=== PATIENT | male | born 1950 | race Caucasian/White ===

== ENCOUNTER 2017-10-27 09:20 | Day surgery (SDC) | payer MEDICARE ==
[2017-10-24 13:17] VITALS: BMI 33.2
[~2017-10-27 09:20] MED LIST: DEXAMETHASONE SOD PHOSPHATE 10 MG/ML 1 ML VIAL IV ONE; DEXAMETHASONE SOD PHOSPHATE 4 MG/ML 1 ML VIAL IV ONE; FAMOTIDINE 20 MG/2 ML VIAL IV ONE; HYDROmorphone 0.5 MG/0.5 ML SYRINGE IVP PRN; LACTATED RINGERS 1,000 ML IV SCH; ONDANSETRON 4 MG/2 ML VIAL IVP ONE; ceFAZolin IN SWFI 2 GM/20 ML SYRINGE IVP ONE
[2017-10-27 10:43] LABS: Anion Gap 12 mmol/L; Blood Urea Nitrogen 15 mg/dL (9-20); Carbon Dioxide 21 mmol/L (22-30); Chloride 102 mmol/L (98-107); Glucose 87 mg/dL (74-99); Potassium 4.5 mmol/L (3.5-5.1); Sodium 135 mmol/L (137-145)
[2017-10-27 10:48] LABS: Calcium 8.4 mg/dL (8.4-10.2)
[2017-10-27] MEDS ORDERED: MIDAZOLAM 2 MG/2 ML VIAL ONE (11:37)
[2017-10-27] MEDS ORDERED: SUCCINYLCHOLINE CHLORIDE VIAL 200 MG/10 ML VIAL IV ONE (11:37)
[2017-10-27] MEDS ORDERED: ePHEDrine SULFATE/0.9% NACL/PF 50 MG/5 ML SYRINGE IV ONE (11:37)
[2017-10-27] MEDS ORDERED: PROPOFOL 10 MG/ML 20 ML VIAL IV ONE (11:37)
[2017-10-27] MEDS ORDERED: DEXAMETHASONE SOD PHOS (MDV) 100 MG/10 ML VIAL ONE (11:37)
[2017-10-27] MEDS ORDERED: PHENYLEPHRINE-0.9% NACL SYG 1 MG/10 ML SYRINGE ONE (11:37)
[2017-10-27] MEDS ORDERED: fentaNYL (PF) 50 MCG/ML 2 ML AMP ONE (11:37)
[2017-10-27] MEDS ORDERED: LIDOCAINE 1% INJ 10MG/ML (20 ML MDV) ONE (11:37)
[2017-10-27] MEDS ORDERED: LIDOCAINE 1%-EPI 1:100,000 20 ML VIAL SQ ONE (12:17)
[2017-10-27] MEDS ORDERED: LACTATED RINGERS 1,000 ML IV ONE (12:31)
--- NOTE | 2017-10-27 14:15 | P.OP ---
Date of Procedure: 10/27/17 Preoperative Diagnosis: Right parotid mass Postoperative Diagnosis: Same Procedure(s) Performed: Right parotidectomy with a nerve integrity monitor Anesthesia: DUYENA Surgeon: Kamran Poole ( Virgilio) Estimated Blood Loss (ml): 20 Pathology: other (right parotid) Condition: stable Disposition: PACU Indications for Procedure: This patient had a right parotid mass that underwent a fine-needle aspiration which came back as nondiagnostic. The repeat fine-needle aspiration was offered but the patient wished to proceed forward with surgical removal of this tumor. All risks, benefits, and alternative therapies were discussed. Risks of bleeding, infection, scar, nerve damage, facial paralysis, Mary Jane syndrome, need for secondary surgery etc. etc. were discussed. Consent was obtained and all questions were answered. Operative Findings: 2 masses of the right parotid that were removed without incident. Facial nerve function was excellent upon nerve stimulation.. Description of Procedure: This patient was taken to the operative room and placed in the supine position and a slight reverse Trendelenburg. The nerve integrity monitor was attached and we utilized the nerve integrity monitor throughout the entire case for verification of facial nerve positioning. The right parotid was the side of the surgery. The neck was sterilely prepped and draped in usual fashion. With use of a skin marker the incision was marked as a modified Eleazar incision. The subcutaneous tissue along the incision was injected with lidocaine 1% with epinephrine 1 100,000. Approximately 10 minutes were allowed wait for full vasoconstrictive effects to take place. An incision was made with a 15 blade in the usual fashion. Anterior and posterior skin flaps were developed. The anterior skin flap was sutured forward. We then continued our dissection and the parotid gland from the sternocleidomastoid muscle with care to keep the facial vein intact. The greater auricular nerve was identified and we attempted to maintain as many of the nerve fibers as possible during this dissection. We dissected down following the pointer cartilage to the main branch of the facial nerve and dissected all the branches. We utilized a NIM monitor and probe for this dissection and we continued to utilize this during the dissection for confirmation of the nerve integrity. After dissecting the branch of the facial nerve the tumor was identified and dissected free. We remove the tumor completely. Hemostasis was excellent. We irrigated with copious amount of irrigation. No bleeding was identified. We inserted gelfoam. We closed the parotid masseteric fascia with 4-0 Vicryl. We closed the deep subcutaneous tissue with 4-0 Vicryl and 4-0 Monocryl. We closed the skin with a 5-0 Prolene in a running nonlocking fashion. Steri-Strips and a compression dressing was placed. Patient was taken to postanesthesia recovery in excellent condition and the patient tolerated this well. Follow-up will be in the office in 1 week for recheck.
[2017-10-27 14:20] VITALS: TEMP 96.8
[2017-10-27 14:33] VITALS: RESP 18
[2017-10-27 15:35] VITALS: BP 159/85; PULSE 82
== END 2017-10-27 15:49 | disposition home or self-care (01) ==
LOC: OR 09:20
PROVIDERS: ATTEND Otolaryngology
DX: D11.0 Benign neoplasm of parotid gland (principal); E78.00 Pure hypercholesterolemia, unspecified; I10 Essential (primary) hypertension; F17.200 Nicotine dependence, unspecified, uncomplicated; Z79.2 Long term (current) use of antibiotics; Z79.899 Other long term (current) drug therapy
CPT/HCPCS: 80048; 88307; 42420; C1762; J2250; J0330; J1100 ×2; J2405; J2001; J3010; J2370; J2704; J0690

== ENCOUNTER 2021-03-27 05:57 | Day surgery (SDC) | payer MEDICARE ==
[2021-03-25 11:14] VITALS: BMI 35.9
[~2021-03-27 05:57] MED LIST changes: +ALPRAZolam 0.25 MG TAB PO PRN; +ALPRAZolam 0.5 MG TAB PO PRN; -DEXAMETHASONE SOD PHOSPHATE 10 MG/ML 1 ML VIAL IV ONE; -DEXAMETHASONE SOD PHOSPHATE 4 MG/ML 1 ML VIAL IV ONE; -FAMOTIDINE 20 MG/2 ML VIAL IV ONE; -HYDROmorphone 0.5 MG/0.5 ML SYRINGE IVP PRN; -LACTATED RINGERS 1,000 ML IV SCH; +NITROGLYCERIN SL TABS 0.4 MG TAB SUBLINGUAL PRN; -ONDANSETRON 4 MG/2 ML VIAL IVP ONE; +SODIUM CHLORIDE 0.9% 1,000 ML in EMPTY BAG 1 BAG IV SCH; -ceFAZolin IN SWFI 2 GM/20 ML SYRINGE IVP ONE
[2021-03-27] MEDS ORDERED: SODIUM CHLORIDE 0.9% 1,000 ML IV ONE (06:06)
[2021-03-27 06:33] VITALS: TEMP 98.1
[2021-03-27] MEDS ORDERED: ASPIRIN 325 MG TAB PO ONE (07:00)
[2021-03-27] MEDS ORDERED: ATORVASTATIN 80 MG TAB PO ONE (07:00)
[2021-03-27] MEDS ORDERED: MIDAZOLAM 2 MG/2 ML VIAL IV ONE ×2 (07:35→07:46)
[2021-03-27] MEDS ORDERED: LIDOCAINE 1% INJ 10MG/ML (20 ML MDV) SQ ONE (07:38)
[2021-03-27] MEDS ORDERED: VERAPAMIL SYRINGE (5 MG/10 ML) INTRAARTER ONE (07:39)
[2021-03-27] MEDS ORDERED: IOPAMIDOL-370 125ML BTL INJ ONE (07:50)
[2021-03-27] MEDS ORDERED: RX INFO: IV CONTRAST WAS GIVEN 1 EACH MISC MISCELLANE PRN (07:57)
[2021-03-27] MEDS ORDERED: SODIUM CHLORIDE 0.9% 1,000 ML IV SCH (08:00)
--- NOTE | 2021-03-27 08:58 | XR ---
EXAMINATION TYPE: XR chest 1V portable DATE OF EXAM: 03/27/2021 COMPARISON: NONE HISTORY: Preop TECHNIQUE: Single frontal view of the chest is obtained. FINDINGS: Heart is enlarged and there is diffuse hyperinflation. No pleural effusion or pneumothorax . Subsegmental basilar consolidation. IMPRESSION: Cardiomegaly. Question a hiatal hernia. Correlate for COPD
[2021-03-27 09:14] LABS: Anisocytosis Slight; Basophils # (A) 0.1 k/uL (0-0.2); Basophils % (A) 1 %; Eosinophils # (A) 0.1 k/uL (0-0.7); Eosinophils % (A) 2 %; HCT 30.4 % (39.0-53.0); HGB 9.1 gm/dL (13.0-17.5); Hypochromasia Marked; Lymphocytes # (A) 0.8 k/uL (1.0-4.8); Lymphocytes % (A) 13 %; MCH 23.2 pg (25.0-35.0); MCHC 29.9 g/dL (31.0-37.0); MCV 77.5 fL (80.0-100.0); Mean Platelet Volume 7.8; Microcytosis Slight; Monocytes # (A) 0.5 k/uL (0-1.0); Monocytes % (A) 8 %; Neutrophils # (A) 4.5 k/uL (1.3-7.7); Neutrophils % (A) 72 %; Platelet Count 344 k/uL (150-450); Poikilocytosis Slight; RBC 3.92 m/uL (4.30-5.90); RDW 16.4 % (11.5-15.5); WBC 6.2 k/uL (3.8-10.6)
[2021-03-27 09:20] LABS: ALT 15 U/L (4-49); AST 21 U/L (17-59); African American GFR (CKD) >90 (>60 ml/min/1.73 sqM); Albumin 3.6 g/dL (3.5-5.0); Alkaline Phosphatase 85 U/L (38-126); Anion Gap 6 mmol/L; Blood Urea Nitrogen 16 mg/dL (9-20); Calcium 9.1 mg/dL (8.4-10.2); Carbon Dioxide 25 mmol/L (22-30); Chloride 103 mmol/L (98-107); Glucose 105 mg/dL (74-99); Non-African American GFR(CKD) >90 (>60 ml/min/1.73 sqM); Potassium 4.5 mmol/L (3.5-5.1); Sodium 134 mmol/L (137-145); Total Bilirubin 0.3 mg/dL (0.2-1.3); Total Protein 7.9 g/dL (6.3-8.2)
[2021-03-27 09:25] LABS: INR 1.1 (<1.2); Partial Thromboplastin Time 46.5 sec (22.0-30.0); Prothrombin Time 11.6 sec (9.0-12.0)
--- NOTE | 2021-03-27 11:00 | ECHOF ---
Referral Reason:preop cabg MEASUREMENTS -------- HEIGHT: 180.3 cm WEIGHT: 121.6 kg BP: RVIDd: 2.8 cm (< 3.3) IVSd: 1.4 cm (0.6 - 1.1) LVIDd: 5.3 cm (3.9 - 5.3) LVPWd: 1.7 cm (0.6 - 1.1) IVSs: 2.1 cm LVIDs: 3.1 cm LVPWs: 2.1 cm LAESV Index (A-L): 26.57 ml/m Ao Diam: 3.9 cm (2.0 - 3.7) AV Cusp: 1.8 cm (1.5 - 2.6) LA Diam: 3.9 cm (2.7 - 3.8) MV EXCURSION: 9.544 mm (> 18.000) MV EF SLOPE: 30 mm/s (70 - 150) EPSS: 1.6 cm MV E Dhruv: 0.87 m/s MV DecT: 273 ms MV A Dhruv: 0.91 m/s MV E/A Ratio: 0.96 AV maxP.42 mmHg AV meanP.16 mmHg RAP: 15.00 mmHg RVSP: 20.86 mmHg FINDINGS -------- This was a technically adequate study. The left ventricular size is normal. There is moderate concentric left ventricular hypertrophy. O verall left ventricular systolic function is moderate-severely impaired with, an EF between 30 - 35 % . Normal LAP. Grade 1 Diastolic Dysfunction. Mid anterior LV wall motion is hypokinetic. Apica l anterior LV wall motion is hypokinetic. Apical lateral LV wall motion is hypokinetic. Apical inferior LV wall motion is hypokinetic. Apical septum LV wall motion is hypokinetic. The right ventricle is normal in size. Normal LA size by volume 22+/-6 ml/m2. The right atrial size is normal. There is moderate aortic valve sclerosis. There is no evidence of aortic regurgitation. Moderate aortic stenosis with peak/mean pressure gradient of 31.42mmHg / 20.16mmHg, the aortic valve area by c ontinuity equation is 0.5cm. Peak/mean gradient across the Aortic Valve is 31.42mmHg / 20.16mmHg. Mild mitral annular calcification present. Mild mitral regurgitation is present. The tricuspid valve appears structurally normal. Mild tricuspid regurgitation present. Right vent ricular systolic pressure is normal at < 35 mmHg. The pulmonic valve was not well visualized. There is no pulmonic regurgitation present. The aortic root size is normal. The inferior vena cava is mildly dilated. There is no pericardial effusion. CONCLUSIONS -------- 1. There is moderate concentric left ventricular hypertrophy. 2. Overall left ventricular systolic function is moderate-severely impaired with, an EF between 30 - 35 %. 3. Normal LAP. Grade 1 Diastolic Dysfunction. 4. Mid anterior LV wall motion is hypokinetic. 5. Apical anterior LV wall motion is hypokinetic. 6. Apical lateral LV wall motion is hypokinetic. 7. Apical inferior LV wall motion is hypokinetic. 8. Apical septum LV wall motion is hypokinetic. 9. Normal LA size by volume 22+/-6 ml/m2. 10. There is no evidence of aortic regurgitation. 11. Moderate aortic stenosis with peak/mean pressure gradient of 31.42mmHg / 20.16mmHg, the aortic va lve area by continuity equation is 0.5cm. 12. Peak/mean gradient across the Aortic Valve is 31.42mmHg / 20.16mmHg. 13. Mild mitral regurgitation is present. 14. Mild tricuspid regurgitation present. 15. The inferior vena cava is mildly dilated. 16. There is no pericardial effusion. TYPECASTING MACHINE OPERATOR: Margie Rg RDCS
--- NOTE | 2021-03-27 11:40 | P.GSCN ---
History of Present Illness Consult date: 03/27/21 Reason for Consult: Triple-vessel coronary artery disease Requesting physician: Piyush Mae History of present illness: This is a 70-year-old male who follows on an outpatient basis with Dr. Prasad Mayfield. He has a previous medical history of hypertension, hyperlipidemia, macular degeneration, current long-term tobacco dependence with probable COPD, social EtOH use, and family history of coronary artery disease. He was to undergo routine colonoscopy and was found to have an abnormal EKG with T-wave inversions in his lateral leads and was referred to [facility] for evaluation. Reported symptoms include progressive shortness of breath over the last several months which he attributed to his smoking, he denies any chest pain or lower extremity edema. He does also endorse pain in his legs with walking which resolves with rest. He underwent stress testing at [facility] which demonstrated a large partially reversible anterior wall defect with EF 10-15%. He was recommended to undergo heart catheterization which was completed today and which demonstrated a calcified right and left coronary systems with diffuse triple-vessel coronary artery disease. Consultation was pl aced to cardiothoracic surgery for surgical revascularization recommendations. Review of Systems Review of systems was completed and was negative except as noted Past Medical History Past Medical History: Coronary Artery Disease (CAD), COPD, Hyperlipidemia, Hypertension Additional Past Medical History / Comment(s): MACULAR DEGENERATION, History of Any Multi-Drug Resistant Organisms: None Reported Additional Past Surgical History / Comment(s): kris carpal tunnel, COLONOSCOPY, right parotidectomy w/ nerve integrity monitor 10/27/2017 Past Anesthesia/Blood Transfusion Reactions: No Reported Reaction Past Psychological History: No Psychological Hx Reported Smoking Status: Current every day smoker Past Alcohol Use History: Occasional Past Drug Use History: None Reported Additional History: Reports 1 pack per day cigarettes 50 years, used to drink 1-2 EtOH drinks daily, has had none recently, no history of withdrawal - Past Family History Mother Family Medical History: No Reported History Additional Family Medical History / Comment(s): of old age Father Family Medical History: Cancer Additional Family Medical History / Comment(s): of brain tumor Medications and Allergies Home Medications Medication Instructions Recorded Confirmed Type Lisinopril-Hctz 20-12.5 mg 1 tab PO DAILY 10/24/17 03/27/21 History [Zestoretic 20-12.5] Aspirin EC [Ecotrin] 325 mg PO DAILY 03/25/21 03/27/21 History Carvedilol [Coreg] 3.125 mg PO BID 03/25/21 03/27/21 History Rosuvastatin [Crestor] 20 mg PO DAILY 03/25/21 03/27/21 History Vitamin E Acetate [Vitamin E] 180 mg PO DAILY 03/25/21 03/27/21 History Allergies Allergy/AdvReac Type Severity Reaction Status Date / Time No Known Allergies Allergy Verified 03/25/21 10:55 Surgical - Exam Vital Signs Temp Pulse Resp BP Pulse Ox 98.1 F 63 16 132/68 96 03/27/21 06:31 03/27/21 06:31 03/27/21 06:31 03/27/21 06:31 03/27/21 06:31 CONSTITUTIONAL: Awake and alert, appears comfortable, cooperative, well- developed, well-nourished, no pain, no acute distress EYES: Pupils equal, round, reactive to light, normal ocular movement ENT: Moist mucous membranes without oral lesions present NECK: No masses, no bruits, trachea midline RESPIRATORY: Lungs sounds diminished bilaterally with faint expiratory wheezes present. Respirations even, nonlabored. Currently on room air with oxygen saturation 92%. Strong cough. No chest wall deformities. No clubbing or cyanosis present CARDIOVASCULAR: S1, S2 present. Regular rate and rhythm, sinus rhythm on telemetry. Palpable peripheral pulses bilaterally. No edema present. No calf pain or tenderness noted. No significant lower extremity varicosities noted. Left radial Jluián's test less than 8 seconds. GASTROINTESTINAL: Abdomen soft, nontender, nondistended without masses or organomegaly noted. There is no rebound or guarding present. Active bowel sounds present 4 quadrants. GENITOURINARY: Deferred INTEGUMENTARY: Skin is warm and dry with evidence of good perfusion. NEUROLOGIC: Cranial nerves II through XII intact, normal coordination, no obvious motor or sensory deficits, speech is normal MUSKULOSKELETAL: Able to move all extremities, strength equal bilaterally, normal posture PSYCHIATRIC: Alert and oriented to person place and time, appropriate affect, intact judgment and insight Results - Labs 03/27/21 08:36 03/27/21 08:36 Abnormal Lab Results - Last 24 Hours (Table) 03/27/21 03/27/21 03/27/21 Range/Units 08:36 08:36 08:36 RBC 3.92 L (4.30-5.90) m/uL Hgb 9.1 L (13.0-17.5) gm/dL Hct 30.4 L (39.0-53.0) % MCV 77.5 L (80.0-100.0) fL MCH 23.2 L (25.0-35.0) pg MCHC 29.9 L (31.0-37.0) g/dL RDW 16.4 H (11.5-15.5) % Lymphocytes # 0.8 L (1.0-4.8) k/uL APTT 46.5 H (22.0-30.0) sec Sodium 134 L (137-145) mmol/L Glucose 105 H (74-99) mg/dL Diabetes panel 03/27/21 Range/Units 08:36 Sodium 134 L (137-145) mmol/L Potassium 4.5 (3.5-5.1) mmol/L Chloride 103 (98-107) mmol/L Carbon Dioxide 25 (22-30) mmol/L BUN 16 (9-20) mg/dL Creatinine 0.75 (0.66-1.25) mg/dL Glucose 105 H (74-99) mg/dL Calcium 9.1 (8.4-10.2) mg/dL AST 21 (17-59) U/L ALT 15 (4-49) U/L Alkaline Phosphatase 85 (38-126) U/L Total Protein 7.9 (6.3-8.2) g/dL Albumin 3.6 (3.5-5.0) g/dL Thyroid panel 03/27/21 Range/Units 08:36 TSH 1.750 (0.465-4.680) mIU/L Calcium panel 03/27/21 Range/Units 08:36 Calcium 9.1 (8.4-10.2) mg/dL Albumin 3.6 (3.5-5.0) g/dL Pituitary panel 03/27/21 Range/Units 08:36 Sodium 134 L (137-145) mmol/L Potassium 4.5 (3.5-5.1) mmol/L Chloride 103 (98-107) mmol/L Carbon Dioxide 25 (22-30) mmol/L BUN 16 (9-20) mg/dL Creatinine 0.75 (0.66-1.25) mg/dL Glucose 105 H (74-99) mg/dL Calcium 9.1 (8.4-10.2) mg/dL TSH 1.750 (0.465-4.680) mIU/L Adrenal panel 03/27/21 Range/Units 08:36 Sodium 134 L (137-145) mmol/L Potassium 4.5 (3.5-5.1) mmol/L Chloride 103 (98-107) mmol/L Carbon Dioxide 25 (22-30) mmol/L BUN 16 (9-20) mg/dL Creatinine 0.75 (0.66-1.25) mg/dL Glucose 105 H (74-99) mg/dL Calcium 9.1 (8.4-10.2) mg/dL Total Bilirubin 0.3 (0.2-1.3) mg/dL AST 21 (17-59) U/L ALT 15 (4-49) U/L Alkaline Phosphatase 85 (38-126) U/L Total Protein 7.9 (6.3-8.2) g/dL Albumin 3.6 (3.5-5.0) g/dL - Imaging Chest x-ray: report reviewed, image reviewed Additional studies: Heart catheterization films reviewed Assessment and Plan Assessment: 1. Calcified right and left coronary system with diffuse triple-vessel coronary artery disease 2. Hypertension 3. Hyperlipidemia, treated 4. Macular degeneration 5. Current long-term tobacco dependence with probable COPD 6. Social EtOH use 7. Family history of coronary artery disease Plan: The patient was seen and examined at the bedside in the extended stay unit. Chart/diagnostics were reviewed. The case was discussed this morning with Dr. Desai. The usual perioperative course of coronary artery bypass surgery was discussed in detail with the patient and his family, risks and benefits were reviewed, all questions were answered. Preoperative testing was initiated. Once all testing has been completed we will calculate STS risk score and discuss with the patient. Of note transthoracic echocardiogram was completed demonstrating moderate to severely impaired left ventricular systolic function with EF 30-35%, LV wall motion hypokinesis, moderate aortic stenosis with peak/mean gradient 31.42/20.16 mmHg and aortic valve area 0.5 cm, mild mitral regurgitation, and mild tricuspid regurgitation. Recommend continuing aspirin, statin, beta tammi therapy. Strongly encouraged patient to quit smoking. The patient and family were concerned about timing of surgery as they usually leave in the middle of April to winter in [place]. The patient is currently in no acute distress, denies any chest pain, came in for elective heart catheterization. From our standpoint he may be discharged to home once all testing has been completed if okay with cardiology to follow up on an outpatient basis for surgical planning. Thank you Dr. Mae for this consult. We look forward to working with you in the care of your patient Time with Patient: Greater than 30
--- NOTE | 2021-03-27 12:00 | CC ---
CARDIAC CATHETERIZATION REPORT DATE OF SERVICE: 03/27/2021 PERFORMING PHYSICIAN: Piyush Mae M.D. PROCEDURES PERFORMED: 1. Selective right and left coronary angiogram. 2. Left heart catheterization. INDICATION: This is a 70-year-old gentleman with lifetime smoking history along with obesity and hypertension and dyslipidemia who underwent recently a colonoscopy and noticed that he had abnormal EKG showing T-wave inversion across the chest leads. He underwent a myocardial perfusion imaging stress test that revealed a large partially reversible defect involving the anterior wall of the LV with an ejection fraction by gated SPECT images that was about 10% to 15%. In light of that, a heart catheterization was advised. APPROACH: Right radial artery. COMPLICATIONS: None. LEVEL OF SEDATION: Moderate, with sedation length of 16 minutes. PROCEDURE DESCRIPTION: After obtaining informed consent, the patient was brought to the cardiac pathology laboratory aides teacher. The right radial artery was cannulated using micropuncture technique. The micropuncture wire passed easily. Then I placed a 6-Hungarian sheath at the right radial artery. I gave the patient 2 mg of verapamil IA and 6000 units of heparin IV. Selective right and left coronary angiogram was performed using JR4 and JL3.5 catheters. Left heart catheterization was performed using a 5-Hungarian pigtail catheter. The procedure was completed without any complication. SELECTIVE CORONARY ANGIOGRAM: 1. The right coronary artery is a large-caliber vessel and is a dominant vessel. The RCA is extremely calcified. The RCA in the proximal, mid and distal is diffusely diseased up to about 90% to 95%. Distally it bifurcates into PDA and PLV branches. Both appeared to have mild to moderate diffuse disease. 2. The left main is a large-caliber vessel with mild disease only. It bifurcates into left circumflex and ramus intermedius and left anterior descending artery. 3. The left circumflex is a large-caliber vessel. It is a nondominant vessel. The left circumflex has moderate disease in the mid portion. It gives rise to a large OM branch which appeared to be angiographically normal (OM1) and OM2 which also appeared to be angiographically normal. 4. The ramus intermedius is a large-caliber vessel with intermediate disease from the origin the left main. 5. The LAD. The proximal LAD appeared to have mild to moderate disease. The mid LAD appeared to be occluded on a long segment. The LAD fills by ipsilateral collateral. The LAD distally becomes a moderate-caliber vessel and seems to have more intermediate disease by the distal reconstitution. 6. HEMODYNAMICS: The LVEDP was about 20 to 22 mmHg with about a 20 mm mean gradient across the aortic valve. CONCLUSION: 1. Extremely calcified right and left coronary systems. 2. Critical disease involving the right coronary artery with diffuse disease involving the proximal and mid and distal portions. 3. Chronic total occlusion of the mid LAD also in a long segment. 4. Elevated left left-sided filling pressure. 5. A 20 mm mean gradient across aortic valve. Please note that the patient does have cardiomyopathy with EF of 20%. POST-PROCEDURE MANAGEMENT: 1. In the light of the above anatomy, I advised the patient to be seen by cardiothoracic surgeon for evaluation for coronary artery bypass grafting. 2. Follow up with the patient. SAURAV / SHARRON: [id number] /
[2021-03-27 12:23] LABS: Appearance,Urine Clear (Clear); Bilirubin,Urine Negative (Negative); Blood,Urine Negative (Negative); Color,Urine Yellow; Glucose,Urine (UA) Negative (Negative); Ketones,Urine Negative (Negative); Leukocyte Esterase,Urine Negative (Negative); Nitrite,Urine Negative (Negative); PH, Urine 6.5 (5.0-8.0); Protein,Urine Negative (Negative); Urobilinogen,Urine <2.0 mg/dL (<2.0)
[2021-03-27 12:37] VITALS: BP 123/69; PULSE 61; RESP 16
--- NOTE | 2021-03-27 12:52 | US ---
EXAMINATION TYPE: US carotid duplex BILAT DATE OF EXAM: 03/27/2021 COMPARISON: NONE CLINICAL HISTORY: preop cabg. pre open heart, no h/o stroke EXAM MEASUREMENTS: RIGHT: Peak Systolic Velocity (PSV) cm/sec ----- Right CCA: 68.4 ----- Right ICA: 85.7 ----- Right ECA: 190 ICA/CCA ratio: 1.3 RIGHT: End Diastole cm/sec ----- Right CCA: 16.0 ----- Right ICA: 19.2 ----- Right ECA: 16.9 LEFT: Peak Systolic Velocity (PSV) cm/sec ----- Left CCA: 95.6 ----- Left ICA: 113 ----- Left ECA: 50 ICA/CCA ratio: 1.2 LEFT: End Diastole cm/sec ----- Left CCA: 21.7 ----- Left ICA: 30.8 ----- Left ECA: 0.0 VERTEBRALS (direction of flow): Right Vertebral: unable to visualize Left Vertebral: Antegrade Rhythm: Normal Heterogeneous plaque e at bilat bulbs with no significant stenosis seen IMPRESSION: No sonographic evidence for hemodynamically significant stenosis in the bilateral caroti d arteries. Criteria for Assigning % of Stenosis / Diameter reduction (Estimation based on the indirect measurements of the internal carotid artery velocities (ICA PSV). 1. Normal (no stenosis)=ICA PSV < 125 cm/s: ratio < 2.0: ICA EDV<40 cm/s. 2. Less than 50% stenosis=ICA PSV < 125 cm/s: ratio < 2.0: ICA EDV<40 cm/s. 3. 50 to 69% stenosis=ICA PSV of 125 to 230 cm/s: ration 2.0 ? 4.0: ICA EDV 40-100 cm/s. 4. Greater than 70% stenosis to near occlusion= ICA PSV > 230 cm/s: ratio > 4.0: ICA EDV > 100 cm/s. 5. Near occlusion= ICA PSV velocities may be low or undetectable: variable ratio and ICA EDV. 6. Total occlusion=unable to detect flow.
[2021-03-27 16:19] LABS: Hepatitis A Antibody IgM Nonreactive (Nonreactive); Hepatitis B Core IgM Nonreactive (Nonreactive); Hepatitis B Surface Antigen Nonreactive (Nonreactive); Hepatitis C IgG Antibody Nonreactive (Nonreactive)
[2021-03-27 16:59] LABS: Chol/HDL Ratio 2.76 Ratio; LDL Cholesterol,Calculated 37.2 mg/dL (0.0-131.0); VLDL Calculation 6.76 mg/dL (5.00-40.00)
[2021-03-28] MEDS ORDERED: HEPARIN SODIUM,PORCINE 10,000 UNIT in SODIUM CHLORIDE 0.9% 1,000 ML IRRIGATION PRN (07:00)
[2021-03-28] MEDS ORDERED: HEPARIN SODIUM,PORCINE 2,500 UNIT in SODIUM CHLORIDE 0.9% 250 ML IRRIGATION PRN (07:00)
--- NOTE | 2021-04-01 14:35 | P.ARTDOP ---
Arterial Doppler LOWER EXTREMITY ARTERIAL DOPPLER: DATE OF SERVICE: 03/27/2021 Reason for study: Preop CABG. Doppler waveforms: Multiphasic bilaterally throughout. Pulse volume recording: []. Pressure gradients: Above the ankle bilaterally. Ankle-brachial indices: 0.65 on the right and 0.85 on the left. Toe brachial indices: 0.37 on the right, 0.56 on the left Impression: Mild left fem-pop disease and moderate right fem-pop disease. Clinical correlation recommended..
--- NOTE | 2021-04-01 14:38 | P.VSCSTY ---
Greater Saphenous Vein Mapping This is bilateral lower extremity greater saphenous vein mapping. Date of service: 03/27/2021 Vein quality and ultrasound appearance: We see no intraluminal thrombus or obvious wall changes. Vein size groin right : 9.2 x 7.3 groin left: 11.2 x 9.1 High thigh right: 4.8 x 5.3 high thigh left: 5.4 x 5.9 Mid thigh right: 3.5 x 3.1 mid thigh left: 4.4 x 4.7 Above-knee right: 3.5 x 3.6 above-knee left: 5.7 x 6.2 Below knee right: 2.7 x 2.7 below-knee left: 3.6 x 5.2 Mid calf right: 3.4 x 3.7 mid calf left: 2.6 x 3.4 Ankle right: 3.5 x 4.0 ankle left: 3.6 x 3.8 Impression: What appears to be usable bilateral greater saphenous vein.
== END 2021-03-27 13:20 | disposition home or self-care (01) ==
LOC: CATHCVL 05:57
PROVIDERS: ATTEND Internal Medicine Interventional Cardiology
DX: I25.110 Atherosclerotic heart disease of native coronary artery with unstable angina pectoris (principal); I25.84 Coronary atherosclerosis due to calcified coronary lesion; I10 Essential (primary) hypertension; M79.605 Pain in left leg; M79.604 Pain in right leg; E78.00 Pure hypercholesterolemia, unspecified; H35.30 Unspecified macular degeneration; Z20.822 Contact with and (suspected) exposure to COVID-19; R94.31 Abnormal electrocardiogram [ECG] [EKG]; R94.39 Abnormal result of other cardiovascular function study; E78.5 Hyperlipidemia, unspecified; Z82.49 Family history of ischemic heart disease and other diseases of the circulatory system; F17.210 Nicotine dependence, cigarettes, uncomplicated; Z98.890 Other specified postprocedural states; Z80.8 Family history of malignant neoplasm of other organs or systems; Z79.82 Long term (current) use of aspirin; Z79.899 Other long term (current) drug therapy
CPT/HCPCS: 83721; 94150; 93306; 93458; 80061; 80053; 80074; 84443; 83735; 85025; 85610; 85730; 81003; 87070; 83036; 87635; 71045; 93970; 93922; 93880; C1894; J2250; J2001; J1644; Q9967

== ENCOUNTER → 2021-06-12 | Outpatient (CLI) | payer MEDICARE | END | disposition home or self-care (01) | LOC: LABWHC1 12:04 | PROVIDERS: ATTEND Surgery | DX: Z20.822 Contact with and (suspected) exposure to COVID-19 (principal) | CPT/HCPCS: U0003; C9803 ==

== ENCOUNTER → 2021-07-03 | Outpatient (CLI) | payer MEDICARE ==
[2021-07-03 15:53] LABS: INR 1.1 (<1.2); Partial Thromboplastin Time 26.9 sec (22.0-30.0); Prothrombin Time 11.4 sec (9.0-12.0)
[2021-07-03 19:25] LABS: HCT 42.3 % (39.6-50.0); HGB 12.8 g/dL (13.0-17.0); MCH 25.1 pg (27.0-32.0); MCHC 30.3 g/dL (32.0-37.0); MCV 83.1 fL (80.0-97.0); Mean Platelet Volume 9.4 fL (9.5-12.2); NRBC Per 100 WBC 0 /100 WBCS (0.0-0.0); Platelet Count 245 X 10*3/uL (140-440); RBC 5.09 X 10*6/uL (4.40-5.60); RDW 20.4 % (11.5-14.5); WBC 6.69 X 10*3/uL (4.50-10.00)
[2021-07-03 19:58] LABS: African American GFR (CKD) 99.2 (60.0-200.0); Albumin 3.7 g/dL (3.8-4.9); Albumin/Globulin Ratio 0.79 (1.60-3.17); Anion Gap 14.4 mmol/L (10.00-18.00); BUN/Creat Ratio 16.22 Ratio (12.00-20.00); Blood Urea Nitrogen 14.6 mg/dL (9.0-27.0); Calcium 9.6 mg/dL (8.7-10.3); Carbon Dioxide 21.6 mmol/L (20.0-27.5); Globulin 4.7 g/dL (1.6-3.3); Magnesium 2.1 mg/dL (1.5-2.4); Non-African American GFR(CKD) 85.6 (60.0-200.0); Potassium 4.6 mmol/L (3.5-5.5); Total Bilirubin 0.5 mg/dL (0.30-1.20); Total Protein 8.4 g/dL (6.2-8.2)
== END | disposition home or self-care (01) ==
LOC: LABWHC1 13:23
PROVIDERS: ATTEND Surgery
DX: I25.10 Atherosclerotic heart disease of native coronary artery without angina pectoris (principal); I35.1 Nonrheumatic aortic (valve) insufficiency
CPT/HCPCS: 36415; 80053; 83735; 85027; 85610; 85730; 87070; 93005

== ENCOUNTER 2021-07-13 05:37 | Inpatient (IN) | payer MEDICARE ==
--- NOTE | 2021-07-03 14:18 | P.PN ---
Progress Note - Text Progress Note Date: 07/03/21 5 meter walk test completed without difficulty: #1 4.38 sec #2 3.73 sec #3 3.68 sec
[~2021-07-13 05:37] MED LIST changes: +ALBUMIN HUMAN 25% 50 ML IV ONE; -ALPRAZolam 0.25 MG TAB PO PRN; -ALPRAZolam 0.5 MG TAB PO PRN; +ASPIRIN 325 MG TAB PO ONE; +ATORVASTATIN 10 MG TAB PO ONE; +CALCIUM CHLORIDE 100 MG/ML 10 ML SYRINGE IV ONE; +CHLORHEXIDINE GLUCONATE 15 ML CUP MUCOUS MEM ONE; +CLEVIDIPINE BUTYRATE 25 MG in EMPTY BAG 1 BAG IV ONE; +ELECTROLYTE-A SOLUTION 1,000 ML with POTASSIUM CHLORIDE 100 MEQ, MAGNESIUM SULFATE 16 M... IV ONE; +ELECTROLYTE-A SOLUTION 1,000 ML with POTASSIUM CHLORIDE 40 MEQ, MAGNESIUM SULFATE 16 ME... IV ONE; +HEPARIN SODIUM 1,000 UN/ML (10ML VL) IV ONE; +HEPARIN SODIUM,PORCINE 5,000 UNIT in SODIUM CHLORIDE 0.9% 500 ML 500 ML IV ONE; +INSULIN REGULAR 100 UNIT in SODIUM CHLORIDE 0.9% 100 ML IV ONE; +LACTATED RINGERS 1,000 ML IV ONE; +MAGNESIUM SULFATE 16.24 MEQ in EMPTY SYRINGE 1 SYR IV ONE; +MANNITOL 25% 12.5 GM/50 ML VIAL IV ONE; +METOPROLOL TARTRATE 12.5 MG TAB PO ONE; +NITROGLYCERIN SL TABS 0.4 MG TAB SUBLINGUAL ONE; -NITROGLYCERIN SL TABS 0.4 MG TAB SUBLINGUAL PRN; +NITROGLYCERIN-D5W PMX 25 MG/250 ML BTL IV ONE; +NITROGLYCERIN-D5W PMX 50 MG in DEXTROSE/WATER 1 250ML.BAG IV ONE; +NOREPINEPHRINE 4 MG in SODIUM CHLORIDE 0.9% 250 ML IV ONE; +PAPAVERINE 360 MG in SODIUM CHLORIDE 0.9% 90 ML IV ONE; +PHENYLEPHRINE 10 MG/ML VIAL IV ONE; +PHENYLEPHRINE 40 MG in SODIUM CHLORIDE 0.9% 250 ML IV ONE; +PROTAMINE SULFATE 10 MG/ML 25 ML VIAL IV ONE; +PROTAMINE SULFATE 250 MG in EMPTY BAG 1 BAG IV ONE; +SODIUM BICARB 8.4% 50 ML SYR (1 MEQ/ML) IV ONE; +SODIUM CHLORIDE 0.9% 1,000 ML IV ONE; -SODIUM CHLORIDE 0.9% 1,000 ML in EMPTY BAG 1 BAG IV SCH; +TRANEXAMIC ACID 2,000 MG in SODIUM CHLORIDE 0.9% 80 ML IV ONE; +ceFAZolin 1,000 MG in SODIUM CHLORIDE 0.9% IRRIGATIO 1,000 ML IRRIGATION ONE; +ceFAZolin 3 GM in SODIUM CHLORIDE 0.9% 100 ML IVPB ONE; +propofoL 1,000 MG/100 ML VIAL IV ONE
[2021-07-13 06:13] LABS: Glucose,Whole Blood 113 mg/dL (75-99)
[2021-07-13] MEDS ORDERED: SODIUM CHLORIDE 0.9% 250 ML BAG ONE (07:36)
[2021-07-13] MEDS ORDERED: NITROGLYCERIN-D5W PMX 50 MG/250 ML BOTTLE IV ONE (07:36)
[2021-07-13] MEDS ORDERED: fentaNYL (PF) 50 MCG/ML 50 ML VIAL ONE (07:36)
[2021-07-13] MEDS ORDERED: SODIUM CHLORIDE 0.9% IRRIG 1,000 ML BTL IRRIGATION ONE (07:36)
[2021-07-13] MEDS ORDERED: VECURONIUM 10 MG VIAL IV ONE (07:36)
[2021-07-13] MEDS ORDERED: TRANEXAMIC ACID 1,000 MG/10 ML VIAL ONE (07:36)
[2021-07-13] MEDS ORDERED: MAGNESIUM SULFATE 4 MEQ/ML 10ML VIAL ONE (07:36)
[2021-07-13] MEDS ORDERED: ELECTROLYTE-R (PH 7.4) 1,000 ML IV.SOLN IV ONE (07:36)
[2021-07-13] MEDS ORDERED: LIDOCAINE 2% SYG (PF) 100 MG/5 ML ONE (07:36)
[2021-07-13] MEDS ORDERED: MIDAZOLAM 2 MG/2 ML VIAL ONE (07:36)
[2021-07-13] MEDS ORDERED: HEPARIN SODIUM,PORCINE 10,000 UNIT/ML 1 ML VIAL ONE (07:36)
[2021-07-13 08:53] LABS: ABG Base Excess 0.2 mmol/L; ABG Glucose Whole Blood 110 mg/dL (75-99); ABG HCO3 27 mmol/L (21-25); ABG Hematocrit 38 % (34.0-46.0); ABG Ionized Calcium 4.5 mg/dL (4.5-5.3); ABG Lactic Acid Whole Blood 0.7 mmol/L (0.5-1.6); ABG PCO2 49 mmHg (35-45); ABG PH 7.34 (7.35-7.45); ABG PO2 274 mmHg (83-108); ABG Potassium Whole Blood 4.4 mmol/L (3.4-4.5); ABG Sodium Whole Blood 138 mmol/L (135-146); ABG TCO2 28 mmol/L (19-24)
[2021-07-13] MEDS ORDERED: PAPAVERINE 360 MG in SODIUM CHLORIDE 0.9% 90 ML IV ONE (09:17)
[2021-07-13] MEDS ORDERED: SODIUM CHLORIDE 0.9% 500 ML 500 ML with HEPARIN SODIUM,PORCINE 5,000 UNIT IV ONE ×2 (09:17)
[2021-07-13] MEDS ORDERED: ceFAZolin 1,000 MG in SODIUM CHLORIDE 0.9% 1,000 ML IRRIGATION ONE (09:18)
[2021-07-13 10:40] LABS: ABG Base Excess -0.5 mmol/L; ABG Glucose Whole Blood 118 mg/dL (75-99); ABG HCO3 26 mmol/L (21-25); ABG Hematocrit 36 % (34.0-46.0); ABG Ionized Calcium 4.5 mg/dL (4.5-5.3); ABG Lactic Acid Whole Blood 0.7 mmol/L (0.5-1.6); ABG Oxygen Saturation 99.9 % (94-97); ABG PCO2 49 mmHg (35-45); ABG PH 7.33 (7.35-7.45); ABG PO2 227 mmHg (83-108); ABG Potassium Whole Blood 4.4 mmol/L (3.4-4.5); ABG Sodium Whole Blood 138 mmol/L (135-146); ABG TCO2 27 mmol/L (19-24)
[2021-07-13 11:13] LABS: ABG Base Excess -1.3 mmol/L; ABG Glucose Whole Blood 109 mg/dL (75-99); ABG HCO3 24 mmol/L (21-25); ABG Hematocrit 31 % (34.0-46.0); ABG Ionized Calcium 4.1 mg/dL (4.5-5.3); ABG Lactic Acid Whole Blood 0.7 mmol/L (0.5-1.6); ABG PCO2 43 mmHg (35-45); ABG PH 7.36 (7.35-7.45); ABG PO2 360 mmHg (83-108); ABG Potassium Whole Blood 4.3 mmol/L (3.4-4.5); ABG Sodium Whole Blood 135 mmol/L (135-146); ABG TCO2 26 mmol/L (19-24)
[2021-07-13 11:43] LABS: ABG Base Excess -0.1 mmol/L; ABG Glucose Whole Blood 116 mg/dL (75-99); ABG HCO3 25 mmol/L (21-25); ABG Hematocrit 32 % (34.0-46.0); ABG Ionized Calcium 4.2 mg/dL (4.5-5.3); ABG Lactic Acid Whole Blood 0.9 mmol/L (0.5-1.6); ABG PCO2 43 mmHg (35-45); ABG PH 7.38 (7.35-7.45); ABG PO2 389 mmHg (83-108); ABG Potassium Whole Blood 5.3 mmol/L (3.4-4.5); ABG Sodium Whole Blood 137 mmol/L (135-146); ABG TCO2 27 mmol/L (19-24)
[2021-07-13 12:16] LABS: ABG Base Excess 0.2 mmol/L; ABG Glucose Whole Blood 129 mg/dL (75-99); ABG HCO3 25 mmol/L (21-25); ABG Hematocrit 32 % (34.0-46.0); ABG Ionized Calcium 4.2 mg/dL (4.5-5.3); ABG PCO2 41 mmHg (35-45); ABG PO2 322 mmHg (83-108); ABG Potassium Whole Blood 5.6 mmol/L (3.4-4.5); ABG Sodium Whole Blood 136 mmol/L (135-146); ABG TCO2 26 mmol/L (19-24)
[2021-07-13 12:50] LABS: ABG Base Excess -0.2 mmol/L; ABG Glucose Whole Blood 136 mg/dL (75-99); ABG HCO3 25 mmol/L (21-25); ABG Hematocrit 34 % (34.0-46.0); ABG Ionized Calcium 4.2 mg/dL (4.5-5.3); ABG Lactic Acid Whole Blood 1.1 mmol/L (0.5-1.6); ABG PCO2 39 mmHg (35-45); ABG PO2 364 mmHg (83-108); ABG Potassium Whole Blood 5.8 mmol/L (3.4-4.5); ABG Sodium Whole Blood 136 mmol/L (135-146); ABG TCO2 26 mmol/L (19-24)
[2021-07-13 13:21] LABS: ABG Base Excess -0.2 mmol/L; ABG Glucose Whole Blood 135 mg/dL (75-99); ABG HCO3 25 mmol/L (21-25); ABG Hematocrit 31 % (34.0-46.0); ABG Ionized Calcium 4.2 mg/dL (4.5-5.3); ABG Lactic Acid Whole Blood 1.1 mmol/L (0.5-1.6); ABG PCO2 44 mmHg (35-45); ABG PH 7.37 (7.35-7.45); ABG PO2 317 mmHg (83-108); ABG Sodium Whole Blood 136 mmol/L (135-146); ABG TCO2 27 mmol/L (19-24)
[2021-07-13 13:56] LABS: ABG Base Excess -1.2 mmol/L; ABG Glucose Whole Blood 148 mg/dL (75-99); ABG HCO3 24 mmol/L (21-25); ABG Hematocrit 30 % (34.0-46.0); ABG Ionized Calcium 4.2 mg/dL (4.5-5.3); ABG PCO2 43 mmHg (35-45); ABG PH 7.36 (7.35-7.45); ABG PO2 239 mmHg (83-108); ABG Sodium Whole Blood 136 mmol/L (135-146); ABG TCO2 26 mmol/L (19-24)
[2021-07-13] MEDS ORDERED: ALBUMIN HUMAN 5% 250 ML IVPB ONE (14:18)
[2021-07-13 14:41] LABS: ABG Potassium Whole Blood 6.3 mmol/L (3.4-4.5)
[2021-07-13 14:56] LABS: ABG Glucose Whole Blood 125 mg/dL (75-99); ABG HCO3 25 mmol/L (21-25); ABG Ionized Calcium 4.4 mg/dL (4.5-5.3); ABG Lactic Acid Whole Blood 1.3 mmol/L (0.5-1.6); ABG PCO2 54 mmHg (35-45); ABG PH 7.27 (7.35-7.45); ABG PO2 234 mmHg (83-108); ABG Potassium Whole Blood 5.3 mmol/L (3.4-4.5); ABG Sodium Whole Blood 138 mmol/L (135-146); ABG TCO2 27 mmol/L (19-24)
[2021-07-13 15:05] LABS: ABG Base Excess -2.4 mmol/L; ABG Hematocrit 36 % (34.0-46.0); ABG Oxygen Saturation 99.8 % (94-97)
[2021-07-13] MEDS ORDERED: CALCIUM GLUCONATE 2 GM in SODIUM CHLORIDE 0.9% 100 ML IVPB PRN (15:24)
[2021-07-13] MEDS ORDERED: MORPHINE SULFATE 2 MG/ML SYRINGE IVP PRN (15:24)
[2021-07-13] MEDS ORDERED: METOCLOPRAMIDE 5 MG/ML 2 ML VIAL IVP PRN (15:24)
[2021-07-13] MEDS ORDERED: ONDANSETRON 4 MG/2 ML VIAL IVP PRN (15:24)
[2021-07-13] MEDS ORDERED: hydrALAZINE HCL 20 MG/ML 1 ML VIAL IVP PRN (15:24)
[2021-07-13] MEDS ORDERED: DEXMEDETOMIDINE/0.9% NACL(PMX) 400 MCG in EMPTY BAG 1 BAG IV SCH (15:24)
[2021-07-13] MEDS ORDERED: Phosphorus Replacement Protoco 1 EACH MISC MISCELLANE PRN (15:24)
[2021-07-13] MEDS ORDERED: Magnesium Replacement Protocol 1 EACH MISC MISCELLANE PRN (15:24)
[2021-07-13] MEDS ORDERED: IPRATROPIUM-ALBUTEROL 3 ML NEB INHALATION PRN (15:24)
[2021-07-13] MEDS ORDERED: BENZOCAINE/MENTHOL LOZENG 1 EACH LOZENGE MUCOUS MEM PRN (15:24)
[2021-07-13] MEDS ORDERED: Potassium Replacement Protocol 1 EACH MISC MISCELLANE PRN (15:24)
[2021-07-13] MEDS ORDERED: CLEVIDIPINE BUTYRATE 25 MG in EMPTY BAG 1 BAG IV SCH (15:24)
[2021-07-13] MEDS ORDERED: DEXTROSE 5% IN WATER 100 ML with AMIODARONE 150 MG IV PRN (15:24)
--- NOTE | 2021-07-13 16:10 | XR ---
EXAMINATION TYPE: XR chest 1V DATE OF EXAM: 07/13/2021 COMPARISON: Chest x-ray 03/27/2021 Frontal view of the chest submitted on 2 images and correlated to prior exam 03/27/2021 HISTORY: Foreign body. FINDINGS: Patient is post median sternotomy and left atrial appendage clip placement. There is a med kevin sternal drain, left chest tube, endotracheal and NG tube, right jugular central venous catheter a re overlying appropriate positions with the distal tip of the catheter at the at the level the pulmon hannah artery. There is no evident pneumothorax. Patchy basilar density is present on the left. Heart is enlarged. Prominence of mediastinum may be postoperative. Metallic densities superimposed over the i nferior margin of the film, linear focus is indeterminate. IMPRESSION: Postoperative findings. Basilar atelectasis. Indeterminate metallic densities may be rela vikram to patient's surgery, correlate.
[2021-07-13 16:22] LABS: Glucose,Whole Blood 126 mg/dL (75-99)
[2021-07-13] MEDS: IPRATROPIUM-ALBUTEROL 3 ML NEB INHALATION SCH ×2 (16:22→19:33)
[2021-07-13] MEDS ORDERED: NITROGLYCERIN-D5W PMX 50 MG in DEXTROSE/WATER 1 250ML.BAG IV SCH (16:30)
[2021-07-13] MEDS: ALBUMIN HUMAN 5% 250 ML in EMPTY BAG 1 BAG IVPB PRN ×2 (16:34→21:28)
[2021-07-13] MEDS: SODIUM CHLORIDE 0.9% 1,000 ML IV SCH (16:36)
[2021-07-13] MEDS: MILRINONE-D5W PMX 20 MG in DEXTROSE/WATER 1 100ML.BAG IV SCH (16:38)
[2021-07-13 16:39] LABS: Anisocytosis Slight; Basophils % (A) 0 %; Eosinophils % (A) 0 %; HCT 40.2 % (39.0-53.0); HGB 11.8 gm/dL (13.0-17.5); Hypochromasia Marked; Lymphocytes # (A) 0.6 k/uL (1.0-4.8); Lymphocytes % (A) 7 %; MCH 26.7 pg (25.0-35.0); MCHC 29.5 g/dL (31.0-37.0); MCV 90.5 fL (80.0-100.0); Mean Platelet Volume 7.9; Monocytes # (A) 0.5 k/uL (0-1.0); Monocytes % (A) 6 %; Neutrophils # (A) 8.1 k/uL (1.3-7.7); Neutrophils % (A) 87 %; Platelet Count 177 k/uL (150-450); RBC 4.44 m/uL (4.30-5.90); RDW 18.2 % (11.5-15.5); WBC 9.3 k/uL (3.8-10.6)
--- NOTE | 2021-07-13 16:40 | P.CNPUL ---
History of Present Illness Consult date: 07/13/21 Chief complaint: Post thoracotomy History of present illness: 70-year-old male patient underwent three-vessel bypass surgery and aortic valve replacement. The patient is currently being seen today intensive care unit postop. Patient's surgery was performed without any major complication. At this point in time the patient is sedated with propofol and the patient is currently intensive care unit intubated on a mechanical ventilator. The patient is currently on assist-control at the rate of 16 with a tidal volume of 600 and FiO2 of 100% with a PEEP of 10. Current pulse ox 96%. Chest x-ray postop showed adequate expansion of both lungs and there is no evidence of any pneumothorax. Some atelectatic changes and left lung base. ET tube is in a good location. Jackson-Brianna catheter is in good location. OG tube is in a good location. The patient has 2 mediastinal chest tubes and 1 left pleural chest tube. Output from the chest tubes are minimal at this point in time. Cardiac output is at 5.2 with an index of 2.1 and the patient is currently on a known at 0.2 mcg/kg per minute and norepinephrine infusion at 0.08 mcg/kg per minute. Urine output is adequate. Blood pressure is soft and the patient is being given 500 mL of 5% albumin. The patient has a pulmonary artery pressure 34/22. He is afebrile. He has not hypothermic. He is making adequate urine output for now. Note that the patient has COPD. He has diffuse generalized coronary artery disease and his preop Levemir ejection fraction was around 10-15% and the patient had a large partially reversible anterior wall defect. He is known to have hypertension and hyperlipidemia and macular degeneration. Review of Systems ROS unobtainable: due to endotracheal tube Past Medical History Past Medical History: Coronary Artery Disease (CAD), COPD, Hyperlipidemia, Hypertension Additional Past Medical History / Comment(s): MACULAR DEGENERATION, Last Myocardial Infarction Date:: Unknown date History of Any Multi-Drug Resistant Organisms: None Reported Past Surgical History: Orthopedic Surgery Additional Past Surgical History / Comment(s): kris carpal tunnel, COLONOSCOPY, right parotidectomy w/ nerve integrity monitor 10/27/2017 Past Anesthesia/Blood Transfusion Reactions: No Reported Reaction Additional Past Alcohol Use History / Comment(s): STARTED SMOKING AT AGE 16 smokes 1 PPD, NOW SMOKING 1/2 PPD - Past Family History Mother Family Medical History: No Reported History Additional Family Medical History / Comment(s): of old age. Father Family Medical History: Cancer Additional Family Medical History / Comment(s): of brain tumor. Medications and Allergies Home Medications Medication Instructions Recorded Confirmed Type Carvedilol [Coreg] 3.125 mg PO BID 03/25/21 07/13/21 History Rosuvastatin [Crestor] 40 mg PO DAILY 03/25/21 07/13/21 History Aspirin [Adult Low Dose Aspirin EC] 324 mg PO DAILY 07/03/21 07/13/21 History Iron 45 mg PO DAILY 07/03/21 07/13/21 History Spironolactone 12.5 mg PO DAILY 07/03/21 07/13/21 History Vit C/E/Zn/Coppr/Lutein/Zeaxan 1 tab PO BID 07/03/21 07/13/21 History [Preservision Areds 2 Chew Tab] lisinopriL 40 mg PO DAILY 07/03/21 07/13/21 History Allergies Allergy/AdvReac Type Severity Reaction Status Date / Time No Known Allergies Allergy Verified 07/13/21 06:27 Physical Exam Vitals: Vital Signs Temp Pulse Resp BP BP Pulse Ox 07/13/21 06:16 98.4 F 42 L 16 145/74 153/93 94 L Intake and Output 07/13/21 07/13/21 07/13/21 06:59 14:59 22:59 Intake Total 100 103 Output Total 2850 Balance 100 103 -2850 Intake: IV 100 103 Output: Urine 550 Estimated Blood Loss 2300 Other: Weight 122.6 kg Patient is calm and comfortable, intubated on mechanical ventilator. Orogastric and orotracheal tube are both in place. Head exam was generally normal. There was no scleral icterus or corneal arcus. Mucous membranes were moist. Neck was supple and without jugular venous distension, thyromegaly, or carotid bruits. Carotids were easily palpable bilaterally. There was no adenopathy. Right IJ Cordis with a Jackson-Brianna catheter being in place. Lungs sounds are diminished and the patient has equal and symmetrical breath sounds bilaterally. No significant wheezes or rhonchi. Cardiac exam revealed the PMI to be normally situated and sized. The rhythm was regular and no extrasystoles were noted during several minutes of auscultation. The first and second heart sounds were normal and physiologic splitting of the second heart sound was noted. There were no murmurs, rubs, clicks, or gallops. The patient's cardiac rhythmat the rate of 90. The patient has VVI pacing. The thoracotomy scar is dry clean and intact. Abdominal exam revealed normal bowel sounds. The abdomen was soft, non-tender, and without masses, organomegaly, or appreciable enlargement of the abdominal aorta. Examination of the extremities revealed easily palpable radial, femoral and pedal pulses. There was no cyanosis, clubbing or edema. Surgical site over the left lower extremity dry clean and intact and the patient has a ANTONELLA drain in place Neurologically patient is sedated, comfortable. He withdraws to deep painful stimulation. Pupils are equal and reactive to light. Examination of the skin revealed no evidence of significant rashes, suspicious appearing nevi or other concerning lesions. Results - Laboratory Findings ABG ABG pH 7.27 (7.35-7.45) L 07/13/21 14:57 ABG pCO2 54 mmHg (35-45) H 07/13/21 14:57 ABG pO2 234 mmHg (83-108) H 07/13/21 14:57 ABG O2 Saturation 99.8 % (94-97) H 07/13/21 14:57 Abnormal lab findings: Abnormal Labs 07/03/21 07/13/21 07/13/21 13:31 06:08 08:53 ABG pH 7.34 L ABG pCO2 49 H ABG pO2 274 H ABG HCO3 27 H ABG Total CO2 28 H ABG O2 Saturation 100.0 H ABG Hematocrit ABG Potassium ABG Ionized Calcium ABG Glucose 110 H ABG Lactic Acid Hemoglobin 12.4 L POC Glucose (mg/dL) 113 H Arterial Blood Potassium Arterial Blood Glucose 110 H Crossmatch See Detail 07/13/21 07/13/21 07/13/21 10:40 11:13 11:43 ABG pH 7.33 L ABG pCO2 49 H ABG pO2 227 H 360 H 389 H ABG HCO3 26 H ABG Total CO2 27 H 26 H 27 H ABG O2 Saturation 99.9 H 100.0 H 100.0 H ABG Hematocrit 31 L 32 L ABG Potassium 5.3 H ABG Ionized Calcium 4.1 L 4.2 L ABG Glucose 118 H 109 H 116 H ABG Lactic Acid Hemoglobin 11.6 L 10.2 L 10.3 L POC Glucose (mg/dL) Arterial Blood Potassium 5.3 H Arterial Blood Glucose 118 H 109 H 116 H Crossmatch 07/13/21 07/13/21 07/13/21 12:17 12:50 13:22 ABG pH ABG pCO2 ABG pO2 322 H 364 H 317 H ABG HCO3 ABG Total CO2 26 H 26 H 27 H ABG O2 Saturation 100.0 H 100.0 H 100.0 H ABG Hematocrit 32 L 31 L ABG Potassium 5.6 H 5.8 H 6.0 H ABG Ionized Calcium 4.2 L 4.2 L 4.2 L ABG Glucose 129 H 136 H 135 H ABG Lactic Acid Hemoglobin 10.5 L 11.0 L 10.1 L POC Glucose (mg/dL) Arterial Blood Potassium 5.6 H 5.8 H 6.0 H Arterial Blood Glucose 129 H 136 H 135 H Crossmatch 07/13/21 07/13/21 07/13/21 13:56 14:57 16:20 ABG pH 7.27 L ABG pCO2 54 H ABG pO2 239 H 234 H ABG HCO3 ABG Total CO2 26 H 27 H ABG O2 Saturation 100.0 H 99.8 H ABG Hematocrit 30 L ABG Potassium 6.3 H* 5.3 H ABG Ionized Calcium 4.2 L 4.4 L ABG Glucose 148 H 125 H ABG Lactic Acid 2.0 H Hemoglobin 9.7 L 11.7 L POC Glucose (mg/dL) 126 H Arterial Blood Potassium 6.3 H* 5.3 H Arterial Blood Glucose 148 H 125 H Crossmatch - Diagnostic Findings Chest x-ray: image reviewed Assessment and Plan Plan: 1 diffuse multivessel coronary artery disease along with moderate aortic stenosis. The patient is post three-vessel bypass surgery and aortic valve replacement. The patient is postop day #0. Patient is currently on a combination of milrinone and norepinephrine infusion. Cardiac index is low at 2.1 as the patient had a preop ejection fraction of around 10-15%. The patient is requiring also low dose norepinephrine infusion for blood pressure control 2 post thoracotomy, currently intubated on mechanical ventilator. Chest tubes are all in place as the patient has 2 mediastinal and 1 left pleural chest tube. 3 post surgical ventricular pacing at the rate of 90. Underlying rhythm is a systole 4 COPD, no clear signs of bronchospasm wheezing. The postop blood gases showed a component of respiratory acidosis and this is a ventilator changes will be done. Peak air pressure is quite low at 22-24 cm of water. 5 hypertension 6 hyperlipidemia 7 medical degeneration 8 previous history of parathyroidectomy. Plan Continue vent support continue with DuoNeb nebulized treatments increase the respiratory rate of 20. The tidal volume down to 500 and gradually wean down FiO2 to maintain a saturation above 90%. Repeat a blood gas. Chest x-ray was noted and there is no evidence of any pneumothorax Monitor the output from the chest tubes Titrate milrinone to cardiac index. Current cardiac index is at 2.1 Titrate norepinephrine infusion Agree with IV fluids and IV albumin is being given, 500 mL bolus of 5% Keep the cardiac rhythm paced at the rate of 90, VVI Keep the patient sedated for now We'll continue to follow. The patient was seen in the immediate postoperative phase. He is currently in the intensive care unit. Further recommendations are to follow. We'll try to extubated within next 6 hours window. Time with Patient: Greater than 30
[2021-07-13] MEDS: INSULIN REGULAR 100 UNIT in SODIUM CHLORIDE 0.9% 100 ML IV SCH (16:47)
[2021-07-13 16:50] LABS: Ionized Calcium 4.9 mg/dL (4.5-5.3)
[2021-07-13 16:51] LABS: INR 1.1 (<1.2); Partial Thromboplastin Time 30.9 sec (22.0-30.0)
[2021-07-13 16:58] LABS: ALT 17 U/L (4-49); AST 52 U/L (17-59); African American GFR (CKD) >90 (>60 ml/min/1.73 sqM); Albumin 3.1 g/dL (3.5-5.0); Alkaline Phosphatase 59 U/L (38-126); Anion Gap 6 mmol/L; Blood Urea Nitrogen 16 mg/dL (9-20); Carbon Dioxide 22 mmol/L (22-30); Chloride 108 mmol/L (98-107); Glucose 128 mg/dL (74-99); Magnesium 2.6 mg/dL (1.6-2.3); Non-African American GFR(CKD) 89 (>60 ml/min/1.73 sqM); Potassium 5.1 mmol/L (3.5-5.1); Sodium 136 mmol/L (137-145); Total Bilirubin 0.9 mg/dL (0.2-1.3)
[2021-07-13] MEDS ORDERED: AMIODARONE 360 MG in DEXTROSE 5% IN WATER 200 ML IV SCH ×2 (17:00)
[2021-07-13 17:11] LABS: ABG Base Excess -3.2 mmol/L; ABG HCO3 24 mmol/L (21-25); ABG Oxygen Saturation 98.7 % (94-97); ABG PCO2 50 mmHg (35-45); ABG PH 7.28 (7.35-7.45); ABG PO2 146 mmHg (83-108); ABG TCO2 25 mmol/L (19-24); Allen Test Performed? Yes; Glucose,Whole Blood 130 mg/dL (75-99)
[2021-07-13] MEDS: ceFAZolin 3 GM in SODIUM CHLORIDE 0.9% 100 ML IVPB SCH ×2 (17:28→23:38)
[2021-07-13] MEDS: HEPARIN SODIUM,PORCINE/PF 5,000 UNIT/0.5 ML SYRINGE SQ SCH ×2 (17:28→23:38)
[2021-07-13] MEDS: NOREPINEPHRINE 4 MG in SODIUM CHLORIDE 0.9% 250 ML IV SCH ×2 (17:29→21:57)
--- NOTE | 2021-07-13 17:48 | OP ---
OPERATIVE REPORT DATE OF SURGERY: 07/13/2021 SURGEON: Dr. Amy Desai. ASSISTANTS: 1. CAMRON Borges. 2. JAMES Moses. PREOPERATIVE DIAGNOSES: 1. Triple-vessel coronary artery disease; known 100% occluded mid LAD, moderate left ventricular dysfunction, moderate to severe aortic valve stenosis, mild to moderate mitral valve regurgitation. 2. Hypertension. 3. Hyperlipidemia. 4. Tobacco abuse. 5. Chronic obstructive pulmonary disease. POSTOPERATIVE DIAGNOSES: 1. Triple-vessel coronary artery disease; known 100% occluded mid LAD, moderate left ventricular dysfunction, moderate to severe aortic valve stenosis, mild to moderate mitral valve regurgitation. 2. Hypertension. 3. Hyperlipidemia. 4. Tobacco abuse. 5. Chronic obstructive pulmonary disease. 6. Evidence of an old distal anteroapical myocardial infarction. PROCEDURE: 1. Triple-vessel coronary artery bypass grafting using the left internal mammary artery to the distal left anterior descending artery, saphenous vein graft from the aorta to the ramus intermedius artery, saphenous vein graft from the aorta to the posterior descending artery. 2. Aortic valve replacement using a 25 mm pericardial bioprosthesis Inspiris. 3. Exclusion of the left atrial appendage using a 35 mm AtriClip. 4. Endoscopic harvesting of the left greater saphenous vein. 5. Intraoperative graft flow measurements using the [employer] system. 6. Intraoperative transesophageal echocardiogram and epiaortic scanning. INDICATION FOR SURGERY: Patient is a 71-year-old gentleman who has been seen a couple of times as an outpatient. Main complaint is shortness of breath with exertion. Patient in the past was anemic and he is a smoker. He was asked to stop smoking and had pulmonary evaluation. He had moderate COPD. GI workup was essentially negative. The patient despite improvement in his hemoglobin remained symptomatic. His 2D echo was repeated and that showed evidence of at least moderate to severe aortic valve stenosis. A long discussion followed with the lining parts sewer and the family. Decision was made to proceed with a moderate-risk aortic valve replacement as well as coronary artery bypass grafting. His nuclear study has shown that his mid to distal anteroapical wall is essentially infarcted with mild reversibility. However, we will be bypassing it. He has a 50% ramus intermedius stenosis, which we will be bypassing. 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 The STS risk was discussed with him and his family. They understood it and agreed to proceed. DESCRIPTION OF THE PROCEDURE: The patient had a preoperative right internal jugular Montgomery-Brianna catheter and a right radial arterial line placed. His cardiac index was 2.4 and PA pressure was normal. Subsequently he was brought to the operating room, where general endotracheal anesthesia was induced uneventfully. Lares catheter was inserted. The chest, abdomen and both lower extremities were prepped and draped using ChloraPrep. Ioban was used to cover the skin. The patient received 3 grams of cefazolin intravenously. Transesophageal echocardiogram confirmed the preoperative finding of moderate left ventricular dysfunction, moderate to severe aortic valve stenosis, mild aortic valve regurgitation, and mild mitral valve regurgitation. Midline sternotomy was performed and the bone was profusely bleeding. No bone wax was used but only Ostene. The left hemisternum was elevated and the left internal mammary artery, which was large, was harvested in a semi-skeletonized fashion. The left pleura was intentionally opened in this process and was drained with a 19-American Pool drain. Patient was given 5000 units of heparin and the mammary artery was double- clipped distally and transected. It had an excellent pulsatile flow in it and was around 2 mm in diameter. The right pleura remained intact. In the same setting, the left greater saphenous vein was harvested endoscopically from groin to above ankle level after administration of 1500 units of heparin. The leg incision was closed over a drain. Finally, we had two good segments of vein to use basically from the lower leg to the lower thigh, as the upper thigh was a bit aneurysmal. The Ankeney retractor was used. Thick mediastinal and pericardial fat were transected between two ties at the level of the mediastinum, and epiaortic scanning revealed some posterior wall disease but no protruding atheroma. At the level of the potential clamping above the crossing right pulmonary artery, there was no disease. Pericardium was opened in an inverted T-fashion and a pericardial cradle was created. Findings included an enlarged leftward rotated heart and an elongated aorta that was mildly dilated. There was a visible and palpable calcific RCA and proximal LAD. The distal anteroapical wall was thinned out, fibrotic. After systemic heparinization and after placement of respective pledgeted pursestrings, aortic cannulation with a 21-American Soft flow cannula and venous cannulation via the right atrial appendage with a 29/37 American cannula were performed. Antegrade as well as retrograde cardioplegia catheters were placed. Cardiopulmonary bypass was initiated. The patient's temperature was allowed to drift down to 34 degrees Celsius. With the heart empty and beating, we looked at the target. Again, the mid to distal anteroapical wall was thinned out. However, I elected to bypass the distal LAD which had a soft spot and was not calcified at that level. The ramus intermedius artery was identified. The posterior descending artery was also identified. The aorta was clamped, and during aortic clamping myocardial protection was achieved with an initial dose of one liter of antegrade cold blood cardioplegia followed by 500 mL of retrograde cold blood cardioplegia. All subsequent doses were given retrograde at 15-minute intervals. We started by excluding the left atrial appendage by deploying a 35 mm AtriClip at its base. The first distal anastomosis was between a segment of vein at the mid posterior descending artery which was around 2 mm in diameter using Prolene 7-0 in continuous fashion. The second distal anastomosis was between another segment of vein of good quality and a 2 mm ramus intermedius artery, which was thin-walled, using Prolene 7-0 in continuous fashion. The third and last distal anastomosis was between the left internal mammary artery that passed in a deep groove in the left pleural pericardial fat and was anastomosed to the distal left anterior descending artery which was around 2 mm in diameter in a soft spot using Prolene 7-0 in continuous fashion. A mammary pedicle was affixed to the epicardium with two Prolene 6-0 sutures. Satisfied with the distal anastomoses, attention was moved at this point to the aortic valve replacement part. A transverse aortotomy was made around 1 cm above the sinotubular junction and around 2/3 of the circumference of the aorta. Exploration revealed a trileaflet, heavily calcified aortic valve. The valve was excised and the anulus was adequately debrided. Thorough irrigation with around 700 mL of cold saline was undertaken at this point. The valve was sized to a 25 mm Inspiris pericardial bioprosthesis. A total of 18 Ti-Cron 2-0 pledgeted sutures that were placed in a horizontal mattress fashion with the pledgets on the ventricular side were placed all around the perimeter of the anulus. Those were passed into the cuff of the pericardial bioprosthesis that seated nicely in a supra-annular position. All the needles were cut and the suture tied using the CorKnot device. Two coronary ostia were clear. Thorough irrigation was performed one more time before closing the aortotomy in two layers, with the first layer using 4-0 Prolene pledgeted on each corner in a horizontal mattress fashion, and the second layer in an [id number] technique. At this point, the CO2 that was flowing over the field was stopped. Two buttons of 4 mm each were punched out above the aortotomy and the two proximal anastomoses with the two vein grafts were performed as we were rewarming using Prolene 6-0 in continuous fashion. We gave the last dose of warm blood via the retrograde route as we were performing the last proximal anastomosis. Around one liter was given. The patient was given lidocaine and magnesium. He was half-loaded with Primacor and started on 0.2 mcg/kg per minute. He was placed in Trendelenburg position and de-airing maneuvers were carried out. Eventually the aorta was unclamped, as the aortic root vent was on maximum. After a period of reperfusion, the patient regained spontaneous sinus rhythm. Two monopolar atrial pacing wires were affixed to the respective pursestrings of the right atrium, and one ventricular bipolar pacing wire was driven via the inferior aspect of the right ventricle. Two 19-American Pool drains were left substernally. Preliminary graft flow measurements revealed excellent signal. After around 15 to 20 minutes of reperfusion, we were able to wean off cardiopulmonary bypass without the need of any vasopressor; however, with 0.2 mcg/kg per minute of Primacor. At this point the [employer] system was used to measure the flows. The flow into the vein to the posterior descending artery was 100 mL/minute, pulsatility index of 2.5, diastolic filling of 68%. The flow into the vein to the ramus was 60 mL/minute, pulsatility of 1.5, diastolic filling of 71%. The flow into the HOOPER to the LAD was 90 mL/minute, pulsatility index of 2.1, diastolic filling of 74%, all showing excellent functioning grafts. LEAH had shown adequate de-airing and good functioning aortic valve with no paravalvular leak. The gradient was very low. The left ventricle function seemed to have improved a bit. Pump suckers were stopped after giving test-dose, then full-dose protamine. Decannulation followed. The venous cannulation sites as well as the antegrade cardioplegia sites were reinforced with running Prolene. After ensuring adequate hemostasis and hemodynamics and after correct sponge, instrument and needle counts, the thick mediastinal and pericardial fat were approximated over the heart. Subsequently the sternum was closed using 5 figure-of- eight Gilbert cables after interposing Fibrillar between the sternal edges. Thorough irrigation with cefazolin followed. The rest of the closure proceeded in layers. Skin glue was applied. The patient did not receive any blood bank product but received 1100 mL of Cell Saver blood. His cardiac index was 2.5 and mean artery pressure was 75 on low-dose Primacor and low-dose Levophed with a normal PA pressure and a normal sinus rhythm. We elected to atrially pace him at 80 for optimal hemodynamics. SAURAV / UZMAN: [id number] / MTDD
[2021-07-13 18:07] LABS: Glucose,Whole Blood 119 mg/dL (75-99)
[2021-07-13] MEDS: ACETAMINOPHEN IV (For NPO) 1,000 MG in EMPTY BAG 1 BAG IVPB SCH ×2 (18:11→23:38)
[2021-07-13 19:03] LABS: Glucose,Whole Blood 143 mg/dL (75-99)
[2021-07-13 19:07] LABS: Anisocytosis Slight; Basophils % (A) 0 %; Eosinophils % (A) 0 %; HCT 36.3 % (39.0-53.0); HGB 10.7 gm/dL (13.0-17.5); Hypochromasia Marked; Lymphocytes # (A) 0.6 k/uL (1.0-4.8); Lymphocytes % (A) 6 %; MCH 26.5 pg (25.0-35.0); MCHC 29.5 g/dL (31.0-37.0); Mean Platelet Volume 9.3; Monocytes # (A) 0.6 k/uL (0-1.0); Monocytes % (A) 6 %; Neutrophils # (A) 8.5 k/uL (1.3-7.7); Neutrophils % (A) 87 %; Platelet Count 155 k/uL (150-450); RBC 4.04 m/uL (4.30-5.90); RDW 18.2 % (11.5-15.5); WBC 9.8 k/uL (3.8-10.6)
[2021-07-13 19:11] LABS: ABG Base Excess -3.8 mmol/L; ABG HCO3 22 mmol/L (21-25); ABG Oxygen Saturation 95.9 % (94-97); ABG PCO2 40 mmHg (35-45); ABG PH 7.35 (7.35-7.45); ABG PO2 83 mmHg (83-108); ABG TCO2 23 mmol/L (19-24); Allen Test Performed? Yes
[2021-07-13] MEDS: BUDESONIDE 1 MG/2 ML NEBU INHALATION SCH (19:33)
[2021-07-13] MEDS ORDERED: CALCIUM GLUCONATE 1 GM in SODIUM CHLORIDE 0.9% 100 ML IVPB ONE (19:45)
[2021-07-13 20:05] LABS: Glucose,Whole Blood 139 mg/dL (75-99)
[2021-07-13 21:26] LABS: Glucose,Whole Blood 153 mg/dL (75-99)
[2021-07-13] MEDS: PANTOPRAZOLE 40 MG/10 ML VIAL IVP SCH (21:38)
[2021-07-13 21:57] LABS: ABG HCO3 22 mmol/L (21-25); ABG Oxygen Saturation 95.7 % (94-97); ABG PCO2 42 mmHg (35-45); ABG PH 7.33 (7.35-7.45); ABG PO2 83 mmHg (83-108); ABG TCO2 23 mmol/L (19-24); Allen Test Performed? Yes; Glucose,Whole Blood 150 mg/dL (75-99)
[2021-07-13 22:03] LABS: Anisocytosis Slight; Basophils % (A) 0 %; Eosinophils % (A) 0 %; HCT 33.7 % (39.0-53.0); HGB 10.1 gm/dL (13.0-17.5); Hypochromasia Marked; Lymphocytes # (A) 0.6 k/uL (1.0-4.8); Lymphocytes % (A) 6 %; MCH 26.7 pg (25.0-35.0); MCHC 29.9 g/dL (31.0-37.0); MCV 89.3 fL (80.0-100.0); Mean Platelet Volume 8.9; Monocytes # (A) 0.7 k/uL (0-1.0); Monocytes % (A) 7 %; Neutrophils # (A) 8.9 k/uL (1.3-7.7); Neutrophils % (A) 86 %; Platelet Count 147 k/uL (150-450); RBC 3.78 m/uL (4.30-5.90); WBC 10.3 k/uL (3.8-10.6)
[2021-07-13] MEDS: AMIODARONE 450 MG in DEXTROSE 5% IN WATER 250 ML IV SCH ×2 (22:27)
[2021-07-13 23:08] LABS: Glucose,Whole Blood 138 mg/dL (75-99)
[2021-07-14 00:08] LABS: Glucose,Whole Blood 141 mg/dL (75-99)
[2021-07-14 01:05] LABS: Glucose,Whole Blood 136 mg/dL (75-99)
[2021-07-14 02:01] LABS: Glucose,Whole Blood 125 mg/dL (75-99)
[2021-07-14] MEDS ORDERED: HYDROcodone/APAP 5-325MG 1 EACH TAB PO PRN (02:46)
[2021-07-14 03:08] LABS: Glucose,Whole Blood 128 mg/dL (75-99)
[2021-07-14 03:56] LABS: Glucose,Whole Blood 127 mg/dL (75-99)
[2021-07-14] MEDS: HYDROcodone/APAP 5-325MG 1 EACH TAB PO PRN ×4 (04:00→21:37)
[2021-07-14 04:32] LABS: Ionized Calcium 4.7 mg/dL (4.5-5.3)
[2021-07-14 04:33] LABS: Anisocytosis Slight; Basophils % (A) 0 %; Eosinophils % (A) 0 %; HCT 31.1 % (39.0-53.0); HGB 9.6 gm/dL (13.0-17.5); Hypochromasia Marked; Lymphocytes # (A) 0.9 k/uL (1.0-4.8); Lymphocytes % (A) 11 %; MCH 26.9 pg (25.0-35.0); MCHC 30.9 g/dL (31.0-37.0); MCV 87.2 fL (80.0-100.0); Mean Platelet Volume 8.5; Monocytes # (A) 0.5 k/uL (0-1.0); Monocytes % (A) 7 %; Neutrophils # (A) 6.4 k/uL (1.3-7.7); Neutrophils % (A) 80 %; Platelet Count 136 k/uL (150-450); RBC 3.57 m/uL (4.30-5.90); RDW 18.3 % (11.5-15.5)
[2021-07-14 04:39] LABS: ALT 15 U/L (4-49); AST 51 U/L (17-59); African American GFR (CKD) >90 (>60 ml/min/1.73 sqM); Albumin 2.9 g/dL (3.5-5.0); Alkaline Phosphatase 46 U/L (38-126); Anion Gap 8 mmol/L; Blood Urea Nitrogen 19 mg/dL (9-20); Calcium 7.6 mg/dL (8.4-10.2); Carbon Dioxide 22 mmol/L (22-30); Chloride 106 mmol/L (98-107); Glucose 124 mg/dL (74-99); Magnesium 2.3 mg/dL (1.6-2.3); Non-African American GFR(CKD) 78 (>60 ml/min/1.73 sqM); Potassium 4.5 mmol/L (3.5-5.1); Sodium 136 mmol/L (137-145); Total Bilirubin 0.5 mg/dL (0.2-1.3); Total Protein 6.2 g/dL (6.3-8.2)
[2021-07-14 05:05] LABS: Glucose,Whole Blood 124 mg/dL (75-99)
[2021-07-14] MEDS: ALBUMIN HUMAN 5% 250 ML in EMPTY BAG 1 BAG IVPB PRN (06:22)
[2021-07-14 07:08] LABS: Glucose,Whole Blood 157 mg/dL (75-99)
--- NOTE | 2021-07-14 08:08 | P.PN ---
Subjective Progress Note Date: 07/14/21 Principal diagnosis: Triple-vessel coronary artery disease with known 100% occluded mid LAD, moderate left ventricular dysfunction, moderate to severe aortic valve stenosis, mild to moderate mitral valve regurgitation. Previous medical history of hypertension, hyperlipidemia, current tobacco dependence, COPD, evidence of old distal anterior apical myocardial infarction, peripheral arterial disease, and family history of coronary artery disease. Vaccinated and boosted against Covid POD #1 triple vessel coronary artery bypass grafting using the left internal mammary artery to the distal left anterior descending artery, reverse saphenous vein graft from the aorta to the ramus intermedius artery, reverse saphenous vein graft from the aorta to the posterior descending artery, aortic valve replacement using a 25 mm Inspiris pericardial bioprosthesis, exclusion of the left atrial appendage using a 35 mm AtriClip, endoscopic harvesting of the left greater saphenous vein, intraoperative graft flow measurements using the Solariaim system, intraoperative transesophageal echocardiogram and epi-aortic scanning. Postoperative acute blood loss anemia and thrombocytopenia, expected given hemodilution and cardiopulmonary bypass pump The patient was seen and examined this morning sitting up in a recliner in the intensive care unit in no acute distress. He was successfully extubated last night at 22:07. Was atrially paced at 90 bpm with underlying rhythm sinus in the low to mid 80s, remains hemodynamically stable, off Levophed since 4 AM, remains on low-dose Primacor as well as IV amiodarone for A. fib prophylaxis. Patient states post surgical pain is controlled with current medication regimen, denies shortness of breath. He had a relatively uneventful night and remains in good spirits. Right internal jugular Isom/Cordis, right radial arterial line, mediastinal/left pleural chest tubes all remain. No other new concerns. Objective - Vital Signs Vital signs: Vital Signs Temp 98.8 F 07/14/21 00:00 Pulse 82 07/14/21 07:00 Resp 25 H 07/14/21 07:00 BP 118/63 07/14/21 06:30 Pulse Ox 95 07/14/21 07:00 Intake & Output 07/13/21 07/14/21 07/14/21 18:59 06:59 18:59 Intake Total 490.771 5192.089 314.318 Output Total 3320 925 30 Balance -2497.410 1354.089 284.318 Weight 118.9 kg Intake: IV 821 1265.7 309.1 0.9 NACL 100 600 50 Albumin 500 250 250 CO/CI 100 190 Kefzol 100 Nitro gtt 16.5 Primacor 1.2 0.1 pressure bags 18 108 9 Intake, IV Titration 1.590 513.389 5.218 Amount Calcium Gluconate 1 gm In 100 Sodium Chloride 0.9% 100 ml @ 100 mls/hr IVPB ONCE ONE Rx#:[id number] Dexmedetomidine/0.9% NaCl 8.174 (Pmx) 400 mcg In Empty Bag 1 bag @ Titrate IV . Q0M [facility] Rx#:[id number] Insulin Regular 100 unit 1.590 28.330 5.218 In Sodium Chloride 0.9% 100 ml @ Per Protocol IV .Q0M [facility] Rx#:[id number] Milrinone-D5w Pmx 20 mg 32.979 In Dextrose/Water 1 100ml .bag @ 0.2 MCG/KG/MIN 7. 356 mls/hr IV .[id number] [facility] Rx#:[id number] Norepinephrine 4 mg In 326.191 Sodium Chloride 0.9% 250 ml @ 0.05 MCG/KG/MIN 23. 355 mls/hr IV .[id number] [facility] Rx#:[id number] propofoL 1,000 mg In 17.715 Empty Bag 1 bag @ Titrate IV .Q0M [facility] Rx#: [id number] Oral 500 Output: Chest Tube Drainage 340 420 10 Left plural 140 30 0 mediastinal x2 200 390 10 Drainage 20 Left Calf 20 Urine 680 485 20 Estimated Blood Loss 2300 Other: Voiding Method Indwelling Catheter Indwelling Catheter ABP, PAP, CO, CI - Last Documented Arterial Blood Pressure 106/35 Pulmonary Artery Pressure 30/9 Cardiac Output 7.8 Cardiac Index 3.2 - Exam CONSTITUTIONAL: Appears comfortable, cooperative, no acute distress RESPIRATORY: Lungs sounds diminished bilaterally. Respirations even, nonlabored. Currently on 10 L high flow nasal cannula with oxygen saturation 93%. Able to achieve 1000 mL on incentive spirometry. Strong productive cough. CARDIOVASCULAR: S1, S2 present. Regular rate and rhythm, sinus rhythm on telemetry. Sternum stable. Palpable peripheral pulses bilaterally. No edema present. No calf pain or tenderness noted. Heart hugger in place with patient demonstrating appropriate use. Antiembolism stockings, SCDs present. GASTROINTESTINAL: Abdomen soft, nontender, nondistended. Hypoactive bowel sounds present 4 quadrants. Tolerating clear liquids. Negative flatus GENITOURINARY: Lares present draining clear, yellow urine. Output overnight 35-40 mL per hour INTEGUMENTARY: Skin is warm and dry with evidence of good perfusion. Anterior chest incision well approximated and covered with dry intact dressing. Left lower extremity EVH site well approximated without redness, minimal drainage in ANTONELLA overnight. NEUROLOGIC: Cranial nerves II through XII intact MUSKULOSKELETAL: Able to move all extremities, strength equal bilaterally PSYCHIATRIC: Alert and oriented to person place and time, appropriate affect, intact judgment and insight INVASIVE LINES AND TUBES: Mediastinal/left pleural chest tubes present and connected to wall suction, no air leaks present. Mediastinal tube with 190 mL serosanguineous drainage overnight, 600 mL since surgery. Left pleural chest tube with 20 mL serosanguineous drainage overnight, 160 mL since surgery. A/V epicardial pacemaker wires present, connected to generator, placed to AAI mode with backup rate 40 bpm. Right internal jugular Isom/Cordis, right radial arterial line present. Last CO/CI 7.8/3.2, PA 28/10, CVP 11. - Allied health notes Allied health notes reviewed: nursing - Labs CBC & Chem 7: 07/14/21 03:56 07/14/21 03:56 Labs: Abnormal Lab Results - Last 24 Hours (Table) 07/03/21 07/13/21 07/13/21 Range/Units 13:31 08:53 10:40 RBC (4.30-5.90) m/uL Hgb (13.0-17.5) gm/dL Hct (39.0-53.0) % MCHC (31.0-37.0) g/dL RDW (11.5-15.5) % Plt Count (150-450) k/uL Neutrophils # (1.3-7.7) k/uL Lymphocytes # (1.0-4.8) k/uL APTT (22.0-30.0) sec ABG pH 7.34 L 7.33 L (7.35-7.45) ABG pCO2 49 H 49 H (35-45) mmHg ABG pO2 274 H 227 H (83-108) mmHg ABG HCO3 27 H 26 H (21-25) mmol/L ABG Total CO2 28 H 27 H (19-24) mmol/L ABG O2 Saturation 100.0 H 99.9 H (94-97) % ABG Hematocrit (34.0-46.0) % ABG Potassium (3.4-4.5) mmol/L ABG Ionized Calcium (4.5-5.3) mg/dL ABG Glucose 110 H 118 H (75-99) mg/dL ABG Lactic Acid (0.5-1.6) mmol/L Hemoglobin 12.4 L 11.6 L (13.0-17.5) gm/dL Sodium (137-145) mmol/L Chloride (98-107) mmol/L Glucose (74-99) mg/dL POC Glucose (mg/dL) (75-99) mg/dL Calcium (8.4-10.2) mg/dL Magnesium (1.6-2.3) mg/dL Total Protein (6.3-8.2) g/dL Albumin (3.5-5.0) g/dL Arterial Blood Potassium (3.4-4.5) mmol/L Arterial Blood Glucose 110 H 118 H (75-99) mg/dL Crossmatch See Detail 07/13/21 07/13/21 07/13/21 Range/Units 11:13 11:43 12:17 RBC (4.30-5.90) m/uL Hgb (13.0-17.5) gm/dL Hct (39.0-53.0) % MCHC (31.0-37.0) g/dL RDW (11.5-15.5) % Plt Count (150-450) k/uL Neutrophils # (1.3-7.7) k/uL Lymphocytes # (1.0-4.8) k/uL APTT (22.0-30.0) sec ABG pH (7.35-7.45) ABG pCO2 (35-45) mmHg ABG pO2 360 H 389 H 322 H (83-108) mmHg ABG HCO3 (21-25) mmol/L ABG Total CO2 26 H 27 H 26 H (19-24) mmol/L ABG O2 Saturation 100.0 H 100.0 H 100.0 H (94-97) % ABG Hematocrit 31 L 32 L 32 L (34.0-46.0) % ABG Potassium 5.3 H 5.6 H (3.4-4.5) mmol/L ABG Ionized Calcium 4.1 L 4.2 L 4.2 L (4.5-5.3) mg/dL ABG Glucose 109 H 116 H 129 H (75-99) mg/dL ABG Lactic Acid (0.5-1.6) mmol/L Hemoglobin 10.2 L 10.3 L 10.5 L (13.0-17.5) gm/dL Sodium (137-145) mmol/L Chloride (98-107) mmol/L Glucose (74-99) mg/dL POC Glucose (mg/dL) (75-99) mg/dL Calcium (8.4-10.2) mg/dL Magnesium (1.6-2.3) mg/dL Total Protein (6.3-8.2) g/dL Albumin (3.5-5.0) g/dL Arterial Blood Potassium 5.3 H 5.6 H (3.4-4.5) mmol/L Arterial Blood Glucose 109 H 116 H 129 H (75-99) mg/dL Crossmatch 07/13/21 07/13/21 07/13/21 Range/Units 12:50 13:22 13:56 RBC (4.30-5.90) m/uL Hgb (13.0-17.5) gm/dL Hct (39.0-53.0) % MCHC (31.0-37.0) g/dL RDW (11.5-15.5) % Plt Count (150-450) k/uL Neutrophils # (1.3-7.7) k/uL Lymphocytes # (1.0-4.8) k/uL APTT (22.0-30.0) sec ABG pH (7.35-7.45) ABG pCO2 (35-45) mmHg ABG pO2 364 H 317 H 239 H (83-108) mmHg ABG HCO3 (21-25) mmol/L ABG Total CO2 26 H 27 H 26 H (19-24) mmol/L ABG O2 Saturation 100.0 H 100.0 H 100.0 H (94-97) % ABG Hematocrit 31 L 30 L (34.0-46.0) % ABG Potassium 5.8 H 6.0 H 6.3 H* (3.4-4.5) mmol/L ABG Ionized Calcium 4.2 L 4.2 L 4.2 L (4.5-5.3) mg/dL ABG Glucose 136 H 135 H 148 H (75-99) mg/dL ABG Lactic Acid 2.0 H (0.5-1.6) mmol/L Hemoglobin 11.0 L 10.1 L 9.7 L (13.0-17.5) gm/dL Sodium (137-145) mmol/L Chloride (98-107) mmol/L Glucose (74-99) mg/dL POC Glucose (mg/dL) (75-99) mg/dL Calcium (8.4-10.2) mg/dL Magnesium (1.6-2.3) mg/dL Total Protein (6.3-8.2) g/dL Albumin (3.5-5.0) g/dL Arterial Blood Potassium 5.8 H 6.0 H 6.3 H* (3.4-4.5) mmol/L Arterial Blood Glucose 136 H 135 H 148 H (75-99) mg/dL Crossmatch 07/13/21 07/13/21 07/13/21 Range/Units 14:57 16:20 16:20 RBC (4.30-5.90) m/uL Hgb 11.8 L (13.0-17.5) gm/dL Hct (39.0-53.0) % MCHC 29.5 L (31.0-37.0) g/dL RDW 18.2 H (11.5-15.5) % Plt Count (150-450) k/uL Neutrophils # 8.1 H (1.3-7.7) k/uL Lymphocytes # 0.6 L (1.0-4.8) k/uL APTT (22.0-30.0) sec ABG pH 7.27 L (7.35-7.45) ABG pCO2 54 H (35-45) mmHg ABG pO2 234 H (83-108) mmHg ABG HCO3 (21-25) mmol/L ABG Total CO2 27 H (19-24) mmol/L ABG O2 Saturation 99.8 H (94-97) % ABG Hematocrit (34.0-46.0) % ABG Potassium 5.3 H (3.4-4.5) mmol/L ABG Ionized Calcium 4.4 L (4.5-5.3) mg/dL ABG Glucose 125 H (75-99) mg/dL ABG Lactic Acid (0.5-1.6) mmol/L Hemoglobin 11.7 L (13.0-17.5) gm/dL Sodium (137-145) mmol/L Chloride (98-107) mmol/L Glucose (74-99) mg/dL POC Glucose (mg/dL) 126 H (75-99) mg/dL Calcium (8.4-10.2) mg/dL Magnesium (1.6-2.3) mg/dL Total Protein (6.3-8.2) g/dL Albumin (3.5-5.0) g/dL Arterial Blood Potassium 5.3 H (3.4-4.5) mmol/L Arterial Blood Glucose 125 H (75-99) mg/dL Crossmatch 07/13/21 07/13/21 07/13/21 Range/Units 16:20 16:20 17:08 RBC (4.30-5.90) m/uL Hgb (13.0-17.5) gm/dL Hct (39.0-53.0) % MCHC (31.0-37.0) g/dL RDW (11.5-15.5) % Plt Count (150-450) k/uL Neutrophils # (1.3-7.7) k/uL Lymphocytes # (1.0-4.8) k/uL APTT 30.9 H (22.0-30.0) sec ABG pH 7.28 L (7.35-7.45) ABG pCO2 50 H (35-45) mmHg ABG pO2 146 H (83-108) mmHg ABG HCO3 (21-25) mmol/L ABG Total CO2 25 H (19-24) mmol/L ABG O2 Saturation 98.7 H (94-97) % ABG Hematocrit (34.0-46.0) % ABG Potassium (3.4-4.5) mmol/L ABG Ionized Calcium (4.5-5.3) mg/dL ABG Glucose (75-99) mg/dL ABG Lactic Acid (0.5-1.6) mmol/L Hemoglobin (13.0-17.5) gm/dL Sodium 136 L (137-145) mmol/L Chloride 108 H (98-107) mmol/L Glucose 128 H (74-99) mg/dL POC Glucose (mg/dL) (75-99) mg/dL Calcium 8.0 L (8.4-10.2) mg/dL Magnesium 2.6 H (1.6-2.3) mg/dL Total Protein (6.3-8.2) g/dL Albumin 3.1 L (3.5-5.0) g/dL Arterial Blood Potassium (3.4-4.5) mmol/L Arterial Blood Glucose (75-99) mg/dL Crossmatch 07/13/21 07/13/21 07/13/21 Range/Units 17:08 18:06 18:57 RBC (4.30-5.90) m/uL Hgb (13.0-17.5) gm/dL Hct (39.0-53.0) % MCHC (31.0-37.0) g/dL RDW (11.5-15.5) % Plt Count (150-450) k/uL Neutrophils # (1.3-7.7) k/uL Lymphocytes # (1.0-4.8) k/uL APTT (22.0-30.0) sec ABG pH (7.35-7.45) ABG pCO2 (35-45) mmHg ABG pO2 (83-108) mmHg ABG HCO3 (21-25) mmol/L ABG Total CO2 (19-24) mmol/L ABG O2 Saturation (94-97) % ABG Hematocrit (34.0-46.0) % ABG Potassium (3.4-4.5) mmol/L ABG Ionized Calcium (4.5-5.3) mg/dL ABG Glucose (75-99) mg/dL ABG Lactic Acid (0.5-1.6) mmol/L Hemoglobin (13.0-17.5) gm/dL Sodium (137-145) mmol/L Chloride (98-107) mmol/L Glucose (74-99) mg/dL POC Glucose (mg/dL) 130 H 119 H 143 H (75-99) mg/dL Calcium (8.4-10.2) mg/dL Magnesium (1.6-2.3) mg/dL Total Protein (6.3-8.2) g/dL Albumin (3.5-5.0) g/dL Arterial Blood Potassium (3.4-4.5) mmol/L Arterial Blood Glucose (75-99) mg/dL Crossmatch 07/13/21 07/13/21 07/13/21 Range/Units 19:04 20:04 21:18 RBC 4.04 L (4.30-5.90) m/uL Hgb 10.7 L (13.0-17.5) gm/dL Hct 36.3 L (39.0-53.0) % MCHC 29.5 L (31.0-37.0) g/dL RDW 18.2 H (11.5-15.5) % Plt Count (150-450) k/uL Neutrophils # 8.5 H (1.3-7.7) k/uL Lymphocytes # 0.6 L (1.0-4.8) k/uL APTT (22.0-30.0) sec ABG pH (7.35-7.45) ABG pCO2 (35-45) mmHg ABG pO2 (83-108) mmHg ABG HCO3 (21-25) mmol/L ABG Total CO2 (19-24) mmol/L ABG O2 Saturation (94-97) % ABG Hematocrit (34.0-46.0) % ABG Potassium (3.4-4.5) mmol/L ABG Ionized Calcium (4.5-5.3) mg/dL ABG Glucose (75-99) mg/dL ABG Lactic Acid (0.5-1.6) mmol/L Hemoglobin (13.0-17.5) gm/dL Sodium (137-145) mmol/L Chloride (98-107) mmol/L Glucose (74-99) mg/dL POC Glucose (mg/dL) 139 H 153 H (75-99) mg/dL Calcium (8.4-10.2) mg/dL Magnesium (1.6-2.3) mg/dL Total Protein (6.3-8.2) g/dL Albumin (3.5-5.0) g/dL Arterial Blood Potassium (3.4-4.5) mmol/L Arterial Blood Glucose (75-99) mg/dL Crossmatch 07/13/21 07/13/21 07/13/21 Range/Units 21:53 21:53 21:55 RBC 3.78 L (4.30-5.90) m/uL Hgb 10.1 L (13.0-17.5) gm/dL Hct 33.7 L (39.0-53.0) % MCHC 29.9 L (31.0-37.0) g/dL RDW 18.0 H (11.5-15.5) % Plt Count 147 L (150-450) k/uL Neutrophils # 8.9 H (1.3-7.7) k/uL Lymphocytes # 0.6 L (1.0-4.8) k/uL APTT (22.0-30.0) sec ABG pH 7.33 L (7.35-7.45) ABG pCO2 (35-45) mmHg ABG pO2 (83-108) mmHg ABG HCO3 (21-25) mmol/L ABG Total CO2 (19-24) mmol/L ABG O2 Saturation (94-97) % ABG Hematocrit (34.0-46.0) % ABG Potassium (3.4-4.5) mmol/L ABG Ionized Calcium (4.5-5.3) mg/dL ABG Glucose (75-99) mg/dL ABG Lactic Acid (0.5-1.6) mmol/L Hemoglobin (13.0-17.5) gm/dL Sodium (137-145) mmol/L Chloride (98-107) mmol/L Glucose (74-99) mg/dL POC Glucose (mg/dL) 150 H (75-99) mg/dL Calcium (8.4-10.2) mg/dL Magnesium (1.6-2.3) mg/dL Total Protein (6.3-8.2) g/dL Albumin (3.5-5.0) g/dL Arterial Blood Potassium (3.4-4.5) mmol/L Arterial Blood Glucose (75-99) mg/dL Crossmatch 07/13/21 07/14/21 07/14/21 Range/Units 23:06 00:06 01:04 RBC (4.30-5.90) m/uL Hgb (13.0-17.5) gm/dL Hct (39.0-53.0) % MCHC (31.0-37.0) g/dL RDW (11.5-15.5) % Plt Count (150-450) k/uL Neutrophils # (1.3-7.7) k/uL Lymphocytes # (1.0-4.8) k/uL APTT (22.0-30.0) sec ABG pH (7.35-7.45) ABG pCO2 (35-45) mmHg ABG pO2 (83-108) mmHg ABG HCO3 (21-25) mmol/L ABG Total CO2 (19-24) mmol/L ABG O2 Saturation (94-97) % ABG Hematocrit (34.0-46.0) % ABG Potassium (3.4-4.5) mmol/L ABG Ionized Calcium (4.5-5.3) mg/dL ABG Glucose (75-99) mg/dL ABG Lactic Acid (0.5-1.6) mmol/L Hemoglobin (13.0-17.5) gm/dL Sodium (137-145) mmol/L Chloride (98-107) mmol/L Glucose (74-99) mg/dL POC Glucose (mg/dL) 138 H 141 H 136 H (75-99) mg/dL Calcium (8.4-10.2) mg/dL Magnesium (1.6-2.3) mg/dL Total Protein (6.3-8.2) g/dL Albumin (3.5-5.0) g/dL Arterial Blood Potassium (3.4-4.5) mmol/L Arterial Blood Glucose (75-99) mg/dL Crossmatch 07/14/21 07/14/21 07/14/21 Range/Units 01:54 03:07 03:54 RBC (4.30-5.90) m/uL Hgb (13.0-17.5) gm/dL Hct (39.0-53.0) % MCHC (31.0-37.0) g/dL RDW (11.5-15.5) % Plt Count (150-450) k/uL Neutrophils # (1.3-7.7) k/uL Lymphocytes # (1.0-4.8) k/uL APTT (22.0-30.0) sec ABG pH (7.35-7.45) ABG pCO2 (35-45) mmHg ABG pO2 (83-108) mmHg ABG HCO3 (21-25) mmol/L ABG Total CO2 (19-24) mmol/L ABG O2 Saturation (94-97) % ABG Hematocrit (34.0-46.0) % ABG Potassium (3.4-4.5) mmol/L ABG Ionized Calcium (4.5-5.3) mg/dL ABG Glucose (75-99) mg/dL ABG Lactic Acid (0.5-1.6) mmol/L Hemoglobin (13.0-17.5) gm/dL Sodium (137-145) mmol/L Chloride (98-107) mmol/L Glucose (74-99) mg/dL POC Glucose (mg/dL) 125 H 128 H 127 H (75-99) mg/dL Calcium (8.4-10.2) mg/dL Magnesium (1.6-2.3) mg/dL Total Protein (6.3-8.2) g/dL Albumin (3.5-5.0) g/dL Arterial Blood Potassium (3.4-4.5) mmol/L Arterial Blood Glucose (75-99) mg/dL Crossmatch 07/14/21 07/14/21 07/14/21 Range/Units 03:56 03:56 05:02 RBC 3.57 L (4.30-5.90) m/uL Hgb 9.6 L (13.0-17.5) gm/dL Hct 31.1 L (39.0-53.0) % MCHC 30.9 L (31.0-37.0) g/dL RDW 18.3 H (11.5-15.5) % Plt Count 136 L (150-450) k/uL Neutrophils # (1.3-7.7) k/uL Lymphocytes # 0.9 L (1.0-4.8) k/uL APTT (22.0-30.0) sec ABG pH (7.35-7.45) ABG pCO2 (35-45) mmHg ABG pO2 (83-108) mmHg ABG HCO3 (21-25) mmol/L ABG Total CO2 (19-24) mmol/L ABG O2 Saturation (94-97) % ABG Hematocrit (34.0-46.0) % ABG Potassium (3.4-4.5) mmol/L ABG Ionized Calcium (4.5-5.3) mg/dL ABG Glucose (75-99) mg/dL ABG Lactic Acid (0.5-1.6) mmol/L Hemoglobin (13.0-17.5) gm/dL Sodium 136 L (137-145) mmol/L Chloride (98-107) mmol/L Glucose 124 H (74-99) mg/dL POC Glucose (mg/dL) 124 H (75-99) mg/dL Calcium 7.6 L (8.4-10.2) mg/dL Magnesium (1.6-2.3) mg/dL Total Protein 6.2 L (6.3-8.2) g/dL Albumin 2.9 L (3.5-5.0) g/dL Arterial Blood Potassium (3.4-4.5) mmol/L Arterial Blood Glucose (75-99) mg/dL Crossmatch 07/14/21 Range/Units 07:06 RBC (4.30-5.90) m/uL Hgb (13.0-17.5) gm/dL Hct (39.0-53.0) % MCHC (31.0-37.0) g/dL RDW (11.5-15.5) % Plt Count (150-450) k/uL Neutrophils # (1.3-7.7) k/uL Lymphocytes # (1.0-4.8) k/uL APTT (22.0-30.0) sec ABG pH (7.35-7.45) ABG pCO2 (35-45) mmHg ABG pO2 (83-108) mmHg ABG HCO3 (21-25) mmol/L ABG Total CO2 (19-24) mmol/L ABG O2 Saturation (94-97) % ABG Hematocrit (34.0-46.0) % ABG Potassium (3.4-4.5) mmol/L ABG Ionized Calcium (4.5-5.3) mg/dL ABG Glucose (75-99) mg/dL ABG Lactic Acid (0.5-1.6) mmol/L Hemoglobin (13.0-17.5) gm/dL Sodium (137-145) mmol/L Chloride (98-107) mmol/L Glucose (74-99) mg/dL POC Glucose (mg/dL) 157 H (75-99) mg/dL Calcium (8.4-10.2) mg/dL Magnesium (1.6-2.3) mg/dL Total Protein (6.3-8.2) g/dL Albumin (3.5-5.0) g/dL Arterial Blood Potassium (3.4-4.5) mmol/L Arterial Blood Glucose (75-99) mg/dL Crossmatch - Imaging and Cardiology Chest x-ray: image reviewed Assessment and Plan Assessment: 1. Triple-vessel coronary artery disease with known 100% occluded mid LAD and evidence of old distal anterior apical myocardial infarction, status post three- vessel CABG 2. Moderate left ventricular dysfunction with preoperative ejection fraction 30-35% 3. Moderate to severe aortic valve stenosis, status post aortic valve replacement 4. Mild to moderate mitral valve regurgitation 5. History of hypertension 6. Hyperlipidemia, treated, cholesterol 69, LDL 38 7. Current tobacco dependence 8. Mild COPD with preoperative FEV1 65% of predicted and DLCO 54% of predicted 9. Peripheral arterial disease, MARY right 0.65, left 0.85 10. Family history of coronary artery disease 11. Vaccinated and boosted against Covid 12. Postoperative acute blood loss anemia and thrombocytopenia, expected Plan: 1. Continue aspirin, statin, Plavix, low-dose beta tammi. Will increase beta tammi as tolerated. Discontinue IV nitro 2. Continue amiodarone for A. fib prophylaxis, will transition to oral 3. Discontinue IV Primacor 4. Will discontinue Isom this afternoon, connect Cordis to continuous CVP monitoring 5. Wean O2 as tolerated. Encourage incentive spirometry 10 times every hour while awake. Bronchodilators per pulmonology 6. Increase activity, ambulate as tolerated. PT/OT/cardiac rehab consulted 7. Will monitor daily labs and x-rays. Electrolyte replacement per protocol 8. GI/DVT prophylaxis 9. Pain control with current medication regimen 10. Insulin management per primary care service. Patient is not diabetic, preoperative hemoglobin A1c 5.7%, however patient doesn't need tight blood sugar control to prevent infection and promote sternal union 11. Discontinue ANTONELLA drain 12. Keep mediastinal/left pleural chest tubes for another 24 hours 13. Continue Lares catheter for another 24 hours for strict accurate intake and output. Daily weights 14. More recommendations to follow based on patient's progress Time with Patient: Greater than 30
[2021-07-14 08:16] LABS: Glucose,Whole Blood 217 mg/dL (75-99)
[2021-07-14] MEDS: MILRINONE-D5W PMX 20 MG in DEXTROSE/WATER 1 100ML.BAG IV SCH (08:16)
[2021-07-14] MEDS: PANTOPRAZOLE 40 MG/10 ML VIAL IVP SCH (08:17)
[2021-07-14] MEDS: ceFAZolin 3 GM in SODIUM CHLORIDE 0.9% 100 ML IVPB SCH (08:17)
[2021-07-14] MEDS: HEPARIN SODIUM,PORCINE/PF 5,000 UNIT/0.5 ML SYRINGE SQ SCH ×2 (08:17→15:53)
[2021-07-14] MEDS: ATORVASTATIN 40 MG TAB PO SCH (08:17)
[2021-07-14] MEDS: AMIODARONE 200 MG TAB PO SCH ×2 (08:18→21:36)
[2021-07-14] MEDS: ASPIRIN 325 MG TAB PO SCH (08:18)
[2021-07-14] MEDS: CLOPIDOGREL 75 MG TAB PO SCH (08:19)
[2021-07-14] MEDS ORDERED: ACETAMINOPHEN TAB 325 MG TAB PO PRN (08:31)
[2021-07-14] MEDS: IPRATROPIUM-ALBUTEROL 3 ML NEB INHALATION SCH ×4 (08:34→19:20)
[2021-07-14] MEDS: BUDESONIDE 1 MG/2 ML NEBU INHALATION SCH ×2 (08:34→19:20)
--- NOTE | 2021-07-14 08:35 | XR ---
EXAMINATION TYPE: XR chest 1V portable DATE OF EXAM: 07/14/2021 COMPARISON: Chest x-ray 07/13/2021 HISTORY: Postop cardiac surgery, extubated, chest tube TECHNIQUE: Single frontal view of the chest is obtained. FINDINGS: Endotracheal tube and NG tube have been removed. Central venous catheter is again seen. Dorantes spect the left chest tube is in place at the left lung base but is not well seen, left hemidiaphragm is obscured. No evident pneumothorax. Bibasilar increased attenuation is seen. Cardiac mediastinal si lhouette shows a similar appearance. Aorta is dense. There are overlying artifacts. IMPRESSION: Basilar atelectasis. Interval extubation.
[2021-07-14] MEDS ORDERED: bisacodyL 10 MG SUPP RECTAL PRN (09:00)
[2021-07-14] MEDS ORDERED: METOPROLOL TARTRATE 12.5 MG TAB PO SCH (09:00)
[2021-07-14] MEDS ORDERED: MAGNESIUM HYDROXIDE 2,400 MG/10 ML CUP PO PRN (09:00)
[2021-07-14] MEDS ORDERED: PANTOPRAZOLE 40 MG/10 ML VIAL IVP SCH (09:00)
[2021-07-14 09:34] LABS: Glucose,Whole Blood 147 mg/dL (75-99)
[2021-07-14 10:54] LABS: Glucose,Whole Blood 121 mg/dL (75-99)
[2021-07-14 11:04] VITALS: BMI 35.5
--- NOTE | 2021-07-14 11:26 | P.PN ---
Subjective Progress Note Date: 07/14/21 70-year-old male patient underwent three-vessel bypass surgery and aortic valve replacement. The patient is currently being seen today intensive care unit postop. Patient's surgery was performed without any major complication. At this point in time the patient is sedated with propofol and the patient is currently intensive care unit intubated on a mechanical ventilator. The patient is currently on assist-control at the rate of 16 with a tidal volume of 600 and FiO2 of 100% with a PEEP of 10. Current pulse ox 96%. Chest x-ray postop showed adequate expansion of both lungs and there is no evidence of any pneumothorax. Some atelectatic changes and left lung base. ET tube is in a good location. [place] catheter is in good location. OG tube is in a good location. The patient has 2 mediastinal chest tubes and 1 left pleural chest tube. Output from the chest tubes are minimal at this point in time. Cardiac output is at 5.2 with an index of 2.1 and the patient is currently on a known at 0.2 mcg/kg per minute and norepinephrine infusion at 0.08 mcg/kg per minute. Urine output is adequate. Blood pressure is soft and the patient is being given 500 mL of 5% albumin. The patient has a pulmonary artery pressure 34/22. He is afebrile. He has not hypothermic. He is making adequate urine output for now. Note that the patient has COPD. He has diffuse generalized coronary artery disease and his preop Levemir ejection fraction was around 10-15% and the patient had a large partially reversible anterior wall defect. He is known to have hypertension and hyperlipidemia and macular degeneration. 07/14/2021, the patient is doing well. The patient was extubated yesterday without any major difficulties with a six-hour window. The patient is currently sitting up on a chair on 10 L of oxygen by nasal cannula with a pulse oximetry 96%. Chest x-ray shows adequate expansion of both lungs and there is no evidence of any pneumothorax. The patient has 2 mediastinal chest tube to 1 pleural chest tube. Output from the mediastinal chest tube has been 650 since arrival from the operating room and output from the left sided chest tube is her 170 mL his arrival from the operating room. Urine output is order of 35 mL an hour. The patient was given a total of 4 doses of IV albumin, 250 mL each.. This was given to the patient overnight. The patient subsequently was weaned o ff the norepinephrine infusion and he is also off the milrinone. The patient has a CVP of 10. Pulmonary artery pressures are 30/60. Cardiac output was 5.9 with an index of 2.4. Urine output is in the order of 35 mL an hour. Cardiac rhythm is sinus and the patient has a VVI pacemaking backup at the rate of 60. No focal neurological deficits. Awake and alert. Moving all 4 extremities. No nausea or vomiting. No other significant events overnight. Objective - Vital Signs Vital signs: Vital Signs Temp 99.1 F 07/14/21 08:00 Pulse 81 07/14/21 09:30 Resp 27 H 07/14/21 09:30 BP 105/69 07/14/21 08:30 Pulse Ox 95 07/14/21 09:30 Intake & Output 07/13/21 07/14/21 07/14/21 18:59 06:59 18:59 Intake Total 772.639 7824.089 830.273 Output Total 3320 925 170 Balance -2497.410 1354.089 660.273 Weight 118.9 kg 118.9 kg Intake: IV 821 1265.7 456.1 0.9 NACL 100 600 50 Albumin 500 250 250 CO/CI 100 190 20 Kefzol 100 100 Nitro gtt 16.5 Primacor 1.2 0.1 pressure bags 18 108 36 Intake, IV Titration 1.590 513.389 134.173 Amount Calcium Gluconate 1 gm In 100 Sodium Chloride 0.9% 100 ml @ 100 mls/hr IVPB ONCE ONE Rx#:[id number] Dexmedetomidine/0.9% NaCl 8.174 (Pmx) 400 mcg In Empty Bag 1 bag @ Titrate IV . Q0M AB Rx#:[id number] Insulin Regular 100 unit 1.590 28.330 24.173 In Sodium Chloride 0.9% 100 ml @ Per Protocol IV .Q0M AB Rx#:[id number] Milrinone-D5w Pmx 20 mg 32.979 In Dextrose/Water 1 100ml .bag @ 0.2 MCG/KG/MIN 7. 356 mls/hr IV .[id number] AB Rx#:[id number] Norepinephrine 4 mg In 326.191 Sodium Chloride 0.9% 250 ml @ 0.05 MCG/KG/MIN 23. 355 mls/hr IV .[id number] AB Rx#:[id number] Sodium Chloride 0.9% 1, 110 000 ml @ 30 mls/hr IV . Q24H AB Rx#:[id number] propofoL 1,000 mg In 17.715 Empty Bag 1 bag @ Titrate IV .Q0M AB Rx#: [id number] Oral 500 240 Output: Chest Tube Drainage 340 420 60 Left plural 140 30 0 mediastinal x2 200 390 60 Drainage 20 0 Left Calf 20 0 Urine 680 485 110 Estimated Blood Loss 2300 Other: Voiding Method Indwelling Catheter Indwelling Catheter ABP, PAP, CO, CI - Last Documented Arterial Blood Pressure 96/36 Pulmonary Artery Pressure 28/13 Cardiac Output 5.9 Cardiac Index 2.4 - Exam This is a well-developed well-nourished awake alert oriented 3 male, the patient is currently on room air oxygen. No respiratory distress, the patient is morbidly obese General appearance: alert, in no apparent distress Head exam: Present: atraumatic, normocephalic, normal inspection Eye exam: Present: normal appearance, PERRL, EOMI. Absent: scleral icterus, conjunctival injection, periorbital swelling ENT exam: Present: normal exam, mucous membranes moist Neck exam: Present: normal inspection, full ROM, other (No stridor JVD or bruits). Absent: tenderness, meningismus, lymphadenopathy Respiratory exam: Present: normal lung sounds bilaterally. Absent: respiratory distress, wheezes, rales, rhonchi, stridor Cardiovascular Exam: Present: regular rate, bradycardia. Absent: systolic murmur, diastolic murmur, rubs, gallop, clicks GI/Abdominal exam: Present: soft, normal bowel sounds. Absent: distended, tenderness, guarding, rebound, rigid Extremities exam: Present: normal inspection, full ROM, normal capillary refill. Absent: tenderness, pedal edema, joint swelling, calf tenderness Back exam: Present: normal inspection Neurological exam: Present: alert, oriented X3, CN II-XII intact Psychiatric exam: Present: normal affect, normal mood Skin exam: Present: warm, dry, intact, normal color. Absent: rash - Labs CBC & Chem 7: 07/14/21 03:56 07/14/21 03:56 Labs: Abnormal Lab Results - Last 24 Hours (Table) 07/03/21 07/13/21 07/13/21 Range/Units 13:31 08:53 10:40 RBC (4.30-5.90) m/uL Hgb (13.0-17.5) gm/dL Hct (39.0-53.0) % MCHC (31.0-37.0) g/dL RDW (11.5-15.5) % Plt Count (150-450) k/uL Neutrophils # (1.3-7.7) k/uL Lymphocytes # (1.0-4.8) k/uL APTT (22.0-30.0) sec ABG pH 7.34 L 7.33 L (7.35-7.45) ABG pCO2 49 H 49 H (35-45) mmHg ABG pO2 274 H 227 H (83-108) mmHg ABG HCO3 27 H 26 H (21-25) mmol/L ABG Total CO2 28 H 27 H (19-24) mmol/L ABG O2 Saturation 100.0 H 99.9 H (94-97) % ABG Hematocrit (34.0-46.0) % ABG Potassium (3.4-4.5) mmol/L ABG Ionized Calcium (4.5-5.3) mg/dL ABG Glucose 110 H 118 H (75-99) mg/dL ABG Lactic Acid (0.5-1.6) mmol/L Hemoglobin 12.4 L 11.6 L (13.0-17.5) gm/dL Sodium (137-145) mmol/L Chloride (98-107) mmol/L Glucose (74-99) mg/dL POC Glucose (mg/dL) (75-99) mg/dL Calcium (8.4-10.2) mg/dL Magnesium (1.6-2.3) mg/dL Total Protein (6.3-8.2) g/dL Albumin (3.5-5.0) g/dL Arterial Blood Potassium (3.4-4.5) mmol/L Arterial Blood Glucose 110 H 118 H (75-99) mg/dL Crossmatch See Detail 07/13/21 07/13/21 07/13/21 Range/Units 11:13 11:43 12:17 RBC (4.30-5.90) m/uL Hgb (13.0-17.5) gm/dL Hct (39.0-53.0) % MCHC (31.0-37.0) g/dL RDW (11.5-15.5) % Plt Count (150-450) k/uL Neutrophils # (1.3-7.7) k/uL Lymphocytes # (1.0-4.8) k/uL APTT (22.0-30.0) sec ABG pH (7.35-7.45) ABG pCO2 (35-45) mmHg ABG pO2 360 H 389 H 322 H (83-108) mmHg ABG HCO3 (21-25) mmol/L ABG Total CO2 26 H 27 H 26 H (19-24) mmol/L ABG O2 Saturation 100.0 H 100.0 H 100.0 H (94-97) % ABG Hematocrit 31 L 32 L 32 L (34.0-46.0) % ABG Potassium 5.3 H 5.6 H (3.4-4.5) mmol/L ABG Ionized Calcium 4.1 L 4.2 L 4.2 L (4.5-5.3) mg/dL ABG Glucose 109 H 116 H 129 H (75-99) mg/dL ABG Lactic Acid (0.5-1.6) mmol/L Hemoglobin 10.2 L 10.3 L 10.5 L (13.0-17.5) gm/dL Sodium (137-145) mmol/L Chloride (98-107) mmol/L Glucose (74-99) mg/dL POC Glucose (mg/dL) (75-99) mg/dL Calcium (8.4-10.2) mg/dL Magnesium (1.6-2.3) mg/dL Total Protein (6.3-8.2) g/dL Albumin (3.5-5.0) g/dL Arterial Blood Potassium 5.3 H 5.6 H (3.4-4.5) mmol/L Arterial Blood Glucose 109 H 116 H 129 H (75-99) mg/dL Crossmatch 07/13/21 07/13/21 07/13/21 Range/Units 12:50 13:22 13:56 RBC (4.30-5.90) m/uL Hgb (13.0-17.5) gm/dL Hct (39.0-53.0) % MCHC (31.0-37.0) g/dL RDW (11.5-15.5) % Plt Count (150-450) k/uL Neutrophils # (1.3-7.7) k/uL Lymphocytes # (1.0-4.8) k/uL APTT (22.0-30.0) sec ABG pH (7.35-7.45) ABG pCO2 (35-45) mmHg ABG pO2 364 H 317 H 239 H (83-108) mmHg ABG HCO3 (21-25) mmol/L ABG Total CO2 26 H 27 H 26 H (19-24) mmol/L ABG O2 Saturation 100.0 H 100.0 H 100.0 H (94-97) % ABG Hematocrit 31 L 30 L (34.0-46.0) % ABG Potassium 5.8 H 6.0 H 6.3 H* (3.4-4.5) mmol/L ABG Ionized Calcium 4.2 L 4.2 L 4.2 L (4.5-5.3) mg/dL ABG Glucose 136 H 135 H 148 H (75-99) mg/dL ABG Lactic Acid 2.0 H (0.5-1.6) mmol/L Hemoglobin 11.0 L 10.1 L 9.7 L (13.0-17.5) gm/dL Sodium (137-145) mmol/L Chloride (98-107) mmol/L Glucose (74-99) mg/dL POC Glucose (mg/dL) (75-99) mg/dL Calcium (8.4-10.2) mg/dL Magnesium (1.6-2.3) mg/dL Total Protein (6.3-8.2) g/dL Albumin (3.5-5.0) g/dL Arterial Blood Potassium 5.8 H 6.0 H 6.3 H* (3.4-4.5) mmol/L Arterial Blood Glucose 136 H 135 H 148 H (75-99) mg/dL Crossmatch 07/13/21 07/13/21 07/13/21 Range/Units 14:57 16:20 16:20 RBC (4.30-5.90) m/uL Hgb 11.8 L (13.0-17.5) gm/dL Hct (39.0-53.0) % MCHC 29.5 L (31.0-37.0) g/dL RDW 18.2 H (11.5-15.5) % Plt Count (150-450) k/uL Neutrophils # 8.1 H (1.3-7.7) k/uL Lymphocytes # 0.6 L (1.0-4.8) k/uL APTT (22.0-30.0) sec ABG pH 7.27 L (7.35-7.45) ABG pCO2 54 H (35-45) mmHg ABG pO2 234 H (83-108) mmHg ABG HCO3 (21-25) mmol/L ABG Total CO2 27 H (19-24) mmol/L ABG O2 Saturation 99.8 H (94-97) % ABG Hematocrit (34.0-46.0) % ABG Potassium 5.3 H (3.4-4.5) mmol/L ABG Ionized Calcium 4.4 L (4.5-5.3) mg/dL ABG Glucose 125 H (75-99) mg/dL ABG Lactic Acid (0.5-1.6) mmol/L Hemoglobin 11.7 L (13.0-17.5) gm/dL Sodium (137-145) mmol/L Chloride (98-107) mmol/L Glucose (74-99) mg/dL POC Glucose (mg/dL) 126 H (75-99) mg/dL Calcium (8.4-10.2) mg/dL Magnesium (1.6-2.3) mg/dL Total Protein (6.3-8.2) g/dL Albumin (3.5-5.0) g/dL Arterial Blood Potassium 5.3 H (3.4-4.5) mmol/L Arterial Blood Glucose 125 H (75-99) mg/dL Crossmatch 07/13/21 07/13/21 07/13/21 Range/Units 16:20 16:20 17:08 RBC (4.30-5.90) m/uL Hgb (13.0-17.5) gm/dL Hct (39.0-53.0) % MCHC (31.0-37.0) g/dL RDW (11.5-15.5) % Plt Count (150-450) k/uL Neutrophils # (1.3-7.7) k/uL Lymphocytes # (1.0-4.8) k/uL APTT 30.9 H (22.0-30.0) sec ABG pH 7.28 L (7.35-7.45) ABG pCO2 50 H (35-45) mmHg ABG pO2 146 H (83-108) mmHg ABG HCO3 (21-25) mmol/L ABG Total CO2 25 H (19-24) mmol/L ABG O2 Saturation 98.7 H (94-97) % ABG Hematocrit (34.0-46.0) % ABG Potassium (3.4-4.5) mmol/L ABG Ionized Calcium (4.5-5.3) mg/dL ABG Glucose (75-99) mg/dL ABG Lactic Acid (0.5-1.6) mmol/L Hemoglobin (13.0-17.5) gm/dL Sodium 136 L (137-145) mmol/L Chloride 108 H (98-107) mmol/L Glucose 128 H (74-99) mg/dL POC Glucose (mg/dL) (75-99) mg/dL Calcium 8.0 L (8.4-10.2) mg/dL Magnesium 2.6 H (1.6-2.3) mg/dL Total Protein (6.3-8.2) g/dL Albumin 3.1 L (3.5-5.0) g/dL Arterial Blood Potassium (3.4-4.5) mmol/L Arterial Blood Glucose (75-99) mg/dL Crossmatch 07/13/21 07/13/21 07/13/21 Range/Units 17:08 18:06 18:57 RBC (4.30-5.90) m/uL Hgb (13.0-17.5) gm/dL Hct (39.0-53.0) % MCHC (31.0-37.0) g/dL RDW (11.5-15.5) % Plt Count (150-450) k/uL Neutrophils # (1.3-7.7) k/uL Lymphocytes # (1.0-4.8) k/uL APTT (22.0-30.0) sec ABG pH (7.35-7.45) ABG pCO2 (35-45) mmHg ABG pO2 (83-108) mmHg ABG HCO3 (21-25) mmol/L ABG Total CO2 (19-24) mmol/L ABG O2 Saturation (94-97) % ABG Hematocrit (34.0-46.0) % ABG Potassium (3.4-4.5) mmol/L ABG Ionized Calcium (4.5-5.3) mg/dL ABG Glucose (75-99) mg/dL ABG Lactic Acid (0.5-1.6) mmol/L Hemoglobin (13.0-17.5) gm/dL Sodium (137-145) mmol/L Chloride (98-107) mmol/L Glucose (74-99) mg/dL POC Glucose (mg/dL) 130 H 119 H 143 H (75-99) mg/dL Calcium (8.4-10.2) mg/dL Magnesium (1.6-2.3) mg/dL Total Protein (6.3-8.2) g/dL Albumin (3.5-5.0) g/dL Arterial Blood Potassium (3.4-4.5) mmol/L Arterial Blood Glucose (75-99) mg/dL Crossmatch 07/13/21 07/13/21 07/13/21 Range/Units 19:04 20:04 21:18 RBC 4.04 L (4.30-5.90) m/uL Hgb 10.7 L (13.0-17.5) gm/dL Hct 36.3 L (39.0-53.0) % MCHC 29.5 L (31.0-37.0) g/dL RDW 18.2 H (11.5-15.5) % Plt Count (150-450) k/uL Neutrophils # 8.5 H (1.3-7.7) k/uL Lymphocytes # 0.6 L (1.0-4.8) k/uL APTT (22.0-30.0) sec ABG pH (7.35-7.45) ABG pCO2 (35-45) mmHg ABG pO2 (83-108) mmHg ABG HCO3 (21-25) mmol/L ABG Total CO2 (19-24) mmol/L ABG O2 Saturation (94-97) % ABG Hematocrit (34.0-46.0) % ABG Potassium (3.4-4.5) mmol/L ABG Ionized Calcium (4.5-5.3) mg/dL ABG Glucose (75-99) mg/dL ABG Lactic Acid (0.5-1.6) mmol/L Hemoglobin (13.0-17.5) gm/dL Sodium (137-145) mmol/L Chloride (98-107) mmol/L Glucose (74-99) mg/dL POC Glucose (mg/dL) 139 H 153 H (75-99) mg/dL Calcium (8.4-10.2) mg/dL Magnesium (1.6-2.3) mg/dL Total Protein (6.3-8.2) g/dL Albumin (3.5-5.0) g/dL Arterial Blood Potassium (3.4-4.5) mmol/L Arterial Blood Glucose (75-99) mg/dL Crossmatch 07/13/21 07/13/21 07/13/21 Range/Units 21:53 21:53 21:55 RBC 3.78 L (4.30-5.90) m/uL Hgb 10.1 L (13.0-17.5) gm/dL Hct 33.7 L (39.0-53.0) % MCHC 29.9 L (31.0-37.0) g/dL RDW 18.0 H (11.5-15.5) % Plt Count 147 L (150-450) k/uL Neutrophils # 8.9 H (1.3-7.7) k/uL Lymphocytes # 0.6 L (1.0-4.8) k/uL APTT (22.0-30.0) sec ABG pH 7.33 L (7.35-7.45) ABG pCO2 (35-45) mmHg ABG pO2 (83-108) mmHg ABG HCO3 (21-25) mmol/L ABG Total CO2 (19-24) mmol/L ABG O2 Saturation (94-97) % ABG Hematocrit (34.0-46.0) % ABG Potassium (3.4-4.5) mmol/L ABG Ionized Calcium (4.5-5.3) mg/dL ABG Glucose (75-99) mg/dL ABG Lactic Acid (0.5-1.6) mmol/L Hemoglobin (13.0-17.5) gm/dL Sodium (137-145) mmol/L Chloride (98-107) mmol/L Glucose (74-99) mg/dL POC Glucose (mg/dL) 150 H (75-99) mg/dL Calcium (8.4-10.2) mg/dL Magnesium (1.6-2.3) mg/dL Total Protein (6.3-8.2) g/dL Albumin (3.5-5.0) g/dL Arterial Blood Potassium (3.4-4.5) mmol/L Arterial Blood Glucose (75-99) mg/dL Crossmatch 07/13/21 07/14/21 07/14/21 Range/Units 23:06 00:06 01:04 RBC (4.30-5.90) m/uL Hgb (13.0-17.5) gm/dL Hct (39.0-53.0) % MCHC (31.0-37.0) g/dL RDW (11.5-15.5) % Plt Count (150-450) k/uL Neutrophils # (1.3-7.7) k/uL Lymphocytes # (1.0-4.8) k/uL APTT (22.0-30.0) sec ABG pH (7.35-7.45) ABG pCO2 (35-45) mmHg ABG pO2 (83-108) mmHg ABG HCO3 (21-25) mmol/L ABG Total CO2 (19-24) mmol/L ABG O2 Saturation (94-97) % ABG Hematocrit (34.0-46.0) % ABG Potassium (3.4-4.5) mmol/L ABG Ionized Calcium (4.5-5.3) mg/dL ABG Glucose (75-99) mg/dL ABG Lactic Acid (0.5-1.6) mmol/L Hemoglobin (13.0-17.5) gm/dL Sodium (137-145) mmol/L Chloride (98-107) mmol/L Glucose (74-99) mg/dL POC Glucose (mg/dL) 138 H 141 H 136 H (75-99) mg/dL Calcium (8.4-10.2) mg/dL Magnesium (1.6-2.3) mg/dL Total Protein (6.3-8.2) g/dL Albumin (3.5-5.0) g/dL Arterial Blood Potassium (3.4-4.5) mmol/L Arterial Blood Glucose (75-99) mg/dL Crossmatch 07/14/21 07/14/21 07/14/21 Range/Units 01:54 03:07 03:54 RBC (4.30-5.90) m/uL Hgb (13.0-17.5) gm/dL Hct (39.0-53.0) % MCHC (31.0-37.0) g/dL RDW (11.5-15.5) % Plt Count (150-450) k/uL Neutrophils # (1.3-7.7) k/uL Lymphocytes # (1.0-4.8) k/uL APTT (22.0-30.0) sec ABG pH (7.35-7.45) ABG pCO2 (35-45) mmHg ABG pO2 (83-108) mmHg ABG HCO3 (21-25) mmol/L ABG Total CO2 (19-24) mmol/L ABG O2 Saturation (94-97) % ABG Hematocrit (34.0-46.0) % ABG Potassium (3.4-4.5) mmol/L ABG Ionized Calcium (4.5-5.3) mg/dL ABG Glucose (75-99) mg/dL ABG Lactic Acid (0.5-1.6) mmol/L Hemoglobin (13.0-17.5) gm/dL Sodium (137-145) mmol/L Chloride (98-107) mmol/L Glucose (74-99) mg/dL POC Glucose (mg/dL) 125 H 128 H 127 H (75-99) mg/dL Calcium (8.4-10.2) mg/dL Magnesium (1.6-2.3) mg/dL Total Protein (6.3-8.2) g/dL Albumin (3.5-5.0) g/dL Arterial Blood Potassium (3.4-4.5) mmol/L Arterial Blood Glucose (75-99) mg/dL Crossmatch 07/14/21 07/14/21 07/14/21 Range/Units 03:56 03:56 05:02 RBC 3.57 L (4.30-5.90) m/uL Hgb 9.6 L (13.0-17.5) gm/dL Hct 31.1 L (39.0-53.0) % MCHC 30.9 L (31.0-37.0) g/dL RDW 18.3 H (11.5-15.5) % Plt Count 136 L (150-450) k/uL Neutrophils # (1.3-7.7) k/uL Lymphocytes # 0.9 L (1.0-4.8) k/uL APTT (22.0-30.0) sec ABG pH (7.35-7.45) ABG pCO2 (35-45) mmHg ABG pO2 (83-108) mmHg ABG HCO3 (21-25) mmol/L ABG Total CO2 (19-24) mmol/L ABG O2 Saturation (94-97) % ABG Hematocrit (34.0-46.0) % ABG Potassium (3.4-4.5) mmol/L ABG Ionized Calcium (4.5-5.3) mg/dL ABG Glucose (75-99) mg/dL ABG Lactic Acid (0.5-1.6) mmol/L Hemoglobin (13.0-17.5) gm/dL Sodium 136 L (137-145) mmol/L Chloride (98-107) mmol/L Glucose 124 H (74-99) mg/dL POC Glucose (mg/dL) 124 H (75-99) mg/dL Calcium 7.6 L (8.4-10.2) mg/dL Magnesium (1.6-2.3) mg/dL Total Protein 6.2 L (6.3-8.2) g/dL Albumin 2.9 L (3.5-5.0) g/dL Arterial Blood Potassium (3.4-4.5) mmol/L Arterial Blood Glucose (75-99) mg/dL Crossmatch 07/14/21 07/14/21 07/14/21 Range/Units 07:06 08:14 09:33 RBC (4.30-5.90) m/uL Hgb (13.0-17.5) gm/dL Hct (39.0-53.0) % MCHC (31.0-37.0) g/dL RDW (11.5-15.5) % Plt Count (150-450) k/uL Neutrophils # (1.3-7.7) k/uL Lymphocytes # (1.0-4.8) k/uL APTT (22.0-30.0) sec ABG pH (7.35-7.45) ABG pCO2 (35-45) mmHg ABG pO2 (83-108) mmHg ABG HCO3 (21-25) mmol/L ABG Total CO2 (19-24) mmol/L ABG O2 Saturation (94-97) % ABG Hematocrit (34.0-46.0) % ABG Potassium (3.4-4.5) mmol/L ABG Ionized Calcium (4.5-5.3) mg/dL ABG Glucose (75-99) mg/dL ABG Lactic Acid (0.5-1.6) mmol/L Hemoglobin (13.0-17.5) gm/dL Sodium (137-145) mmol/L Chloride (98-107) mmol/L Glucose (74-99) mg/dL POC Glucose (mg/dL) 157 H 217 H 147 H (75-99) mg/dL Calcium (8.4-10.2) mg/dL Magnesium (1.6-2.3) mg/dL Total Protein (6.3-8.2) g/dL Albumin (3.5-5.0) g/dL Arterial Blood Potassium (3.4-4.5) mmol/L Arterial Blood Glucose (75-99) mg/dL Crossmatch 07/14/21 Range/Units 10:52 RBC (4.30-5.90) m/uL Hgb (13.0-17.5) gm/dL Hct (39.0-53.0) % MCHC (31.0-37.0) g/dL RDW (11.5-15.5) % Plt Count (150-450) k/uL Neutrophils # (1.3-7.7) k/uL Lymphocytes # (1.0-4.8) k/uL APTT (22.0-30.0) sec ABG pH (7.35-7.45) ABG pCO2 (35-45) mmHg ABG pO2 (83-108) mmHg ABG HCO3 (21-25) mmol/L ABG Total CO2 (19-24) mmol/L ABG O2 Saturation (94-97) % ABG Hematocrit (34.0-46.0) % ABG Potassium (3.4-4.5) mmol/L ABG Ionized Calcium (4.5-5.3) mg/dL ABG Glucose (75-99) mg/dL ABG Lactic Acid (0.5-1.6) mmol/L Hemoglobin (13.0-17.5) gm/dL Sodium (137-145) mmol/L Chloride (98-107) mmol/L Glucose (74-99) mg/dL POC Glucose (mg/dL) 121 H (75-99) mg/dL Calcium (8.4-10.2) mg/dL Magnesium (1.6-2.3) mg/dL Total Protein (6.3-8.2) g/dL Albumin (3.5-5.0) g/dL Arterial Blood Potassium (3.4-4.5) mmol/L Arterial Blood Glucose (75-99) mg/dL Crossmatch Assessment and Plan Plan: 1 diffuse multivessel coronary artery disease along with moderate aortic stenosis. The patient is post three-vessel bypass surgery and aortic valve replacement. The patient is postop day #1. Doing well. Cardiac rhythm is sinus. Cardiac rhythm is improved and the patient is currently on a normal sinus rhythm. Patient is also off milrinone. The patient of norepinephrine infusion. The patient extubated and the patient has no specific complaints. 2 post thoracotomy, currently intubated on mechanical ventilator. Chest tubes are all in place as the patient has 2 mediastinal and 1 left pleural chest tube. There is no evidence of any pneumothorax at this point in time and the patient has low output from THE CHEST TUBES. 3 normal cardiac sinus rhythm and the patient is a backup VVIR pacing 4 COPD, moderate to severe, inactive in stable 5 hypertension 6 hyperlipidemia 7 macular degeneration 8 previous history of parathyroidectomy. Plan Extubated successfully without any major difficulties currently on 10 L. Gradually wean down the FiO2. Encouraged use of incentive spirometer Off inotropes and the patient is currently off norepinephrine and milrinone May discontinue the [place] catheter Keep the chest tubes in for another 24 hours VVI backup pacemaking current cardiac rhythm is sinus Pain is under good control Sit up on a chair and increased mobility We'll continue to follow.
[2021-07-14 12:14] LABS: Glucose,Whole Blood 143 mg/dL (75-99)
[2021-07-14 13:24] LABS: Glucose,Whole Blood 195 mg/dL (75-99)
[2021-07-14] MEDS: AMIODARONE 450 MG in DEXTROSE 5% IN WATER 250 ML IV SCH ×2 (13:24)
--- NOTE | 2021-07-14 13:49 | P.PN ---
Progress Note - Text Patient is resting comfortably in a chair. She just coronary bed and went to the chair Blood pressures in the normal range Chest tube in a line and central lines are still in situ Chest discomfort only with movement and taking a deep breath Lungs decreased air entry bilaterally with mild rhonchorous sounds Heart sounds are distant No lower extremity edema Impression Triple-vessel coronary artery disease status post coronary artery bypass grafting with HOOPER graft to the LAD and vein graft to the intermedius and vein graft to the PDA Aortic valve replacement with a bioprosthetic 25 mm valve Left atrial appendectomy atrial flutter Plan Continue aspirin and Plavix and atorvastatin 40 mg daily Continue metoprolol but this may be changed to 25 twice a day tomorrow Continue postop ICU care
--- NOTE | 2021-07-14 14:09 | P.CONS ---
History of Present Illness - Reason for Consult Consult date: 07/14/21 HTN Requesting physician: Amy Desai - Chief Complaint Coronary Artery Disease - History of Present Illness Patient is a 70-year-old male with known coronary artery disease, COPD, hypertension, and dyslipidemia who presented for elective 3 vessel bypass surgery and bioprosthetic aortic valve replacement. He returned to the ICU intubated. He was successfully extubated on 07/13/21. Patient seen and examined at bedside. Pain is relatively controlled at this time. Denies any nausea or vomiting. Has not passed gas so. Denies any shortness of breath. No history of diabetic personal diabetes or family history of diabetes. He has never been told he had problems with sugar in the past. Pertinent positives and negatives as discussed in HPI, a complete review of systems was performed and all other systems are negative. General: non toxic, no distress, appears at stated age Derm: warm, dry Head: atraumatic, normocephalic, symmetric Eyes: EOMI, no lid lag, anicteric sclera, pupils equal round reactive to light ENT: Nose and ears atraumatic, no thrush, no pharyngeal erythema Neck: No thyromegaly, no cervical lymphadenopathy, supple, Cordis in right neck Mouth: no lip lesion, mucus membranes moist Cardiovascular: S1S2 reg, no murmur, positive posterior tibial pulse bilateral, no edema, capillary refill less than 2 seconds, heart hugger in place, CT adn mediastinal tube in place. Lungs: clear to ascultation bilateral, no ronchi, no rales, no wheeze, no accessory muscle use Abdominal: soft, nontender to palpation, no guarding, no appreciable orga nomegaly, normal bowel sounds Ext: no gross muscle atrophy, muscle strength muscle strength 5 out of 5 in all 4 extremities, no contractures Neuro: CN II-XI grossly intact, light touch intact all 4 extremities, finger to nose within normal limits, Psych: Alert, oriented, appropriate affect Assessment/Plan: 71-year-old male status post triple vessel bypass and bioprosthetic aortic valve replacement Coronary artery disease Hypertension Dyslipidemia -Postoperative management per cardiovascular thoracic surgery -Patient is on prophylactic amiodarone infusion -Aspirin, Lipitor, Plavix, beta tammi - milrinone per CT surgery COPD without exacerbation-pulmonary following Aute hypoxic respiratory failure -Pulmicort, duoneb - pulm hygine - wean O2 as able Systolic CHF EF 30-35% - on BB - restart ACEI per cardio thorasic Hyperglycemia - likely reactive - follow BS - A1C 5.7 04/05 - Recheck A1C DVT prophylaxis: Heparin Discussed with: Patient, nursing Anticipated discharge: per CT surgery Anticipated discharge place: [facility] A total of 45 minutes was spent on the care of this complex patient more than 50% of the time was spent in counseling and care coordination. Past Medical History Past Medical History: Coronary Artery Disease (CAD), COPD, Hyperlipidemia, Hypertension Additional Past Medical History / Comment(s): MACULAR DEGENERATION, Last Myocardial Infarction Date:: Unknown date History of Any Multi-Drug Resistant Organisms: None Reported Past Surgical History: Orthopedic Surgery Additional Past Surgical History / Comment(s): kris carpal tunnel, COLONOSCOPY, right parotidectomy w/ nerve integrity monitor 10/27/2017 Past Anesthesia/Blood Transfusion Reactions: No Reported Reaction Smoking Status: Former smoker (quit 1 month ago) Past Alcohol Use History: Occasional - Past Family History Mother Family Medical History: No Reported History Additional Family Medical History / Comment(s): of old age. Father Family Medical History: Cancer Additional Family Medical History / Comment(s): of brain tumor. Medications and Allergies Home Medications Medication Instructions Recorded Confirmed Type Carvedilol [Coreg] 3.125 mg PO BID 03/25/21 07/13/21 History Rosuvastatin [Crestor] 40 mg PO DAILY 03/25/21 07/13/21 History Aspirin [Adult Low Dose Aspirin EC] 324 mg PO DAILY 07/03/21 07/13/21 History Iron 45 mg PO DAILY 07/03/21 07/13/21 History Spironolactone 12.5 mg PO DAILY 07/03/21 07/13/21 History Vit C/E/Zn/Coppr/Lutein/Zeaxan 1 tab PO BID 07/03/21 07/13/21 History [Preservision Areds 2 Chew Tab] lisinopriL 40 mg PO DAILY 07/03/21 07/13/21 History Allergies Allergy/AdvReac Type Severity Reaction Status Date / Time No Known Allergies Allergy Verified 07/13/21 06:27 Physical Exam Osteopathic Statement: *. No significant issues noted on an osteopathic stru ctural exam other than those noted in the History and Physical/Consult. Vitals: Vital Signs Temp Pulse Resp BP Pulse Ox 07/14/21 07:00 82 25 H 95 07/14/21 06:30 89 24 118/63 92 L 07/14/21 06:00 89 33 H 97 07/14/21 05:30 89 20 87/61 93 L 07/14/21 05:00 89 21 95 07/14/21 04:30 89 19 105/53 93 L 07/14/21 04:00 89 22 94 L 07/14/21 03:30 89 18 94 L 07/14/21 03:00 89 21 94 L 07/14/21 02:30 89 19 103/49 95 07/14/21 02:00 89 21 93 L 07/14/21 01:30 89 20 112/60 94 L 07/14/21 01:00 89 21 95 07/14/21 00:45 89 23 94 L 07/14/21 00:30 89 21 95 07/14/21 00:18 89 22 107/60 97 07/14/21 00:15 89 20 107/60 95 07/14/21 00:00 98.8 F 89 21 95 07/13/21 23:45 89 21 92 L 07/13/21 23:30 89 23 91 L 07/13/21 23:15 89 24 109/55 94 L 07/13/21 23:00 89 23 90 L 07/13/21 22:45 89 25 H 93 L 07/13/21 22:30 89 20 89 L 07/13/21 22:25 89 L 07/13/21 22:15 89 23 95/57 90 L 07/13/21 22:00 89 32 H 92 L 07/13/21 21:45 89 15 91 L 07/13/21 21:30 89 32 H 93 L 07/13/21 21:17 94 L 07/13/21 21:15 89 31 H 97/58 92 L 07/13/21 21:00 89 22 93 L 07/13/21 20:45 89 29 H 92 L 07/13/21 20:30 89 28 H 93 L 07/13/21 20:15 89 26 H 93 L 07/13/21 20:00 99.0 F 89 26 H 93 L 07/13/21 19:52 89 07/13/21 19:45 89 24 68/45 94 L 07/13/21 19:33 89 07/13/21 19:30 89 26 H 94 L 07/13/21 19:15 89 25 H 98/64 95 07/13/21 19:00 89 26 H 95 07/13/21 18:45 89 25 H 95 07/13/21 18:30 89 26 H 94 L 07/13/21 18:15 89 20 95 07/13/21 18:00 89 26 H 95 07/13/21 17:45 73 25 H 98/64 95 07/13/21 17:30 89 24 94 L 07/13/21 17:15 89 26 H 95 07/13/21 17:00 89 19 98 07/13/21 16:45 89 24 98/64 98 07/13/21 16:30 89 24 82/53 98 07/13/21 16:15 89 12 96 07/13/21 16:08 89 13 07/13/21 16:00 95 Intake and Output 07/13/21 07/14/21 07/14/21 22:59 06:59 14:59 Intake Total 2014.329 8650.787 314.318 Output Total 3682 563 30 Balance -2035.108 788.787 284.318 Intake: IV 1288.9 694.8 309.1 0.9 NACL 300 400 50 Albumin 750 250 CO/CI 180 110 Kefzol 100 Nitro gtt 4.5 12.0 Primacor 0.4 0.8 0.1 pressure bags 54 72 9 Intake, IV Titration 357.992 156.987 5.218 Amount Calcium Gluconate 1 gm In 100 Sodium Chloride 0.9% 100 ml @ 100 mls/hr IVPB ONCE ONE Rx#:[id number] Dexmedetomidine/0.9% NaCl 8.174 (Pmx) 400 mcg In Empty Bag 1 bag @ Titrate IV . Q0M [facility] Rx#:[id number] Insulin Regular 100 unit 7.380 22.540 5.218 In Sodium Chloride 0.9% 100 ml @ Per Protocol IV .Q0M AB Rx#:[id number] Milrinone-D5w Pmx 20 mg 32.979 In Dextrose/Water 1 100ml .bag @ 0.2 MCG/KG/MIN 7. 356 mls/hr IV .[id number] AB Rx#:[id number] Norepinephrine 4 mg In 191.744 134.447 Sodium Chloride 0.9% 250 ml @ 0.05 MCG/KG/MIN 23. 355 mls/hr IV .[id number] AB Rx#:[id number] propofoL 1,000 mg In 17.715 Empty Bag 1 bag @ Titrate IV .Q0M AB Rx#: [id number] Oral 500 Output: Chest Tube Drainage 552 208 10 Left plural 152 18 0 mediastinal x2 400 190 10 Drainage 20 Left Calf 20 Urine 830 335 20 Estimated Blood Loss 2300 Other: Voiding Method Indwelling Catheter Indwelling Catheter Weight 118.9 kg ABP, PAP, CO, CI - Last 8 Hours Arterial Blood Pressure 106/35 Arterial Blood Pressure 119/44 Arterial Blood Pressure 78/44 Arterial Blood Pressure 126/53 Arterial Blood Pressure 108/51 Arterial Blood Pressure 104/52 Arterial Blood Pressure 128/54 Arterial Blood Pressure 132/56 Arterial Blood Pressure 130/52 Arterial Blood Pressure 121/50 Arterial Blood Pressure 113/52 Arterial Blood Pressure 125/54 Arterial Blood Pressure 127/54 Arterial Blood Pressure 125/51 Arterial Blood Pressure 116/51 Arterial Blood Pressure 120/52 Arterial Blood Pressure 122/54 Arterial Blood Pressure 128/54 Arterial Blood Pressure 117/53 Pulmonary Artery Pressure 30/9 Pulmonary Artery Pressure 28/8 Pulmonary Artery Pressure 32/7 Pulmonary Artery Pressure 39/19 Pulmonary Artery Pressure 37/18 Pulmonary Artery Pressure 33/15 Pulmonary Artery Pressure 35/19 Pulmonary Artery Pressure 41/19 Pulmonary Artery Pressure 35/15 Pulmonary Artery Pressure 31/14 Pulmonary Artery Pressure 35/16 Pulmonary Artery Pressure 33/14 Pulmonary Artery Pressure 33/15 Pulmonary Artery Pressure 32/14 Pulmonary Artery Pressure 33/14 Pulmonary Artery Pressure 33/13 Pulmonary Artery Pressure 32/11 Pulmonary Artery Pressure 34/19 Cardiac Output 7.8 Cardiac Output 6.3 Cardiac Output 8.4 Cardiac Index 3.2 Cardiac Index 2.6 Cardiac Index 3.5 Results CBC & Chem 7: 07/14/21 03:56 07/14/21 03:56 Labs: Abnormal Lab Results - Last 24 Hours (Table) 07/03/21 07/13/21 07/13/21 Range/Units 13:31 08:53 10:40 RBC (4.30-5.90) m/uL Hgb (13.0-17.5) gm/dL Hct (39.0-53.0) % MCHC (31.0-37.0) g/dL RDW (11.5-15.5) % Plt Count (150-450) k/uL Neutrophils # (1.3-7.7) k/uL Lymphocytes # (1.0-4.8) k/uL APTT (22.0-30.0) sec ABG pH 7.34 L 7.33 L (7.35-7.45) ABG pCO2 49 H 49 H (35-45) mmHg ABG pO2 274 H 227 H (83-108) mmHg ABG HCO3 27 H 26 H (21-25) mmol/L ABG Total CO2 28 H 27 H (19-24) mmol/L ABG O2 Saturation 100.0 H 99.9 H (94-97) % ABG Hematocrit (34.0-46.0) % ABG Potassium (3.4-4.5) mmol/L ABG Ionized Calcium (4.5-5.3) mg/dL ABG Glucose 110 H 118 H (75-99) mg/dL ABG Lactic Acid (0.5-1.6) mmol/L Hemoglobin 12.4 L 11.6 L (13.0-17.5) gm/dL Sodium (137-145) mmol/L Chloride (98-107) mmol/L Glucose (74-99) mg/dL POC Glucose (mg/dL) (75-99) mg/dL Calcium (8.4-10.2) mg/dL Magnesium (1.6-2.3) mg/dL Total Protein (6.3-8.2) g/dL Albumin (3.5-5.0) g/dL Arterial Blood Potassium (3.4-4.5) mmol/L Arterial Blood Glucose 110 H 118 H (75-99) mg/dL Crossmatch See Detail 07/13/21 07/13/21 07/13/21 Range/Units 11:13 11:43 12:17 RBC (4.30-5.90) m/uL Hgb (13.0-17.5) gm/dL Hct (39.0-53.0) % MCHC (31.0-37.0) g/dL RDW (11.5-15.5) % Plt Count (150-450) k/uL Neutrophils # (1.3-7.7) k/uL Lymphocytes # (1.0-4.8) k/uL APTT (22.0-30.0) sec ABG pH (7.35-7.45) ABG pCO2 (35-45) mmHg ABG pO2 360 H 389 H 322 H (83-108) mmHg ABG HCO3 (21-25) mmol/L ABG Total CO2 26 H 27 H 26 H (19-24) mmol/L ABG O2 Saturation 100.0 H 100.0 H 100.0 H (94-97) % ABG Hematocrit 31 L 32 L 32 L (34.0-46.0) % ABG Potassium 5.3 H 5.6 H (3.4-4.5) mmol/L ABG Ionized Calcium 4.1 L 4.2 L 4.2 L (4.5-5.3) mg/dL ABG Glucose 109 H 116 H 129 H (75-99) mg/dL ABG Lactic Acid (0.5-1.6) mmol/L Hemoglobin 10.2 L 10.3 L 10.5 L (13.0-17.5) gm/dL Sodium (137-145) mmol/L Chloride (98-107) mmol/L Glucose (74-99) mg/dL POC Glucose (mg/dL) (75-99) mg/dL Calcium (8.4-10.2) mg/dL Magnesium (1.6-2.3) mg/dL Total Protein (6.3-8.2) g/dL Albumin (3.5-5.0) g/dL Arterial Blood Potassium 5.3 H 5.6 H (3.4-4.5) mmol/L Arterial Blood Glucose 109 H 116 H 129 H (75-99) mg/dL Crossmatch 07/13/21 07/13/21 07/13/21 Range/Units 12:50 13:22 13:56 RBC (4.30-5.90) m/uL Hgb (13.0-17.5) gm/dL Hct (39.0-53.0) % MCHC (31.0-37.0) g/dL RDW (11.5-15.5) % Plt Count (150-450) k/uL Neutrophils # (1.3-7.7) k/uL Lymphocytes # (1.0-4.8) k/uL APTT (22.0-30.0) sec ABG pH (7.35-7.45) ABG pCO2 (35-45) mmHg ABG pO2 364 H 317 H 239 H (83-108) mmHg ABG HCO3 (21-25) mmol/L ABG Total CO2 26 H 27 H 26 H (19-24) mmol/L ABG O2 Saturation 100.0 H 100.0 H 100.0 H (94-97) % ABG Hematocrit 31 L 30 L (34.0-46.0) % ABG Potassium 5.8 H 6.0 H 6.3 H* (3.4-4.5) mmol/L ABG Ionized Calcium 4.2 L 4.2 L 4.2 L (4.5-5.3) mg/dL ABG Glucose 136 H 135 H 148 H (75-99) mg/dL ABG Lactic Acid 2.0 H (0.5-1.6) mmol/L Hemoglobin 11.0 L 10.1 L 9.7 L (13.0-17.5) gm/dL Sodium (137-145) mmol/L Chloride (98-107) mmol/L Glucose (74-99) mg/dL POC Glucose (mg/dL) (75-99) mg/dL Calcium (8.4-10.2) mg/dL Magnesium (1.6-2.3) mg/dL Total Protein (6.3-8.2) g/dL Albumin (3.5-5.0) g/dL Arterial Blood Potassium 5.8 H 6.0 H 6.3 H* (3.4-4.5) mmol/L Arterial Blood Glucose 136 H 135 H 148 H (75-99) mg/dL Crossmatch 07/13/21 07/13/21 07/13/21 Range/Units 14:57 16:20 16:20 RBC (4.30-5.90) m/uL Hgb 11.8 L (13.0-17.5) gm/dL Hct (39.0-53.0) % MCHC 29.5 L (31.0-37.0) g/dL RDW 18.2 H (11.5-15.5) % Plt Count (150-450) k/uL Neutrophils # 8.1 H (1.3-7.7) k/uL Lymphocytes # 0.6 L (1.0-4.8) k/uL APTT (22.0-30.0) sec ABG pH 7.27 L (7.35-7.45) ABG pCO2 54 H (35-45) mmHg ABG pO2 234 H (83-108) mmHg ABG HCO3 (21-25) mmol/L ABG Total CO2 27 H (19-24) mmol/L ABG O2 Saturation 99.8 H (94-97) % ABG Hematocrit (34.0-46.0) % ABG Potassium 5.3 H (3.4-4.5) mmol/L ABG Ionized Calcium 4.4 L (4.5-5.3) mg/dL ABG Glucose 125 H (75-99) mg/dL ABG Lactic Acid (0.5-1.6) mmol/L Hemoglobin 11.7 L (13.0-17.5) gm/dL Sodium (137-145) mmol/L Chloride (98-107) mmol/L Glucose (74-99) mg/dL POC Glucose (mg/dL) 126 H (75-99) mg/dL Calcium (8.4-10.2) mg/dL Magnesium (1.6-2.3) mg/dL Total Protein (6.3-8.2) g/dL Albumin (3.5-5.0) g/dL Arterial Blood Potassium 5.3 H (3.4-4.5) mmol/L Arterial Blood Glucose 125 H (75-99) mg/dL Crossmatch 07/13/21 07/13/21 07/13/21 Range/Units 16:20 16:20 17:08 RBC (4.30-5.90) m/uL Hgb (13.0-17.5) gm/dL Hct (39.0-53.0) % MCHC (31.0-37.0) g/dL RDW (11.5-15.5) % Plt Count (150-450) k/uL Neutrophils # (1.3-7.7) k/uL Lymphocytes # (1.0-4.8) k/uL APTT 30.9 H (22.0-30.0) sec ABG pH 7.28 L (7.35-7.45) ABG pCO2 50 H (35-45) mmHg ABG pO2 146 H (83-108) mmHg ABG HCO3 (21-25) mmol/L ABG Total CO2 25 H (19-24) mmol/L ABG O2 Saturation 98.7 H (94-97) % ABG Hematocrit (34.0-46.0) % ABG Potassium (3.4-4.5) mmol/L ABG Ionized Calcium (4.5-5.3) mg/dL ABG Glucose (75-99) mg/dL ABG Lactic Acid (0.5-1.6) mmol/L Hemoglobin (13.0-17.5) gm/dL Sodium 136 L (137-145) mmol/L Chloride 108 H (98-107) mmol/L Glucose 128 H (74-99) mg/dL POC Glucose (mg/dL) (75-99) mg/dL Calcium 8.0 L (8.4-10.2) mg/dL Magnesium 2.6 H (1.6-2.3) mg/dL Total Protein (6.3-8.2) g/dL Albumin 3.1 L (3.5-5.0) g/dL Arterial Blood Potassium (3.4-4.5) mmol/L Arterial Blood Glucose (75-99) mg/dL Crossmatch 07/13/21 07/13/21 07/13/21 Range/Units 17:08 18:06 18:57 RBC (4.30-5.90) m/uL Hgb (13.0-17.5) gm/dL Hct (39.0-53.0) % MCHC (31.0-37.0) g/dL RDW (11.5-15.5) % Plt Count (150-450) k/uL Neutrophils # (1.3-7.7) k/uL Lymphocytes # (1.0-4.8) k/uL APTT (22.0-30.0) sec ABG pH (7.35-7.45) ABG pCO2 (35-45) mmHg ABG pO2 (83-108) mmHg ABG HCO3 (21-25) mmol/L ABG Total CO2 (19-24) mmol/L ABG O2 Saturation (94-97) % ABG Hematocrit (34.0-46.0) % ABG Potassium (3.4-4.5) mmol/L ABG Ionized Calcium (4.5-5.3) mg/dL ABG Glucose (75-99) mg/dL ABG Lactic Acid (0.5-1.6) mmol/L Hemoglobin (13.0-17.5) gm/dL Sodium (137-145) mmol/L Chloride (98-107) mmol/L Glucose (74-99) mg/dL POC Glucose (mg/dL) 130 H 119 H 143 H (75-99) mg/dL Calcium (8.4-10.2) mg/dL Magnesium (1.6-2.3) mg/dL Total Protein (6.3-8.2) g/dL Albumin (3.5-5.0) g/dL Arterial Blood Potassium (3.4-4.5) mmol/L Arterial Blood Glucose (75-99) mg/dL Crossmatch 07/13/21 07/13/21 07/13/21 Range/Units 19:04 20:04 21:18 RBC 4.04 L (4.30-5.90) m/uL Hgb 10.7 L (13.0-17.5) gm/dL Hct 36.3 L (39.0-53.0) % MCHC 29.5 L (31.0-37.0) g/dL RDW 18.2 H (11.5-15.5) % Plt Count (150-450) k/uL Neutrophils # 8.5 H (1.3-7.7) k/uL Lymphocytes # 0.6 L (1.0-4.8) k/uL APTT (22.0-30.0) sec ABG pH (7.35-7.45) ABG pCO2 (35-45) mmHg ABG pO2 (83-108) mmHg ABG HCO3 (21-25) mmol/L ABG Total CO2 (19-24) mmol/L ABG O2 Saturation (94-97) % ABG Hematocrit (34.0-46.0) % ABG Potassium (3.4-4.5) mmol/L ABG Ionized Calcium (4.5-5.3) mg/dL ABG Glucose (75-99) mg/dL ABG Lactic Acid (0.5-1.6) mmol/L Hemoglobin (13.0-17.5) gm/dL Sodium (137-145) mmol/L Chloride (98-107) mmol/L Glucose (74-99) mg/dL POC Glucose (mg/dL) 139 H 153 H (75-99) mg/dL Calcium (8.4-10.2) mg/dL Magnesium (1.6-2.3) mg/dL Total Protein (6.3-8.2) g/dL Albumin (3.5-5.0) g/dL Arterial Blood Potassium (3.4-4.5) mmol/L Arterial Blood Glucose (75-99) mg/dL Crossmatch 07/13/21 07/13/21 07/13/21 Range/Units 21:53 21:53 21:55 RBC 3.78 L (4.30-5.90) m/uL Hgb 10.1 L (13.0-17.5) gm/dL Hct 33.7 L (39.0-53.0) % MCHC 29.9 L (31.0-37.0) g/dL RDW 18.0 H (11.5-15.5) % Plt Count 147 L (150-450) k/uL Neutrophils # 8.9 H (1.3-7.7) k/uL Lymphocytes # 0.6 L (1.0-4.8) k/uL APTT (22.0-30.0) sec ABG pH 7.33 L (7.35-7.45) ABG pCO2 (35-45) mmHg ABG pO2 (83-108) mmHg ABG HCO3 (21-25) mmol/L ABG Total CO2 (19-24) mmol/L ABG O2 Saturation (94-97) % ABG Hematocrit (34.0-46.0) % ABG Potassium (3.4-4.5) mmol/L ABG Ionized Calcium (4.5-5.3) mg/dL ABG Glucose (75-99) mg/dL ABG Lactic Acid (0.5-1.6) mmol/L Hemoglobin (13.0-17.5) gm/dL Sodium (137-145) mmol/L Chloride (98-107) mmol/L Glucose (74-99) mg/dL POC Glucose (mg/dL) 150 H (75-99) mg/dL Calcium (8.4-10.2) mg/dL Magnesium (1.6-2.3) mg/dL Total Protein (6.3-8.2) g/dL Albumin (3.5-5.0) g/dL Arterial Blood Potassium (3.4-4.5) mmol/L Arterial Blood Glucose (75-99) mg/dL Crossmatch 07/13/21 07/14/21 07/14/21 Range/Units 23:06 00:06 01:04 RBC (4.30-5.90) m/uL Hgb (13.0-17.5) gm/dL Hct (39.0-53.0) % MCHC (31.0-37.0) g/dL RDW (11.5-15.5) % Plt Count (150-450) k/uL Neutrophils # (1.3-7.7) k/uL Lymphocytes # (1.0-4.8) k/uL APTT (22.0-30.0) sec ABG pH (7.35-7.45) ABG pCO2 (35-45) mmHg ABG pO2 (83-108) mmHg ABG HCO3 (21-25) mmol/L ABG Total CO2 (19-24) mmol/L ABG O2 Saturation (94-97) % ABG Hematocrit (34.0-46.0) % ABG Potassium (3.4-4.5) mmol/L ABG Ionized Calcium (4.5-5.3) mg/dL ABG Glucose (75-99) mg/dL ABG Lactic Acid (0.5-1.6) mmol/L Hemoglobin (13.0-17.5) gm/dL Sodium (137-145) mmol/L Chloride (98-107) mmol/L Glucose (74-99) mg/dL POC Glucose (mg/dL) 138 H 141 H 136 H (75-99) mg/dL Calcium (8.4-10.2) mg/dL Magnesium (1.6-2.3) mg/dL Total Protein (6.3-8.2) g/dL Albumin (3.5-5.0) g/dL Arterial Blood Potassium (3.4-4.5) mmol/L Arterial Blood Glucose (75-99) mg/dL Crossmatch 07/14/21 07/14/21 07/14/21 Range/Units 01:54 03:07 03:54 RBC (4.30-5.90) m/uL Hgb (13.0-17.5) gm/dL Hct (39.0-53.0) % MCHC (31.0-37.0) g/dL RDW (11.5-15.5) % Plt Count (150-450) k/uL Neutrophils # (1.3-7.7) k/uL Lymphocytes # (1.0-4.8) k/uL APTT (22.0-30.0) sec ABG pH (7.35-7.45) ABG pCO2 (35-45) mmHg ABG pO2 (83-108) mmHg ABG HCO3 (21-25) mmol/L ABG Total CO2 (19-24) mmol/L ABG O2 Saturation (94-97) % ABG Hematocrit (34.0-46.0) % ABG Potassium (3.4-4.5) mmol/L ABG Ionized Calcium (4.5-5.3) mg/dL ABG Glucose (75-99) mg/dL ABG Lactic Acid (0.5-1.6) mmol/L Hemoglobin (13.0-17.5) gm/dL Sodium (137-145) mmol/L Chloride (98-107) mmol/L Glucose (74-99) mg/dL POC Glucose (mg/dL) 125 H 128 H 127 H (75-99) mg/dL Calcium (8.4-10.2) mg/dL Magnesium (1.6-2.3) mg/dL Total Protein (6.3-8.2) g/dL Albumin (3.5-5.0) g/dL Arterial Blood Potassium (3.4-4.5) mmol/L Arterial Blood Glucose (75-99) mg/dL Crossmatch 07/14/21 07/14/21 07/14/21 Range/Units 03:56 03:56 05:02 RBC 3.57 L (4.30-5.90) m/uL Hgb 9.6 L (13.0-17.5) gm/dL Hct 31.1 L (39.0-53.0) % MCHC 30.9 L (31.0-37.0) g/dL RDW 18.3 H (11.5-15.5) % Plt Count 136 L (150-450) k/uL Neutrophils # (1.3-7.7) k/uL Lymphocytes # 0.9 L (1.0-4.8) k/uL APTT (22.0-30.0) sec ABG pH (7.35-7.45) ABG pCO2 (35-45) mmHg ABG pO2 (83-108) mmHg ABG HCO3 (21-25) mmol/L ABG Total CO2 (19-24) mmol/L ABG O2 Saturation (94-97) % ABG Hematocrit (34.0-46.0) % ABG Potassium (3.4-4.5) mmol/L ABG Ionized Calcium (4.5-5.3) mg/dL ABG Glucose (75-99) mg/dL ABG Lactic Acid (0.5-1.6) mmol/L Hemoglobin (13.0-17.5) gm/dL Sodium 136 L (137-145) mmol/L Chloride (98-107) mmol/L Glucose 124 H (74-99) mg/dL POC Glucose (mg/dL) 124 H (75-99) mg/dL Calcium 7.6 L (8.4-10.2) mg/dL Magnesium (1.6-2.3) mg/dL Total Protein 6.2 L (6.3-8.2) g/dL Albumin 2.9 L (3.5-5.0) g/dL Arterial Blood Potassium (3.4-4.5) mmol/L Arterial Blood Glucose (75-99) mg/dL Crossmatch 07/14/21 Range/Units 07:06 RBC (4.30-5.90) m/uL Hgb (13.0-17.5) gm/dL Hct (39.0-53.0) % MCHC (31.0-37.0) g/dL RDW (11.5-15.5) % Plt Count (150-450) k/uL Neutrophils # (1.3-7.7) k/uL Lymphocytes # (1.0-4.8) k/uL APTT (22.0-30.0) sec ABG pH (7.35-7.45) ABG pCO2 (35-45) mmHg ABG pO2 (83-108) mmHg ABG HCO3 (21-25) mmol/L ABG Total CO2 (19-24) mmol/L ABG O2 Saturation (94-97) % ABG Hematocrit (34.0-46.0) % ABG Potassium (3.4-4.5) mmol/L ABG Ionized Calcium (4.5-5.3) mg/dL ABG Glucose (75-99) mg/dL ABG Lactic Acid (0.5-1.6) mmol/L Hemoglobin (13.0-17.5) gm/dL Sodium (137-145) mmol/L Chloride (98-107) mmol/L Glucose (74-99) mg/dL POC Glucose (mg/dL) 157 H (75-99) mg/dL Calcium (8.4-10.2) mg/dL Magnesium (1.6-2.3) mg/dL Total Protein (6.3-8.2) g/dL Albumin (3.5-5.0) g/dL Arterial Blood Potassium (3.4-4.5) mmol/L Arterial Blood Glucose (75-99) mg/dL Crossmatch
[2021-07-14 14:32] LABS: Glucose,Whole Blood 152 mg/dL (75-99)
[2021-07-14 15:53] LABS: Glucose,Whole Blood 118 mg/dL (75-99)
[2021-07-14] MEDS: METOPROLOL TARTRATE 12.5 MG TAB PO SCH ×2 (15:53→22:39)
[2021-07-14] MEDS: SODIUM CHLORIDE 0.9% 1,000 ML IV SCH (15:53)
[2021-07-14] MEDS: NOREPINEPHRINE 4 MG in SODIUM CHLORIDE 0.9% 250 ML IV SCH (15:54)
[2021-07-14] MEDS: INSULIN REGULAR 100 UNIT in SODIUM CHLORIDE 0.9% 100 ML IV SCH (16:23)
[2021-07-14 17:11] LABS: Glucose,Whole Blood 135 mg/dL (75-99)
[2021-07-14] MEDS: PANTOPRAZOLE 40 MG TABLET PO SCH (17:11)
[2021-07-14 18:39] LABS: Glucose,Whole Blood 154 mg/dL (75-99)
[2021-07-14 20:21] LABS: Glucose,Whole Blood 126 mg/dL (75-99)
[2021-07-14] MEDS: SENNOSIDES-DOCUSATE SODIUM 1 EACH TAB PO SCH (21:37)
[2021-07-14 21:40] LABS: Glucose,Whole Blood 118 mg/dL (75-99)
[2021-07-14 23:06] LABS: Glucose,Whole Blood 116 mg/dL (75-99)
[2021-07-15] MEDS: HEPARIN SODIUM,PORCINE/PF 5,000 UNIT/0.5 ML SYRINGE SQ SCH ×4 (00:07→23:04)
[2021-07-15 00:14] LABS: Glucose,Whole Blood 119 mg/dL (75-99)
[2021-07-15 01:31] LABS: Glucose,Whole Blood 100 mg/dL (75-99)
[2021-07-15 02:32] LABS: Glucose,Whole Blood 113 mg/dL (75-99)
[2021-07-15] MEDS: HYDROcodone/APAP 5-325MG 1 EACH TAB PO PRN ×2 (02:35→06:12)
[2021-07-15 03:26] LABS: Glucose,Whole Blood 112 mg/dL (75-99)
[2021-07-15 04:15] LABS: Anisocytosis Slight; Basophils % (A) 0 %; Eosinophils % (A) 0 %; HCT 28.1 % (39.0-53.0); HGB 8.5 gm/dL (13.0-17.5); Hypochromasia Marked; Lymphocytes # (A) 0.9 k/uL (1.0-4.8); Lymphocytes % (A) 9 %; MCH 27.2 pg (25.0-35.0); MCHC 30.4 g/dL (31.0-37.0); MCV 89.4 fL (80.0-100.0); Mean Platelet Volume 9.4; Monocytes # (A) 0.7 k/uL (0-1.0); Monocytes % (A) 8 %; Neutrophils # (A) 7.6 k/uL (1.3-7.7); Neutrophils % (A) 80 %; Platelet Count 112 k/uL (150-450); RBC 3.14 m/uL (4.30-5.90); WBC 9.5 k/uL (3.8-10.6)
[2021-07-15 04:29] LABS: Ionized Calcium 4.9 mg/dL (4.5-5.3)
[2021-07-15 04:38] LABS: Calcium 8.1 mg/dL (8.4-10.2); Potassium 4.7 mmol/L (3.5-5.1); Total Bilirubin 0.5 mg/dL (0.2-1.3); Total Protein 6.3 g/dL (6.3-8.2)
[2021-07-15 05:06] LABS: Glucose,Whole Blood 149 mg/dL (75-99)
[2021-07-15 06:05] LABS: Glucose,Whole Blood 139 mg/dL (75-99)
[2021-07-15 07:15] LABS: Glucose,Whole Blood 112 mg/dL (75-99)
--- NOTE | 2021-07-15 07:43 | P.PN ---
Subjective Progress Note Date: 07/15/21 Principal diagnosis: Triple-vessel coronary artery disease with known 100% occluded mid LAD, moderate left ventricular dysfunction, moderate to severe aortic valve stenosis, mild to moderate mitral valve regurgitation. Previous medical history of hypertension, hyperlipidemia, current tobacco dependence, COPD, evidence of old distal anterior apical myocardial infarction, peripheral arterial disease, and family history of coronary artery disease. Vaccinated and boosted against Covid POD #2 triple vessel coronary artery bypass grafting using the left internal mammary artery to the distal left anterior descending artery, reverse saphenous vein graft from the aorta to the ramus intermedius artery, reverse saphenous vein graft from the aorta to the posterior descending artery, aortic valve replacement using a 25 mm Inspiris pericardial bioprosthesis, exclusion of the left atrial appendage using a 35 mm AtriClip, endoscopic harvesting of the left greater saphenous vein, intraoperative graft flow measurements using the Liquid Account[employer] system, intraoperative transesophageal echocardiogram and epi-aortic scanning. Postoperative acute blood loss anemia and thrombocytopenia, expected given hemodilution and cardiopulmonary bypass pump The patient was seen and examined this morning sitting up in a recliner in the intensive care unit in no acute distress. Patient states post surgical pain is controlled with current medication regimen, denies shortness of breath. Remains in sinus rhythm and hemodynamically stable on no inotropes or pressors. He had a relatively uneventful night and remains in good spirits. Ambulated in the hallway yesterday with PT/OT without difficulty. Right internal jugular Cordis, right radial arterial line, mediastinal/left pleural chest tubes all remain. No other new concerns. Objective - Vital Signs Vital signs: Vital Signs Temp 98.2 F 07/15/21 04:00 Pulse 82 07/15/21 07:00 Resp 23 07/15/21 07:00 BP 119/70 07/15/21 07:00 Pulse Ox 94 L 07/15/21 07:00 Intake & Output 07/14/21 07/15/21 07/15/21 18:59 06:59 18:59 Intake Total 2044.579 1656.240 39.788 Output Total 575 725 35 Balance 1469.579 931.240 4.788 Weight 118.9 kg 126.9 kg Intake: IV 504.1 72 6 0.9 NACL 50 Albumin 250 CO/CI 20 Kefzol 100 Primacor 0.1 pressure bags 84 72 6 Intake, IV Titration 402.479 384.240 33.788 Amount Insulin Regular 100 unit 52.479 24.240 3.788 In Sodium Chloride 0.9% 100 ml @ Per Protocol IV .Q0M AB Rx#:[id number] Sodium Chloride 0.9% 1, 350 360 30 000 ml @ 30 mls/hr IV . Q24H AB Rx#:[id number] Oral 1080 1200 Tube Feeding 58 Output: Chest Tube Drainage 100 60 Left plural 0 20 mediastinal x2 100 40 Drainage 0 Left Calf 0 Urine 475 665 35 Other: Voiding Method Indwelling Catheter Indwelling Catheter ABP, PAP, CO, CI - Last Documented Arterial Blood Pressure 137/56 Pulmonary Artery Pressure 28/13 Cardiac Output 6.5 Cardiac Index 2.7 - Exam CONSTITUTIONAL: Appears comfortable, cooperative, no acute distress RESPIRATORY: Lungs sounds diminished bilaterally. Respirations even, nonlabo red. Currently on 8 L high flow nasal cannula with oxygen saturation 93%. Able to achieve 1250 mL on incentive spirometry. Strong productive cough. CARDIOVASCULAR: S1, S2 present. Regular rate and rhythm, sinus rhythm on telemetry. Sternum stable. Palpable peripheral pulses bilaterally. Trace bilateral lower extremity edema present. No calf pain or tenderness noted. Heart hugger in place with patient demonstrating appropriate use. Antiembolism stockings, SCDs present. GASTROINTESTINAL: Abdomen soft, nontender, nondistended. Active bowel sounds present 4 quadrants. Tolerating diet. Negative flatus GENITOURINARY: Lares present draining clear, yellow urine. Output overnight 35-60 mL per hour, 1140 mL in the last 24 hours INTEGUMENTARY: Skin is warm and dry with evidence of good perfusion. Anterior chest incision well approximated and covered with dry intact dressing. Left lower extremity EVH site well approximated without redness or drainage NEUROLOGIC: Cranial nerves II through XII intact MUSKULOSKELETAL: Able to move all extremities, strength equal bilaterally PSYCHIATRIC: Alert and oriented to person place and time, appropriate affect, intact judgment and insight INVASIVE LINES AND TUBES: Mediastinal/left pleural chest tubes present and connected to wall suction, no air leaks present. Mediastinal tube with 40 mL serosanguineous drainage overnight, 150 mL in the last 24 hours. Left pleural chest tube with 20 mL serosanguineous drainage overnight, 50 mL in the last 24 hours. A/V epicardial pacemaker wires present, connected to generator, AAI mode with backup rate 40 bpm. Right internal jugular Cordis, right radial arterial line present. - Allied health notes Allied health notes reviewed: nursing - Labs CBC & Chem 7: 07/15/21 04:00 07/15/21 04:00 Labs: Abnormal Lab Results - Last 24 Hours (Table) 07/03/21 07/14/21 07/14/21 Range/Units 13:31 08:14 09:33 RBC (4.30-5.90) m/uL Hgb (13.0-17.5) gm/dL Hct (39.0-53.0) % MCHC (31.0-37.0) g/dL RDW (11.5-15.5) % Plt Count (150-450) k/uL Lymphocytes # (1.0-4.8) k/uL Sodium (137-145) mmol/L BUN (9-20) mg/dL Glucose (74-99) mg/dL POC Glucose (mg/dL) 217 H 147 H (75-99) mg/dL Calcium (8.4-10.2) mg/dL AST (17-59) U/L Albumin (3.5-5.0) g/dL Crossmatch See Detail 07/14/21 07/14/21 07/14/21 Range/Units 10:52 12:13 13:22 RBC (4.30-5.90) m/uL Hgb (13.0-17.5) gm/dL Hct (39.0-53.0) % MCHC (31.0-37.0) g/dL RDW (11.5-15.5) % Plt Count (150-450) k/uL Lymphocytes # (1.0-4.8) k/uL Sodium (137-145) mmol/L BUN (9-20) mg/dL Glucose (74-99) mg/dL POC Glucose (mg/dL) 121 H 143 H 195 H (75-99) mg/dL Calcium (8.4-10.2) mg/dL AST (17-59) U/L Albumin (3.5-5.0) g/dL Crossmatch 07/14/21 07/14/21 07/14/21 Range/Units 14:30 15:51 17:09 RBC (4.30-5.90) m/uL Hgb (13.0-17.5) gm/dL Hct (39.0-53.0) % MCHC (31.0-37.0) g/dL RDW (11.5-15.5) % Plt Count (150-450) k/uL Lymphocytes # (1.0-4.8) k/uL Sodium (137-145) mmol/L BUN (9-20) mg/dL Glucose (74-99) mg/dL POC Glucose (mg/dL) 152 H 118 H 135 H (75-99) mg/dL Calcium (8.4-10.2) mg/dL AST (17-59) U/L Albumin (3.5-5.0) g/dL Crossmatch 07/14/21 07/14/21 07/14/21 Range/Units 18:37 20:20 21:39 RBC (4.30-5.90) m/uL Hgb (13.0-17.5) gm/dL Hct (39.0-53.0) % MCHC (31.0-37.0) g/dL RDW (11.5-15.5) % Plt Count (150-450) k/uL Lymphocytes # (1.0-4.8) k/uL Sodium (137-145) mmol/L BUN (9-20) mg/dL Glucose (74-99) mg/dL POC Glucose (mg/dL) 154 H 126 H 118 H (75-99) mg/dL Calcium (8.4-10.2) mg/dL AST (17-59) U/L Albumin (3.5-5.0) g/dL Crossmatch 07/14/21 07/15/21 07/15/21 Range/Units 23:03 00:13 01:28 RBC (4.30-5.90) m/uL Hgb (13.0-17.5) gm/dL Hct (39.0-53.0) % MCHC (31.0-37.0) g/dL RDW (11.5-15.5) % Plt Count (150-450) k/uL Lymphocytes # (1.0-4.8) k/uL Sodium (137-145) mmol/L BUN (9-20) mg/dL Glucose (74-99) mg/dL POC Glucose (mg/dL) 116 H 119 H 100 H (75-99) mg/dL Calcium (8.4-10.2) mg/dL AST (17-59) U/L Albumin (3.5-5.0) g/dL Crossmatch 07/15/21 07/15/21 07/15/21 Range/Units 02:30 03:23 04:00 RBC 3.14 L (4.30-5.90) m/uL Hgb 8.5 L (13.0-17.5) gm/dL Hct 28.1 L (39.0-53.0) % MCHC 30.4 L (31.0-37.0) g/dL RDW 18.0 H (11.5-15.5) % Plt Count 112 L (150-450) k/uL Lymphocytes # 0.9 L (1.0-4.8) k/uL Sodium (137-145) mmol/L BUN (9-20) mg/dL Glucose (74-99) mg/dL POC Glucose (mg/dL) 113 H 112 H (75-99) mg/dL Calcium (8.4-10.2) mg/dL AST (17-59) U/L Albumin (3.5-5.0) g/dL Crossmatch 07/15/21 07/15/21 07/15/21 Range/Units 04:00 05:04 06:02 RBC (4.30-5.90) m/uL Hgb (13.0-17.5) gm/dL Hct (39.0-53.0) % MCHC (31.0-37.0) g/dL RDW (11.5-15.5) % Plt Count (150-450) k/uL Lymphocytes # (1.0-4.8) k/uL Sodium 131 L (137-145) mmol/L BUN 26 H (9-20) mg/dL Glucose 124 H (74-99) mg/dL POC Glucose (mg/dL) 149 H 139 H (75-99) mg/dL Calcium 8.1 L (8.4-10.2) mg/dL AST 60 H (17-59) U/L Albumin 3.0 L (3.5-5.0) g/dL Crossmatch 07/15/21 Range/Units 07:14 RBC (4.30-5.90) m/uL Hgb (13.0-17.5) gm/dL Hct (39.0-53.0) % MCHC (31.0-37.0) g/dL RDW (11.5-15.5) % Plt Count (150-450) k/uL Lymphocytes # (1.0-4.8) k/uL Sodium (137-145) mmol/L BUN (9-20) mg/dL Glucose (74-99) mg/dL POC Glucose (mg/dL) 112 H (75-99) mg/dL Calcium (8.4-10.2) mg/dL AST (17-59) U/L Albumin (3.5-5.0) g/dL Crossmatch - Imaging and Cardiology Chest x-ray: image reviewed Assessment and Plan Assessment: 1. Triple-vessel coronary artery disease with known 100% occluded mid LAD and evidence of old distal anterior apical myocardial infarction, status post three- vessel CABG 2. Moderate left ventricular dysfunction with preoperative ejection fraction 30-35% 3. Moderate to severe aortic valve stenosis, status post aortic valve replacement 4. Mild to moderate mitral valve regurgitation 5. History of hypertension 6. Hyperlipidemia, treated, cholesterol 69, LDL 38 7. Current tobacco dependence 8. Mild COPD with preoperative FEV1 65% of predicted and DLCO 54% of predicted 9. Peripheral arterial disease, MARY right 0.65, left 0.85 10. Family history of coronary artery disease 11. Vaccinated and boosted against Covid 12. Postoperative acute blood loss anemia and thrombocytopenia, expected Plan: 1. Continue aspirin, statin, Plavix, beta tammi. Will increase beta tammi as tolerated, increased to 25 mg BID today 2. Continue amiodarone for A. fib prophylaxis 3. Wean O2 as tolerated. Encourage incentive spirometry 10 times every hour while awake. Bronchodilators per pulmonology 4. Increase activity, ambulate as tolerated. PT/OT/cardiac rehab following 5. Will monitor daily labs and x-rays. Electrolyte replacement per protocol 6. GI/DVT prophylaxis 7. Pain control with current medication regimen 8. Insulin management per primary care service. Patient is not diabetic, preoperative hemoglobin A1c 5.7%, however patient doesn't need tight blood sugar control to prevent infection and promote sternal union 9. Will discontinue chest tubes. Discontinue cordis, arterial line 10. Discontinue Lares catheter, may bladder scan and straight cath for >300 mL residual 11. Strict accurate intake and output. Daily weights 12. More recommendations to follow based on patient's progress Time with Patient: Greater than 30
[2021-07-15] MEDS: BUDESONIDE 1 MG/2 ML NEBU INHALATION SCH ×2 (07:45→20:46)
[2021-07-15] MEDS: IPRATROPIUM-ALBUTEROL 3 ML NEB INHALATION SCH ×4 (07:45→20:46)
--- NOTE | 2021-07-15 08:08 | XR ---
EXAMINATION TYPE: XR chest 1V portable DATE OF EXAM: 07/15/2021 COMPARISON: Chest x-ray 07/14/2021 HISTORY: Postop cardiac surgery TECHNIQUE: Single frontal view of the chest is obtained. FINDINGS: Patient is post median sternotomy and rotated. Chest tube is present at the left lower hem ithorax. There are overlying artifacts. No sizable pneumothorax. Left atrial appendage clip placement , cardiac valve replacement change is noted. Patchy densities present at the left lung base which is not entirely included on the exam. Interstitium is mildly increased. Cardiac mediastinal silhouette i s stable. Median sternal drain again noted. IMPRESSION: There is improved aeration at the right lung base, persistent left lower lobe atelectasi s and possible associated effusion.
[2021-07-15] MEDS: ATORVASTATIN 40 MG TAB PO SCH (08:16)
[2021-07-15] MEDS: ASPIRIN 325 MG TAB PO SCH (08:16)
[2021-07-15] MEDS: PANTOPRAZOLE 40 MG TABLET PO SCH ×2 (08:16→17:34)
[2021-07-15] MEDS: AMIODARONE 200 MG TAB PO SCH ×2 (08:16→20:32)
[2021-07-15] MEDS: METOPROLOL TARTRATE 25 MG TAB PO SCH ×2 (08:16→20:32)
[2021-07-15] MEDS: CLOPIDOGREL 75 MG TAB PO SCH (08:16)
--- NOTE | 2021-07-15 11:29 | P.PN ---
Subjective Patient is sitting comfortably in a chair Chest tube is out Central lines out, radial artery catheter out Minimal chest discomfort Since he feels congested On examination entry is reduced bilaterally but without any rhonchi or crackles Very faint crackles at the right base Heart sounds are soft S1 and S2 are soft No lower extremity edema Impression Multivessel coronary artery disease status post coronary artery bypass grafting Progressing well postoperatively Suggest Increase beta blockers today to 10 femoral grams twice daily Continue dual antiplatelet therapy and statins May go to 3 S. today Objective - Vital Signs Vital signs: Vital Signs Temp 98 F 07/15/21 08:00 Pulse 69 07/15/21 11:00 Resp 23 07/15/21 11:00 BP 118/68 07/15/21 11:00 Pulse Ox 94 L 07/15/21 11:00 Intake & Output 07/14/21 07/15/21 07/15/21 18:59 06:59 18:59 Intake Total 2044.579 1656.240 315.788 Output Total 575 725 135 Balance 1469.579 931.240 180.788 Weight 118.9 kg 126.9 kg Intake: IV 504.1 72 12 0.9 NACL 50 Albumin 250 CO/CI 20 Kefzol 100 Primacor 0.1 pressure bags 84 72 12 Intake, IV Titration 402.479 384.240 63.788 Amount Insulin Regular 100 unit 52.479 24.240 3.788 In Sodium Chloride 0.9% 100 ml @ Per Protocol IV .Q0M AB Rx#:[id number] Sodium Chloride 0.9% 1, 350 360 60 000 ml @ 30 mls/hr IV . Q24H AB Rx#:[id number] Oral 1080 1200 240 Tube Feeding 58 Output: Chest Tube Drainage 100 60 0 Left plural 0 20 0 mediastinal x2 100 40 0 Drainage 0 Left Calf 0 Urine 475 665 135 Other: Voiding Method Indwelling Catheter Indwelling Catheter Indwelling Catheter # Bowel Movements 1 ABP, PAP, CO, CI - Last Documented Arterial Blood Pressure 143/50 Pulmonary Artery Pressure 28/13 Cardiac Output 6.5 Cardiac Index 2.7 - Labs CBC & Chem 7: 07/15/21 04:00 07/15/21 04:00 Labs: Abnormal Lab Results - Last 24 Hours (Table) 07/03/21 07/14/21 07/14/21 Range/Units 13:31 12:13 13:22 RBC (4.30-5.90) m/uL Hgb (13.0-17.5) gm/dL Hct (39.0-53.0) % MCHC (31.0-37.0) g/dL RDW (11.5-15.5) % Plt Count (150-450) k/uL Lymphocytes # (1.0-4.8) k/uL Sodium (137-145) mmol/L BUN (9-20) mg/dL Glucose (74-99) mg/dL POC Glucose (mg/dL) 143 H 195 H (75-99) mg/dL Calcium (8.4-10.2) mg/dL AST (17-59) U/L Albumin (3.5-5.0) g/dL Crossmatch See Detail 07/14/21 07/14/21 07/14/21 Range/Units 14:30 15:51 17:09 RBC (4.30-5.90) m/uL Hgb (13.0-17.5) gm/dL Hct (39.0-53.0) % MCHC (31.0-37.0) g/dL RDW (11.5-15.5) % Plt Count (150-450) k/uL Lymphocytes # (1.0-4.8) k/uL Sodium (137-145) mmol/L BUN (9-20) mg/dL Glucose (74-99) mg/dL POC Glucose (mg/dL) 152 H 118 H 135 H (75-99) mg/dL Calcium (8.4-10.2) mg/dL AST (17-59) U/L Albumin (3.5-5.0) g/dL Crossmatch 07/14/21 07/14/21 07/14/21 Range/Units 18:37 20:20 21:39 RBC (4.30-5.90) m/uL Hgb (13.0-17.5) gm/dL Hct (39.0-53.0) % MCHC (31.0-37.0) g/dL RDW (11.5-15.5) % Plt Count (150-450) k/uL Lymphocytes # (1.0-4.8) k/uL Sodium (137-145) mmol/L BUN (9-20) mg/dL Glucose (74-99) mg/dL POC Glucose (mg/dL) 154 H 126 H 118 H (75-99) mg/dL Calcium (8.4-10.2) mg/dL AST (17-59) U/L Albumin (3.5-5.0) g/dL Crossmatch 07/14/21 07/15/21 07/15/21 Range/Units 23:03 00:13 01:28 RBC (4.30-5.90) m/uL Hgb (13.0-17.5) gm/dL Hct (39.0-53.0) % MCHC (31.0-37.0) g/dL RDW (11.5-15.5) % Plt Count (150-450) k/uL Lymphocytes # (1.0-4.8) k/uL Sodium (137-145) mmol/L BUN (9-20) mg/dL Glucose (74-99) mg/dL POC Glucose (mg/dL) 116 H 119 H 100 H (75-99) mg/dL Calcium (8.4-10.2) mg/dL AST (17-59) U/L Albumin (3.5-5.0) g/dL Crossmatch 07/15/21 07/15/21 07/15/21 Range/Units 02:30 03:23 04:00 RBC 3.14 L (4.30-5.90) m/uL Hgb 8.5 L (13.0-17.5) gm/dL Hct 28.1 L (39.0-53.0) % MCHC 30.4 L (31.0-37.0) g/dL RDW 18.0 H (11.5-15.5) % Plt Count 112 L (150-450) k/uL Lymphocytes # 0.9 L (1.0-4.8) k/uL Sodium (137-145) mmol/L BUN (9-20) mg/dL Glucose (74-99) mg/dL POC Glucose (mg/dL) 113 H 112 H (75-99) mg/dL Calcium (8.4-10.2) mg/dL AST (17-59) U/L Albumin (3.5-5.0) g/dL Crossmatch 07/15/21 07/15/21 07/15/21 Range/Units 04:00 05:04 06:02 RBC (4.30-5.90) m/uL Hgb (13.0-17.5) gm/dL Hct (39.0-53.0) % MCHC (31.0-37.0) g/dL RDW (11.5-15.5) % Plt Count (150-450) k/uL Lymphocytes # (1.0-4.8) k/uL Sodium 131 L (137-145) mmol/L BUN 26 H (9-20) mg/dL Glucose 124 H (74-99) mg/dL POC Glucose (mg/dL) 149 H 139 H (75-99) mg/dL Calcium 8.1 L (8.4-10.2) mg/dL AST 60 H (17-59) U/L Albumin 3.0 L (3.5-5.0) g/dL Crossmatch 07/15/21 Range/Units 07:14 RBC (4.30-5.90) m/uL Hgb (13.0-17.5) gm/dL Hct (39.0-53.0) % MCHC (31.0-37.0) g/dL RDW (11.5-15.5) % Plt Count (150-450) k/uL Lymphocytes # (1.0-4.8) k/uL Sodium (137-145) mmol/L BUN (9-20) mg/dL Glucose (74-99) mg/dL POC Glucose (mg/dL) 112 H (75-99) mg/dL Calcium (8.4-10.2) mg/dL AST (17-59) U/L Albumin (3.5-5.0) g/dL Crossmatch
[2021-07-15 11:32] LABS: Glucose,Whole Blood 138 mg/dL (75-99)
--- NOTE | 2021-07-15 11:33 | P.PN ---
Subjective Progress Note Date: 07/15/21 70-year-old male patient underwent three-vessel bypass surgery and aortic valve replacement. The patient is currently being seen today intensive care unit postop. Patient's surgery was performed without any major complication. At this point in time the patient is sedated with propofol and the patient is currently intensive care unit intubated on a mechanical ventilator. The patient is currently on assist-control at the rate of 16 with a tidal volume of 600 and FiO2 of 100% with a PEEP of 10. Current pulse ox 96%. Chest x-ray postop showed adequate expansion of both lungs and there is no evidence of any pneumothorax. Some atelectatic changes and left lung base. ET tube is in a good location. Richwood-Brianna catheter is in good location. OG tube is in a good location. The patient has 2 mediastinal chest tubes and 1 left pleural chest tube. Output from the chest tubes are minimal at this point in time. Cardiac output is at 5.2 with an index of 2.1 and the patient is currently on a known at 0.2 mcg/kg per minute and norepinephrine infusion at 0.08 mcg/kg per minute. Urine output is adequate. Blood pressure is soft and the patient is being given 500 mL of 5% albumin. The patient has a pulmonary artery pressure 34/22. He is afebrile. He has not hypothermic. He is making adequate urine output for now. Note that the patient has COPD. He has diffuse generalized coronary artery disease and his preop Levemir ejection fraction was around 10-15% and the patient had a large partially reversible anterior wall defect. He is known to have hypertension and hyperlipidemia and macular degeneration. 07/14/2021, the patient is doing well. The patient was extubated yesterday without any major difficulties with a six-hour window. The patient is currently sitting up on a chair on 10 L of oxygen by nasal cannula with a pulse oximetry 96%. Chest x-ray shows adequate expansion of both lungs and there is no evidence of any pneumothorax. The patient has 2 mediastinal chest tube to 1 pleural chest tube. Output from the mediastinal chest tube has been 650 since arrival from the operating room and output from the left sided chest tube is her 170 mL his arrival from the operating room. Urine output is order of 35 mL an hour. The patient was given a total of 4 doses of IV albumin, 250 mL each.. This was given to the patient overnight. The patient subsequently was weaned o ff the norepinephrine infusion and he is also off the milrinone. The patient has a CVP of 10. Pulmonary artery pressures are 30/60. Cardiac output was 5.9 with an index of 2.4. Urine output is in the order of 35 mL an hour. Cardiac rhythm is sinus and the patient has a VVI pacemaking backup at the rate of 60. No focal neurological deficits. Awake and alert. Moving all 4 extremities. No nausea or vomiting. No other significant events overnight. 07/15/2021, the patient is doing well. The patient is calm and comfortable. The patient has no respiratory distress. Chest tube will be removed today and output is minimal at this point in time. Meanwhile, the patient remains in oxygen 8 L per minute nasal cannula. Using incentive spirometer and pulling approximately 1000. Chest x-ray showed adequate expansion of both lungs. There is some mild pulmonary vascular congestion. No evidence of pneumothorax. On examination, the patient is slightly bronchospastic and wheezy. Input output balance over the past 24 hours is positive stool for cc. Sodium level is at 131. Hemoglobin is at 8.5. The patient has no specific complaints. Cardiac rhythm is sinus. Richwood-Brianna catheter is been removed. Urine output is adequate for now. Patient is moving all flex images without any limitation the patient is tolerating his diet is sitting up on a chair. Surgical wound site is dry jenny an and intact. Objective - Vital Signs Vital signs: Vital Signs Temp 98 F 07/15/21 08:00 Pulse 69 07/15/21 11:00 Resp 23 07/15/21 11:00 BP 118/68 07/15/21 11:00 Pulse Ox 94 L 07/15/21 11:00 Intake & Output 07/14/21 07/15/21 07/15/21 18:59 06:59 18:59 Intake Total 2044.579 1656.240 315.788 Output Total 575 725 135 Balance 1469.579 931.240 180.788 Weight 118.9 kg 126.9 kg Intake: IV 504.1 72 12 0.9 NACL 50 Albumin 250 CO/CI 20 Kefzol 100 Primacor 0.1 pressure bags 84 72 12 Intake, IV Titration 402.479 384.240 63.788 Amount Insulin Regular 100 unit 52.479 24.240 3.788 In Sodium Chloride 0.9% 100 ml @ Per Protocol IV .Q0M [facility] Rx#:[id number] Sodium Chloride 0.9% 1, 350 360 60 000 ml @ 30 mls/hr IV . Q24H [facility] Rx#:[id number] Oral 1080 1200 240 Tube Feeding 58 Output: Chest Tube Drainage 100 60 0 Left plural 0 20 0 mediastinal x2 100 40 0 Drainage 0 Left Calf 0 Urine 475 665 135 Other: Voiding Method Indwelling Catheter Indwelling Catheter Indwelling Catheter # Bowel Movements 1 ABP, PAP, CO, CI - Last Documented Arterial Blood Pressure 143/50 Pulmonary Artery Pressure 28/13 Cardiac Output 6.5 Cardiac Index 2.7 - Exam This is a well-developed well-nourished awake alert oriented 3 male, the patient is currently on room air oxygen. No respiratory distress, the patient is morbidly obese, the patient is currently on 8 L of oxygen by nasal cannula. General appearance: alert, in no apparent distress Head exam: Present: atraumatic, normocephalic, normal inspection Eye exam: Present: normal appearance, PERRL, EOMI. Absent: scleral icterus, conjunctival injection, periorbital swelling ENT exam: Present: normal exam, mucous membranes moist Neck exam: Present: normal inspection, full ROM, other (No stridor JVD or bruits). Absent: tenderness, meningismus, lymphadenopathy Respiratory exam: Present: normal lung sounds bilaterally. Absent: respiratory distress, wheezes, rales, rhonchi, stridor, breath sounds are diminished in lung bases of the chest is little removed. Surgical wound site is dry clean and intact. Cardiovascular Exam: Present: regular rate, bradycardia. Absent: systolic murmur, diastolic murmur, rubs, gallop, clicks GI/Abdominal exam: Present: soft, normal bowel sounds. Absent: distended, tenderness, guarding, rebound, rigid Extremities exam: Present: normal inspection, full ROM, normal capillary refill. Absent: tenderness, pedal edema, joint swelling, calf tenderness Back exam: Present: normal inspection Neurological exam: Present: alert, oriented X3, CN II-XII intact Psychiatric exam: Present: normal affect, normal mood Skin exam: Present: warm, dry, intact, normal color. Absent: rash - Labs CBC & Chem 7: 07/15/21 04:00 07/15/21 04:00 Labs: Abnormal Lab Results - Last 24 Hours (Table) 07/03/21 07/14/21 07/14/21 Range/Units 13:31 12:13 13:22 RBC (4.30-5.90) m/uL Hgb (13.0-17.5) gm/dL Hct (39.0-53.0) % MCHC (31.0-37.0) g/dL RDW (11.5-15.5) % Plt Count (150-450) k/uL Lymphocytes # (1.0-4.8) k/uL Sodium (137-145) mmol/L BUN (9-20) mg/dL Glucose (74-99) mg/dL POC Glucose (mg/dL) 143 H 195 H (75-99) mg/dL Calcium (8.4-10.2) mg/dL AST (17-59) U/L Albumin (3.5-5.0) g/dL Crossmatch See Detail 07/14/21 07/14/21 07/14/21 Range/Units 14:30 15:51 17:09 RBC (4.30-5.90) m/uL Hgb (13.0-17.5) gm/dL Hct (39.0-53.0) % MCHC (31.0-37.0) g/dL RDW (11.5-15.5) % Plt Count (150-450) k/uL Lymphocytes # (1.0-4.8) k/uL Sodium (137-145) mmol/L BUN (9-20) mg/dL Glucose (74-99) mg/dL POC Glucose (mg/dL) 152 H 118 H 135 H (75-99) mg/dL Calcium (8.4-10.2) mg/dL AST (17-59) U/L Albumin (3.5-5.0) g/dL Crossmatch 07/14/21 07/14/21 07/14/21 Range/Units 18:37 20:20 21:39 RBC (4.30-5.90) m/uL Hgb (13.0-17.5) gm/dL Hct (39.0-53.0) % MCHC (31.0-37.0) g/dL RDW (11.5-15.5) % Plt Count (150-450) k/uL Lymphocytes # (1.0-4.8) k/uL Sodium (137-145) mmol/L BUN (9-20) mg/dL Glucose (74-99) mg/dL POC Glucose (mg/dL) 154 H 126 H 118 H (75-99) mg/dL Calcium (8.4-10.2) mg/dL AST (17-59) U/L Albumin (3.5-5.0) g/dL Crossmatch 07/14/21 07/15/21 07/15/21 Range/Units 23:03 00:13 01:28 RBC (4.30-5.90) m/uL Hgb (13.0-17.5) gm/dL Hct (39.0-53.0) % MCHC (31.0-37.0) g/dL RDW (11.5-15.5) % Plt Count (150-450) k/uL Lymphocytes # (1.0-4.8) k/uL Sodium (137-145) mmol/L BUN (9-20) mg/dL Glucose (74-99) mg/dL POC Glucose (mg/dL) 116 H 119 H 100 H (75-99) mg/dL Calcium (8.4-10.2) mg/dL AST (17-59) U/L Albumin (3.5-5.0) g/dL Crossmatch 07/15/21 07/15/21 07/15/21 Range/Units 02:30 03:23 04:00 RBC 3.14 L (4.30-5.90) m/uL Hgb 8.5 L (13.0-17.5) gm/dL Hct 28.1 L (39.0-53.0) % MCHC 30.4 L (31.0-37.0) g/dL RDW 18.0 H (11.5-15.5) % Plt Count 112 L (150-450) k/uL Lymphocytes # 0.9 L (1.0-4.8) k/uL Sodium (137-145) mmol/L BUN (9-20) mg/dL Glucose (74-99) mg/dL POC Glucose (mg/dL) 113 H 112 H (75-99) mg/dL Calcium (8.4-10.2) mg/dL AST (17-59) U/L Albumin (3.5-5.0) g/dL Crossmatch 07/15/21 07/15/21 07/15/21 Range/Units 04:00 05:04 06:02 RBC (4.30-5.90) m/uL Hgb (13.0-17.5) gm/dL Hct (39.0-53.0) % MCHC (31.0-37.0) g/dL RDW (11.5-15.5) % Plt Count (150-450) k/uL Lymphocytes # (1.0-4.8) k/uL Sodium 131 L (137-145) mmol/L BUN 26 H (9-20) mg/dL Glucose 124 H (74-99) mg/dL POC Glucose (mg/dL) 149 H 139 H (75-99) mg/dL Calcium 8.1 L (8.4-10.2) mg/dL AST 60 H (17-59) U/L Albumin 3.0 L (3.5-5.0) g/dL Crossmatch 07/15/21 Range/Units 07:14 RBC (4.30-5.90) m/uL Hgb (13.0-17.5) gm/dL Hct (39.0-53.0) % MCHC (31.0-37.0) g/dL RDW (11.5-15.5) % Plt Count (150-450) k/uL Lymphocytes # (1.0-4.8) k/uL Sodium (137-145) mmol/L BUN (9-20) mg/dL Glucose (74-99) mg/dL POC Glucose (mg/dL) 112 H (75-99) mg/dL Calcium (8.4-10.2) mg/dL AST (17-59) U/L Albumin (3.5-5.0) g/dL Crossmatch Assessment and Plan Plan: 1 diffuse multivessel coronary artery disease along with moderate aortic stenosis. The patient is post three-vessel bypass surgery and aortic valve r eplacement. The patient is postop day #2. Doing well. Cardiac rhythm is sinus. Cardiac rhythm is improved and the patient is currently on a normal sinus rhythm. The patient is doing well. Neurologically is intact. Surgical wound site is dry clean and intact. Chest tubes are removed. 2 post thoracotomy, currently intubated on mechanical ventilator. Chest tubes are all in place as the patient has 2 mediastinal and 1 left pleural chest tube. No pneumothorax and chest tube will be removed. 3 normal cardiac sinus rhythm and the patient is a backup VVI pacing 4 COPD, moderate to severe, inactive in stable 5 hypertension 6 hyperlipidemia 7 macular degeneration 8 previous history of parathyroidectomy. 9 postoperative anemia, expected outcome of surgery, hemoglobin is at 8.5 Plan Wean down the FiO2 further and the patient is currently on 8 L O2 nasal cannula Continue using incentive spirometer Continue aspirin and Plavix Continue metoprolol 25 mg twice a day All of the chest tubes are removed. Amiodarone for A. fib prophylaxis 5 mg by mouth twice a day No cough or pain control Increased mobility and activity Patient is having regular diet Pain is under good control Sit up on a chair and increased mobility We'll continue to follow.
[2021-07-15] MEDS: INSULIN ASPART (NovoLOG) 100 UNIT/ML VIAL SQ SCH ×3 (12:13→21:20)
[2021-07-15] MEDS: NOREPINEPHRINE 4 MG in SODIUM CHLORIDE 0.9% 250 ML IV SCH (13:20)
--- NOTE | 2021-07-15 16:07 | P.PN ---
Subjective Progress Note Date: 07/15/21 ([facility] charting seen at 1030) Principal diagnosis: CAD Patient is a 70-year-old male with known coronary artery disease, COPD, hypertension, and dyslipidemia who presented for elective 3 vessel bypass surgery and bioprosthetic aortic valve replacement. He returned to the ICU i ntubated. He was successfully extubated on 07/13/21. He did require significant amounts of insulin after surgery. Patient examined at bedside. He denies any shortness of breath, pain is well controlled. We discussed that his A1c is 6 up from 5.7 in March. This is consistent with pre-diabetes. He will need a repeat A1c in 3 months. I suggested at 5-10% weight loss. General: non toxic, no distress, appears at stated age Derm: warm, dry Head: atraumatic, normocephalic, symmetric Eyes: EOMI, no lid lag, anicteric sclera Mouth: no lip lesion, mucus membranes moist Cardiovascular: S1S2 irreg, no murmur, positive posterior tibial pulse bilateral, Lungs: Decreased bs bilateral, no rhonchi, no rales , no accessory muscle use Abdominal: soft, nontender to palpation, no guarding, no appreciable organomegaly Ext: no gross muscle atrophy, no edema, no contractures Neuro: CN II-XI grossly intact, no focal neuro deficits Psych: Alert, oriented, appropriate affect Assessment/Plan: 71-year-old male status post triple vessel bypass and bioprosthetic aortic valve replacement Coronary artery disease Hypertension Dyslipidemia -Postoperative management per cardiovascular thoracic surgery -Aspirin, Lipitor, Plavix, beta tammi - prophylactic amio Pre-Diabetes - likely reactive - follow BS - off insulin gtt, SSI - A1C 6 Hyponatremia, mild - likely due to fluid shifts - follow in AM Acute blood loss anemia and thrombocytopenia - anticipated - no indication for transfusion at this time - follow CBC COPD without exacerbation-pulmonary following Acute hypoxic respiratory failure, resolved -Pulmicort, duoneb - pulm hygine - wean O2 as able Systolic CHF EF 30-35% - on BB - restart ACEI per cardio thorasic DVT prophylaxis: Heparin Discussed with: Patient, nursing Anticipated discharge: per CT surgery Anticipated discharge place: [facility] A total of 25 minutes was spent on the care of this complex patient more than 50% of the time was spent in counseling and care coordination. Objective - Vital Signs Vital signs: Vital Signs Temp 97.6 F 07/15/21 15:32 Pulse 78 07/15/21 15:36 Resp 18 07/15/21 15:32 BP 148/60 07/15/21 15:32 Pulse Ox 94 L 07/15/21 15:32 Intake & Output 07/14/21 07/15/21 07/15/21 18:59 06:59 18:59 Intake Total 2044.579 1656.240 315.788 Output Total 575 725 135 Balance 1469.579 931.240 180.788 Weight 118.9 kg 126.9 kg Intake: IV 504.1 72 12 0.9 NACL 50 Albumin 250 CO/CI 20 Kefzol 100 Primacor 0.1 pressure bags 84 72 12 Intake, IV Titration 402.479 384.240 63.788 Amount Insulin Regular 100 unit 52.479 24.240 3.788 In Sodium Chloride 0.9% 100 ml @ Per Protocol IV .Q0M [facility] Rx#:[id number] Sodium Chloride 0.9% 1, 350 360 60 000 ml @ 30 mls/hr IV . Q24H [facility] Rx#:[id number] Oral 1080 1200 240 Tube Feeding 58 Output: Chest Tube Drainage 100 60 0 Left plural 0 20 0 mediastinal x2 100 40 0 Drainage 0 Left Calf 0 Urine 475 665 135 Other: Voiding Method Indwelling Catheter Indwelling Catheter Indwelling Catheter # Bowel Movements 1 ABP, PAP, CO, CI - Last Documented Arterial Blood Pressure 143/50 Pulmonary Artery Pressure 28/13 Cardiac Output 6.5 Cardiac Index 2.7 - Labs CBC & Chem 7: 07/15/21 04:00 07/15/21 04:00 Labs: Abnormal Lab Results - Last 24 Hours (Table) 07/03/21 07/14/21 07/14/21 Range/Units 13:31 15:51 17:09 RBC (4.30-5.90) m/uL Hgb (13.0-17.5) gm/dL Hct (39.0-53.0) % MCHC (31.0-37.0) g/dL RDW (11.5-15.5) % Plt Count (150-450) k/uL Lymphocytes # (1.0-4.8) k/uL Sodium (137-145) mmol/L BUN (9-20) mg/dL Glucose (74-99) mg/dL POC Glucose (mg/dL) 118 H 135 H (75-99) mg/dL Calcium (8.4-10.2) mg/dL AST (17-59) U/L Albumin (3.5-5.0) g/dL Crossmatch See Detail 07/14/21 07/14/21 07/14/21 Range/Units 18:37 20:20 21:39 RBC (4.30-5.90) m/uL Hgb (13.0-17.5) gm/dL Hct (39.0-53.0) % MCHC (31.0-37.0) g/dL RDW (11.5-15.5) % Plt Count (150-450) k/uL Lymphocytes # (1.0-4.8) k/uL Sodium (137-145) mmol/L BUN (9-20) mg/dL Glucose (74-99) mg/dL POC Glucose (mg/dL) 154 H 126 H 118 H (75-99) mg/dL Calcium (8.4-10.2) mg/dL AST (17-59) U/L Albumin (3.5-5.0) g/dL Crossmatch 07/14/21 07/15/21 07/15/21 Range/Units 23:03 00:13 01:28 RBC (4.30-5.90) m/uL Hgb (13.0-17.5) gm/dL Hct (39.0-53.0) % MCHC (31.0-37.0) g/dL RDW (11.5-15.5) % Plt Count (150-450) k/uL Lymphocytes # (1.0-4.8) k/uL Sodium (137-145) mmol/L BUN (9-20) mg/dL Glucose (74-99) mg/dL POC Glucose (mg/dL) 116 H 119 H 100 H (75-99) mg/dL Calcium (8.4-10.2) mg/dL AST (17-59) U/L Albumin (3.5-5.0) g/dL Crossmatch 07/15/21 07/15/21 07/15/21 Range/Units 02:30 03:23 04:00 RBC 3.14 L (4.30-5.90) m/uL Hgb 8.5 L (13.0-17.5) gm/dL Hct 28.1 L (39.0-53.0) % MCHC 30.4 L (31.0-37.0) g/dL RDW 18.0 H (11.5-15.5) % Plt Count 112 L (150-450) k/uL Lymphocytes # 0.9 L (1.0-4.8) k/uL Sodium (137-145) mmol/L BUN (9-20) mg/dL Glucose (74-99) mg/dL POC Glucose (mg/dL) 113 H 112 H (75-99) mg/dL Calcium (8.4-10.2) mg/dL AST (17-59) U/L Albumin (3.5-5.0) g/dL Crossmatch 07/15/21 07/15/21 07/15/21 Range/Units 04:00 05:04 06:02 RBC (4.30-5.90) m/uL Hgb (13.0-17.5) gm/dL Hct (39.0-53.0) % MCHC (31.0-37.0) g/dL RDW (11.5-15.5) % Plt Count (150-450) k/uL Lymphocytes # (1.0-4.8) k/uL Sodium 131 L (137-145) mmol/L BUN 26 H (9-20) mg/dL Glucose 124 H (74-99) mg/dL POC Glucose (mg/dL) 149 H 139 H (75-99) mg/dL Calcium 8.1 L (8.4-10.2) mg/dL AST 60 H (17-59) U/L Albumin 3.0 L (3.5-5.0) g/dL Crossmatch 07/15/21 07/15/21 Range/Units 07:14 11:31 RBC (4.30-5.90) m/uL Hgb (13.0-17.5) gm/dL Hct (39.0-53.0) % MCHC (31.0-37.0) g/dL RDW (11.5-15.5) % Plt Count (150-450) k/uL Lymphocytes # (1.0-4.8) k/uL Sodium (137-145) mmol/L BUN (9-20) mg/dL Glucose (74-99) mg/dL POC Glucose (mg/dL) 112 H 138 H (75-99) mg/dL Calcium (8.4-10.2) mg/dL AST (17-59) U/L Albumin (3.5-5.0) g/dL Crossmatch
[2021-07-15 16:34] LABS: Glucose,Whole Blood 124 mg/dL (75-99)
[2021-07-15] MEDS: SENNOSIDES-DOCUSATE SODIUM 1 EACH TAB PO SCH (20:32)
[2021-07-15 20:52] LABS: Glucose,Whole Blood 149 mg/dL (75-99)
[2021-07-16 01:51] LABS: Glucose,Whole Blood 137 mg/dL (75-99)
[2021-07-16 06:02] LABS: Glucose,Whole Blood 134 mg/dL (75-99)
[2021-07-16] MEDS: INSULIN ASPART (NovoLOG) 100 UNIT/ML VIAL SQ SCH ×4 (06:43→21:22)
[2021-07-16] MEDS: PANTOPRAZOLE 40 MG TABLET PO SCH ×2 (06:43→17:30)
[2021-07-16 06:59] LABS: Anisocytosis Slight; Hypochromasia Marked; MCH 27.2 pg (25.0-35.0); MCHC 30.7 g/dL (31.0-37.0); MCV 88.8 fL (80.0-100.0); Mean Platelet Volume 8.8; Platelet Count 127 k/uL (150-450); RBC 2.93 m/uL (4.30-5.90); RDW 17.7 % (11.5-15.5); WBC 7.3 k/uL (3.8-10.6)
[2021-07-16 07:06] LABS: African American GFR (CKD) >90 (>60 ml/min/1.73 sqM); Anion Gap 6 mmol/L; Blood Urea Nitrogen 25 mg/dL (9-20); Carbon Dioxide 24 mmol/L (22-30); Chloride 102 mmol/L (98-107); Glucose 124 mg/dL (74-99); Non-African American GFR(CKD) 82 (>60 ml/min/1.73 sqM); Potassium 4.6 mmol/L (3.5-5.1); Sodium 132 mmol/L (137-145)
[2021-07-16] MEDS: IPRATROPIUM-ALBUTEROL 3 ML NEB INHALATION SCH ×4 (07:52→19:54)
[2021-07-16] MEDS: BUDESONIDE 1 MG/2 ML NEBU INHALATION SCH ×2 (07:52→19:54)
--- NOTE | 2021-07-16 07:53 | XR ---
EXAMINATION TYPE: XR chest 2V DATE OF EXAM: 07/16/2021 COMPARISON: Chest x-ray 07/15/2021 HISTORY: Status post cardiac surgery, abnormal chest x-ray, chest tube removal TECHNIQUE: Frontal and lateral views of the chest are obtained. FINDINGS: There is been interval removal of the left-sided chest tube. No evident pneumothorax. Ther e are overlying artifacts. Patient is post median sternotomy, left atrial appendage clip placement, c ardiac valve replacement. Patchy basilar density persists, prominent lung volumes with flattening hem idiaphragms suggests underlying COPD. Cardiac mediastinal silhouette is stable, heart appears enlarge d. Aorta is dense. Prominence of the central vascularity is noted, consider pulmonary artery hyperten elvia. IMPRESSION: Correlate for basilar atelectasis versus pneumonia, possible associated effusion. Cardio megaly.
[2021-07-16] MEDS ORDERED: FUROSEMIDE 10 MG/ML 4 ML VIAL IV STA (08:04)
[2021-07-16] MEDS: HEPARIN SODIUM,PORCINE/PF 5,000 UNIT/0.5 ML SYRINGE SQ SCH ×3 (08:14→23:44)
[2021-07-16] MEDS: METOPROLOL TARTRATE 25 MG TAB PO SCH ×2 (08:14→21:22)
[2021-07-16] MEDS: CLOPIDOGREL 75 MG TAB PO SCH (08:14)
[2021-07-16] MEDS: AMIODARONE 200 MG TAB PO SCH ×2 (08:14→21:22)
[2021-07-16] MEDS: ASPIRIN 325 MG TAB PO SCH (08:14)
[2021-07-16] MEDS: ATORVASTATIN 40 MG TAB PO SCH (08:14)
--- NOTE | 2021-07-16 09:01 | P.PN ---
Subjective Progress Note Date: 07/16/21 Principal diagnosis: Triple-vessel coronary artery disease with known 100% occluded mid LAD, moderate left ventricular dysfunction, moderate to severe aortic valve stenosis, mild to moderate mitral valve regurgitation. Previous medical history of hypertension, hyperlipidemia, current tobacco dependence, COPD, evidence of old distal anterior apical myocardial infarction, peripheral arterial disease, and family history of coronary artery disease. Vaccinated and boosted against Covid POD #3 triple vessel coronary artery bypass grafting using the left internal mammary artery to the distal left anterior descending artery, reverse saphenous vein graft from the aorta to the ramus intermedius artery, reverse saphenous vein graft from the aorta to the posterior descending artery, aortic valve replacement using a 25 mm Inspiris pericardial bioprosthesis, exclusion of the left atrial appendage using a 35 mm AtriClip, endoscopic harvesting of the left greater saphenous vein, intraoperative graft flow measurements using the Cashuallyim system, intraoperative transesophageal echocardiogram and epi-aortic scanning. Postoperative acute blood loss anemia and thrombocytopenia, expected given hemodilution and cardiopulmonary bypass pump The patient was seen and examined this morning sitting up in a recliner on the cardiac stepdown unit in no acute distress. Patient states post surgical pain is controlled with current medication regimen, denies shortness of breath. Remains in sinus rhythm and hemodynamically stable. He had a relatively uneventful night and remains in good spirits. Has ambulated in the hallway without difficulty. No other new concerns. Objective - Vital Signs Vital signs: Vital Signs Temp 98.0 F 07/16/21 08:08 Pulse 82 07/16/21 08:08 Resp 18 07/16/21 08:08 BP 141/62 07/16/21 08:08 Pulse Ox 92 L 07/16/21 08:08 Intake & Output 07/15/21 07/16/21 07/16/21 18:59 06:59 18:59 Intake Total 1033.788 Output Total 435 300 Balance 598.788 -300 Weight 126.6 kg Intake: IV 12 pressure bags 12 Intake, IV Titration 63.788 Amount Insulin Regular 100 unit 3.788 In Sodium Chloride 0.9% 100 ml @ Per Protocol IV .Q0M AB Rx#:[id number] Sodium Chloride 0.9% 1, 60 000 ml @ 30 mls/hr IV . Q24H AB Rx#:[id number] Oral 958 Blood Product 0 Output: Chest Tube Drainage 0 Left plural 0 mediastinal x2 0 Gastric Drainage 0 Urine 435 300 Stool 0 Urine/Stool Mix 0 Emesis 0 Oral Regurgitation 0 Other 0 Other: Voiding Method Indwelling Catheter Toilet Urinal # Voids 1 1 # Bowel Movements 0 1 ABP, PAP, CO, CI - Last Documented Arterial Blood Pressure 143/50 Pulmonary Artery Pressure 28/13 Cardiac Output 6.5 Cardiac Index 2.7 - Exam CONSTITUTIONAL: Appears comfortable, cooperative, no acute distress RESPIRATORY: Lungs sounds diminished bilaterally. Respirations even, nonlabored. Currently on 5 L high flow nasal cannula with oxygen saturation 95%. Able to achieve 1000 mL on incentive spirometry. Strong productive cough. CARDIOVASCULAR: S1, S2 present. Regular rate and rhythm, sinus rhythm on telemetry. Sternum stable. Palpable peripheral pulses bilaterally. Trace bilateral lower extremity edema present. No calf pain or tenderness noted. Heart hugger in place with patient demonstrating appropriate use. Antiembolism stockings, SCDs present. GASTROINTESTINAL: Abdomen soft, nontender, nondistended. Active bowel sounds present 4 quadrants. Tolerating diet. Positive bowel movement GENITOURINARY: Lares discontinued yesterday, continues to void INTEGUMENTARY: Skin is warm and dry with evidence of good perfusion. Anterior chest incision well approximated and covered with dry intact dressing. Left lower extremity EVH site well approximated without redness or drainage NEUROLOGIC: Cranial nerves II through XII intact MUSKULOSKELETAL: Able to move all extremities, strength equal bilaterally PSYCHIATRIC: Alert and oriented to person place and time, appropriate affect, intact judgment and insight INVASIVE LINES AND TUBES: A/V epicardial pacemaker wires present, grounded - Allied health notes Allied health notes reviewed: nursing - Labs CBC & Chem 7: 07/16/21 06:39 07/16/21 06:39 Labs: Abnormal Lab Results - Last 24 Hours (Table) 07/15/21 07/15/21 07/15/21 Range/Units 11:31 16:30 20:44 RBC (4.30-5.90) m/uL Hgb (13.0-17.5) gm/dL Hct (39.0-53.0) % MCHC (31.0-37.0) g/dL RDW (11.5-15.5) % Plt Count (150-450) k/uL Sodium (137-145) mmol/L BUN (9-20) mg/dL Glucose (74-99) mg/dL POC Glucose (mg/dL) 138 H 124 H 149 H (75-99) mg/dL Calcium (8.4-10.2) mg/dL 07/16/21 07/16/21 07/16/21 Range/Units 01:48 05:56 06:39 RBC 2.93 L (4.30-5.90) m/uL Hgb 8.0 L (13.0-17.5) gm/dL Hct 26.0 L (39.0-53.0) % MCHC 30.7 L (31.0-37.0) g/dL RDW 17.7 H (11.5-15.5) % Plt Count 127 L (150-450) k/uL Sodium (137-145) mmol/L BUN (9-20) mg/dL Glucose (74-99) mg/dL POC Glucose (mg/dL) 137 H 134 H (75-99) mg/dL Calcium (8.4-10.2) mg/dL 07/16/21 Range/Units 06:39 RBC (4.30-5.90) m/uL Hgb (13.0-17.5) gm/dL Hct (39.0-53.0) % MCHC (31.0-37.0) g/dL RDW (11.5-15.5) % Plt Count (150-450) k/uL Sodium 132 L (137-145) mmol/L BUN 25 H (9-20) mg/dL Glucose 124 H (74-99) mg/dL POC Glucose (mg/dL) (75-99) mg/dL Calcium 8.0 L (8.4-10.2) mg/dL - Imaging and Cardiology Chest x-ray: report reviewed, image reviewed Assessment and Plan Assessment: 1. Triple-vessel coronary artery disease with known 100% occluded mid LAD and evidence of old distal anterior apical myocardial infarction, status post three- vessel CABG 2. Moderate left ventricular dysfunction with preoperative ejection fraction 30-35% 3. Moderate to severe aortic valve stenosis, status post aortic valve replacement 4. Mild to moderate mitral valve regurgitation 5. History of hypertension 6. Hyperlipidemia, treated, cholesterol 69, LDL 38 7. Current tobacco dependence 8. Mild COPD with preoperative FEV1 65% of predicted and DLCO 54% of predicted 9. Peripheral arterial disease, MARY right 0.65, left 0.85 10. Family history of coronary artery disease 11. Vaccinated and boosted against Covid 12. Postoperative acute blood loss anemia and thrombocytopenia, expected Plan: 1. Continue aspirin, statin, Plavix, beta tammi. Will increase beta tammi as tolerated. Will add low dose lisinopril for afterload reduction 2. Continue amiodarone for A. fib prophylaxis 3. Wean O2 as tolerated. Encourage incentive spirometry 10 times every hour while awake. Bronchodilators per pulmonology 4. Increase activity, ambulate as tolerated. PT/OT/cardiac rehab following 5. Will monitor daily labs and x-rays. Electrolyte replacement per protocol. Will give IV lasix today 6. GI/DVT prophylaxis 7. Pain control with current medication regimen 8. Insulin management per primary care service. Patient is not diabetic, preoperative hemoglobin A1c 5.7%, repeat 6.0%, however patient does need tight blood sugar control to prevent infection and promote sternal union 9. Strict accurate intake and output. Daily weights. Patient to shower daily 10. Will remove epicardial pacer wires. Patient to remain on bedrest for 1 hours post wire removal 11. Discharge planning in progress, anticipate discharge to home with home care in the next 24 hours 12. More recommendations to follow based on patient's progress Time with Patient: Greater than 30
--- NOTE | 2021-07-16 10:03 | P.PN ---
Subjective Progress Note Date: 07/16/21 No new complaints today. Ongoing oxygen requirement, and appears volume overloaded. Encouraged IS. Ambulating halls well per nursing, no PT needs. Objective - Vital Signs Vital signs: Vital Signs Temp 98.0 F 07/16/21 08:08 Pulse 82 07/16/21 08:08 Resp 18 07/16/21 08:08 BP 141/62 07/16/21 08:08 Pulse Ox 92 L 07/16/21 08:08 Intake & Output 07/15/21 07/16/21 07/16/21 18:59 06:59 18:59 Intake Total 1033.788 Output Total 435 300 Balance 598.788 -300 Weight 126.6 kg Intake: IV 12 pressure bags 12 Intake, IV Titration 63.788 Amount Insulin Regular 100 unit 3.788 In Sodium Chloride 0.9% 100 ml @ Per Protocol IV .Q0M AB Rx#:[id number] Sodium Chloride 0.9% 1, 60 000 ml @ 30 mls/hr IV . Q24H AB Rx#:[id number] Oral 958 Blood Product 0 Output: Chest Tube Drainage 0 Left plural 0 mediastinal x2 0 Gastric Drainage 0 Urine 435 300 Stool 0 Urine/Stool Mix 0 Emesis 0 Oral Regurgitation 0 Other 0 Other: Voiding Method Indwelling Catheter Toilet Urinal # Voids 1 1 # Bowel Movements 0 1 ABP, PAP, CO, CI - Last Documented Arterial Blood Pressure 143/50 Pulmonary Artery Pressure 28/13 Cardiac Output 6.5 Cardiac Index 2.7 - Exam Gen: awake, alert HEENT: normocephalic, atraumatic, good hearing acuity, moist mucous membranes Resp: good air exchange, breathing comfortably with no accessory muscle use CVS: good distal perfusion x 4, GI: soft, NTTP, ND : no SPT, no CVAT, hodge catheter not present MSK: no pitting edema, no clubbing Neuro: non-focal, moving all extremities Psych: cooperative, euthymic mood - Labs CBC & Chem 7: 07/16/21 06:39 07/16/21 06:39 Labs: Abnormal Lab Results - Last 24 Hours (Table) 07/15/21 07/15/21 07/15/21 Range/Units 11:31 16:30 20:44 RBC (4.30-5.90) m/uL Hgb (13.0-17.5) gm/dL Hct (39.0-53.0) % MCHC (31.0-37.0) g/dL RDW (11.5-15.5) % Plt Count (150-450) k/uL Sodium (137-145) mmol/L BUN (9-20) mg/dL Glucose (74-99) mg/dL POC Glucose (mg/dL) 138 H 124 H 149 H (75-99) mg/dL Calcium (8.4-10.2) mg/dL 07/16/21 07/16/21 07/16/21 Range/Units 01:48 05:56 06:39 RBC 2.93 L (4.30-5.90) m/uL Hgb 8.0 L (13.0-17.5) gm/dL Hct 26.0 L (39.0-53.0) % MCHC 30.7 L (31.0-37.0) g/dL RDW 17.7 H (11.5-15.5) % Plt Count 127 L (150-450) k/uL Sodium (137-145) mmol/L BUN (9-20) mg/dL Glucose (74-99) mg/dL POC Glucose (mg/dL) 137 H 134 H (75-99) mg/dL Calcium (8.4-10.2) mg/dL 07/16/21 Range/Units 06:39 RBC (4.30-5.90) m/uL Hgb (13.0-17.5) gm/dL Hct (39.0-53.0) % MCHC (31.0-37.0) g/dL RDW (11.5-15.5) % Plt Count (150-450) k/uL Sodium 132 L (137-145) mmol/L BUN 25 H (9-20) mg/dL Glucose 124 H (74-99) mg/dL POC Glucose (mg/dL) (75-99) mg/dL Calcium 8.0 L (8.4-10.2) mg/dL Assessment and Plan Assessment: 71-year-old male status post triple vessel bypass and bioprosthetic aortic valve replacement Coronary artery disease Hypertension Dyslipidemia -Postoperative management per cardiovascular thoracic surgery -Aspirin, Lipitor, Plavix, beta tammi - prophylactic amio Pre-Diabetes - follow BS - off insulin gtt, SSI - A1C 6 Hyponatremia, mild - likely due to fluid shifts - follow in AM Acute blood loss anemia and thrombocytopenia - anticipated - no indication for transfusion at this time - follow CBC COPD without exacerbation-pulmonary following Acute hypoxic respiratory failure, stable, improving -Pulmicort, duoneb - pulm hygine - wean O2 as able - lasix 40mg IV 3/3 - encourage IS Systolic CHF EF 30-35% - on BB - restart ACEI per cardio thorasic DVT prophylaxis: Heparin Discussed with: Patient, nursing Anticipated discharge: per CT surgery Anticipated discharge place: [facility] A total of 25 minutes was spent on the care of this complex patient more than 50% of the time was spent in counseling and care coordination.
[2021-07-16 11:35] LABS: Glucose,Whole Blood 132 mg/dL (75-99)
[2021-07-16] MEDS: lisinopriL 5 MG TAB PO SCH (12:45)
--- NOTE | 2021-07-16 12:48 | P.PN ---
Subjective Progress Note Date: 07/16/21 HISTORY OF PRESENT ILLNESS: Patient is status post CABG 3 and AVR. Postop day #3. Patient examined this morning at the bedside. Patient denies chest pain or pressure. He denies s hortness of breath. Patient has been ambulating to the bathroom. Telemetry reveals sinus mechanism. Vital signs are stable. PHYSICAL EXAM: VITAL SIGNS: Reviewed. GENERAL: Well-developed in no acute distress. NECK: Supple. No JVD or thyromegaly LUNGS: Respirations even and unlabored. Lungs diminished auscultation bilaterally. HEART: Regular rate and rhythm. S1 and S2 heard. EXTREMITIES: Normal range of motion. No clubbing or cyanosis. Peripheral pulses intact. Trace bilateral lower extremity edema ASSESSMENT: Coronary artery disease, s/p CABG x 3 Aortic stenosis, s/p aortic valve replacement Cardiomyopathy, EF 30-35% Valvular heart disease Hypertension Hyperlipidemia COPD PLAN: Continue postoperative management per cardiothoracic surgery Continue current cardiac medications Increase activity as tolerated Encourage use of incentive spirometer Further recommendations pending patient course Nurse practitioner note has been reviewed by physician. Signing provider agrees with the documented findings, assessment, and plan of care. Objective - Vital Signs Vital signs: Vital Signs Temp 97.1 F L 07/16/21 12:00 Pulse 77 07/16/21 12:00 Resp 16 07/16/21 12:00 BP 110/62 07/16/21 12:00 Pulse Ox 95 07/16/21 12:00 Intake & Output 07/15/21 07/16/21 07/16/21 18:59 06:59 18:59 Intake Total 1033.788 Output Total 435 300 725 Balance 598.788 -300 -725 Weight 126.6 kg Intake: IV 12 pressure bags 12 Intake, IV Titration 63.788 Amount Insulin Regular 100 unit 3.788 In Sodium Chloride 0.9% 100 ml @ Per Protocol IV .Q0M AB Rx#:[id number] Sodium Chloride 0.9% 1, 60 000 ml @ 30 mls/hr IV . Q24H AB Rx#:[id number] Oral 958 Blood Product 0 Output: Chest Tube Drainage 0 Left plural 0 mediastinal x2 0 Gastric Drainage 0 Urine 435 300 725 Stool 0 Urine/Stool Mix 0 Emesis 0 Oral Regurgitation 0 Other 0 Other: Voiding Method Indwelling Catheter Toilet Urinal # Voids 1 1 # Bowel Movements 0 1 ABP, PAP, CO, CI - Last Documented Arterial Blood Pressure 143/50 Pulmonary Artery Pressure 28/13 Cardiac Output 6.5 Cardiac Index 2.7 - Labs CBC & Chem 7: 07/16/21 06:39 07/16/21 06:39 Labs: Abnormal Lab Results - Last 24 Hours (Table) 07/15/21 07/15/21 07/16/21 Range/Units 16:30 20:44 01:48 RBC (4.30-5.90) m/uL Hgb (13.0-17.5) gm/dL Hct (39.0-53.0) % MCHC (31.0-37.0) g/dL RDW (11.5-15.5) % Plt Count (150-450) k/uL Sodium (137-145) mmol/L BUN (9-20) mg/dL Glucose (74-99) mg/dL POC Glucose (mg/dL) 124 H 149 H 137 H (75-99) mg/dL Calcium (8.4-10.2) mg/dL 07/16/21 07/16/21 07/16/21 Range/Units 05:56 06:39 06:39 RBC 2.93 L (4.30-5.90) m/uL Hgb 8.0 L (13.0-17.5) gm/dL Hct 26.0 L (39.0-53.0) % MCHC 30.7 L (31.0-37.0) g/dL RDW 17.7 H (11.5-15.5) % Plt Count 127 L (150-450) k/uL Sodium 132 L (137-145) mmol/L BUN 25 H (9-20) mg/dL Glucose 124 H (74-99) mg/dL POC Glucose (mg/dL) 134 H (75-99) mg/dL Calcium 8.0 L (8.4-10.2) mg/dL 07/16/21 Range/Units 11:31 RBC (4.30-5.90) m/uL Hgb (13.0-17.5) gm/dL Hct (39.0-53.0) % MCHC (31.0-37.0) g/dL RDW (11.5-15.5) % Plt Count (150-450) k/uL Sodium (137-145) mmol/L BUN (9-20) mg/dL Glucose (74-99) mg/dL POC Glucose (mg/dL) 132 H (75-99) mg/dL Calcium (8.4-10.2) mg/dL
--- NOTE | 2021-07-16 15:42 | P.PN ---
Subjective Progress Note Date: 07/16/21 70-year-old male patient underwent three-vessel bypass surgery and aortic valve replacement. The patient is currently being seen today intensive care unit postop. Patient's surgery was performed without any major complication. At this point in time the patient is sedated with propofol and the patient is currently intensive care unit intubated on a mechanical ventilator. The patient is currently on assist-control at the rate of 16 with a tidal volume of 600 and FiO2 of 100% with a PEEP of 10. Current pulse ox 96%. Chest x-ray postop showed adequate expansion of both lungs and there is no evidence of any pneumothorax. Some atelectatic changes and left lung base. ET tube is in a good location. Shirley-Brianna catheter is in good location. OG tube is in a good location. The patient has 2 mediastinal chest tubes and 1 left pleural chest tube. Output from the chest tubes are minimal at this point in time. Cardiac output is at 5.2 with an index of 2.1 and the patient is currently on a known at 0.2 mcg/kg per minute and norepinephrine infusion at 0.08 mcg/kg per minute. Urine output is adequate. Blood pressure is soft and the patient is being given 500 mL of 5% albumin. The patient has a pulmonary artery pressure 34/22. He is afebrile. He has not hypothermic. He is making adequate urine output for now. Note that the patient has COPD. He has diffuse generalized coronary artery disease and his preop Levemir ejection fraction was around 10-15% and the patient had a large partially reversible anterior wall defect. He is known to have hypertension and hyperlipidemia and macular degeneration. 07/14/2021, the patient is doing well. The patient was extubated yesterday without any major difficulties with a six-hour window. The patient is currently sitting up on a chair on 10 L of oxygen by nasal cannula with a pulse oximetry 96%. Chest x-ray shows adequate expansion of both lungs and there is no evidence of any pneumothorax. The patient has 2 mediastinal chest tube to 1 pleural chest tube. Output from the mediastinal chest tube has been 650 since arrival from the operating room and output from the left sided chest tube is her 170 mL his arrival from the operating room. Urine output is order of 35 mL an hour. The patient was given a total of 4 doses of IV albumin, 250 mL each.. This was given to the patient overnight. The patient subsequently was weaned o ff the norepinephrine infusion and he is also off the milrinone. The patient has a CVP of 10. Pulmonary artery pressures are 30/60. Cardiac output was 5.9 with an index of 2.4. Urine output is in the order of 35 mL an hour. Cardiac rhythm is sinus and the patient has a VVI pacemaking backup at the rate of 60. No focal neurological deficits. Awake and alert. Moving all 4 extremities. No nausea or vomiting. No other significant events overnight. 07/15/2021, the patient is doing well. The patient is calm and comfortable. The patient has no respiratory distress. Chest tube will be removed today and output is minimal at this point in time. Meanwhile, the patient remains in oxygen 8 L per minute nasal cannula. Using incentive spirometer and pulling approximately 1000. Chest x-ray showed adequate expansion of both lungs. There is some mild pulmonary vascular congestion. No evidence of pneumothorax. On examination, the patient is slightly bronchospastic and wheezy. Input output balance over the past 24 hours is positive stool for cc. Sodium level is at 131. Hemoglobin is at 8.5. The patient has no specific complaints. Cardiac rhythm is sinus. Shirley-Brianna catheter is been removed. Urine output is adequate for now. Patient is moving all flex images without any limitation the patient is tolerating his diet is sitting up on a chair. Surgical wound site is dry jenny an and intact. 07/16/2021, seeing the patient for a follow-up. Doing well. Still on 5 L of oxygen by nasal cannula. Chest x-ray today shows postsurgical changes with bilateral pleural effusion and diminished breath on the lung bases bilaterally on examination. The patient using the incentive spirometer. His pain is under good control for now. He is postop day #3. He has been afebrile. His been hemodynamically stable. Cardiac rhythm is sinus. He is sitting up on a recliner. He denies having any complaints. All of the chest tubes have been removed. His emanating in the hallway. No nausea. No vomiting. No diarrhea. No abdominal pain. No focal neurological deficits. The patient has a hemoglobin of 8.0. White cell count is 7.3. Creatinine 0.9. Glucose is 124. No other significant events otherwise over the past 24 hours. Cardiothoracic surgeries on the case and the patient will be started on diuretics and optimizing on status. Objective - Vital Signs Vital signs: Vital Signs Temp 97.1 F L 07/16/21 12:00 Pulse 77 07/16/21 12:00 Resp 16 07/16/21 12:00 BP 110/62 07/16/21 12:00 Pulse Ox 95 07/16/21 12:00 Intake & Output 07/15/21 07/16/21 07/16/21 18:59 06:59 18:59 Intake Total 1033.788 160 Output Total 572 306 2349 Balance 598.788 -300 -1165 Weight 126.6 kg Intake: IV 12 pressure bags 12 Intake, IV Titration 63.788 Amount Insulin Regular 100 unit 3.788 In Sodium Chloride 0.9% 100 ml @ Per Protocol IV .Q0M [facility] Rx#:[id number] Sodium Chloride 0.9% 1, 60 000 ml @ 30 mls/hr IV . Q24H [facility] Rx#:[id number] Oral 958 160 Blood Product 0 Output: Chest Tube Drainage 0 Left plural 0 mediastinal x2 0 Gastric Drainage 0 Urine 838 640 1765 Stool 0 Urine/Stool Mix 0 Emesis 0 Oral Regurgitation 0 Other 0 Other: Voiding Method Indwelling Catheter Toilet Toilet Urinal Urinal # Voids 1 1 # Bowel Movements 0 1 ABP, PAP, CO, CI - Last Documented Arterial Blood Pressure 143/50 Pulmonary Artery Pressure 28/13 Cardiac Output 6.5 Cardiac Index 2.7 - Exam CONSTITUTIONAL: Appears comfortable, cooperative, no acute distress, currently on 5 L about 2 by nasal cannula RESPIRATORY: Lungs sounds diminished bilaterally. Respirations even, nonlabored. Currently on 5 L high flow nasal cannula with oxygen saturation 95%. Able to achieve 1000 mL on incentive spirometry. Strong productive cough. CARDIOVASCULAR: S1, S2 present. Regular rate and rhythm, sinus rhythm on telemetry. Sternum stable. Palpable peripheral pulses bilaterally. Trace bilateral lower extremity edema present. No calf pain or tenderness noted. Heart hugger in place with patient demonstrating appropriate use. Antiembolism stockings, SCDs present. GASTROINTESTINAL: Abdomen soft, nontender, nondistended. Active bowel sounds present 4 quadrants. Tolerating diet. Positive bowel movement GENITOURINARY: Lares discontinued yesterday, continues to void INTEGUMENTARY: Skin is warm and dry with evidence of good perfusion. Anterior chest incision well approximated and covered with dry intact dressing. Left lower extremity EVH site well approximated without redness or drainage NEUROLOGIC: Cranial nerves II through XII intact MUSKULOSKELETAL: Able to move all extremities, strength equal bilaterally PSYCHIATRIC: Alert and oriented to person place and time, appropriate affect, intact judgment and insight INVASIVE LINES AND TUBES: A/V epicardial pacemaker wires present, grounded - Labs CBC & Chem 7: 07/16/21 06:39 07/16/21 06:39 Labs: Abnormal Lab Results - Last 24 Hours (Table) 07/15/21 07/15/21 07/16/21 Range/Units 16:30 20:44 01:48 RBC (4.30-5.90) m/uL Hgb (13.0-17.5) gm/dL Hct (39.0-53.0) % MCHC (31.0-37.0) g/dL RDW (11.5-15.5) % Plt Count (150-450) k/uL Sodium (137-145) mmol/L BUN (9-20) mg/dL Glucose (74-99) mg/dL POC Glucose (mg/dL) 124 H 149 H 137 H (75-99) mg/dL Calcium (8.4-10.2) mg/dL 07/16/21 07/16/21 07/16/21 Range/Units 05:56 06:39 06:39 RBC 2.93 L (4.30-5.90) m/uL Hgb 8.0 L (13.0-17.5) gm/dL Hct 26.0 L (39.0-53.0) % MCHC 30.7 L (31.0-37.0) g/dL RDW 17.7 H (11.5-15.5) % Plt Count 127 L (150-450) k/uL Sodium 132 L (137-145) mmol/L BUN 25 H (9-20) mg/dL Glucose 124 H (74-99) mg/dL POC Glucose (mg/dL) 134 H (75-99) mg/dL Calcium 8.0 L (8.4-10.2) mg/dL 07/16/21 Range/Units 11:31 RBC (4.30-5.90) m/uL Hgb (13.0-17.5) gm/dL Hct (39.0-53.0) % MCHC (31.0-37.0) g/dL RDW (11.5-15.5) % Plt Count (150-450) k/uL Sodium (137-145) mmol/L BUN (9-20) mg/dL Glucose (74-99) mg/dL POC Glucose (mg/dL) 132 H (75-99) mg/dL Calcium (8.4-10.2) mg/dL Assessment and Plan Plan: 1 diffuse multivessel coronary artery disease along with moderate aortic stenosis. The patient is post three-vessel bypass surgery and aortic valve replacement. The patient is postop day #3. Doing well. Cardiac rhythm is sinus. Cardiac rhythm is improved and the patient is currently on a normal sinus rhythm. The patient is doing well. Neurologically is intact. Surgical wound site is dry clean and intact. Chest tubes are removed. 2 post thoracotomy, currently intubated on mechanical ventilator. Chest tubes are all removed and the patient remains in oxygen at 5 L per minute nasal cannula. Chest x-ray showing bilateral pleural effusion most on the left. Patient was given diuretics with IV Lasix. 3 normal cardiac sinus rhythm and the patient is a backup VVI pacing 4 COPD, moderate to severe, inactive in stable 5 hypertension 6 hyperlipidemia 7 macular degeneration 8 previous history of parathyroidectomy. 9 postoperative anemia, expected outcome of surgery, hemoglobin is at 8.0 Plan Wean down the FiO2 further and the patient is currently on 5 L O2 nasal cannula Lasix 40 mg IV push 1 Continue amiodarone for atrial fibrillation prophylaxis Continue using incentive spirometer Continue aspirin and Plavix Continue metoprolol 25 mg twice a day All of the chest tubes are removed. No cough or pain control Increased mobility and activity Patient is having regular diet Pain is under good control Sit up on a chair and increased mobility We'll continue to follow.
--- NOTE | 2021-07-16 16:22 | CDI ---
Documentation Clarification Form Date: 07/16/2021 03:52:07 PM From: Kathie Bailey RN, CCDS Admit Date: 07/13/2021 05:37:00 AM Patient Name: Byron Jacobs Visit Number: [id number] Discharge Date: ATTENTION: The Clinical Documentation Specialists (CDI) and [facility] Coding Staff appreciate your assistance in clarifying documentation. Please respond to the clarification below the line at the bottom and electronically sign. The CDI & [facility] Coding staff will review the response and follow-up if needed. Please note: Queries are made part of the Legal Health Record. If you have any questions, please contact the author of this message via ITS. Dr. Jefe Putnam Your patient has the documented diagnosis of unspecified Systolic, CHF in progress notes starting on 07/14/21. Additional information regarding the acuity]of CHF is requested. History/Risk Factors: Coronary artery disease, COPD, Hypertension Clinical Indicators: 71-year-old male present for elective three-vessel bypass surgery and aortic valve replacement. 07/14 medical Consultation: Systolic CHF EF 30-35%. 07/14 VS/Pulse OX: 106/35 82 25 95 % high flow O2 flow rate 10 07/13 Chest X Ray: Postoperative findings. Basilar atelectasis. Treatment: ICU/Telemetry monitoring Lasix 40 MG IV Once (07/16); Zestril 5 MG PO Daily, Lopressor 25MG PO BID, In your professional opinion, can you please clarify the acuity of Systolic CHF if known? [ ] Acute Systolic Heart Failure (reduced EF) [ x] Chronic Systolic Heart Failure (reduced EF) [ ] Other, please specify [ ] Unable to determine (Template Last Revised: June 2020) MTDD
[2021-07-16 16:43] LABS: Glucose,Whole Blood 126 mg/dL (75-99)
[2021-07-16 20:40] LABS: Glucose,Whole Blood 145 mg/dL (75-99)
[2021-07-16] MEDS: SENNOSIDES-DOCUSATE SODIUM 1 EACH TAB PO SCH (21:22)
[2021-07-17 02:05] LABS: Glucose,Whole Blood 138 mg/dL (75-99)
[2021-07-17 04:50] VITALS: TEMP 98.3
[2021-07-17] MEDS: INSULIN ASPART (NovoLOG) 100 UNIT/ML VIAL SQ SCH ×2 (05:53→12:55)
[2021-07-17 06:14] LABS: Glucose,Whole Blood 126 mg/dL (75-99)
[2021-07-17] MEDS: PANTOPRAZOLE 40 MG TABLET PO SCH (06:24)
[2021-07-17 06:56] LABS: Anisocytosis Slight; HCT 26.2 % (39.0-53.0); Hypochromasia Marked; MCH 26.9 pg (25.0-35.0); MCHC 30.4 g/dL (31.0-37.0); MCV 88.7 fL (80.0-100.0); Mean Platelet Volume 8.4; Platelet Count 160 k/uL (150-450); RBC 2.95 m/uL (4.30-5.90); RDW 17.9 % (11.5-15.5); WBC 7.8 k/uL (3.8-10.6)
[2021-07-17 07:05] LABS: Calcium 7.9 mg/dL (8.4-10.2); Magnesium 2.5 mg/dL (1.6-2.3); Potassium 4.3 mmol/L (3.5-5.1)
[2021-07-17] MEDS: IPRATROPIUM-ALBUTEROL 3 ML NEB INHALATION SCH ×2 (08:10→11:35)
[2021-07-17] MEDS: BUDESONIDE 1 MG/2 ML NEBU INHALATION SCH (08:10)
[2021-07-17] MEDS ORDERED: FUROSEMIDE 10 MG/ML 4 ML VIAL IV STA (08:15)
--- NOTE | 2021-07-17 09:11 | P.PN ---
Subjective Progress Note Date: 07/17/21 Principal diagnosis: Triple-vessel coronary artery disease with known 100% occluded mid LAD, moderate left ventricular dysfunction, moderate to severe aortic valve stenosis, mild to moderate mitral valve regurgitation. Previous medical history of hypertension, hyperlipidemia, current tobacco dependence, COPD, evidence of old distal anterior apical myocardial infarction, peripheral arterial disease, and family history of coronary artery disease. Vaccinated and boosted against Covid POD #4 triple vessel coronary artery bypass grafting using the left internal mammary artery to the distal left anterior descending artery, reverse saphenous vein graft from the aorta to the ramus intermedius artery, reverse saphenous vein graft from the aorta to the posterior descending artery, aortic valve replacement using a 25 mm Inspiris pericardial bioprosthesis, exclusion of the left atrial appendage using a 35 mm AtriClip, endoscopic harvesting of the left greater saphenous vein, intraoperative graft flow measurements using the [employer] system, intraoperative transesophageal echocardiogram and epi-aortic scanning. Postoperative acute blood loss anemia and thrombocytopenia, expected given hemodilution and cardiopulmonary bypass pump The patient was seen and examined this morning sitting up in a recliner on the cardiac stepdown unit in no acute distress. Patient states post surgical pain is controlled with current medication regimen, denies shortness of breath. Remains in sinus rhythm and hemodynamically stable. He had a relatively uneventful night and remains in good spirits. Has ambulated in the hallway without difficulty. Once to go home today. Still requires oxygen currently, may need to be discharged on oxygen. No other new concerns. Objective - Vital Signs Vital signs: Vital Signs Temp 98.3 F 07/17/21 04:00 Pulse 74 07/17/21 08:23 Resp 19 07/17/21 04:00 BP 147/73 07/17/21 04:00 Pulse Ox 92 L 07/17/21 04:00 Intake & Output 07/16/21 07/17/21 07/17/21 18:59 06:59 18:59 Intake Total 290 Output Total 1325 Balance -1035 Weight 124.6 kg Intake: IV 10 Invasive Line 5 10 Oral 280 Output: Urine 1325 Other: Voiding Method Toilet Toilet Urinal Urinal # Voids 3 ABP, PAP, CO, CI - Last Documented Arterial Blood Pressure 143/50 Pulmonary Artery Pressure 28/13 Cardiac Output 6.5 Cardiac Index 2.7 - Exam CONSTITUTIONAL: Appears comfortable, cooperative, no acute distress RESPIRATORY: Lungs sounds diminished bilaterally. Respirations even, nonlabored. Currently on 3 L nasal cannula with oxygen saturation 92%. Able to achieve 1500 mL on incentive spirometry. Strong productive cough. CARDIOVASCULAR: S1, S2 present. Regular rate and rhythm, sinus rhythm on telemetry. Sternum stable. Palpable peripheral pulses bilaterally. Trace bilateral lower extremity edema present. No calf pain or tenderness noted. Heart hugger in place with patient demonstrating appropriate use. Antiembolism stockings, SCDs present. GASTROINTESTINAL: Abdomen soft, nontender, nondistended. Active bowel sounds present 4 quadrants. Tolerating diet. Positive bowel movement GENITOURINARY: Continues to void INTEGUMENTARY: Skin is warm and dry with evidence of good perfusion. Anterior chest incision well approximated. Left lower extremity EVH site well approximated without redness or drainage NEUROLOGIC: Cranial nerves II through XII intact MUSKULOSKELETAL: Able to move all extremities, strength equal bilaterally PSYCHIATRIC: Alert and oriented to person place and time, appropriate affect, intact judgment and insight - Allied health notes Allied health notes reviewed: nursing - Labs CBC & Chem 7: 07/17/21 06:20 07/17/21 06:20 Labs: Abnormal Lab Results - Last 24 Hours (Table) 07/16/21 07/16/21 07/16/21 Range/Units 11:31 16:42 20:31 RBC (4.30-5.90) m/uL Hgb (13.0-17.5) gm/dL Hct (39.0-53.0) % MCHC (31.0-37.0) g/dL RDW (11.5-15.5) % Sodium (137-145) mmol/L BUN (9-20) mg/dL Glucose (74-99) mg/dL POC Glucose (mg/dL) 132 H 126 H 145 H (75-99) mg/dL Calcium (8.4-10.2) mg/dL Magnesium (1.6-2.3) mg/dL 07/17/21 07/17/21 07/17/21 Range/Units 02:03 05:52 06:20 RBC 2.95 L (4.30-5.90) m/uL Hgb 8.0 L (13.0-17.5) gm/dL Hct 26.2 L (39.0-53.0) % MCHC 30.4 L (31.0-37.0) g/dL RDW 17.9 H (11.5-15.5) % Sodium (137-145) mmol/L BUN (9-20) mg/dL Glucose (74-99) mg/dL POC Glucose (mg/dL) 138 H 126 H (75-99) mg/dL Calcium (8.4-10.2) mg/dL Magnesium (1.6-2.3) mg/dL 07/17/21 Range/Units 06:20 RBC (4.30-5.90) m/uL Hgb (13.0-17.5) gm/dL Hct (39.0-53.0) % MCHC (31.0-37.0) g/dL RDW (11.5-15.5) % Sodium 133 L (137-145) mmol/L BUN 28 H (9-20) mg/dL Glucose 114 H (74-99) mg/dL POC Glucose (mg/dL) (75-99) mg/dL Calcium 7.9 L (8.4-10.2) mg/dL Magnesium 2.5 H (1.6-2.3) mg/dL - Imaging and Cardiology Chest x-ray: image reviewed Assessment and Plan Assessment: 1. Triple-vessel coronary artery disease with known 100% occluded mid LAD and evidence of old distal anterior apical myocardial infarction, status post three- vessel CABG 2. Moderate left ventricular dysfunction with preoperative ejection fraction 30-35% 3. Moderate to severe aortic valve stenosis, status post aortic valve replacement 4. Mild to moderate mitral valve regurgitation 5. History of hypertension 6. Hyperlipidemia, treated, cholesterol 69, LDL 38 7. Current tobacco dependence 8. Mild COPD with preoperative FEV1 65% of predicted and DLCO 54% of predicted 9. Peripheral arterial disease, MARY right 0.65, left 0.85 10. Family history of coronary artery disease 11. Vaccinated and boosted against Covid 12. Postoperative acute blood loss anemia and thrombocytopenia, expected Plan: 1. Continue aspirin, statin, Plavix, beta tammi. Will increase beta tammi as tolerated. Continue low dose lisinopril for afterload reduction 2. Continue amiodarone for A. fib prophylaxis 3. Wean O2 as tolerated. Encourage incentive spirometry 10 times every hour while awake. Bronchodilators per pulmonology 4. Increase activity, ambulate as tolerated. PT/OT/cardiac rehab following 5. Will monitor daily labs and x-rays. Electrolyte replacement per protocol. Will give IV lasix today 6. GI/DVT prophylaxis 7. Pain control with current medication regimen 8. Insulin management per primary care service. Patient is not diabetic, preoperative hemoglobin A1c 5.7%, repeat 6.0%, however patient does need tight blood sugar control to prevent infection and promote sternal union 9. Strict accurate intake and output. Daily weights. Patient to shower daily 10. Discharge planning in progress, anticipate discharge to home with home care this afternoon 11. More recommendations to follow Time with Patient: Greater than 30
--- NOTE | 2021-07-17 09:12 | XR ---
EXAMINATION TYPE: XR chest 2V DATE OF EXAM: 07/17/2021 COMPARISON: Chest x-ray 07/16/2021 HISTORY: Status post cardiac surgery TECHNIQUE: Frontal and lateral views of the chest are obtained. FINDINGS: Patient is post median sternotomy and cardiac valve replacement, left atrial appendage cli p. Basilar density persists. Prominent lung volumes suggest underlying COPD. There is increased AP di ameter chest. No evident pneumothorax. Heart is enlarged. There are overlying artifacts. IMPRESSION: Subsegmental basilar atelectatic changes, cardiomegaly, difficult to exclude small effus ion.
--- NOTE | 2021-07-17 09:55 | P.PN ---
Subjective Progress Note Date: 07/17/21 No new complaints today. Still requiring oxygen at 3L but improved. Plan for d/c today per my understanding. Pt is pre-diabetic and has obesity class I - no CKD - metformin indicated and prescribed in med rec. Objective - Vital Signs Vital signs: Vital Signs Temp 98.3 F 07/17/21 04:00 Pulse 74 07/17/21 08:23 Resp 19 07/17/21 04:00 BP 147/73 07/17/21 04:00 Pulse Ox 92 L 07/17/21 04:00 Intake & Output 07/16/21 07/17/21 07/17/21 18:59 06:59 18:59 Intake Total 290 Output Total 1325 Balance -1035 Weight 124.6 kg Intake: IV 10 Invasive Line 5 10 Oral 280 Output: Urine 1325 Other: Voiding Method Toilet Toilet Urinal Urinal # Voids 3 ABP, PAP, CO, CI - Last Documented Arterial Blood Pressure 143/50 Pulmonary Artery Pressure 28/13 Cardiac Output 6.5 Cardiac Index 2.7 - Exam Gen: awake, alert HEENT: normocephalic, atraumatic, good hearing acuity, moist mucous membranes Resp: good air exchange, breathing comfortably with no accessory muscle use CVS: good distal perfusion x 4, GI: soft, NTTP, ND : no SPT, no CVAT, hodge catheter not present MSK: no pitting edema, no clubbing Neuro: non-focal, moving all extremities Psych: cooperative, euthymic mood - Labs CBC & Chem 7: 07/17/21 06:20 07/17/21 06:20 Labs: Abnormal Lab Results - Last 24 Hours (Table) 07/16/21 07/16/21 07/16/21 Range/Units 11:31 16:42 20:31 RBC (4.30-5.90) m/uL Hgb (13.0-17.5) gm/dL Hct (39.0-53.0) % MCHC (31.0-37.0) g/dL RDW (11.5-15.5) % Sodium (137-145) mmol/L BUN (9-20) mg/dL Glucose (74-99) mg/dL POC Glucose (mg/dL) 132 H 126 H 145 H (75-99) mg/dL Calcium (8.4-10.2) mg/dL Magnesium (1.6-2.3) mg/dL 07/17/21 07/17/21 07/17/21 Range/Units 02:03 05:52 06:20 RBC 2.95 L (4.30-5.90) m/uL Hgb 8.0 L (13.0-17.5) gm/dL Hct 26.2 L (39.0-53.0) % MCHC 30.4 L (31.0-37.0) g/dL RDW 17.9 H (11.5-15.5) % Sodium (137-145) mmol/L BUN (9-20) mg/dL Glucose (74-99) mg/dL POC Glucose (mg/dL) 138 H 126 H (75-99) mg/dL Calcium (8.4-10.2) mg/dL Magnesium (1.6-2.3) mg/dL 07/17/21 Range/Units 06:20 RBC (4.30-5.90) m/uL Hgb (13.0-17.5) gm/dL Hct (39.0-53.0) % MCHC (31.0-37.0) g/dL RDW (11.5-15.5) % Sodium 133 L (137-145) mmol/L BUN 28 H (9-20) mg/dL Glucose 114 H (74-99) mg/dL POC Glucose (mg/dL) (75-99) mg/dL Calcium 7.9 L (8.4-10.2) mg/dL Magnesium 2.5 H (1.6-2.3) mg/dL Assessment and Plan Assessment: 71-year-old male status post triple vessel bypass and bioprosthetic aortic valve replacement Coronary artery disease Hypertension Dyslipidemia -Postoperative management per cardiovascular thoracic surgery -Aspirin, Lipitor, Plavix, beta tammi - prophylactic amio Pre-Diabetes - follow BS - off insulin gtt, SSI - A1C 6 - metformin prescribed on d/c - needs close PCP f/u Hyponatremia, mild - likely due to fluid shifts - follow in AM Acute blood loss anemia and thrombocytopenia - anticipated - no indication for transfusion at this time - follow CBC COPD without exacerbation-pulmonary following Acute hypoxic respiratory failure, stable, improving -Pulmicort, duoneb - pulm hygine - wean O2 as able - lasix 40mg IV 3/3 - encourage IS Systolic CHF EF 30-35% - on BB - restart ACEI per cardio thorasic DVT prophylaxis: Heparin Discussed with: Patient, nursing Anticipated discharge: per CT surgery Anticipated discharge place: Residential Home care A total of 25 minutes was spent on the care of this complex patient more than 50% of the time was spent in counseling and care coordination.
[2021-07-17] MEDS: AMIODARONE 200 MG TAB PO SCH (10:12)
[2021-07-17] MEDS: METOPROLOL TARTRATE 25 MG TAB PO SCH (10:12)
[2021-07-17] MEDS: CLOPIDOGREL 75 MG TAB PO SCH (10:12)
[2021-07-17] MEDS: ASPIRIN 325 MG TAB PO SCH (10:12)
[2021-07-17] MEDS: HEPARIN SODIUM,PORCINE/PF 5,000 UNIT/0.5 ML SYRINGE SQ SCH (10:12)
[2021-07-17] MEDS: ATORVASTATIN 40 MG TAB PO SCH (10:12)
[2021-07-17 10:17] VITALS: RESP 18
[2021-07-17 11:58] LABS: Glucose,Whole Blood 130 mg/dL (75-99)
[2021-07-17] MEDS: lisinopriL 5 MG TAB PO SCH (12:30)
[2021-07-17 12:52] VITALS: BP 104/59; PULSE 77
--- NOTE | 2021-07-17 13:59 | P.DS ---
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 Triple vessel coronary artery disease with known 100% occluded mid LAD and evidence of old distal anterior apical myocardial infarction 2. Moderate left ventricular dysfunction with preoperative ejection fraction 30 -35%, improved after surgery 3. Moderate to severe aortic valve stenosis 4. Mild to moderate mitral valve regurgitation 5. History of hypertension 6. Hyperlipidemia, treated, cholesterol 69, LDL 38 7. Current tobacco dependence 8. Mild COPD with preoperative FEV1 65% of predicted and DLCO 54% of predicted 9. Peripheral arterial disease, MARY right 0.65, left 0.85 10. Family history of coronary artery disease 11. Vaccinated and boosted against Covid 12. Postoperative acute blood loss anemia and thrombocytopenia, expected PRINCIPAL PROCEDURE: 1. Triple-vessel coronary artery bypass grafting using the left internal mammary artery to the distal left anterior descending artery, reverse saphenous vein graft from the aorta to the ramus intermedius artery, reverse saphenous vein graft from the aorta to the posterior descending artery 2. Aortic valve replacement using a 25 mm Inspiris pericardial bioprosthesis 3. Exclusion of the left atrial appendage using a 35 mm AtriClip 4. Endoscopic harvesting of the left greater saphenous vein 5. Intraoperative rapid flow measurements using the Medistim system 6. Intraoperative transesophageal echocardiogram and epi-aortic scanning HISTORY OF PRESENT ILLNESS: This is a 71-year-old gentleman who follows on an outpatient basis with Dr. Prasad Mayfield for primary care and Dr. Mae for cardiology. He was to undergo routine colonoscopy last March but was found to have an abnormal EKG with T-wave inversions in his lateral leads and was referred [facility]. Reported symptoms included progressive shortness of breath which he attributed to smoking, no chest pain or lower extremities edema. He underwent stress testing which demonstrated a large partially reversible anterior wall defect with EF 10-15%. He was recommended to undergo heart catheterization which demonstrated a calcified right and left coronary systems with diffuse triple-vessel coronary artery disease. Transthoracic echocardiogram was also completed demonstrating moderate to severely impaired left ventricular systolic function with EF 30-35%, LV wall motion hypokinesis, moderate aortic stenosis with peak/mean gradient 31.42/20.16 mmHg and aortic valve area 0.5 cm, mild mitral regurgitation, and mild tricuspid regurgitation. The patient was referred to Dr. Desai from cardiothoracic surgery. He was recommended to quit smoking, have workup done for anemia, and repeat echocardiogram to further delineate his aortic stenosis. Repeat echocardiogram was completed in May 2021 with improvement in his EF to 40-45% , moderate to severe aortic stenosis with moderate mitral regurgitation. He was recommended to undergo coronary artery bypass graft surgery along with aortic valve replacement. The usual perioperative course was discussed in detail with the patient and his family, all risks and benefits were explained, all questions were answered, and consent was obtained to proceed with surgery. The patient was scheduled for surgery at the earliest possible date. HOSPITAL COURSE: The patient was brought to the hospital on 07/13/21, taken to the preoperative area, prepared in the usual fashion, and subsequently taken to the operating room where Dr. Desai performed three-vessel CABG and aortic valve replacement. Upon completion of surgery the patient was transferred to the cardiovascular intensive care unit where he was recovered and monitored hemodynamically. He was extubated, all lines, tubes, and drips were discontinued when appropriate, and he was transferred to [facility] cardiac stepdown unit for further monitoring and rehabilitation. His oxygen was titrated down although he still required low-dose oxygen at discharge, he continued to work with physical and occupational therapy, he was tolerating oral diet, his pain was controlled, and he was ready to be discharged to home with [facility] on postoperative day #4. He received written and verbal instruction regarding his medications, activity restrictions, signs and symptoms requiring physician notification, and follow-up appointments. Patient Condition at Discharge: Stable Plan - Discharge Summary Discharge Rx Participant: No New Discharge Prescriptions: No Action lisinopriL 40 mg PO DAILY Iron 45 mg PO DAILY Vit C/E/Zn/Coppr/Lutein/Zeaxan [Preservision Areds 2 Chew Tab] 1 tab PO BID Rosuvastatin [Crestor] 40 mg PO DAILY Carvedilol [Coreg] 3.125 mg PO BID Aspirin [Adult Low Dose Aspirin EC] 324 mg PO DAILY Spironolactone 12.5 mg PO DAILY Discharge Medication List Carvedilol [Coreg] 3.125 mg PO BID 03/25/21 [History] Rosuvastatin [Crestor] 40 mg PO DAILY 03/25/21 [History] Aspirin [Adult Low Dose Aspirin EC] 324 mg PO DAILY 07/03/21 [History] Iron 45 mg PO DAILY 07/03/21 [History] Spironolactone 12.5 mg PO DAILY 07/03/21 [History] Vit C/E/Zn/Coppr/Lutein/Zeaxan [Preservision Areds 2 Chew Tab] 1 tab PO BID 07/03/21 [History] lisinopriL 40 mg PO DAILY 07/03/21 [History] Follow up Appointment(s)/Referral(s): Pablo Srinivasan MD [STAFF PHYSICIAN] - 08/11/21 2:00 pm Margie Solis NPC [Nurse Practitioner] - 1 Week (You will be seen in the surgeon's office behind the hospital at [facility], [address], [address]. Office phone number is ) [facility] SCHULZ,Cardiac [NON-STAFF] - 4 Weeks (You will be called in 4-6 weeks for evaluation for cardiac rehab) Piyush Mae MD [STAFF PHYSICIAN] - 07/23/21 2:30 pm (Appointment will be at the [place] office) Amy Desai MD [STAFF PHYSICIAN] - 08/21/21 10:15 am Delmar Mayfield MD [Primary Care Provider] - 07/23/21 4:00 pm [facility] [NON-STAFF] - 1-2 Days (Home care should perform first visit the day after discharge, then 2-3 times per week for 4 weeks) Ambulatory/Diagnostic Orders: Complete Blood Count w/diff [LAB.AMB] Time Frame: 3 Days, Location: None Selected Comprehensive Metabolic Panel [LAB.AMB] Time Frame: 3 Days, Location: None Selected Patient Instructions/Handouts: Prediabetes (GEN) Activity/Diet/Wound Care/Special Instructions: DISCHARGE INSTRUCTIONS: 1. No driving for 4 weeks, or until physician gives their ok. 2. The patient should sleep in their own bed, no medical bed needed. 3. Stairs are not an issue. If the bedroom is upstairs, it is advised that the patient go up at night and down in the morning for the first week. Go slowly, using handrail and take 1 step at a time. 4. GEORGETTE hose are to be worn for 30 days or until physician discontinues. 5. Heart hugger is to be worn 100% of the time until physician discontinue s.(except when showering) 6. No lifting, pushing, or pulling more than 10 pounds for 12 weeks. The physician will advise of any restriction changes. 7. The patient is expected to continue the prescribed walking program. 8. Continue pain control per as needed orders. 9. Continue with incentive spirometry and splinting/heart hugger until otherwise directed by the physician. 10. Must shower daily using liquid antibacterial soap and a separate white washcloth for each individual incision. 11. Routine sternal incision care. No powders, lotions, ointments on incisions. No dressings are necessary on incisions unless they are draining. Dermabond tape is to remain on sternal incision until surgeon follow-up. 12. Please call surgeon/MEDICAL LAB ASSISTANT for temp greater than 101 F or purulent drainage from incisions. 13. Please weigh your self every morning, record and bring with you to follow- up appointments 14. All prescriptions given by surgeon for 30 days. Refills need to be filled t hrough reliability technologist/primary care physician. 15. A Red armband has been placed on the patient. It should be worn for 30 days post surgery and will be removed by the cardiac surgeons. If an ER visit is necessary, please make sure the number on the Red armband is called. 16. You have been referred to and are expected to begin Cardiac Rehab in approximately 4-6 weeks. HOME HEALTH SERVICES TO PROVIDE: RN SKILLED HOME CARE SERVICES FOR POST-OP SURGICAL PATIENTS WITH THE FOLLOWING: Coronary Artery Bypass Surgery (CABG), Mitral Valve Replacement/Repair ( MVR), Aortic Valve Replacement/Repair (AVR) RN TO CONTINUE EDUCATION FROM ``ROAD TO A HEALTH HEART PATIENT EDUCATION MANUAL (GIVEN TO PATIENT IN THE HOSPITAL) MEDICATION RECONCILIATION WITH EDUCATION NEEDED ON FIRST HOME VISIT EMPHASIZE IMPORTANCE OF WEARING BREAST SUPPORT/HEART HUGGER ENCOURAGE USE OF INCENTIVE SPIROMETER 10 X EVERY HOUR WHILE AWAKE ENCOURAGE UTILIZATION OF LOWER EXTREMITY COMPRESSION STOCKINGS/GEORGETTE HOSE and ELEVATE LEGS ABOVE LEVEL OF HEART WHILE AT REST. ENCOURAGE AMBULATION 3-5x/day INCREASING TOLERATES, WHILE AVOIDING EXTREMES IN TEMPERATURE FREQUENCY: RN TO OPEN THE PATIENT WITHIN 24 HOURS OF DISCHARGE FROM THE HOSPITAL WITH TELEHEALTH INSTALLED AT [facility], RN TO VISIT 2-3 X A WEEK FOR 4 WEEKS ESTABLISHED BY PATIENT NEEDS. LABORATORY: CBC, CMP TO BE DRAWN ON THE THIRD DAY HOME, (RAN STAT) FAX RESULTS TO [phone]. TELEHEALTH PARAMETERS: WEIGHT: NOTIFY MD OF WEIGHT GAIN OF 2 LBS IN 24 HOURS OR 5 LBS IN ONE WEEK HR: NOTIFY MD OF HR <55 BPM OR HR>100 BPM BP: NOTIFY MD IF BP <90/55 OR BP>140/100 O2 SAT: NOTIFY MD IF PO2<93% ON ROOM AIR SEND TELEHEALTH REPORT TO FIREPROOF DOOR ASSEMBLER AND CARDIOVASCULAR SURGEON THE FIRST WEEK OF CARE AND THEN BI-WEEKLY. PLEASE ADDITIONALLY COMMUNICATE ANY ABNORMALS AND NEW FINDINGS TO THE SURGEONS OFFICE Repeat A1C in 3 Months . Discharge Disposition: HOME WITH HOME HEALTH SERVICES
--- NOTE | 2021-07-17 14:13 | P.PN ---
<Elena Spangler - Last Filed: 07/17/21 14:04> Subjective Progress Note Date: 07/17/21 70-year-old male patient underwent three-vessel bypass surgery and aortic valve replacement. The patient is currently being seen today intensive care unit postop. Patient's surgery was performed without any major complication. At this point in time the patient is sedated with propofol and the patient is currently intensive care unit intubated on a mechanical ventilator. The patient is currently on assist-control at the rate of 16 with a tidal volume of 600 and FiO2 of 100% with a PEEP of 10. Current pulse ox 96%. Chest x-ray postop showed adequate expansion of both lungs and there is no evidence of any pneumothorax. Some atelectatic changes and left lung base. ET tube is in a good location. Pavillion-Brianna catheter is in good location. OG tube is in a good location. The patient has 2 mediastinal chest tubes and 1 left pleural chest tube. Output from the chest tubes are minimal at this point in time. Cardiac output is at 5.2 with an index of 2.1 and the patient is currently on a known at 0.2 mcg/kg per minute and norepinephrine infusion at 0.08 mcg/kg per minute. Urine output is adequate. Blood pressure is soft and the patient is being given 500 mL of 5% albumin. The patient has a pulmonary artery pressure 34/22. He is afebrile. He has not hypothermic. He is making adequate urine output for now. Note that the patient has COPD. He has diffuse generalized coronary artery disease and his preop Levemir ejection fraction was around 10-15% and the patient had a large partially reversible anterior wall defect. He is known to have hypertension and hyperlipidemia and macular degeneration. 07/14/2021, the patient is doing well. The patient was extubated yesterday without any major difficulties with a six-hour window. The patient is currently sitting up on a chair on 10 L of oxygen by nasal cannula with a pulse oximetry 96%. Chest x-ray shows adequate expansion of both lungs and there is no eviden ce of any pneumothorax. The patient has 2 mediastinal chest tube to 1 pleural chest tube. Output from the mediastinal chest tube has been 650 since arrival from the operating room and output from the left sided chest tube is her 170 mL his arrival from the operating room. Urine output is order of 35 mL an hour. The patient was given a total of 4 doses of IV albumin, 250 mL each.. This was given to the patient overnight. The patient subsequently was weaned off the norepinephrine infusion and he is also off the milrinone. The patient has a CVP of 10. Pulmonary artery pressures are 30/60. Cardiac output was 5.9 with an index of 2.4. Urine output is in the order of 35 mL an hour. Cardiac rhythm is sinus and the patient has a VVI pacemaking backup at the rate of 60. No focal neurological deficits. Awake and alert. Moving all 4 extremities. No nausea or vomiting. No other significant events overnight. 07/15/2021, the patient is doing well. The patient is calm and comfortable. The patient has no respiratory distress. Chest tube will be removed today and output is minimal at this point in time. Meanwhile, the patient remains in oxygen 8 L per minute nasal cannula. Using incentive spirometer and pulling approximately 1000. Chest x-ray showed adequate expansion of both lungs. There is some mild pulmonary vascular congestion. No evidence of pneumothorax. On examination, the patient is slightly bronchospastic and wheezy. Input output balance over the past 24 hours is positive stool for cc. Sodium level is at 131. Hemoglobin is at 8.5. The patient has no specific complaints. Cardiac rhythm is sinus. Pavillion-Brianna catheter is been removed. Urine output is adequate for now. Patient is moving all flex images without any limitation the patient is tolerating his diet is sitting up on a chair. Surgical wound site is dry clean and intact. 07/16/2021, seeing the patient for a follow-up. Doing well. Still on 5 L of oxygen by nasal cannula. Chest x-ray today shows postsurgical changes with bilateral pleural effusion and diminished breath on the lung bases bilaterally on examination. The patient using the incentive spirometer. His pain is under good control for now. He is postop day #3. He has been afebrile. His been hemodynamically stable. Cardiac rhythm is sinus. He is sitting up on a recliner. He denies having any complaints. All of the chest tubes have been removed. His emanating in the hallway. No nausea. No vomiting. No diarrhea. No abdominal pain. No focal neurological deficits. The patient has a hemoglobin of 8.0. White cell count is 7.3. Creatinine 0.9. Glucose is 124. No other significant events otherwise over the past 24 hours. Cardiothoracic surgeries on the case and the patient will be started on diuretics and optimizing on status. The patient is seen today 07/17/2021 in follow-up on the selective care unit. He is currently sitting up in a chair at the bedside. Awake and alert in no acute distress. He was maintaining good O2 saturations in the 90s on room air. He's been afebrile. Hemodynamically stable. Chest x-ray revealed subsegmental basilar atelectasis. He continues working well with the incentive spirometer. Currently achieving 1500 ML's. White count 7.8. Hemoglobin 8.0. Platelet count 160,000. Sodium 133. Potassium 4.3. BUN 28. Creatinine 1.0. Glucose 114. He is continued on bronchodilators. Heparin for DVT prophylaxis. Objective - Vital Signs Vital signs: Vital Signs Temp 98.3 F 07/17/21 12:00 Pulse 93 07/17/21 12:05 Resp 18 07/17/21 12:00 BP 104/59 07/17/21 12:00 Pulse Ox 90 L 07/17/21 12:05 Intake & Output 07/16/21 07/17/21 07/17/21 18:59 06:59 18:59 Intake Total 290 240 Output Total 1325 Balance -1035 240 Weight 124.6 kg Intake: IV 10 Invasive Line 5 10 Oral 280 240 Output: Urine 1325 Other: Voiding Method Toilet Toilet Urinal Urinal # Voids 3 ABP, PAP, CO, CI - Last Documented Arterial Blood Pressure 143/50 Pulmonary Artery Pressure 28/13 Cardiac Output 6.5 Cardiac Index 2.7 - Exam CONSTITUTIONAL: Alert, very pleasant 71-year-old gentleman, up in a chair at the bedside, on room air, no acute distress. RESPIRATORY: Lungs sounds diminished bilaterally. Faint crackles in the posterior bases. Respirations even, nonlabored. Currently on room air with oxygen saturation 90%. Able to achieve 1500 mL on incentive spirometry. Strong productive cough. CARDIOVASCULAR: S1, S2 present. Regular rate and rhythm, sinus rhythm on telemetry. Sternum stable. Palpable peripheral pulses bilaterally. Trace bilateral lower extremity edema present. No calf pain or tenderness noted. Heart hugger in place with patient demonstrating appropriate use. Antiembolism stockings, SCDs present. GASTROINTESTINAL: Abdomen soft, nontender, nondistended. Active bowel sounds present 4 quadrants. Tolerating diet. Positive bowel movement GENITOURINARY: Lares discontinued, continues to void INTEGUMENTARY: Skin is warm and dry with evidence of good perfusion. Anterior chest incision well approximated and covered with dry intact dressing. Left lower extremity EVH site well approximated without redness or drainage NEUROLOGIC: Cranial nerves II through XII intact MUSKULOSKELETAL: Able to move all extremities, strength equal bilaterally PSYCHIATRIC: Alert and oriented to person place and time, appropriate affect, intact judgment and insight - Labs CBC & Chem 7: 07/17/21 06:20 07/17/21 06:20 Labs: Abnormal Lab Results - Last 24 Hours (Table) 07/16/21 07/16/21 07/17/21 Range/Units 16:42 20:31 02:03 RBC (4.30-5.90) m/uL Hgb (13.0-17.5) gm/dL Hct (39.0-53.0) % MCHC (31.0-37.0) g/dL RDW (11.5-15.5) % Sodium (137-145) mmol/L BUN (9-20) mg/dL Glucose (74-99) mg/dL POC Glucose (mg/dL) 126 H 145 H 138 H (75-99) mg/dL Calcium (8.4-10.2) mg/dL Magnesium (1.6-2.3) mg/dL 07/17/21 07/17/21 07/17/21 Range/Units 05:52 06:20 06:20 RBC 2.95 L (4.30-5.90) m/uL Hgb 8.0 L (13.0-17.5) gm/dL Hct 26.2 L (39.0-53.0) % MCHC 30.4 L (31.0-37.0) g/dL RDW 17.9 H (11.5-15.5) % Sodium 133 L (137-145) mmol/L BUN 28 H (9-20) mg/dL Glucose 114 H (74-99) mg/dL POC Glucose (mg/dL) 126 H (75-99) mg/dL Calcium 7.9 L (8.4-10.2) mg/dL Magnesium 2.5 H (1.6-2.3) mg/dL 07/17/21 Range/Units 11:57 RBC (4.30-5.90) m/uL Hgb (13.0-17.5) gm/dL Hct (39.0-53.0) % MCHC (31.0-37.0) g/dL RDW (11.5-15.5) % Sodium (137-145) mmol/L BUN (9-20) mg/dL Glucose (74-99) mg/dL POC Glucose (mg/dL) 130 H (75-99) mg/dL Calcium (8.4-10.2) mg/dL Magnesium (1.6-2.3) mg/dL Assessment and Plan Assessment: 1 diffuse multivessel coronary artery disease along with moderate aortic stenosis. The patient is post three-vessel bypass surgery and aortic valve replacement. The patient is postop day #4. Doing well. Cardiac rhythm is sinus. Cardiac rhythm is improved and the patient is currently on a normal sinus rhythm. The patient is doing well. Neurologically is intact. Surgical wound site is dry clean and intact. Chest tubes are removed. 2 post thoracotomy, currently intubated on mechanical ventilator. Chest tubes are all removed and the patient remains room air. Chest x-ray showing bilateral pleural effusion most on the left. Patient was given diuretics with IV Lasix. 3 normal cardiac sinus rhythm and the patient is a backup VVI pacing 4 COPD, moderate to severe, inactive in stable 5 hypertension 6 hyperlipidemia 7 macular degeneration 8 previous history of parathyroidectomy. 9 postoperative anemia, expected outcome of surgery, hemoglobin is at 8.0 Plan: The patient was seen and evaluated Chest x-ray and labs reviewed Continues to work well with the incentive spirometer Doing well and probable discharge today Follow-up in the office in 1-2 weeks' I, the cosigning physician, performed a history & physical examination of the patient. Lungs sounds faint crackles in the posterior bases. Maintaining good O2 saturations in the 90s on room air. I discussed the assessment and plan of care with my nurse practitioner, Elena Spangler. I attest to the above note as dictated by her. I have personally seen and examined the patient, performed the documentation and the assessment and plan as written. Number of minutes spent on the visit: 10. <Leyda Barrientos - Last Filed: 07/17/21 15:29> Objective - Vital Signs Vital signs: Vital Signs Temp 98.3 F 07/17/21 12:00 Pulse 93 07/17/21 12:05 Resp 18 07/17/21 12:00 BP 104/59 07/17/21 12:00 Pulse Ox 90 L 07/17/21 12:05 Intake & Output 07/16/21 07/17/21 07/17/21 18:59 06:59 18:59 Intake Total 290 240 Output Total 1325 600 Balance -1035 -360 Weight 124.6 kg Intake: IV 10 Invasive Line 5 10 Oral 280 240 Output: Urine 1325 600 Other: Voiding Method Toilet Toilet Urinal Urinal # Voids 3 ABP, PAP, CO, CI - Last Documented Arterial Blood Pressure 143/50 Pulmonary Artery Pressure 28/13 Cardiac Output 6.5 Cardiac Index 2.7 - Labs CBC & Chem 7: 07/17/21 06:20 07/17/21 06:20 Labs: Abnormal Lab Results - Last 24 Hours (Table) 07/16/21 07/16/21 07/17/21 Range/Units 16:42 20:31 02:03 RBC (4.30-5.90) m/uL Hgb (13.0-17.5) gm/dL Hct (39.0-53.0) % MCHC (31.0-37.0) g/dL RDW (11.5-15.5) % Sodium (137-145) mmol/L BUN (9-20) mg/dL Glucose (74-99) mg/dL POC Glucose (mg/dL) 126 H 145 H 138 H (75-99) mg/dL Calcium (8.4-10.2) mg/dL Magnesium (1.6-2.3) mg/dL 07/17/21 07/17/21 07/17/21 Range/Units 05:52 06:20 06:20 RBC 2.95 L (4.30-5.90) m/uL Hgb 8.0 L (13.0-17.5) gm/dL Hct 26.2 L (39.0-53.0) % MCHC 30.4 L (31.0-37.0) g/dL RDW 17.9 H (11.5-15.5) % Sodium 133 L (137-145) mmol/L BUN 28 H (9-20) mg/dL Glucose 114 H (74-99) mg/dL POC Glucose (mg/dL) 126 H (75-99) mg/dL Calcium 7.9 L (8.4-10.2) mg/dL Magnesium 2.5 H (1.6-2.3) mg/dL 07/17/21 Range/Units 11:57 RBC (4.30-5.90) m/uL Hgb (13.0-17.5) gm/dL Hct (39.0-53.0) % MCHC (31.0-37.0) g/dL RDW (11.5-15.5) % Sodium (137-145) mmol/L BUN (9-20) mg/dL Glucose (74-99) mg/dL POC Glucose (mg/dL) 130 H (75-99) mg/dL Calcium (8.4-10.2) mg/dL Magnesium (1.6-2.3) mg/dL Assessment and Plan Assessment: I have personally seen and examined the patient and reviewed the documentation. I performed a joint evaluation with the nurse practitioner in this evaluation was done more than 20 minutes. I fully agree with the documentation above and the plan of CARE.
== END 2021-07-17 15:23 | disposition home health service (06) | DRG 219 ==
LOC: 2ORMAIN 05:37 → 2SICU 16:13 → 3SCARD 07-15 12:46
PROVIDERS: ADMIT Surgery; ATTEND Surgery
PROC: 4A1305C Monitoring of Arterial Flow, Coronary, Open Approach (ICD-10-PCS; principal; 2021-07-13 08:00)
PROC: 02RF08Z Replacement of Aortic Valve with Zooplastic Tissue, Open Approach (ICD-10-PCS; principal; 2021-07-13 08:00)
PROC: 02100Z9 Bypass Coronary Artery, One Artery from Left Internal Mammary, Open Approach (ICD-10-PCS; principal; 2021-07-13 08:00)
PROC: 02L70CK Occlusion of Left Atrial Appendage with Extraluminal Device, Open Approach (ICD-10-PCS; principal; 2021-07-13 08:00)
PROC: 021109W Bypass Coronary Artery, Two Arteries from Aorta with Autologous Venous Tissue, Open Approach (ICD-10-PCS; principal; 2021-07-13 08:00)
PROC: 5A1221Z Performance of Cardiac Output, Continuous (ICD-10-PCS; principal; 2021-07-13 08:00)
PROC: B24BZZ4 Ultrasonography of Heart with Aorta, Transesophageal (ICD-10-PCS; principal; 2021-07-13 08:00)
PROC: 06BQ4ZZ Excision of Left Saphenous Vein, Percutaneous Endoscopic Approach (ICD-10-PCS; principal; 2021-07-13 08:00)
PROC: 5A0945A Assistance with Respiratory Ventilation, 24-96 Consecutive Hours, High Flow/Velocity Cannula (ICD-10-PCS; 2021-07-13 08:00)
DX: I25.10 Atherosclerotic heart disease of native coronary artery without angina pectoris (principal); J96.01 Acute respiratory failure with hypoxia; E87.1 Hypo-osmolality and hyponatremia; I50.22 Chronic systolic (congestive) heart failure; D62 Acute posthemorrhagic anemia; J98.11 Atelectasis; I42.9 Cardiomyopathy, unspecified; D69.6 Thrombocytopenia, unspecified; Z68.37 Body mass index [BMI] 37.0-37.9, adult; I11.0 Hypertensive heart disease with heart failure; E66.01 Morbid (severe) obesity due to excess calories; J44.9 Chronic obstructive pulmonary disease, unspecified; I73.9 Peripheral vascular disease, unspecified; I08.3 Combined rheumatic disorders of mitral, aortic and tricuspid valves; I25.82 Chronic total occlusion of coronary artery; E78.5 Hyperlipidemia, unspecified; R73.03 Prediabetes; I25.2 Old myocardial infarction; R73.9 Hyperglycemia, unspecified; H35.30 Unspecified macular degeneration; M19.90 Unspecified osteoarthritis, unspecified site; F17.210 Nicotine dependence, cigarettes, uncomplicated; Z71.6 Tobacco abuse counseling; Z79.82 Long term (current) use of aspirin; Z79.899 Other long term (current) drug therapy; Z86.010 Personal history of colon polyps; Z87.39 Personal history of other diseases of the musculoskeletal system and connective tissue; Z90.89 Acquired absence of other organs; Z90.49 Acquired absence of other specified parts of digestive tract; Z98.890 Other specified postprocedural states; Z71.3 Dietary counseling and surveillance; Z82.49 Family history of ischemic heart disease and other diseases of the circulatory system; Z80.8 Family history of malignant neoplasm of other organs or systems
CPT/HCPCS: 71045; 71046; 80048; 80053; 82330; 82805; 83036; 83735; 85025; 85027; 85520; 85610; 85730; 86850; 86891; 86900; 86901; 86920; 88305; 88311; 94002; 94640; 94760

== ENCOUNTER → 2021-07-27 | Outpatient (CLI) | payer MEDICARE ==
--- NOTE | 2021-07-27 13:33 | XR ---
EXAMINATION TYPE: XR chest 2V DATE OF EXAM: 07/27/2021 COMPARISON: Chest x-ray 07/17/2021 HISTORY: Pleural effusion, J 90 TECHNIQUE: Frontal and lateral views of the chest are obtained on 3 images. FINDINGS: Patient is post median sternotomy and left atrial appendage clip placement. Bibasilar incr eased attenuation persists. No evident pneumothorax. The heart is obscured but likely stable. Aorta i s dense. Interstitium is increased, central vascularity appears prominently. There is blunting the co stophrenic angles. IMPRESSION: There may be a component of pulmonary venous hypertension and interstitial edema, pleura l effusions.
== END | disposition home or self-care (01) ==
LOC: RADXRMAIN 12:58
PROVIDERS: ATTEND Surgery
DX: J90 Pleural effusion, not elsewhere classified (principal)
CPT/HCPCS: 71046

== ENCOUNTER 2022-01-27 10:12 | Day surgery (SDC) | payer MEDICARE ==
[2022-01-26 12:59] VITALS: BMI 33.9
[~2022-01-27 10:12] MED LIST changes: -ALBUMIN HUMAN 25% 50 ML IV ONE; +ALPRAZolam 0.25 MG TAB PO PRN; -ASPIRIN 325 MG TAB PO ONE; +ASPIRIN 325 MG TAB PO PRN; -ATORVASTATIN 10 MG TAB PO ONE; -CALCIUM CHLORIDE 100 MG/ML 10 ML SYRINGE IV ONE; -CHLORHEXIDINE GLUCONATE 15 ML CUP MUCOUS MEM ONE; -CLEVIDIPINE BUTYRATE 25 MG in EMPTY BAG 1 BAG IV ONE; -ELECTROLYTE-A SOLUTION 1,000 ML with POTASSIUM CHLORIDE 100 MEQ, MAGNESIUM SULFATE 16 M... IV ONE; -ELECTROLYTE-A SOLUTION 1,000 ML with POTASSIUM CHLORIDE 40 MEQ, MAGNESIUM SULFATE 16 ME... IV ONE; -HEPARIN SODIUM 1,000 UN/ML (10ML VL) IV ONE; -HEPARIN SODIUM,PORCINE 5,000 UNIT in SODIUM CHLORIDE 0.9% 500 ML 500 ML IV ONE; -INSULIN REGULAR 100 UNIT in SODIUM CHLORIDE 0.9% 100 ML IV ONE; -LACTATED RINGERS 1,000 ML IV ONE; -MAGNESIUM SULFATE 16.24 MEQ in EMPTY SYRINGE 1 SYR IV ONE; -MANNITOL 25% 12.5 GM/50 ML VIAL IV ONE; -METOPROLOL TARTRATE 12.5 MG TAB PO ONE; -NITROGLYCERIN SL TABS 0.4 MG TAB SUBLINGUAL ONE; -NITROGLYCERIN-D5W PMX 25 MG/250 ML BTL IV ONE; -NITROGLYCERIN-D5W PMX 50 MG in DEXTROSE/WATER 1 250ML.BAG IV ONE; -NOREPINEPHRINE 4 MG in SODIUM CHLORIDE 0.9% 250 ML IV ONE; -PAPAVERINE 360 MG in SODIUM CHLORIDE 0.9% 90 ML IV ONE; -PHENYLEPHRINE 10 MG/ML VIAL IV ONE; -PHENYLEPHRINE 40 MG in SODIUM CHLORIDE 0.9% 250 ML IV ONE; -PROTAMINE SULFATE 10 MG/ML 25 ML VIAL IV ONE; -PROTAMINE SULFATE 250 MG in EMPTY BAG 1 BAG IV ONE; -SODIUM BICARB 8.4% 50 ML SYR (1 MEQ/ML) IV ONE; -SODIUM CHLORIDE 0.9% 1,000 ML IV ONE; +SODIUM CHLORIDE 0.9% 1,000 ML in EMPTY BAG 1 BAG IV ONE; -TRANEXAMIC ACID 2,000 MG in SODIUM CHLORIDE 0.9% 80 ML IV ONE; -ceFAZolin 1,000 MG in SODIUM CHLORIDE 0.9% IRRIGATIO 1,000 ML IRRIGATION ONE; -ceFAZolin 3 GM in SODIUM CHLORIDE 0.9% 100 ML IVPB ONE; -propofoL 1,000 MG/100 ML VIAL IV ONE
[2022-01-27] MEDS ORDERED: SODIUM CHLORIDE 0.9% 1,000 ML IV ONE (10:22)
[2022-01-27 10:30] LABS: Glucose,Whole Blood 106 mg/dL (70-110)
[2022-01-27 11:00] LABS: Anisocytosis Slight; Basophils # (A) 0.1 k/uL (0-0.2); Basophils % (A) 1 %; Eosinophils # (A) 0.2 k/uL (0-0.7); Eosinophils % (A) 4 %; HCT 35.7 % (39.0-53.0); Hypochromasia Marked; Lymphocytes % (A) 17 %; MCH 22.5 pg (25.0-35.0); MCHC 28.2 g/dL (31.0-37.0); Mean Platelet Volume 6.6; Microcytosis Slight; Monocytes # (A) 0.4 k/uL (0-1.0); Monocytes % (A) 8 %; Neutrophils # (A) 3.7 k/uL (1.3-7.7); Neutrophils % (A) 66 %; Platelet Count 425 k/uL (150-450); RBC 4.46 m/uL (4.30-5.90); RDW 19.9 % (11.5-15.5); WBC 5.6 k/uL (3.8-10.6)
[2022-01-27 11:19] LABS: African American GFR (CKD) >90 (>60 ml/min/1.73 sqM); Anion Gap 14 mmol/L; Blood Urea Nitrogen 13 mg/dL (9-20); Calcium 9.3 mg/dL (8.4-10.2); Carbon Dioxide 24 mmol/L (22-30); Chloride 98 mmol/L (98-107); Glucose 102 mg/dL (74-99); Non-African American GFR(CKD) >90 (>60 ml/min/1.73 sqM); Sodium 136 mmol/L (137-145)
[2022-01-27 11:23] LABS: Potassium 5.7 mmol/L (3.5-5.1)
[2022-01-27] MEDS ORDERED: fentaNYL (PF) 50 MCG/ML 2 ML AMP ONE ×2 (12:35→13:02)
[2022-01-27] MEDS ORDERED: VERAPAMIL 2.5 MG/ML 2 ML AMP ONE (12:35)
[2022-01-27] MEDS ORDERED: HEPARIN SODIUM,PORCINE 30 ML 30 ML ONE (12:36)
[2022-01-27] MEDS ORDERED: niCARdipine 25 MG/10 ML VIAL ONE (12:43)
[2022-01-27] MEDS ORDERED: MIDAZOLAM 2 MG/2 ML VIAL IVP ONE (12:51)
[2022-01-27] MEDS ORDERED: fentaNYL (PF) 50 MCG/ML 2 ML AMP IVP ONE (13:00)
[2022-01-27] MEDS ORDERED: IOPAMIDOL-250 100ML BTL INTRAARTER ONE (13:13)
[2022-01-27] MEDS ORDERED: NALOXONE 0.4 MG/ML 1 ML VIAL IVP PRN (13:23)
[2022-01-27] MEDS ORDERED: SODIUM CHLORIDE 0.9% 1,000 ML in EMPTY BAG 1 BAG IV SCH (13:30)
--- NOTE | 2022-01-27 13:30 | P.PCN ---
Date of Procedure: 01/27/22 Operative Findings: AN ABDOMINAL AORTOGRAM AND BILATERAL COMMON ILIACS AND COMMON FEMORAL ANGIOGRAM PERFORMING PHYSICIAN: Piyush Mae MD PROCEDURE PERFORMED: 1. An abdominal aortogram 2. An angiogram of bilateral iliacs and bilateral common femoral arteries 3. Ultrasound-guided access of the right common femoral artery INDICATION: This is a 71-year-old gentleman was known coronary artery disease as well as diabetes and hypertension and dyslipidemia was experiencing bilateral lower 70s intermittent claudication. He underwent the CTA which revealed infrarenal abdominal aortic aneurysm below 5 cm and also severe disease involving bilateral iliac and bilateral common femoral arteries. He was brought today to undergo [employer] of bilateral iliacs. COMPLICATION: None LEVEL OF SEDATION: Moderate was sedation length of 20 minutes APPROACH: Right common femoral artery PROCEDURE DESCRIPTION: After obtaining informed consent and explaining the procedure benefits, risks, and complications, the patient was brought to the cardiac [facility]. The right groin was prepped and draped in sterile fashion. The right common femoral artery was cannulated using micropuncture technique, under ultrasound guidance. A micropuncture wire was advanced, and the micropuncture sheath was advanced over the wire, then the micropuncture sheath was exchanged over an 0.35 wire into a 5-[place]yr[place] sheath dilator assembly then the wire and dilator were removed and sheath was flushed. I did perform an abdominal aortogram and bilateral common iliacs and external iliacs as well as common femoral artery angiogram. The procedure was completed and there was no complications. SELECTIVE PERIPHERAL ANGIOGRAM: The abdominal aorta: The infra renal aorta has an aneurysm appears to be extremely large. The common iliac arteries: The ostial of the right common iliac artery appeared to be subtotally occluded and appeared to be extremely calcified and tortuous. The ostial of the left common iliac artery appeared to be also subtotally occluded as well as extremely calcified and tortuous The external iliac arteries: The right and left external iliac arteries appeared to be calcified was mild disease only The internal iliac arteries: Both internal iliac arteries are patent The common femoral arteries: Both common femoral arteries are extremely calcified and appeared to be subtotally occluded as well CONCLUSION: #1 large infrarenal abdominal aortic aneurysm #2 subtotally occluded bilateral common iliac arteries by the ostium #3 subtotally occluded bilateral common femoral arteries POSTPROCEDURE MANAGEMENT: Giving the long bilaterally I believe the patient will benefit from surgical peripheral for the evaluation off endovascular repair of infrarenal abdominal aortic aneurysm and at the same time repair the bilateral common femoral arteries.
[2022-01-27 15:08] VITALS: RESP 16
[2022-01-27 20:26] VITALS: BP 165/64; TEMP 97.8
[2022-01-27 21:55] VITALS: PULSE 58
== END 2022-01-27 20:00 | disposition home or self-care (01) ==
LOC: CATHCVL 10:12 → 6NMEDSUR 13:05 → CATHCVL 13:05 → 6NMEDSUR 13:20 → CATHCVL 20:00
PROVIDERS: ATTEND Internal Medicine Interventional Cardiology
DX: I70.213 Atherosclerosis of native arteries of extremities with intermittent claudication, bilateral legs (principal); I11.9 Hypertensive heart disease without heart failure; I43 Cardiomyopathy in diseases classified elsewhere; I25.10 Atherosclerotic heart disease of native coronary artery without angina pectoris; Z95.1 Presence of aortocoronary bypass graft; I08.0 Rheumatic disorders of both mitral and aortic valves; Z20.822 Contact with and (suspected) exposure to COVID-19; R93.89 Abnormal findings on diagnostic imaging of other specified body structures; R01.1 Cardiac murmur, unspecified; I10 Essential (primary) hypertension; E78.5 Hyperlipidemia, unspecified; Z82.49 Family history of ischemic heart disease and other diseases of the circulatory system; E66.3 Overweight; Z68.33 Body mass index [BMI] 33.0-33.9, adult; I71.4 Abdominal aortic aneurysm, without rupture; Z79.02 Long term (current) use of antithrombotics/antiplatelets; Z79.82 Long term (current) use of aspirin; Z79.52 Long term (current) use of systemic steroids; Z79.899 Other long term (current) drug therapy
CPT/HCPCS: 36200; 75625; 75716; 76937; 80048; 85025; 87635; C1894 ×3; C1769 ×4; J2250; J3010; Q9966

== ENCOUNTER → 2022-03-08 | Outpatient (CLI) | payer MEDICARE ==
[2022-03-08 13:09] LABS: African American GFR (CKD) >90 (>60 ml/min/1.73 sqM); Blood Urea Nitrogen 15 mg/dL (9-20); Non-African American GFR(CKD) 89 (>60 ml/min/1.73 sqM)
== END | disposition home or self-care (01) ==
LOC: RADCTMAIN 12:23
PROVIDERS: ATTEND Internal Medicine Interventional Cardiology
DX: I71.40 Abdominal aortic aneurysm, without rupture, unspecified (principal)
CPT/HCPCS: 82565; 84520

== ENCOUNTER 2022-04-20 08:34 | Inpatient (IN) | payer MEDICARE ==
[2022-04-16 11:00] VITALS: BMI 33.9
[~2022-04-20 08:34] MED LIST changes: -ALPRAZolam 0.25 MG TAB PO PRN; -ASPIRIN 325 MG TAB PO PRN; +DEXAMETHASONE SOD PHOSPHATE 4 MG/ML 1 ML VIAL IV ONE; +LACTATED RINGERS 1,000 ML IV SCH; +ONDANSETRON 4 MG/2 ML VIAL IVP ONE
[2022-04-20 09:18] LABS: Anisocytosis Slight; Basophils # (A) 0.1 k/uL (0-0.2); Basophils % (A) 1 %; Eosinophils # (A) 0.1 k/uL (0-0.7); Eosinophils % (A) 2 %; HGB 12.3 gm/dL (13.0-17.5); Hypochromasia Marked; Lymphocytes # (A) 0.8 k/uL (1.0-4.8); Lymphocytes % (A) 14 %; MCH 23.1 pg (25.0-35.0); MCHC 28.6 g/dL (31.0-37.0); MCV 80.6 fL (80.0-100.0); Mean Platelet Volume 7.6; Microcytosis Slight; Monocytes # (A) 0.3 k/uL (0-1.0); Monocytes % (A) 6 %; Neutrophils # (A) 3.9 k/uL (1.3-7.7); Neutrophils % (A) 72 %; Platelet Count 271 k/uL (150-450); RBC 5.34 m/uL (4.30-5.90); RDW 19.7 % (11.5-15.5); WBC 5.4 k/uL (3.8-10.6)
[2022-04-20 10:01] LABS: African American GFR (CKD) >90 (>60 ml/min/1.73 sqM); Anion Gap 11 mmol/L; Blood Urea Nitrogen 19 mg/dL (9-20); Calcium 9.5 mg/dL (8.4-10.2); Carbon Dioxide 27 mmol/L (22-30); Chloride 102 mmol/L (98-107); Glucose 110 mg/dL (74-99); Non-African American GFR(CKD) 78 (>60 ml/min/1.73 sqM); Potassium 4.8 mmol/L (3.5-5.1); Sodium 140 mmol/L (137-145)
[2022-04-20] MEDS ORDERED: ePHEDrine 50 MG/ML 1 ML VIAL ONE (10:45)
[2022-04-20] MEDS ORDERED: PROPOFOL 10 MG/ML 20 ML VIAL IV ONE (10:45)
[2022-04-20] MEDS ORDERED: fentaNYL (PF) 50 MCG/ML 2 ML AMP ONE (10:45)
[2022-04-20] MEDS ORDERED: HEPARIN SODIUM,PORCINE 5,000 UNIT/ML 1 ML VIAL ONE (10:45)
[2022-04-20] MEDS ORDERED: SODIUM BICARB 8.4% 50 ML SYR (1 MEQ/ML) ONE (10:45)
[2022-04-20] MEDS ORDERED: ALBUMIN HUMAN 5% (25gm) 500 ML VIAL IVPB ONE (10:45)
[2022-04-20] MEDS ORDERED: MIDAZOLAM 2 MG/2 ML VIAL ONE (10:45)
[2022-04-20] MEDS ORDERED: PHENYLEPHRINE-0.9% NACL SYG 1,000 MCG/10 ML SYRINGE ONE (10:45)
[2022-04-20] MEDS ORDERED: CALCIUM CHLORIDE 100 MG/ML 10 ML SYRINGE ONE (10:45)
[2022-04-20] MEDS ORDERED: LIDOCAINE 2% INJ 20 MG/ML (2 ML VIAL) ONE (10:45)
[2022-04-20] MEDS ORDERED: SODIUM CHLORIDE 0.9% 100 ML BAG ONE (10:45)
[2022-04-20] MEDS ORDERED: ceFAZolin 1,000 MG VIAL ONE (10:45)
[2022-04-20] MEDS ORDERED: SUCCINYLCHOLINE CHLORIDE 200 MG/10 ML VIAL IV ONE (10:45)
[2022-04-20] MEDS ORDERED: ROCURONIUM 10 MG/ML (5 ML VIAL) IV ONE (10:45)
[2022-04-20] MEDS ORDERED: SODIUM CHLORIDE 0.9% 1,000 ML IV ONE ×2 (12:00→20:00)
[2022-04-20] MEDS ORDERED: HEPARIN SODIUM 1,000 UN/ML (10ML VL) ONE ×2 (12:33→13:19)
[2022-04-20] MEDS ORDERED: THROMBIN (BOVINE) 5,000 UNIT VIAL TOPICAL ONE ×2 (13:00→17:13)
[2022-04-20] MEDS ORDERED: LACTATED RINGERS 1,000 ML IV ONE ×2 (13:00→15:00)
[2022-04-20] MEDS ORDERED: GELATIN 1 EACH FILM TOPICAL ONE (13:00)
--- NOTE | 2022-04-20 13:05 | P.ANPRN ---
Procedure Note - Anesthesia - Invasive Line Left Arterial Line Time Out Performed: Yes ([id number]) Date of Procedure: 04/20/22 Time of Procedure: 10:48 Location of Patient: PreOp Preparation: Sterile Prep, Sterile Dressing Arterial Line Location: Radial Ultrasound Used: Yes Purpose - Visualization and Identification of Vasculature: Yes Needle Guage: 20g Image Stored and Saved: Yes Narrative: Central line placement per sterile protocol utilized.
[2022-04-20 13:47] LABS: Allen Test Performed? Yes
[2022-04-20 13:48] LABS: Anisocytosis Slight; HCT 34.3 % (39.0-53.0); HGB 10.1 gm/dL (13.0-17.5); Hypochromasia Marked; MCHC 29.5 g/dL (31.0-37.0); MCV 81.2 fL (80.0-100.0); Microcytosis Slight; Platelet Count 254 k/uL (150-450); RBC 4.23 m/uL (4.30-5.90); RDW 19.7 % (11.5-15.5); WBC 5.2 k/uL (3.8-10.6)
[2022-04-20 13:49] LABS: ABG Base Excess -6.9 mmol/L; ABG HCO3 19 mmol/L (21-25); ABG Oxygen Saturation 98.3 % (94-97); ABG PCO2 40 mmHg (35-45); ABG PH 7.29 (7.35-7.45); ABG PO2 108 mmHg (83-108)
[2022-04-20] MEDS ORDERED: IOPAMIDOL-370 100ML BTL INJ ONE ×2 (15:01)
[2022-04-20] MEDS ORDERED: IOPAMIDOL-370 50ML BTL INJ ONE (15:01)
[2022-04-20 15:14] LABS: Allen Test Performed? Yes
[2022-04-20 15:17] LABS: ABG Base Excess -6.1 mmol/L; ABG HCO3 19 mmol/L (21-25); ABG Oxygen Saturation 99.1 % (94-97); ABG PCO2 37 mmHg (35-45); ABG PH 7.32 (7.35-7.45); ABG PO2 125 mmHg (83-108)
[2022-04-20 16:00] LABS: Anisocytosis Slight; HCT 30.5 % (39.0-53.0); HGB 9.2 gm/dL (13.0-17.5); Hypochromasia Marked; MCH 24.4 pg (25.0-35.0); MCHC 30.1 g/dL (31.0-37.0); MCV 81.1 fL (80.0-100.0); Mean Platelet Volume 8.3; Microcytosis Slight; Platelet Count 198 k/uL (150-450); Poikilocytosis Slight; RBC 3.77 m/uL (4.30-5.90); RDW 19.9 % (11.5-15.5); WBC 5.2 k/uL (3.8-10.6)
[2022-04-20 16:37] LABS: Anisocytosis (M) Present; Eosinophils # (M) 0.16 k/uL (0-0.7); Lymphocytes # (M) 1.25 k/uL (1.0-4.8); Monocytes # (M) 0.26 k/uL (0-1.0); Neutrophils # (M) 3.54 k/uL (1.3-7.7); Neutrophils % (M) 68 %; Nucleated Red Blood Cells 0 /100 WBC (0-0); Polychromasia Present; Target Cells Present; Total Cells Counted 100
[2022-04-20] MEDS ORDERED: NALOXONE 0.4 MG/ML 1 ML VIAL IVP PRN (18:11)
[2022-04-20] MEDS ORDERED: SODIUM CHLORIDE 0.9% 1,000 ML in EMPTY BAG 1 BAG IV SCH (18:15)
[2022-04-20 18:19] LABS: Anisocytosis Slight; Basophils % (A) 0 %; Eosinophils # (A) 0.1 k/uL (0-0.7); Eosinophils % (A) 1 %; HCT 35.7 % (39.0-53.0); HGB 10.8 gm/dL (13.0-17.5); Hypochromasia Marked; Lymphocytes # (A) 0.8 k/uL (1.0-4.8); Lymphocytes % (A) 9 %; MCH 24.7 pg (25.0-35.0); MCHC 30.2 g/dL (31.0-37.0); MCV 81.8 fL (80.0-100.0); Mean Platelet Volume 7.7; Microcytosis Slight; Monocytes # (A) 0.7 k/uL (0-1.0); Monocytes % (A) 7 %; Neutrophils # (A) 7.4 k/uL (1.3-7.7); Neutrophils % (A) 81 %; Platelet Count 204 k/uL (150-450); Poikilocytosis Moderate; RBC 4.36 m/uL (4.30-5.90); WBC 9.1 k/uL (3.8-10.6)
[2022-04-20] MEDS ORDERED: IPRATROPIUM-ALBUTEROL 3 ML NEB INHALATION PRN (18:20)
[2022-04-20] MEDS ORDERED: propofoL 100 ML IV ONE (18:32)
[2022-04-20] MEDS: PHENYLEPHRINE 40 MG in SODIUM CHLORIDE 0.9% 250 ML IV SCH (18:40)
[2022-04-20 18:53] LABS: Glucose,Whole Blood 116 mg/dL (70-110)
[2022-04-20] MEDS: SODIUM CHLORIDE 0.9% 1,000 ML IV SCH (19:03)
[2022-04-20 19:33] LABS: ABG HCO3 27 mmol/L (21-25); ABG PCO2 49 mmHg (35-45); ABG PH 7.34 (7.35-7.45); ABG PO2 245 mmHg (83-108); ABG TCO2 28 mmol/L (19-24); Allen Test Performed? Yes
--- NOTE | 2022-04-20 19:33 | XR ---
EXAMINATION TYPE: XR chest 1V portable DATE OF EXAM: 04/20/2022 COMPARISON: 09/08/2021 HISTORY: Check tube placement TECHNIQUE: Single view FINDINGS: There is nasogastric tube in the stomach. There is endotracheal tube and the tip is not wel l seen due to technique and artifact. The tip is probably 2.6 cm from the nuno. There is some pulmo nary interstitial edema. There is blunting of the left costophrenic angle. There are chest leads. The re are sternal wires and cardiac valve surgery. IMPRESSION: There is some mild pulmonary interstitial edema with left pleural effusion and this appea rs new compared to old exam.
[2022-04-20] MEDS: IPRATROPIUM-ALBUTEROL 3 ML NEB INHALATION SCH ×2 (19:56→23:32)
[2022-04-20] MEDS: NOREPINEPHRINE 4 MG in SODIUM CHLORIDE 0.9% 250 ML IV SCH (20:11)
[2022-04-20] MEDS ORDERED: METOPROLOL TARTRATE 25 MG TAB PO SCH (21:00)
--- NOTE | 2022-04-20 21:30 | P.OP ---
Date of Procedure: 04/20/22 Preoperative Diagnosis: Infrarenal AAA Bilateral femoral artery occlusions Bilateral iliac artery severe stenosis Postoperative Diagnosis: Same Procedure(s) Performed: 1. Open bilateral femoral artery cutdown 2. Right iliac artery balloon angioplasty 3. Left common iliac artery balloon angioplasty with shockwave balloon 4. Endovascular aortic repair with [place] 26mm graft 5. Bilateral external iliac, femoral, and profundus endarterectomy with patch angioplasty Anesthesia: JENNY Surgeon: Pernell Wan [employer] Engineer #1: Piyush Mae Estimated Blood Loss (ml): 3,000 Pathology: other (bilateral femoral plaque) Condition: stable Disposition: ICU Indications for Procedure: 72 year old male with history of aortic aneurysm, coronary artery disease, and severe claudication presents to the hospital for bilateral femoral artery endarterectomies and EVAR. He had CTA which demonstrated severe calcific disease involving the bilateral common iliac arteries and bilateral femoral arteries. His right common femoral artery was occluded and left femoral artery was severely stenotic and therefore cutdown was needed to deliver endograft. Operative Findings: severely calcified common iliac arteries bilaterally. Occluded bilateral femoral arteries Infrarenal abdominal aortic artery aneurysm Description of Procedure: After written and informed consent was obtained and all risks, benefits and complications were discussed the patient was brought to the endovascular suite and laid in a supine position. Timeout was performed in usual fashion and patient was given antibiotics prior to access. The abdomen and bilateral groins were prepped and draped in usual sterile fashion after appropriate anesthesia was performed per anesthesiology. Ultrasound was used to visualize the right and left common femoral arteries which demonstrated severe calcification and disease of the femoral and extending to the external iliac arteries. Using a 15 blade scalpel a vertical incision was created at bilateral groins overlying the femoral artery. Dissection was carried down to the femoral sheath with electrocautery and dissection was carried around the common femoral artery. Dissection was carried proximally to the external iliac artery and the distal external iliac artery was dissected in a circumferential manner and controlled with vessel loops. The circumflex artery, and a medial branch was also controlled with vessel loops. Dissection was then carried down to the superficial femoral artery and profunda which were also controlled with vessle loops. The plaque bilaterally was dense, and severely calcific and unable to be accessed with a needle. A soft area was then located above the femoral plaque on the right and on the anterior surface of the common femoral artery on the left. Multi-purpose needle was then placed into the femoral artery and a guidewire was inserted and an 8 [place] sheath was then inserted into the right common femoral artery and an 8 [place] sheath was inserted in the left. Patient was administered heparin and followed with ACTs and re-dosing as needed for ACT >200. A 035 Guidewire was inserted into the right sided sheath and advanced into the thoracic aorta using a 100cm 5 [place] glidecath. A second guidewire was inserted into the left side sheath and placed into the descending thoracic aorta. There was severe calcification noted in the left common iliac artery and retrograde angiogram was performed demonstrating >90% stenosis, subtotal occlusion of the left common iliac artery. A pigtail catheter was attempted to be placed without success and therefore it was decided to perform an angioplasty to improve the lumen of the left common iliac artery. There was some significant bleeding noted in the left common femoral artery and when investigat ed there was a tear in the plaque and significant bleeding around the sheath. The sheath was then upsized to a 12mm [place] sheath. The guidewire was exchanged for an 014 wire and a 4mm balloon was used for angioplasty. An 8x40mm shockwave balloon was then placed across the lesion and angioplasty was performed throughout the lesion in normal fashion using the ultrasonic device. Once completed the lumen was significantly improved. A pigtail catheter was then placed and angiogram was performed to measure vessel lengths and characterize the anatomy and its topography. Attempt to place the main body up the right failed due to the significant calcification and stenosis and therefore an angioplasty with an 8x40mm balloon was utilized to improve the lumen for the right common iliac artery and the main body of the graft. Prior to angioplasty a 16F sheath was placed into the right femoral artery. A 29 mm [place] aortic body was then loaded over the right sided guidewire. The delivery system was inserted into the vasculature and advanced until the implant radiopaque markers were approximately 1 cm proximal to the intended landing site. Orientation of the aortic body to the desired position for appropriate access to the contralateral aortic body limb was obtained by angiogram. The first segment of the proximal stent was deployed in usual fashion and balloon was inflated to open the main body crown and orientation was performed with fluoroscopy. The pigtail catheter was withdrawn once measurements obtained for proximal landing zone just below the renal arteries. The remainder of the proximal stent was then deployed in usual fashion. The aortic body guidewire until the stiff the floppy transition was within the aortic body ipsilateral leg. Radiopaque polymer was then injected under direct visualization of fluoroscopy. Contralateral limb access was then obtained using the integrated crossover lumen in the aortic body delivery system and snare catheter to facilitate placement of 0.14 command wire. A 5fr conde catheter into the contralateral side and boubacar wired an 014 wire into the graft and descending thoracic aorta due to inability to wire the contralateral limb. An angled catheter was guided into the contralateral limb and wire was exchaged for a stiff wire and pigtail catheter was placed and spun to assure access into the graft. A retrograde angiogram was obtained to confirm contralateral limb length. We maintained guidewire position to remove the angiographic catheter and introducer sheath from the contralateral access site. A 12x 140mm iliac limb delivery system over the contralateral sided guidewire was placed and deployed in normal fashion. The deployment sheath was removed by maintaining position of the sheath and retracted the catheter handle to receive the nose cone and the end of the delivery system outer sheath. Aortic body guidewire was repositioned into the aorta and the proximal sealing ring was ballooned. The main body deployment catheter was removed in usual fashion and pigtail catheter was placed in the ipsilateral limb and retrograde angiogram was performed for length measurements. A 10 x 140mm iliac limb was chosen and delivered in usual fashion. Two 12 x 40 mm balloons were placed bilaterally to perform additional angioplasty of the stent graft. Balloons were removed and pigtail catheter was placed and final angiogram was obtained demonstrating exclusion of the aortic aneurysm without evidence of a type I endoleak. There appeared to have a quick type II endoleak which was verified with multiple angled angiograms. All guidewires, catheters and sheaths were removed from the left femoral and attention to femoral endarterectomy and patch was performed. Vascular clamps were placed both proximally and distally and an arteriotomy was extended from the access site. The arteriotomy was extended proximally and distally to the superficial femoral artery and profunda. Dense plaque was encountered which was removed and feathered in usual fashion at [facility] superficial femoral artery. Inflow and outflow was assessed demonstrating good backbleeding of the superficial femoral and profundus. Patch angioplasty was then performed with 6-0 Proline suture in a running fashion. Once completed all flow was released and patient had pulsatile blood flow to the left superficial femoral artery. Attention was then placed to the right lower extremity. Arteriotomy was then created with an 11 blade scalpel and dissection was carried to the external iliac artery and profundus. All control was removed and back bleeding was brisk from the profunda and superficial femoral artery. Endarterectomy was then performed and plaque was sent off to pathology. Patch angioplasty was performed with 6-0 Prolene suture in a running fashion. Once completed, control was released and palpable femoral, superficial femoral and profundus were noted. The incisions were then irrigated with antibiotic solution and incisions were closed in a multi layer fashion. The patient tolerated the procedure well and had multiphasic signals bilateral DP and PT. Prevena incisional vac was placed overlying both groin access sites. Dressings were placed and patient was sent to PACU for recovery.
[2022-04-20 23:18] LABS: African American GFR (CKD) >90 (>60 ml/min/1.73 sqM); Anion Gap 6 mmol/L; Blood Urea Nitrogen 17 mg/dL (9-20); Carbon Dioxide 24 mmol/L (22-30); Chloride 107 mmol/L (98-107); Glucose 117 mg/dL (74-99); Non-African American GFR(CKD) 88 (>60 ml/min/1.73 sqM); Potassium 4.6 mmol/L (3.5-5.1); Sodium 137 mmol/L (137-145)
[2022-04-20 23:59] LABS: Anisocytosis Slight; Basophils % (A) 0 %; Eosinophils # (A) 0.1 k/uL (0-0.7); Eosinophils % (A) 1 %; HCT 36.6 % (39.0-53.0); HGB 10.8 gm/dL (13.0-17.5); Hypochromasia Marked; Lymphocytes # (A) 0.9 k/uL (1.0-4.8); Lymphocytes % (A) 8 %; MCH 24.8 pg (25.0-35.0); MCHC 29.4 g/dL (31.0-37.0); MCV 84.2 fL (80.0-100.0); Monocytes % (A) 8 %; Neutrophils # (A) 9.5 k/uL (1.3-7.7); Neutrophils % (A) 81 %; Platelet Count 196 k/uL (150-450); Poikilocytosis Moderate; RBC 4.34 m/uL (4.30-5.90); WBC 11.7 k/uL (3.8-10.6)
[2022-04-21] MEDS: VIT A,C & E-LUTEIN-MINERALS 1 EACH TAB PO SCH ×3 (00:21→20:21)
[2022-04-21] MEDS: CHLORHEXIDINE GLUCONATE 15 ML CUP MUCOUS MEM SCH ×3 (00:21→20:14)
[2022-04-21] MEDS: PRAVASTATIN SODIUM 40 MG TAB PO SCH ×2 (00:21→20:21)
[2022-04-21] MEDS: HYDROmorphone 0.5 MG/0.5 ML SYRINGE IVP PRN ×2 (03:05→06:10)
[2022-04-21] MEDS: IPRATROPIUM-ALBUTEROL 3 ML NEB INHALATION SCH ×5 (03:35→20:52)
[2022-04-21] MEDS: SODIUM CHLORIDE 0.9% 1,000 ML IV SCH ×2 (05:17→19:26)
[2022-04-21 05:49] LABS: ABG Base Excess 1.7 mmol/L; ABG HCO3 27 mmol/L (21-25); ABG Oxygen Saturation 99.1 % (94-97); ABG PCO2 48 mmHg (35-45); ABG PH 7.36 (7.35-7.45); ABG PO2 120 mmHg (83-108); ABG TCO2 29 mmol/L (19-24); Allen Test Performed? Yes
--- NOTE | 2022-04-21 07:02 | XR ---
EXAMINATION TYPE: XR chest 1V portable DATE OF EXAM: 04/21/2022 5:31 AM COMPARISON: Chest radiograph from one day prior. TECHNIQUE: XR chest 1V portable Portable AP radiograph of the chest. CLINICAL INDICATION:Male, 72 years old with history of Tube placement; FINDINGS: Lungs/Pleura: There is no evidence of pleural effusion, focal consolidation, or pneumothorax. Pulmonary vascularity: Pulmonary vascular congestion. Heart/mediastinum: Cardiomediastinal silhouette is enlarged and stable. Post valve repair changes. L eft atrial appendage occlusion device is present. Musculoskeletal: No acute osseous pathology. Midline sternotomy wires are noted. Lines/Tubes: Endotracheal tube with distal tip 7.7 cm above the nuno Nasogastric tube with its distal tip and side-port projecting under the diaphragm. IMPRESSION: Cardiomegaly and mild pulmonary vascular congestion. Correlate with BNP for congestive heart failure. Endotracheal tube and nasogastric tubes in appropriate position.
--- NOTE | 2022-04-21 07:45 | P.PN ---
Subjective Progress Note Date: 04/21/22 Principal diagnosis: Infrarenal abdominal aortic aneurysm The patient is a 72-year-old gentleman who was admitted to the hospital yesterday and underwent successful repair of infrarenal abdominal aortic aneurysm with bilateral common femoral artery endarterectomy. The procedure was long and complicated by bleeding requiring 4 units of packed RBC. Subsequently the patient was admitted to the intensive care unit. April [id number] The patient was seen and evaluated this morning. He is still hypotensive echo are small dose of norepinephrine. Beside that he is intubated on mechanical ventilation and currently is on sedation as well. Acute coronary event was ruled out. Troponin came in to be unremarkable with a chest x-ray was reviewed and seems to be slightly congested. I am ordering NT proBNP for further assessment of fluid status. At this point we'll try to wean the patient from norepinephrine. I'm going to stop the lisinopril as well as metoprolol and con tinue amiodarone. Continue antiplatelet. Hopefully the patient will be extubated today and he will be of sedation and that would help the pressure. The surgical team is on the case as well as. Objective - Vital Signs Vital signs: Vital Signs Temp 99.0 F 04/21/22 07:00 Pulse 73 04/21/22 07:00 Resp 17 04/21/22 07:00 BP 119/42 04/21/22 07:00 Pulse Ox 91 L 04/21/22 07:00 FiO2 50 04/21/22 07:22 Intake & Output 04/20/22 04/21/22 04/21/22 18:59 06:59 18:59 Intake Total 3131.949 2915.814 120 Output Total 4600 680 15 Balance -0602.145 6845.814 105 Weight 116.1 kg 116 kg Intake: IV 2250 2320 120 Lactated Ringers 1,000 ml 220 20 @ 20 mls/hr IV .Q24H AB Rx#:[id number] Sodium Chloride 0.9% 1, 1100 100 000 ml @ 100 mls/hr IV . Q10H AB Rx#:[id number] Sodium Chloride 0.9% 1, 1000 000 ml @ 999 mls/hr IV . Q1H1M ONE Rx#:[id number] Intake, IV Titration 2.949 515.814 Amount Lactated Ringers 1,000 ml 20 @ 20 mls/hr IV .Q24H [facility] Rx#:[id number] Norepinephrine 4 mg In 64.436 Sodium Chloride 0.9% 250 ml @ 0.05 MCG/KG/MIN 22. 117 mls/hr IV .[id number] [facility] Rx#:[id number] Phenylephrine 40 mg In 2.949 60.837 Sodium Chloride 0.9% 250 ml @ 0.5 MCG/KG/MIN 22. 117 mls/hr IV .[id number] [facility] Rx#:[id number] Sodium Chloride 0.9% 1, 100 000 ml @ 100 mls/hr IV . Q10H [facility] Rx#:[id number] propofoL 1,000 mg In 233.941 Empty Bag 1 bag @ 15 MCG/ KG/MIN 10.449 mls/hr IV . Q9H35M [facility] Rx#:[id number] propofoL 100 ml @ 0 mls/ 36.6 hr IV .STK-MED ONE Rx#: [id number] Oral 20 Blood Product 879 Rc As-1 Unit 310 [id number] Rc Pheresis 2 As3 Unit 0 [id number] Rc Pheresis 2 As3 Unit 285 [id number] Rc Pheresis As-3 Unit 284 [id number] Other 60 Output: Urine 1600 680 15 Estimated Blood Loss 3000 Other: Voiding Method Indwelling Catheter ABP, PAP, CO, CI - Last Documented Arterial Blood Pressure 79/57 - Constitutional General appearance: Present: no acute distress - Respiratory Respiratory: bilateral: CTA - Cardiovascular Rhythm: regular Heart sounds: normal: S1, S2 - Labs CBC & Chem 7: 04/20/22 23:50 04/20/22 22:45 Labs: Abnormal Lab Results - Last 24 Hours (Table) 04/20/22 04/20/22 04/20/22 Range/Units 08:56 08:56 08:56 WBC (3.8-10.6) k/uL RBC (4.30-5.90) m/uL Hgb 12.3 L (13.0-17.5) gm/dL Hct (39.0-53.0) % MCH 23.1 L (25.0-35.0) pg MCHC 28.6 L (31.0-37.0) g/dL RDW 19.7 H (11.5-15.5) % Neutrophils # (1.3-7.7) k/uL Lymphocytes # 0.8 L (1.0-4.8) k/uL ABG pH (7.35-7.45) ABG pCO2 (35-45) mmHg ABG pO2 (83-108) mmHg ABG HCO3 (21-25) mmol/L ABG Total CO2 (19-24) mmol/L ABG O2 Saturation (94-97) % Glucose 110 H (74-99) mg/dL POC Glucose (mg/dL) (70-110) mg/dL Calcium (8.4-10.2) mg/dL Crossmatch See Detail 04/20/22 04/20/22 04/20/22 Range/Units 13:37 13:37 15:02 WBC (3.8-10.6) k/uL RBC 4.23 L 3.77 L (4.30-5.90) m/uL Hgb 10.1 L 9.2 L (13.0-17.5) gm/dL Hct 34.3 L 30.5 L (39.0-53.0) % MCH 24.0 L 24.4 L (25.0-35.0) pg MCHC 29.5 L 30.1 L (31.0-37.0) g/dL RDW 19.7 H 19.9 H (11.5-15.5) % Neutrophils # (1.3-7.7) k/uL Lymphocytes # (1.0-4.8) k/uL ABG pH 7.29 L (7.35-7.45) ABG pCO2 (35-45) mmHg ABG pO2 (83-108) mmHg ABG HCO3 19 L (21-25) mmol/L ABG Total CO2 (19-24) mmol/L ABG O2 Saturation 98.3 H (94-97) % Glucose (74-99) mg/dL POC Glucose (mg/dL) (70-110) mg/dL Calcium (8.4-10.2) mg/dL Crossmatch 04/20/22 04/20/22 04/20/22 Range/Units 15:02 18:08 18:50 WBC (3.8-10.6) k/uL RBC (4.30-5.90) m/uL Hgb 10.8 L (13.0-17.5) gm/dL Hct 35.7 L (39.0-53.0) % MCH 24.7 L (25.0-35.0) pg MCHC 30.2 L (31.0-37.0) g/dL RDW 19.0 H (11.5-15.5) % Neutrophils # (1.3-7.7) k/uL Lymphocytes # 0.8 L (1.0-4.8) k/uL ABG pH 7.32 L (7.35-7.45) ABG pCO2 (35-45) mmHg ABG pO2 125 H (83-108) mmHg ABG HCO3 19 L (21-25) mmol/L ABG Total CO2 (19-24) mmol/L ABG O2 Saturation 99.1 H (94-97) % Glucose (74-99) mg/dL POC Glucose (mg/dL) 116 H (70-110) mg/dL Calcium (8.4-10.2) mg/dL Crossmatch 04/20/22 04/20/22 04/20/22 Range/Units 19:20 22:45 23:50 WBC 11.7 H (3.8-10.6) k/uL RBC (4.30-5.90) m/uL Hgb 10.8 L (13.0-17.5) gm/dL Hct 36.6 L (39.0-53.0) % MCH 24.8 L (25.0-35.0) pg MCHC 29.4 L (31.0-37.0) g/dL RDW 19.0 H (11.5-15.5) % Neutrophils # 9.5 H (1.3-7.7) k/uL Lymphocytes # 0.9 L (1.0-4.8) k/uL ABG pH 7.34 L (7.35-7.45) ABG pCO2 49 H (35-45) mmHg ABG pO2 245 H (83-108) mmHg ABG HCO3 27 H (21-25) mmol/L ABG Total CO2 28 H (19-24) mmol/L ABG O2 Saturation 100.0 H (94-97) % Glucose 117 H (74-99) mg/dL POC Glucose (mg/dL) (70-110) mg/dL Calcium 8.0 L (8.4-10.2) mg/dL Crossmatch 04/21/22 Range/Units 05:39 WBC (3.8-10.6) k/uL RBC (4.30-5.90) m/uL Hgb (13.0-17.5) gm/dL Hct (39.0-53.0) % MCH (25.0-35.0) pg MCHC (31.0-37.0) g/dL RDW (11.5-15.5) % Neutrophils # (1.3-7.7) k/uL Lymphocytes # (1.0-4.8) k/uL ABG pH (7.35-7.45) ABG pCO2 48 H (35-45) mmHg ABG pO2 120 H (83-108) mmHg ABG HCO3 27 H (21-25) mmol/L ABG Total CO2 29 H (19-24) mmol/L ABG O2 Saturation 99.1 H (94-97) % Glucose (74-99) mg/dL POC Glucose (mg/dL) (70-110) mg/dL Calcium (8.4-10.2) mg/dL Crossmatch Assessment and Plan Assessment: Assessment Status post endovascular repair of infrarenal abdominal aortic aneurysm along with bilateral femoral artery endarterectomy and patch angioplasty Coronary artery disease with prior revascularization interval of CABG Lower extremities peripheral arterial disease Hypertension Dyslipidemia Plan Hold any blood pressure medications including beta tammi or BUBBA inhibitor Continue amiodarone The right wean the patient from norepinephrine Acute coronary event was ruled out Probably extubation later on today
[2022-04-21] MEDS: PHENYLEPHRINE 40 MG in SODIUM CHLORIDE 0.9% 250 ML IV SCH ×2 (08:45→20:13)
[2022-04-21] MEDS ORDERED: FUROSEMIDE 20 MG TAB PO SCH (09:00)
[2022-04-21] MEDS ORDERED: NON FORMULARY DRUG (Aspirin [Adult Low Dose Aspirin Ec] 81 MG Tablet) PO SCH (09:00)
[2022-04-21] MEDS ORDERED: ATORVASTATIN 80 MG TAB PO SCH (09:00)
[2022-04-21] MEDS ORDERED: lisinopriL 5 MG TAB PO SCH (09:00)
--- NOTE | 2022-04-21 10:05 | P.CNPUL ---
History of Present Illness Consult date: 04/21/22 Requesting physician: Piyush Mae Reason for consult: other (Mechanical ventilator/critical care management) Chief complaint: Infrarenal abdominal aortic aneurysm History of present illness: This is a 72-year-old male patient who has a history of coronary artery disease with previous coronary artery bypass grafting 3, hyperlipidemia, hypertension, aortic stenosis, chronic tobacco dependence, ischemic cardiomyopathy. He was also found to have intermittent claudication and aortagram with runoff revealed infrarenal abdominal aortic aneurysmwith critical bilateral iliac disease and critical bilateral femoral disease. He was brought in to the hospital yesterday for an elective surgery. He had undergone open bilateral femoral artery cutdown, right iliac artery balloon angioplasty, left common iliac balloon angioplasty with shockwave Tomas, endovascular aortic repair within 26 mm graft, bilateral external iliac, femoral and profundus endarterectomy with patch angioplasty. Following the procedure he was kept intubated on the mechanical ventilator and transferred to the intensive care unit. He is seen today in consultation He remains intubated on mechanical ventilator and assist control mode at a rate of 14, tidal volume 600, FiO2 40% and a PEEP of 5. Morning blood gases revealed a pO2 of 120, pCO2 48 and a pH of 7.36. He has normal saline at 100 ML's per hour. Propofol 35 mcg/kg/m. Norepinephrine at 4 mcg/m. He does have bilateral Prevena incisional vacs placed. Peripheral pulses are intact. chest x-ray reveals evidence of cardiomegaly and mild pulmonary vascular co ngestion. Endotracheal and gastric tubes are in place. he has received 4 units of packed red blood cells. Current hemoglobin 10.8. White count 11.7. Platelets 196. Sodium 137. Potassium 4.6. BUN 17. Creatinine 0.83. Glucose 117. He remains on DuoNeb inhalations. Review of Systems ROS unobtainable: due to endotracheal tube Past Medical History Past Medical History: Coronary Artery Disease (CAD), COPD, Eye Disorder, Hyperlipidemia, Hypertension, Myocardial Infarction (RI) Additional Past Medical History / Comment(s): MACULAR DEGENERATION, borderline DM-NO MEDS Last Myocardial Infarction Date:: unk History of Any Multi-Drug Resistant Organisms: None Reported Past Surgical History: Cardiac Valve Replacement, Coronary Bypass/CABG, Orthopedic Surgery Additional Past Surgical History / Comment(s): kris carpal tunnel rep, right parotidectomy w/ nerve integrity monitor,CABG-3 vessels and Aortic valve replaced. R cataract removal Past Anesthesia/Blood Transfusion Reactions: No Reported Reaction Additional Past Anesthesia/Blood Transfusion Reaction / Comment(s): no hx blood transfusion Past Psychological History: No Psychological Hx Reported Smoking Status: Current some day smoker Past Alcohol Use History: Occasional Additional Past Alcohol Use History / Comment(s): smokes occasionally still Past Drug Use History: None Reported - Past Family History Mother Family Medical History: No Reported History Additional Family Medical History / Comment(s): of old age. Father Family Medical History: Cancer Additional Family Medical History / Comment(s): of brain tumor. Medications and Allergies Home Medications Medication Instructions Recorded Confirmed Type Rosuvastatin [Crestor] 40 mg PO DAILY 03/25/21 04/16/22 History Aspirin [Adult Low Dose Aspirin EC] 81 mg PO DAILY 07/03/21 04/20/22 History Iron 45 mg PO DAILY 07/03/21 04/16/22 History Clopidogrel [Plavix] 75 mg PO DAILY #30 tab 07/17/21 04/16/22 Rx Furosemide [Lasix] 20 mg PO DAILY #30 tab 07/17/21 04/16/22 Rx Metoprolol Tartrate [Lopressor] 25 mg PO BID #60 tab 07/17/21 04/16/22 Rx lisinopriL [Zestril] 5 mg PO DAILY 12/15/21 04/20/22 History Amiodarone [Cordarone] 100 mg PO DAILY 04/16/22 04/20/22 History Vit C/E/Zn/Coppr/Lutein/Zeaxan 1 each PO BID 04/16/22 04/16/22 History [Preservision Areds 2 Softgel] Allergies Allergy/AdvReac Type Severity Reaction Status Date / Time No Known Allergies Allergy Verified 04/20/22 08:54 Physical Exam Vitals: Vital Signs Temp Pulse Resp BP Pulse Ox FiO2 04/21/22 09:20 40 04/21/22 09:00 80 16 124/53 95 40 04/21/22 08:45 89 14 109/47 96 40 04/21/22 08:30 75 20 96/61 96 40 04/21/22 08:15 82 15 128/54 93 L 40 04/21/22 08:00 97.9 F 67 14 126/49 99 40 04/21/22 07:58 72 04/21/22 07:48 72 04/21/22 07:45 73 19 133/47 96 40 04/21/22 07:30 70 19 125/61 97 40 04/21/22 07:22 50 04/21/22 07:15 72 19 134/49 97 40 04/21/22 07:00 99.0 F 73 17 119/42 91 L 04/21/22 06:45 68 14 119/50 97 04/21/22 06:30 73 14 109/45 96 04/21/22 06:15 76 14 126/48 97 04/21/22 06:00 70 14 132/49 97 04/21/22 05:52 50 04/21/22 05:45 68 14 128/48 95 04/21/22 05:30 68 14 124/50 04/21/22 05:15 69 14 118/46 98 04/21/22 05:00 71 14 128/46 97 04/21/22 04:45 76 14 125/45 99 04/21/22 04:30 71 14 126/46 97 04/21/22 04:15 72 14 116/45 99 04/21/22 04:00 98.9 F 73 14 118/46 98 60 04/21/22 03:45 73 14 129/53 97 04/21/22 03:35 69 60 04/21/22 03:30 70 14 133/54 04/21/22 03:15 72 14 98/61 99 04/21/22 03:00 14 117/46 97 04/21/22 02:45 73 14 116/49 98 04/21/22 02:30 66 14 114/45 97 04/21/22 02:15 73 14 116/46 98 04/21/22 02:00 67 14 124/47 98 04/21/22 01:45 68 14 125/49 98 04/21/22 01:30 74 14 120/51 99 04/21/22 01:15 72 14 119/49 98 04/21/22 01:00 70 14 120/52 98 04/21/22 00:45 65 14 116/49 100 04/21/22 00:33 67 14 116/49 98 04/21/22 00:30 64 14 112/47 98 04/21/22 00:15 64 14 108/52 98 04/21/22 00:00 98.0 F 70 14 115/48 98 60 04/20/22 23:45 69 14 109/45 98 04/20/22 23:32 69 04/20/22 23:31 60 04/20/22 23:30 66 14 120/55 98 04/20/22 23:15 61 14 101/46 99 04/20/22 23:00 61 14 115/59 98 04/20/22 22:45 60 14 116/54 98 04/20/22 22:30 65 17 112/48 98 04/20/22 22:20 60 18 112/48 98 04/20/22 22:10 65 18 117/65 98 04/20/22 22:00 59 L 20 116/46 98 04/20/22 21:50 61 23 116/46 98 04/20/22 21:40 61 14 111/55 98 04/20/22 21:30 58 L 14 118/59 98 04/20/22 21:20 60 14 118/59 99 04/20/22 21:10 60 14 121/56 99 04/20/22 21:00 61 14 102/55 98 04/20/22 20:50 56 L 14 102/55 99 04/20/22 20:40 63 14 127/61 98 04/20/22 20:30 61 14 122/55 99 04/20/22 20:20 64 14 89/40 98 04/20/22 20:13 58 L 04/20/22 20:10 64 14 89/40 99 04/20/22 20:00 97.5 F L 64 14 89/40 97 60 04/20/22 19:56 64 04/20/22 19:50 60 14 84/43 96 04/20/22 19:40 64 14 84/43 99 04/20/22 19:30 60 14 84/43 100 04/20/22 19:20 68 14 100 04/20/22 19:10 64 14 100 04/20/22 19:00 70 14 100 100 04/20/22 18:50 69 14 100 04/20/22 18:40 97.6 F 67 14 04/20/22 18:35 100 04/20/22 18:20 100 Intake and Output 04/20/22 04/21/22 04/21/22 22:59 06:59 14:59 Intake Total 2062.870 1265.893 442.722 Output Total 4860 420 105 Balance -2797.130 845.893 337.722 Intake: IV 1460 960 360 Lactated Ringers 1,000 ml 60 160 60 @ 20 mls/hr IV .Q24H [facility] Rx#:[id number] Sodium Chloride 0.9% 1, 300 800 300 000 ml @ 100 mls/hr IV . Q10H [facility] Rx#:[id number] Sodium Chloride 0.9% 1, 1000 000 ml @ 999 mls/hr IV . Q1H1M [facility] Rx#:[id number] Intake, IV Titration 272.870 245.893 82.722 Amount Lactated Ringers 1,000 ml 20 @ 20 mls/hr IV .Q24H [facility] Rx#:[id number] Norepinephrine 4 mg In 11.501 52.935 Sodium Chloride 0.9% 250 ml @ 0.05 MCG/KG/MIN 22. 117 mls/hr IV .[id number] [facility] Rx#:[id number] Phenylephrine 40 mg In 63.786 Sodium Chloride 0.9% 250 ml @ 0.5 MCG/KG/MIN 22. 117 mls/hr IV .[id number] [facility] Rx#:[id number] Sodium Chloride 0.9% 1, 100 000 ml @ 100 mls/hr IV . Q10H [facility] Rx#:[id number] propofoL 1,000 mg In 40.983 192.958 82.722 Empty Bag 1 bag @ 15 MCG/ KG/MIN 10.449 mls/hr IV . Q9H35M [facility] Rx#:[id number] propofoL 100 ml @ 0 mls/ 36.6 hr IV .STK-[facility] Rx#: [id number] Oral 20 Blood Product 310 Rc As-1 Unit 310 [id number] Rc Pheresis 2 As3 Unit 0 [id number] Other 60 Output: Urine 1860 420 105 Estimated Blood Loss 3000 Other: Voiding Method Indwelling Catheter Indwelling Catheter Indwelling Catheter Weight 116 kg GENERAL EXAM: Intubated, sedated 72-year-old male patient, comfortable in no apparent distress. HEAD: Normocephalic. EYES: Normal reaction of pupils, equal size. NOSE: Clear with pink turbinates. THROAT: Oral endotracheal and gastric tube secured in place.No erythema or exudates. NECK: No masses, no JVD. CHEST: No chest wall deformity. LUNGS: Equal air entry with no crackles, wheeze, rhonchi or dullness. CVS: S1 and S2 normal with no audible murmur, regular rhythm. ABDOMEN: No hepatosplenomegaly, normal bowel sounds, no guarding or rigidity. SPINE: No scoliosis or deformity SKIN: No rashes CENTRAL NERVOUS SYSTEM: No focal deficits, tone is normal in all 4 extremities. EXTREMITIES: Prevena incisional vacs to the bilateral groins. There is no peripheral edema. No clubbing, no cyanosis. Peripheral pulses are intact. Results - Laboratory Findings CBC and BMP: 04/20/22 23:50 04/20/22 22:45 ABG ABG pH 7.36 (7.35-7.45) 04/21/22 05:39 ABG pCO2 48 mmHg (35-45) H 04/21/22 05:39 ABG pO2 120 mmHg (83-108) H 04/21/22 05:39 ABG O2 Saturation 99.1 % (94-97) H 04/21/22 05:39 Abnormal lab findings: Abnormal Labs 04/20/22 04/20/22 04/20/22 08:56 08:56 08:56 WBC RBC Hgb 12.3 L Hct MCH 23.1 L MCHC 28.6 L RDW 19.7 H Neutrophils # Lymphocytes # 0.8 L ABG pH ABG pCO2 ABG pO2 ABG HCO3 ABG Total CO2 ABG O2 Saturation Glucose 110 H POC Glucose (mg/dL) Calcium Crossmatch See Detail 04/20/22 04/20/22 04/20/22 13:37 13:37 15:02 WBC RBC 4.23 L 3.77 L Hgb 10.1 L 9.2 L Hct 34.3 L 30.5 L MCH 24.0 L 24.4 L MCHC 29.5 L 30.1 L RDW 19.7 H 19.9 H Neutrophils # Lymphocytes # ABG pH 7.29 L ABG pCO2 ABG pO2 ABG HCO3 19 L ABG Total CO2 ABG O2 Saturation 98.3 H Glucose POC Glucose (mg/dL) Calcium Crossmatch 04/20/22 04/20/22 04/20/22 15:02 18:08 18:50 WBC RBC Hgb 10.8 L Hct 35.7 L MCH 24.7 L MCHC 30.2 L RDW 19.0 H Neutrophils # Lymphocytes # 0.8 L ABG pH 7.32 L ABG pCO2 ABG pO2 125 H ABG HCO3 19 L ABG Total CO2 ABG O2 Saturation 99.1 H Glucose POC Glucose (mg/dL) 116 H Calcium Crossmatch 04/20/22 04/20/22 04/20/22 19:20 22:45 23:50 WBC 11.7 H RBC Hgb 10.8 L Hct 36.6 L MCH 24.8 L MCHC 29.4 L RDW 19.0 H Neutrophils # 9.5 H Lymphocytes # 0.9 L ABG pH 7.34 L ABG pCO2 49 H ABG pO2 245 H ABG HCO3 27 H ABG Total CO2 28 H ABG O2 Saturation 100.0 H Glucose 117 H POC Glucose (mg/dL) Calcium 8.0 L Crossmatch 04/21/22 05:39 WBC RBC Hgb Hct MCH MCHC RDW Neutrophils # Lymphocytes # ABG pH ABG pCO2 48 H ABG pO2 120 H ABG HCO3 27 H ABG Total CO2 29 H ABG O2 Saturation 99.1 H Glucose POC Glucose (mg/dL) Calcium Crossmatch - Diagnostic Findings Chest x-ray: image reviewed Assessment and Plan Assessment: Infrarenal abdominal aortic aneurysm, bilateral femoral artery occlusions, bilateral iliac artery severe stenosis. Status post open bilateral femoral artery cutdown, right iliac artery balloon angioplasty, left common iliac artery balloon angioplasty with shockwave balloon, endovascular aortic repair with 26 mm graft, bilateral external iliac, femoral, profundus endarterectomy with patch angioplasty. Postoperative day #1. Hypoxemic respiratory failure, expected outcome of surgery, remained intubated on mechanical ventilator. Postoperative blood loss anemia requiring 4 units of packed red blood cells, current hemoglobin 10.8. 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 in July 2021 Hypertension Hyperlipidemia Chronic tobacco dependence Chronic obstructive pulmonary disease with an FEV1 value 65% of predicted Plan: The patient was seen and evaluated Chest x-ray, ABGs and labs and medications reviewed We'll plan for interruption of sedation and obtain weaning parameters We'll most likely extubate this morning Add incentive spirometer Continue bronchodilators Titrate the FiO2 as tolerated We will continue to follow and make further recommendations based on his clinical status I have personally seen and examined the patient, performed the documentation and the assessment and plan as written. Number of minutes spent on the visit: 20.
[2022-04-21] MEDS: NOREPINEPHRINE 4 MG in SODIUM CHLORIDE 0.9% 250 ML IV SCH ×2 (10:23→20:13)
--- NOTE | 2022-04-21 10:37 | P.PN ---
Subjective Progress Note Date: 04/21/22 Principal diagnosis: Abdominal aortic aneurysm, bilateral femoral artery occlusion, bilateral iliac stenosis Patient is seen and examined today as a follow-up in the ICU. Yesterday he underwent EVAR, open bilateral femoral artery cut down, right iliac artery balloon angioplasty, left common iliac artery balloon angioplasty and bilateral external iliac, femoral and profundus endarterectomy with patch angioplasty. The procedure was wound and patient had some bleeding requiring 4 units of packed RBC. He was admitted to the intensive care unit, and is currently intubated and sedated however they are weaning him from sedation at this time and he is responding with his eyes open and moving around in bed. Patient was hypotensive and started on pressors. Morning labs are currently pending. Objective - Vital Signs Vital signs: Vital Signs Temp 99.0 F 04/21/22 07:00 Pulse 72 04/21/22 07:58 Resp 17 04/21/22 07:00 BP 119/42 04/21/22 07:00 Pulse Ox 91 L 04/21/22 07:00 FiO2 50 04/21/22 07:22 Intake & Output 04/20/22 04/21/22 04/21/22 18:59 06:59 18:59 Intake Total 3131.949 2915.814 188.267 Output Total 4600 680 15 Balance -2767.817 7414.814 173.267 Weight 116.1 kg 116 kg Intake: IV 2250 2320 120 Lactated Ringers 1,000 ml 220 20 @ 20 mls/hr IV .Q24H [facility] Rx#:[id number] Sodium Chloride 0.9% 1, 1100 100 000 ml @ 100 mls/hr IV . Q10H [facility] Rx#:[id number] Sodium Chloride 0.9% 1, 1000 000 ml @ 999 mls/hr IV . Q1H1M [facility] Rx#:[id number] Intake, IV Titration 2.949 515.814 68.267 Amount Lactated Ringers 1,000 ml 20 @ 20 mls/hr IV .Q24H [facility] Rx#:[id number] Norepinephrine 4 mg In 64.436 Sodium Chloride 0.9% 250 ml @ 0.05 MCG/KG/MIN 22. 117 mls/hr IV .[id number] [facility] Rx#:[id number] Phenylephrine 40 mg In 2.949 60.837 Sodium Chloride 0.9% 250 ml @ 0.5 MCG/KG/MIN 22. 117 mls/hr IV .[id number] [facility] Rx#:[id number] Sodium Chloride 0.9% 1, 100 000 ml @ 100 mls/hr IV . Q10H [facility] Rx#:[id number] propofoL 1,000 mg In 233.941 68.267 Empty Bag 1 bag @ 15 MCG/ KG/MIN 10.449 mls/hr IV . Q9H35M [facility] Rx#:[id number] propofoL 100 ml @ 0 mls/ 36.6 hr IV .STK-[facility] Rx#: [id number] Oral 20 Blood Product 879 Rc As-1 Unit 310 [id number] Rc Pheresis 2 As3 Unit 0 [id number] Rc Pheresis 2 As3 Unit 285 [id number] Rc Pheresis As-3 Unit 284 [id number] Other 60 Output: Urine 1600 680 15 Estimated Blood Loss 3000 Other: Voiding Method Indwelling Catheter ABP, PAP, CO, CI - Last Documented Arterial Blood Pressure 79/57 - Exam General appearance: The patient is intubated on mechanical ventilation, sedated however patient is responding to stimuli and somewhat awake. HET: Head is normocephalic and atraumatic. Neck: Supple without lymphadenopathy. Trachea midline. Heart: Regular. Lungs: Equal expansion, normal respiratory effort. Abdomen: Soft, nontender, nondistended. Extremities: Normal skin color and turgor. No cyanosis, rash, ulceration, clubbing, or edema. Bilateral groins with Prevena dressings intact. Patient has intact bilateral PT and DP Doppler signal. Feet are warm to touch with good capillary refill. Neurological: Patient is sedated on mechanical ventilation. - Labs CBC & Chem 7: 04/21/22 10:49 04/21/22 10:49 Labs: Abnormal Lab Results - Last 24 Hours (Table) 04/20/22 04/20/22 04/20/22 Range/Units 08:56 08:56 08:56 WBC (3.8-10.6) k/uL RBC (4.30-5.90) m/uL Hgb 12.3 L (13.0-17.5) gm/dL Hct (39.0-53.0) % MCH 23.1 L (25.0-35.0) pg MCHC 28.6 L (31.0-37.0) g/dL RDW 19.7 H (11.5-15.5) % Neutrophils # (1.3-7.7) k/uL Lymphocytes # 0.8 L (1.0-4.8) k/uL ABG pH (7.35-7.45) ABG pCO2 (35-45) mmHg ABG pO2 (83-108) mmHg ABG HCO3 (21-25) mmol/L ABG Total CO2 (19-24) mmol/L ABG O2 Saturation (94-97) % Glucose 110 H (74-99) mg/dL POC Glucose (mg/dL) (70-110) mg/dL Calcium (8.4-10.2) mg/dL Crossmatch See Detail 04/20/22 04/20/22 04/20/22 Range/Units 13:37 13:37 15:02 WBC (3.8-10.6) k/uL RBC 4.23 L 3.77 L (4.30-5.90) m/uL Hgb 10.1 L 9.2 L (13.0-17.5) gm/dL Hct 34.3 L 30.5 L (39.0-53.0) % MCH 24.0 L 24.4 L (25.0-35.0) pg MCHC 29.5 L 30.1 L (31.0-37.0) g/dL RDW 19.7 H 19.9 H (11.5-15.5) % Neutrophils # (1.3-7.7) k/uL Lymphocytes # (1.0-4.8) k/uL ABG pH 7.29 L (7.35-7.45) ABG pCO2 (35-45) mmHg ABG pO2 (83-108) mmHg ABG HCO3 19 L (21-25) mmol/L ABG Total CO2 (19-24) mmol/L ABG O2 Saturation 98.3 H (94-97) % Glucose (74-99) mg/dL POC Glucose (mg/dL) (70-110) mg/dL Calcium (8.4-10.2) mg/dL Crossmatch 04/20/22 04/20/22 04/20/22 Range/Units 15:02 18:08 18:50 WBC (3.8-10.6) k/uL RBC (4.30-5.90) m/uL Hgb 10.8 L (13.0-17.5) gm/dL Hct 35.7 L (39.0-53.0) % MCH 24.7 L (25.0-35.0) pg MCHC 30.2 L (31.0-37.0) g/dL RDW 19.0 H (11.5-15.5) % Neutrophils # (1.3-7.7) k/uL Lymphocytes # 0.8 L (1.0-4.8) k/uL ABG pH 7.32 L (7.35-7.45) ABG pCO2 (35-45) mmHg ABG pO2 125 H (83-108) mmHg ABG HCO3 19 L (21-25) mmol/L ABG Total CO2 (19-24) mmol/L ABG O2 Saturation 99.1 H (94-97) % Glucose (74-99) mg/dL POC Glucose (mg/dL) 116 H (70-110) mg/dL Calcium (8.4-10.2) mg/dL Crossmatch 04/20/22 04/20/22 04/20/22 Range/Units 19:20 22:45 23:50 WBC 11.7 H (3.8-10.6) k/uL RBC (4.30-5.90) m/uL Hgb 10.8 L (13.0-17.5) gm/dL Hct 36.6 L (39.0-53.0) % MCH 24.8 L (25.0-35.0) pg MCHC 29.4 L (31.0-37.0) g/dL RDW 19.0 H (11.5-15.5) % Neutrophils # 9.5 H (1.3-7.7) k/uL Lymphocytes # 0.9 L (1.0-4.8) k/uL ABG pH 7.34 L (7.35-7.45) ABG pCO2 49 H (35-45) mmHg ABG pO2 245 H (83-108) mmHg ABG HCO3 27 H (21-25) mmol/L ABG Total CO2 28 H (19-24) mmol/L ABG O2 Saturation 100.0 H (94-97) % Glucose 117 H (74-99) mg/dL POC Glucose (mg/dL) (70-110) mg/dL Calcium 8.0 L (8.4-10.2) mg/dL Crossmatch 04/21/22 Range/Units 05:39 WBC (3.8-10.6) k/uL RBC (4.30-5.90) m/uL Hgb (13.0-17.5) gm/dL Hct (39.0-53.0) % MCH (25.0-35.0) pg MCHC (31.0-37.0) g/dL RDW (11.5-15.5) % Neutrophils # (1.3-7.7) k/uL Lymphocytes # (1.0-4.8) k/uL ABG pH (7.35-7.45) ABG pCO2 48 H (35-45) mmHg ABG pO2 120 H (83-108) mmHg ABG HCO3 27 H (21-25) mmol/L ABG Total CO2 29 H (19-24) mmol/L ABG O2 Saturation 99.1 H (94-97) % Glucose (74-99) mg/dL POC Glucose (mg/dL) (70-110) mg/dL Calcium (8.4-10.2) mg/dL Crossmatch Assessment and Plan Assessment: 1. Postop day #1 for open bilateral femoral artery cut down, right iliac artery balloon angioplasty, left common iliac artery balloon angioplasty, endovascular aortic repair and bilateral external iliac, femoral and profundus endarterectomy with patch angioplasty 2. Infrarenal abdominal aortic aneurysm 3. Bilateral femoral artery occlusions 4. Bilateral iliac artery severe stenosis 5. Acute blood loss anemia Plan: 1. Continue ICU management 2. Continue with recommendations from cardiology 3. Continue aspirin and Plavix 4. Daily CBC, BMP, transfuse for hemoglobin less than 8 5. Recommend incentive spirometer to bedside 6. Once patient is extubated increase ambulation as tolerated 7. Discontinue Lares catheter once patient is ambulating 8. Anticipate discharge in the next 24-48 hours Thank you for this consultation, we will continue to follow. The impression and plan of care has been dictated as directed. Dr. Lares I performed a history and examination of this patient, discussed the same with the dictator. I agree with the dictator's note ,documented as a scribe. Any additional findings or plans will be noted.
[2022-04-21] MEDS: CLOPIDOGREL 75 MG TAB PO SCH (10:56)
[2022-04-21] MEDS: ASPIRIN 81 MG PO SCH (10:56)
[2022-04-21] MEDS: FERROUS SULFATE 325 MG TAB PO SCH (10:56)
[2022-04-21] MEDS: AMIODARONE 100 MG TAB PO SCH (10:57)
[2022-04-21 11:13] LABS: Anisocytosis Slight; Basophils # (A) 0.1 k/uL (0-0.2); Basophils % (A) 1 %; Eosinophils # (A) 0.1 k/uL (0-0.7); Eosinophils % (A) 1 %; HCT 36.3 % (39.0-53.0); HGB 10.6 gm/dL (13.0-17.5); Hypochromasia Marked; Lymphocytes # (A) 0.5 k/uL (1.0-4.8); Lymphocytes % (A) 6 %; MCH 24.7 pg (25.0-35.0); MCHC 29.2 g/dL (31.0-37.0); MCV 84.5 fL (80.0-100.0); Mean Platelet Volume 8.4; Microcytosis Slight; Monocytes # (A) 0.5 k/uL (0-1.0); Monocytes % (A) 6 %; Neutrophils # (A) 7.3 k/uL (1.3-7.7); Neutrophils % (A) 85 %; Platelet Count 178 k/uL (150-450); Poikilocytosis Moderate; RDW 19.5 % (11.5-15.5); WBC 8.5 k/uL (3.8-10.6)
[2022-04-21 11:19] LABS: ALT 16 U/L (4-49); AST 19 U/L (17-59); African American GFR (CKD) >90 (>60 ml/min/1.73 sqM); Alkaline Phosphatase 75 U/L (38-126); Anion Gap 6 mmol/L; Blood Urea Nitrogen 16 mg/dL (9-20); Calcium 7.7 mg/dL (8.4-10.2); Carbon Dioxide 27 mmol/L (22-30); Chloride 105 mmol/L (98-107); Glucose 126 mg/dL (74-99); Non-African American GFR(CKD) 87 (>60 ml/min/1.73 sqM); Potassium 4.4 mmol/L (3.5-5.1); Sodium 138 mmol/L (137-145); Total Bilirubin 0.5 mg/dL (0.2-1.3); Total Protein 6.7 g/dL (6.3-8.2)
--- NOTE | 2022-04-21 11:25 | IR ---
EXAMINATION TYPE: IR stent intravas non coronary DATE OF EXAM: 04/21/2022 COMPARISON: NONE HISTORY: Fluoroscopy time. Fluoroscopy was provided to the referring clinician.
[2022-04-21] MEDS ORDERED: HYDROcodone/APAP 5-325MG 1 EACH TAB PO PRN (18:53)
[2022-04-21] MEDS: prednisoLONE ACETATE 1% OPHTH DROPS 5 ML BTL RIGHT EYE SCH (20:21)
[2022-04-21] MEDS: KETOROLAC 0.5% OPHTH DROPS 5 ML BTL RIGHT EYE SCH (20:21)
[2022-04-22] MEDS: SODIUM CHLORIDE 0.9% 1,000 ML IV SCH ×2 (00:03→20:02)
[2022-04-22] MEDS: PHENYLEPHRINE 40 MG in SODIUM CHLORIDE 0.9% 250 ML IV SCH (06:18)
[2022-04-22] MEDS: NOREPINEPHRINE 4 MG in SODIUM CHLORIDE 0.9% 250 ML IV SCH (06:18)
[2022-04-22 06:20] LABS: Anisocytosis Slight; Basophils # (A) 0.1 k/uL (0-0.2); Basophils % (A) 1 %; Eosinophils # (A) 0.1 k/uL (0-0.7); Eosinophils % (A) 1 %; HCT 33.4 % (39.0-53.0); HGB 9.5 gm/dL (13.0-17.5); Hypochromasia Marked; Lymphocytes # (A) 0.6 k/uL (1.0-4.8); Lymphocytes % (A) 7 %; MCH 24.9 pg (25.0-35.0); MCHC 28.4 g/dL (31.0-37.0); MCV 87.5 fL (80.0-100.0); Mean Platelet Volume 8.8; Monocytes # (A) 0.5 k/uL (0-1.0); Monocytes % (A) 6 %; Neutrophils # (A) 7.6 k/uL (1.3-7.7); Neutrophils % (A) 82 %; Platelet Count 149 k/uL (150-450); Poikilocytosis Slight; RBC 3.81 m/uL (4.30-5.90); RDW 19.3 % (11.5-15.5); WBC 9.2 k/uL (3.8-10.6)
[2022-04-22 06:50] LABS: African American GFR (CKD) >90 (>60 ml/min/1.73 sqM); Anion Gap 8 mmol/L; Blood Urea Nitrogen 10 mg/dL (9-20); Calcium 7.9 mg/dL (8.4-10.2); Carbon Dioxide 20 mmol/L (22-30); Chloride 106 mmol/L (98-107); Glucose 112 mg/dL (74-99); Non-African American GFR(CKD) >90 (>60 ml/min/1.73 sqM); Sodium 134 mmol/L (137-145)
[2022-04-22] MEDS ORDERED: FUROSEMIDE 10 MG/ML 2 ML VIAL IV ONE (07:11)
[2022-04-22 07:14] LABS: Potassium 4.5 mmol/L (3.5-5.1)
[2022-04-22] MEDS: IPRATROPIUM-ALBUTEROL 3 ML NEB INHALATION SCH (07:33)
--- NOTE | 2022-04-22 07:51 | P.PN ---
Subjective Progress Note Date: 04/22/22 Principal diagnosis: Infrarenal abdominal aortic aneurysm The patient is a 72-year-old gentleman who was admitted to the hospital yesterday and underwent successful repair of infrarenal abdominal aortic aneurysm with bilateral common femoral artery endarterectomy. The procedure was long and complicated by bleeding requiring 4 units of packed RBC. Subsequently the patient was admitted to the intensive care unit. April [id number] The patient was seen and evaluated this morning. He is still hypotensive echo are small dose of norepinephrine. Beside that he is intubated on mechanical ventilation and currently is on sedation as well. Acute coronary event was ruled out. Troponin came in to be unremarkable with a chest x-ray was reviewed and seems to be slightly congested. I am ordering NT proBNP for further assessment of fluid status. At this point we'll try to wean the patient from norepinephrine. I'm going to stop the lisinopril as well as metoprolol and con tinue amiodarone. Continue antiplatelet. Hopefully the patient will be extubated today and he will be of sedation and that would help the pressure. The surgical team is on the case as well as. April [id number] The patient was seen and evaluated this morning. He is doing good from another vascular standpoint of view. He was extubated yesterday. Hemodynamic disease is stable and not on any vasopressors at this point. As a matter of fact I'm going to start him back on beta tammi and BUBBA inhibitor and continue antiplatelet as well as a statin as well as amiodarone. He still required 3 L of oxygen to keep saturation above 90 to be reviewed the chest x-ray from the morning and the chest x-ray seems to be the same as before. No evidence of congestive heart failure. At this point I would continue the current medical regimen and try to transfer the patient out of the intensive care unit to the floor for possible discharge in 4 hours. I would advise keep the patient for additional 24 hours since he is from [place] which is further an hour away. Objective - Vital Signs Vital signs: Vital Signs Temp 99.2 F 04/22/22 04:00 Pulse 88 04/22/22 07:42 Resp 26 H 04/22/22 04:00 BP 144/73 04/22/22 04:00 Pulse Ox 92 L 04/22/22 04:00 FiO2 40 04/21/22 09:30 Intake & Output 04/21/22 04/22/22 04/22/22 18:59 06:59 18:59 Intake Total 2272.399 1200 100 Output Total 560 445 Balance 1712.399 755 100 Intake: IV 1340 1200 100 Lactated Ringers 1,000 ml 140 @ 20 mls/hr IV .Q24H AB Rx#:[id number] Sodium Chloride 0.9% 1, 1200 1200 100 000 ml @ 100 mls/hr IV . Q10H AB Rx#:[id number] Intake, IV Titration 182.399 Amount Norepinephrine 4 mg In 99.677 Sodium Chloride 0.9% 250 ml @ 0.05 MCG/KG/MIN 22. 117 mls/hr IV .[id number] AB Rx#:[id number] propofoL 1,000 mg In 82.722 Empty Bag 1 bag @ 15 MCG/ KG/MIN 10.449 mls/hr IV . Q9H35M AB Rx#:[id number] Oral 750 Output: Urine 560 445 Other: Voiding Method Indwelling Catheter Indwelling Catheter # Voids 0 0 # Bowel Movements 1 1 ABP, PAP, CO, CI - Last Documented Arterial Blood Pressure 79/57 - Constitutional General appearance: Present: no acute distress - Respiratory Respiratory: bilateral: diminished - Cardiovascular Rhythm: regular - Labs CBC & Chem 7: 04/22/22 05:39 04/22/22 05:39 Labs: Abnormal Lab Results - Last 24 Hours (Table) 04/20/22 04/21/22 04/21/22 Range/Units 08:56 10:49 10:49 RBC (4.30-5.90) m/uL Hgb 10.6 L (13.0-17.5) gm/dL Hct 36.3 L (39.0-53.0) % MCH 24.7 L (25.0-35.0) pg MCHC 29.2 L (31.0-37.0) g/dL RDW 19.5 H (11.5-15.5) % Plt Count (150-450) k/uL Lymphocytes # 0.5 L (1.0-4.8) k/uL Sodium (137-145) mmol/L Carbon Dioxide (22-30) mmol/L Glucose 126 H (74-99) mg/dL Calcium 7.7 L (8.4-10.2) mg/dL Albumin 3.0 L (3.5-5.0) g/dL Crossmatch See Detail 04/22/22 04/22/22 Range/Units 05:39 05:39 RBC 3.81 L (4.30-5.90) m/uL Hgb 9.5 L (13.0-17.5) gm/dL Hct 33.4 L (39.0-53.0) % MCH 24.9 L (25.0-35.0) pg MCHC 28.4 L (31.0-37.0) g/dL RDW 19.3 H (11.5-15.5) % Plt Count 149 L (150-450) k/uL Lymphocytes # 0.6 L (1.0-4.8) k/uL Sodium 134 L (137-145) mmol/L Carbon Dioxide 20 L (22-30) mmol/L Glucose 112 H (74-99) mg/dL Calcium 7.9 L (8.4-10.2) mg/dL Albumin (3.5-5.0) g/dL Crossmatch Microbiology - Last 24 Hours (Table) 04/21/22 06:15 Sputum Culture - Preliminary Sputum Assessment and Plan Assessment: Assessment Status post endovascular repair of infrarenal abdominal aortic aneurysm along with bilateral femoral artery endarterectomy and patch angioplasty Coronary artery disease with prior revascularization interval of CABG Lower extremities peripheral arterial disease Hypertension Dyslipidemia Plan Continue the current medical regimen Restart the patient back on beta tammi and BUBBA inhibitor Continue antiplatelet and statin Follow-up with the patient
[2022-04-22] MEDS: VIT A,C & E-LUTEIN-MINERALS 1 EACH TAB PO SCH ×2 (08:23→20:00)
[2022-04-22] MEDS: ASPIRIN 81 MG PO SCH (08:23)
[2022-04-22] MEDS: CLOPIDOGREL 75 MG TAB PO SCH (08:23)
[2022-04-22] MEDS: lisinopriL 5 MG TAB PO SCH (08:23)
[2022-04-22] MEDS: METOPROLOL TARTRATE 25 MG TAB PO SCH ×2 (08:23→20:00)
[2022-04-22] MEDS: FERROUS SULFATE 325 MG TAB PO SCH (08:23)
[2022-04-22] MEDS: AMIODARONE 100 MG TAB PO SCH (08:23)
[2022-04-22] MEDS: CHLORHEXIDINE GLUCONATE 15 ML CUP MUCOUS MEM SCH (08:24)
[2022-04-22] MEDS: prednisoLONE ACETATE 1% OPHTH DROPS 5 ML BTL RIGHT EYE SCH ×2 (08:24→20:01)
[2022-04-22] MEDS: KETOROLAC 0.5% OPHTH DROPS 5 ML BTL RIGHT EYE SCH ×2 (08:24→20:01)
[2022-04-22] MEDS ORDERED: FUROSEMIDE 20 MG TAB PO SCH (09:00)
--- NOTE | 2022-04-22 09:15 | XR ---
EXAMINATION TYPE: XR chest 1V portable DATE OF EXAM: 04/22/2022 COMPARISON: 04/21/2022 HISTORY: Tube placement TECHNIQUE: Single frontal view of the chest is obtained. FINDINGS: ET and NG tube is been removed. Left-sided consolidation and postoperative change. Cardiom egaly but no pneumothorax. No overt failure. COPD suspected. IMPRESSION: Left lower lobe infiltrate and small effusion stable.
--- NOTE | 2022-04-22 09:55 | P.CONS ---
History of Present Illness - Reason for Consult Consult date: 04/22/22 medical management - History of Present Illness Patient is a 72-year-old male with history of AAA, peripheral arterial disease, coronary artery disease status post CABG, dyslipidemia, hypertension, aortic s tenosis, chronic tobacco use, ischemic cardiomyopathy presented initially for an elective vascular surgery. Patient was found to have intermittent claudication and aortogram showed infrarenal abdominal aortic aneurysm with critical bilateral iliac disease and critical bilateral femoral disease. He is now status post repair of abdominal aortic aneurysm and bilateral iliac and femoral endarterectomy. He has significant blood loss during the procedure, requiring 4 units of packed RBCs. He was admitted to the ICU intubated and sedated. He also was hypotensive requiring pressors. Patient is now successfully extubated on 04/21. No longer requiring pressors. [facility] has been consulted for medical management. Currently he denies any chest pain, shortness of breath, abdominal pain, urinary or bowel complaints. Continues to have minimal pain at the bilateral groin incisions. He claims that he had bowel movement this morning. He was able to get out of the bed this morning. He is currently on 3 L of oxygen. Patient seen and examined at bedside. [] Pertinent positives and negatives as discussed in HPI, a complete review of systems was performed and all other systems are negative. Vital signs reviewed General: nontoxic, no distress, appears at stated age, obese Derm: warm, dry Head: atraumatic, normocephalic, symmetric Eyes: EOMI, no lid lag, anicteric sclera, pupils equal round reactive to light ENT: Nose and ears atraumatic Neck: No thyromegaly, supple Mouth: no lip lesion, mucus membranes moist Cardiovascular: S1S2 reg, no murmur, no edema Lungs: clear to auscultation bilateral, no rhonchi, no rales, no wheeze, no accessory muscle use, on 3 L oxygen nasal cannula Abdominal: soft, distended, nontender to palpation, no guarding, no appreciable organomegaly Ext: no gross muscle atrophy, muscle strength muscle strength 5 out of 5 in all 4 extremities, no contractures, bilateral iliac incisions site appeared dry and intact, as a wound VAC. Neuro: CN II-XII grossly intact Psych: Alert, oriented, appropriate affect Assessment/Plan: Abdominal aortic aneurysm, peripheral arterial disease Status post EVAR, bilateral iliac and femoral endarterectomy Postoperative blood loss anemia requiring 4 units of packed red blood cells History of coronary artery disease status post CABG History of ischemic cardiomyopathy with EF of 30-35% Moderate to severe aortic valve stenosis status post replacement Nicotine dependence COPD -Patient successfully extubated yesterday, currently on 3 L nasal cannula -Hemoglobin stable at 9.5 -Patient remains on aspirin, Plavix and statin -Being followed by cardiology and pulmonology -L1 dose of IV Lasix this morning, we started her home dose of oral Lasix -Continue on amiodarone, metoprolol -on lisinopril Rest of the care per surgery Thank you for allowing us to participate in the care of this pleasant patient. Do not hesitate to contact us with questions. Someone can be reached from the [facility] hospitalist group all hours of the day at [phone] or via [employer] ([employer]. Past Medical History Past Medical History: Coronary Artery Disease (CAD), COPD, Eye Disorder, Hyperlipidemia, Hypertension, Myocardial Infarction ([place]) Additional Past Medical History / Comment(s): MACULAR DEGENERATION, borderline DM-NO MEDS Last Myocardial Infarction Date:: unk History of Any Multi-Drug Resistant Organisms: None Reported Past Surgical History: Cardiac Valve Replacement, Coronary Bypass/CABG, Ortho pedic Surgery Additional Past Surgical History / Comment(s): kris carpal tunnel rep, right parotidectomy w/ nerve integrity monitor,CABG-3 vessels and Aortic valve replaced. R cataract removal Past Anesthesia/Blood Transfusion Reactions: No Reported Reaction Additional Past Anesthesia/Blood Transfusion Reaction / Comm: no hx blood transfusion Past Psychological History: No Psychological Hx Reported Smoking Status: Current some day smoker Past Alcohol Use History: Occasional Additional Past Alcohol Use History / Comment(s): smokes occasionally still Past Drug Use History: None Reported - Past Family History Mother Family Medical History: No Reported History Additional Family Medical History / Comment(s): of old age. Father Family Medical History: Cancer Additional Family Medical History / Comment(s): of brain tumor. Medications and Allergies Home Medications Medication Instructions Recorded Confirmed Type Rosuvastatin [Crestor] 40 mg PO DAILY 03/25/21 04/16/22 History Aspirin [Adult Low Dose Aspirin EC] 81 mg PO DAILY 07/03/21 04/20/22 History Iron 45 mg PO DAILY 07/03/21 04/16/22 History Clopidogrel [Plavix] 75 mg PO DAILY #30 tab 07/17/21 04/16/22 Rx Furosemide [Lasix] 20 mg PO DAILY #30 tab 07/17/21 04/16/22 Rx Metoprolol Tartrate [Lopressor] 25 mg PO BID #60 tab 07/17/21 04/16/22 Rx lisinopriL [Zestril] 5 mg PO DAILY 12/15/21 04/20/22 History Amiodarone [Cordarone] 100 mg PO DAILY 04/16/22 04/20/22 History Vit C/E/Zn/Coppr/Lutein/Zeaxan 1 each PO BID 04/16/22 04/16/22 History [Preservision Areds 2 Softgel] Ketorolac 0.5% Ophth Soln [Acular 1 drops RIGHT EYE BID 04/21/22 04/21/22 History 0.5%] prednisoLONE ACETATE 1% OPHTH 2 drops RIGHT EYE BID 04/21/22 04/21/22 History [Pred Forte 1%] Allergies Allergy/AdvReac Type Severity Reaction Status Date / Time No Known Allergies Allergy Verified 04/20/22 08:54 Physical Exam Vitals: Vital Signs Temp Pulse Resp BP Pulse Ox 04/22/22 08:00 98.4 F 92 25 H 154/61 94 L 04/22/22 07:42 88 04/22/22 07:35 87 04/22/22 04:00 99.2 F 82 26 H 144/73 92 L 04/22/22 00:00 98.9 F 82 21 129/56 92 L 04/21/22 21:07 89 04/21/22 20:53 86 04/21/22 20:00 99.5 F 87 24 137/53 94 L 04/21/22 19:00 89 13 137/53 92 L 04/21/22 18:00 92 23 137/53 91 L 04/21/22 17:00 95 17 137/53 91 L 04/21/22 16:00 88 22 134/51 93 L 04/21/22 15:35 86 04/21/22 15:18 86 04/21/22 15:00 82 24 125/59 91 L 04/21/22 14:00 90 24 126/57 92 L 04/21/22 13:00 85 15 140/57 93 L 04/21/22 12:00 98 F 84 26 H 141/63 92 L 04/21/22 11:10 84 04/21/22 11:00 86 19 135/60 92 L 04/21/22 10:00 88 17 130/55 94 L Intake and Output 04/21/22 04/22/22 04/22/22 22:59 06:59 14:59 Intake Total 1250 800 100 Output Total 350 295 Balance 900 505 100 Intake: IV 800 800 100 Sodium Chloride 0.9% 1, 800 800 100 000 ml @ 100 mls/hr IV . Q10H [facility] Rx#:[id number] Oral 450 Output: Urine 350 295 Other: Voiding Method Indwelling Catheter Indwelling Catheter Toilet Urinal # Voids 0 0 # Bowel Movements 1 1 Results CBC & Chem 7: 04/22/22 05:39 04/22/22 05:39 Labs: Abnormal Lab Results - Last 24 Hours (Table) 04/20/22 04/21/22 04/21/22 Range/Units 08:56 10:49 10:49 RBC (4.30-5.90) m/uL Hgb 10.6 L (13.0-17.5) gm/dL Hct 36.3 L (39.0-53.0) % MCH 24.7 L (25.0-35.0) pg MCHC 29.2 L (31.0-37.0) g/dL RDW 19.5 H (11.5-15.5) % Plt Count (150-450) k/uL Lymphocytes # 0.5 L (1.0-4.8) k/uL Sodium (137-145) mmol/L Carbon Dioxide (22-30) mmol/L Glucose 126 H (74-99) mg/dL Calcium 7.7 L (8.4-10.2) mg/dL Albumin 3.0 L (3.5-5.0) g/dL Crossmatch See Detail 04/22/22 04/22/22 Range/Units 05:39 05:39 RBC 3.81 L (4.30-5.90) m/uL Hgb 9.5 L (13.0-17.5) gm/dL Hct 33.4 L (39.0-53.0) % MCH 24.9 L (25.0-35.0) pg MCHC 28.4 L (31.0-37.0) g/dL RDW 19.3 H (11.5-15.5) % Plt Count 149 L (150-450) k/uL Lymphocytes # 0.6 L (1.0-4.8) k/uL Sodium 134 L (137-145) mmol/L Carbon Dioxide 20 L (22-30) mmol/L Glucose 112 H (74-99) mg/dL Calcium 7.9 L (8.4-10.2) mg/dL Albumin (3.5-5.0) g/dL Crossmatch Microbiology - Last 24 Hours (Table) 04/21/22 06:15 Gram Stain - Preliminary Sputum Sputum Culture - Preliminary
--- NOTE | 2022-04-22 10:58 | P.PN ---
Subjective Progress Note Date: 04/22/22 Principal diagnosis: Abdominal aortic aneurysm, bilateral femoral artery occlusion, bilateral iliac stenosis Patient is seen and examined today as a follow-up in the ICU. He is postop day #2 for EVAR, open bilateral femoral artery cut down, right iliac artery balloon angioplasty, left common iliac artery balloon angioplasty and bilateral external iliac, femoral and profundus endarterectomy with patch angioplasty. Yesterday the patient was extubated. He is doing well overall. He has been up out of bed and into the chair. Lares catheter has been discontinued and he is voiding without difficulty. He had a bowel movement this morning. Hemoglobin is stable at 9.5. Bilateral groins with Prevena dressing intact. Patient is able to move bilateral lower extremities. Pain improved. Objective - Vital Signs Vital signs: Vital Signs Temp 98.4 F 04/22/22 08:00 Pulse 92 04/22/22 08:00 Resp 25 H 04/22/22 08:00 BP 154/61 04/22/22 08:00 Pulse Ox 94 L 04/22/22 08:00 FiO2 40 04/21/22 09:30 Intake & Output 04/21/22 04/22/22 04/22/22 18:59 06:59 18:59 Intake Total 2272.399 1200 100 Output Total 560 445 Balance 1712.399 755 100 Intake: IV 1340 1200 100 Lactated Ringers 1,000 ml 140 @ 20 mls/hr IV .Q24H AB Rx#:[id number] Sodium Chloride 0.9% 1, 1200 1200 100 000 ml @ 100 mls/hr IV . Q10H AB Rx#:[id number] Intake, IV Titration 182.399 Amount Norepinephrine 4 mg In 99.677 Sodium Chloride 0.9% 250 ml @ 0.05 MCG/KG/MIN 22. 117 mls/hr IV .[id number] AB Rx#:[id number] propofoL 1,000 mg In 82.722 Empty Bag 1 bag @ 15 MCG/ KG/MIN 10.449 mls/hr IV . Q9H35M AB Rx#:[id number] Oral 750 Output: Urine 560 445 Other: Voiding Method Indwelling Catheter Indwelling Catheter Toilet Urinal # Voids 0 0 # Bowel Movements 1 1 ABP, PAP, CO, CI - Last Documented Arterial Blood Pressure 79/57 - Exam General appearance: The patient is intubated on mechanical ventilation, sedated however patient is responding to stimuli and somewhat awake. HET: Head is normocephalic and atraumatic. Neck: Supple without lymphadenopathy. Trachea midline. Heart: Regular. Lungs: Equal expansion, normal respiratory effort. Diminished. Abdomen: Soft, nontender, nondistended , Positive bowel sounds.Extremities: Normal skin color and turgor. No cyanosis, rash, ulceration, clubbing, or edema. Bilateral groins with Prevena dressings intact. Patient has intact bilateral PT and DP Doppler signal. Feet are warm to touch with good capillary refill. Neurological: Patient is sedated on mechanical ventilation. - Labs CBC & Chem 7: 04/22/22 05:39 04/22/22 05:39 Labs: Abnormal Lab Results - Last 24 Hours (Table) 04/20/22 04/21/22 04/21/22 Range/Units 08:56 10:49 10:49 RBC (4.30-5.90) m/uL Hgb 10.6 L (13.0-17.5) gm/dL Hct 36.3 L (39.0-53.0) % MCH 24.7 L (25.0-35.0) pg MCHC 29.2 L (31.0-37.0) g/dL RDW 19.5 H (11.5-15.5) % Plt Count (150-450) k/uL Lymphocytes # 0.5 L (1.0-4.8) k/uL Sodium (137-145) mmol/L Carbon Dioxide (22-30) mmol/L Glucose 126 H (74-99) mg/dL Calcium 7.7 L (8.4-10.2) mg/dL Albumin 3.0 L (3.5-5.0) g/dL Crossmatch See Detail 04/22/22 04/22/22 Range/Units 05:39 05:39 RBC 3.81 L (4.30-5.90) m/uL Hgb 9.5 L (13.0-17.5) gm/dL Hct 33.4 L (39.0-53.0) % MCH 24.9 L (25.0-35.0) pg MCHC 28.4 L (31.0-37.0) g/dL RDW 19.3 H (11.5-15.5) % Plt Count 149 L (150-450) k/uL Lymphocytes # 0.6 L (1.0-4.8) k/uL Sodium 134 L (137-145) mmol/L Carbon Dioxide 20 L (22-30) mmol/L Glucose 112 H (74-99) mg/dL Calcium 7.9 L (8.4-10.2) mg/dL Albumin (3.5-5.0) g/dL Crossmatch Microbiology - Last 24 Hours (Table) 04/21/22 06:15 Sputum Culture - Preliminary Sputum Assessment and Plan Assessment: 1. Postop day #2 for open bilateral femoral artery cut down, right iliac artery balloon angioplasty, left common iliac artery balloon angioplasty, endovascular aortic repair and bilateral external iliac, femoral and profundus endarterectomy with patch angioplasty 2. Infrarenal abdominal aortic aneurysm 3. Bilateral femoral artery occlusions 4. Bilateral iliac artery severe stenosis 5. Acute blood loss anemia Plan: 1. Patient is stable to downgrade to 3 cell selective care 2. Continue with recommendations from cardiology 3. Continue aspirin and Plavix 4. Daily CBC, BMP, transfuse for hemoglobin less than 8 5. Recommend incentive spirometer to bedside 6. Encourage ambulation 7. Apply GEORGETTE hose and SCDs 8. Primary medicine team for medical management Thank you for this consultation, we will continue to follow. The impression and plan of care has been dictated as directed. Dr. Calero I performed a history and examination of this patient, discussed the same with the dictator. I agree with the dictator's note ,documented as a scribe. Any additional findings or plans will be noted.
--- NOTE | 2022-04-22 11:01 | P.PN ---
Subjective Progress Note Date: 04/22/22 This is a 72-year-old male patient who has a history of coronary artery disease with previous coronary artery bypass grafting 3, hyperlipidemia, hypertension, aortic stenosis, chronic tobacco dependence, ischemic cardiomyopathy. He was also found to have intermittent claudication and aortagram with runoff revealed infrarenal abdominal aortic aneurysmwith critical bilateral iliac disease and critical bilateral femoral disease. He was brought in to the hospital yesterday for an elective surgery. He had undergone open bilateral femoral artery cutdown, right iliac artery balloon angioplasty, left common iliac balloon angioplasty with shockwave Tomas, endovascular aortic repair within 26 mm graft, bilateral external iliac, femoral and profundus endarterectomy with patch angioplasty. Following the procedure he was kept intubated on the mechanical ventilator and transferred to the intensive care unit. He is seen today in consultation He remains intubated on mechanical ventilator and assist control mode at a rate of 14, tidal volume 600, FiO2 40% and a PEEP of 5. Morning blood gases revealed a pO2 of 120, pCO2 48 and a pH of 7.36. He has normal saline at 100 ML's per hour. Propofol 35 mcg/kg/m. Norepinephrine at 4 mcg/m. He does have bilateral Prevena incisional vacs placed. Peripheral pulses are intact. chest x-ray reveals evidence of cardiomegaly and mild pulmonary vascular byron estion. Endotracheal and gastric tubes are in place. he has received 4 units of packed red blood cells. Current hemoglobin 10.8. White count 11.7. Platelets 196. Sodium 137. Potassium 4.6. BUN 17. Creatinine 0.83. Glucose 117. He remains on DuoNeb inhalations. The patient is seen today 04/22/2022 in follow-up in the intensive care unit. He is currently sitting up. Awake and alert in no acute distress. Postoperative day #2. He was extubated yesterday. He is currently on 3 L nasal cannula. This x-ray reveals a left lower lobe infiltrate and small effusion. He is status post 4 units of red blood cells this admission. Current hemoglobin 9.5. White count 9.2. Platelets 149. Sodium 134. Potassium 4.5. Bicarb 20. BUN 10. Creatinine 0.68. If he continues to work with the incentive spirometer. He did receive Lasix 20 mg IVP 1. Normal saline IV decreased to KVO. Objective - Vital Signs Vital signs: Vital Signs Temp 98.4 F 04/22/22 08:00 Pulse 92 04/22/22 08:00 Resp 25 H 04/22/22 08:00 BP 154/61 04/22/22 08:00 Pulse Ox 94 L 04/22/22 08:00 FiO2 40 04/21/22 09:30 Intake & Output 04/21/22 04/22/22 04/22/22 18:59 06:59 18:59 Intake Total 2272.399 1200 100 Output Total 560 445 Balance 1712.399 755 100 Intake: IV 1340 1200 100 Lactated Ringers 1,000 ml 140 @ 20 mls/hr IV .Q24H [facility] Rx#:[id number] Sodium Chloride 0.9% 1, 1200 1200 100 000 ml @ 100 mls/hr IV . Q10H [facility] Rx#:[id number] Intake, IV Titration 182.399 Amount Norepinephrine 4 mg In 99.677 Sodium Chloride 0.9% 250 ml @ 0.05 MCG/KG/MIN 22. 117 mls/hr IV .[id number] [facility] Rx#:[id number] propofoL 1,000 mg In 82.722 Empty Bag 1 bag @ 15 MCG/ KG/MIN 10.449 mls/hr IV . Q9H35M [facility] Rx#:[id number] Oral 750 Output: Urine 560 445 Other: Voiding Method Indwelling Catheter Indwelling Catheter Toilet Urinal # Voids 0 0 # Bowel Movements 1 1 ABP, PAP, CO, CI - Last Documented Arterial Blood Pressure 79/57 - Exam GENERAL EXAM: Awake, alert 72-year-old male patient, comfortable in no apparent distress. HEAD: Normocephalic. EYES: Normal reaction of pupils, equal size. NOSE: Clear with pink turbinates. THROAT: Oral endotracheal and gastric tube secured in place.No erythema or exudates. NECK: No masses, no JVD. CHEST: No chest wall deformity. LUNGS: Equal air entry with crackles in the left lung base. CVS: S1 and S2 normal with no audible murmur, regular rhythm. ABDOMEN: No hepatosplenomegaly, normal bowel sounds, no guarding or rigidity. SPINE: No scoliosis or deformity SKIN: No rashes CENTRAL NERVOUS SYSTEM: No focal deficits, tone is normal in all 4 extremities. EXTREMITIES: Prevena incisional vacs to the bilateral groins. There is no peripheral edema. No clubbing, no cyanosis. Peripheral pulses are intact. - Labs CBC & Chem 7: 04/22/22 05:39 04/22/22 05:39 Labs: Abnormal Lab Results - Last 24 Hours (Table) 04/20/22 04/21/22 04/21/22 Range/Units 08:56 10:49 10:49 RBC (4.30-5.90) m/uL Hgb 10.6 L (13.0-17.5) gm/dL Hct 36.3 L (39.0-53.0) % MCH 24.7 L (25.0-35.0) pg MCHC 29.2 L (31.0-37.0) g/dL RDW 19.5 H (11.5-15.5) % Plt Count (150-450) k/uL Lymphocytes # 0.5 L (1.0-4.8) k/uL Sodium (137-145) mmol/L Carbon Dioxide (22-30) mmol/L Glucose 126 H (74-99) mg/dL Calcium 7.7 L (8.4-10.2) mg/dL Albumin 3.0 L (3.5-5.0) g/dL Crossmatch See Detail 04/22/22 04/22/22 Range/Units 05:39 05:39 RBC 3.81 L (4.30-5.90) m/uL Hgb 9.5 L (13.0-17.5) gm/dL Hct 33.4 L (39.0-53.0) % MCH 24.9 L (25.0-35.0) pg MCHC 28.4 L (31.0-37.0) g/dL RDW 19.3 H (11.5-15.5) % Plt Count 149 L (150-450) k/uL Lymphocytes # 0.6 L (1.0-4.8) k/uL Sodium 134 L (137-145) mmol/L Carbon Dioxide 20 L (22-30) mmol/L Glucose 112 H (74-99) mg/dL Calcium 7.9 L (8.4-10.2) mg/dL Albumin (3.5-5.0) g/dL Crossmatch Microbiology - Last 24 Hours (Table) 04/21/22 06:15 Gram Stain - Preliminary Sputum Sputum Culture - Preliminary Assessment and Plan Assessment: Infrarenal abdominal aortic aneurysm, bilateral femoral artery occlusions, bilateral iliac artery severe stenosis. Status post open bilateral femoral artery cutdown, right iliac artery balloon angioplasty, left common iliac artery balloon angioplasty with shockwave balloon, endovascular aortic repair with 26 mm graft, bilateral external iliac, femoral, profundus endarterectomy with patch angioplasty. Postoperative day #2. Hypoxemic respiratory failure, expected outcome of surgery, remained intubated on mechanical ventilator. Recovered and on 3 L nasal cannula Postoperative blood loss anemia requiring 4 units of packed red blood cells, current hemoglobin 9.5. 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 Number of minutes spent on the visit: 10.
[2022-04-22] MEDS: PRAVASTATIN SODIUM 40 MG TAB PO SCH (20:01)
[2022-04-23 07:36] LABS: Anisocytosis Slight; HGB 8.3 gm/dL (13.0-17.5); Hypochromasia Marked; MCH 25.1 pg (25.0-35.0); MCHC 29.8 g/dL (31.0-37.0); MCV 84.4 fL (80.0-100.0); Mean Platelet Volume 8.1; Microcytosis Slight; Platelet Count 156 k/uL (150-450); Poikilocytosis Slight; RBC 3.32 m/uL (4.30-5.90); RDW 19.6 % (11.5-15.5); WBC 7.5 k/uL (3.8-10.6)
[2022-04-23 07:49] LABS: African American GFR (CKD) >90 (>60 ml/min/1.73 sqM); Anion Gap 6 mmol/L; Blood Urea Nitrogen 11 mg/dL (9-20); Carbon Dioxide 25 mmol/L (22-30); Chloride 102 mmol/L (98-107); Glucose 103 mg/dL (74-99); Non-African American GFR(CKD) >90 (>60 ml/min/1.73 sqM); Potassium 3.7 mmol/L (3.5-5.1); Sodium 133 mmol/L (137-145)
--- NOTE | 2022-04-23 08:11 | P.PN ---
Subjective Progress Note Date: 04/23/22 Principal diagnosis: Infrarenal abdominal aortic aneurysm The patient is a 72-year-old gentleman who was admitted to the hospital yesterday and underwent successful repair of infrarenal abdominal aortic aneurysm with bilateral common femoral artery endarterectomy. The procedure was long and complicated by bleeding requiring 4 units of packed RBC. Subsequently the patient was admitted to the intensive care unit. April [id number] The patient was seen and evaluated this morning. He is still hypotensive echo are small dose of norepinephrine. Beside that he is intubated on mechanical ventilation and currently is on sedation as well. Acute coronary event was ruled out. Troponin came in to be unremarkable with a chest x-ray was reviewed and seems to be slightly congested. I am ordering NT proBNP for further assessment of fluid status. At this point we'll try to wean the patient from norepinephrine. I'm going to stop the lisinopril as well as metoprolol and con tinue amiodarone. Continue antiplatelet. Hopefully the patient will be extubated today and he will be of sedation and that would help the pressure. The surgical team is on the case as well as. April [id number] The patient was seen and evaluated this morning. He is doing good from another vascular standpoint of view. He was extubated yesterday. Hemodynamic disease is stable and not on any vasopressors at this point. As a matter of fact I'm going to start him back on beta tammi and BUBBA inhibitor and continue antiplatelet as well as a statin as well as amiodarone. He still required 3 L of oxygen to keep saturation above 90 to be reviewed the chest x-ray from the morning and the chest x-ray seems to be the same as before. No evidence of congestive heart failure. At this point I would continue the current medical regimen and try to transfer the patient out of the intensive care unit to the floor for possible discharge in 4 hours. I would advise keep the patient for additional 24 hours since he is from [place] which is further an hour away. April [id number] The patient was seen and evaluated this morning. He seems to be stable hemodynamically. His saturation has been in the upper 80s and currently he is on 1 L of oxygen. On examination he doesn't seems to be in any congestive heart failure at this point. His pressure medications has been restarted yesterday. He is on antiplatelet as well and he is on amiodarone. I'm going to watch the patient for the next few hours for possible discharge later on today. Objective - Vital Signs Vital signs: Vital Signs Temp 99.5 F 04/23/22 04:00 Pulse 68 04/23/22 06:00 Resp 25 H 04/23/22 06:00 BP 134/59 04/23/22 06:00 Pulse Ox 92 L 04/23/22 06:00 FiO2 40 04/21/22 09:30 Intake & Output 04/22/22 04/23/22 04/23/22 18:59 06:59 18:59 Intake Total 100 200 Output Total 550 600 Balance -450 -400 Weight 123.9 kg Intake: IV 100 200 Sodium Chloride 0.9% 1, 100 200 000 ml @ 20 mls/hr IV . Q24H [facility] Rx#:[id number] Output: Urine 550 600 Other: Voiding Method Toilet Toilet Urinal Urinal # Voids 0 2 # Bowel Movements 1 ABP, PAP, CO, CI - Last Documented Arterial Blood Pressure 79/57 - Constitutional General appearance: Present: no acute distress - Respiratory Respiratory: bilateral: diminished - Cardiovascular Rhythm: regular Heart sounds: normal: S1, S2 - Labs CBC & Chem 7: 04/23/22 06:34 04/23/22 06:34 Labs: Abnormal Lab Results - Last 24 Hours (Table) 04/23/22 04/23/22 Range/Units 06:34 06:34 RBC 3.32 L (4.30-5.90) m/uL Hgb 8.3 L (13.0-17.5) gm/dL Hct 28.0 L (39.0-53.0) % MCHC 29.8 L (31.0-37.0) g/dL RDW 19.6 H (11.5-15.5) % Sodium 133 L (137-145) mmol/L Glucose 103 H (74-99) mg/dL Calcium 8.0 L (8.4-10.2) mg/dL Microbiology - Last 24 Hours (Table) 04/21/22 06:15 Gram Stain - Preliminary Sputum Sputum Culture - Preliminary Assessment and Plan Assessment: Assessment Status post endovascular repair of infrarenal abdominal aortic aneurysm along with bilateral femoral artery endarterectomy and patch angioplasty Coronary artery disease with prior revascularization interval of CABG Lower extremities peripheral arterial disease Hypertension Dyslipidemia Plan Continue the current medical regimen Monitor the patient for the next few hours Possible discharge later on today
[2022-04-23] MEDS ORDERED: Potassium Replacement Protocol 1 EACH MISC MISCELLANE PRN (08:43)
[2022-04-23] MEDS: ASPIRIN 81 MG PO SCH (08:52)
[2022-04-23] MEDS: CLOPIDOGREL 75 MG TAB PO SCH (08:52)
[2022-04-23] MEDS: AMIODARONE 100 MG TAB PO SCH (08:52)
[2022-04-23] MEDS: FERROUS SULFATE 325 MG TAB PO SCH (08:52)
[2022-04-23] MEDS: METOPROLOL TARTRATE 25 MG TAB PO SCH (08:53)
[2022-04-23] MEDS: lisinopriL 5 MG TAB PO SCH (08:53)
[2022-04-23] MEDS: KETOROLAC 0.5% OPHTH DROPS 5 ML BTL RIGHT EYE SCH (08:53)
[2022-04-23] MEDS: prednisoLONE ACETATE 1% OPHTH DROPS 5 ML BTL RIGHT EYE SCH (08:54)
[2022-04-23] MEDS: VIT A,C & E-LUTEIN-MINERALS 1 EACH TAB PO SCH (08:54)
[2022-04-23] MEDS ORDERED: FUROSEMIDE 20 MG TAB PO SCH (09:00)
--- NOTE | 2022-04-23 09:24 | XR ---
EXAMINATION TYPE: XR chest 1V portable DATE OF EXAM: 04/23/2022 COMPARISON: 04/22/2022 HISTORY: Tube placement TECHNIQUE: Single frontal view of the chest is obtained. FINDINGS: Postsurgical changes with cardiomegaly. Improving left basilar infiltrate. Right lung is c lear. No overt failure or pneumothorax. IMPRESSION: Improving left basilar infiltrate
[2022-04-23] MEDS ORDERED: POTASSIUM CHLORIDE ER 20 MEQ TAB.ER PO SCH (09:30)
--- NOTE | 2022-04-23 09:49 | P.PN ---
Subjective Progress Note Date: 04/23/22 Principal diagnosis: Abdominal aortic aneurysm, bilateral femoral artery occlusion, bilateral iliac stenosis Patient is seen and examined today as a follow-up in the ICU. He is postop day #3 for EVAR, open bilateral femoral artery cut down, right iliac artery balloon angioplasty, left common iliac artery balloon angioplasty and bilateral external iliac, femoral and profundus endarterectomy with patch angioplasty. Today he is seen sitting up in the bedside chair. He is still requiring 2 L nasal cannula through the night. Bilateral groins with Prevena dressing intact. Patient is able to move bilateral lower extremities. Pain improved. He has had a bowel movement this morning. He is voiding without difficulty. Currently has GEORGETTE hose and SCDs in place. The patient has received Lasix yesterday and again today. Today's repeat hemoglobin 8.3, potassium is trending down. We'll initiate potassium replacement protocol Objective - Vital Signs Vital signs: Vital Signs Temp 98.6 F 04/23/22 08:23 Pulse 78 04/23/22 08:23 Resp 12 04/23/22 08:23 BP 138/77 04/23/22 08:23 Pulse Ox 92 L 04/23/22 08:23 FiO2 40 04/21/22 09:30 Intake & Output 04/22/22 04/23/22 04/23/22 18:59 06:59 18:59 Intake Total 100 200 Output Total 550 600 Balance -450 -400 Weight 123.9 kg Intake: IV 100 200 Sodium Chloride 0.9% 1, 100 200 000 ml @ 20 mls/hr IV . Q24H [facility] Rx#:[id number] Output: Urine 550 600 Other: Voiding Method Toilet Toilet Toilet Urinal Urinal Urinal # Voids 0 2 # Bowel Movements 1 ABP, PAP, CO, CI - Last Documented Arterial Blood Pressure 79/57 - Exam General appearance: Awake sitting up in chair, appears in no acute distress. Lungs: Equal expansion, normal respiratory effort. Diminished. Abdomen: Soft, nontender, nondistended Positive bowel sounds. Extremities: Normal skin color and turgor. No cyanosis, rash, ulceration, clubbing, or edema. Bilateral groins with Prevena dressings intact. Patient has intact bilateral PT and DP Doppler signal. Feet are warm to touch with good capillary refill. GEORGETTE hose and SCDs in place Neurological: Alert and oriented 3. - Labs CBC & Chem 7: 04/23/22 06:34 12 06:34 Labs: Abnormal Lab Results - Last 24 Hours (Table) 04/23/22 04/23/22 Range/Units 06:34 06:34 RBC 3.32 L (4.30-5.90) m/uL Hgb 8.3 L (13.0-17.5) gm/dL Hct 28.0 L (39.0-53.0) % MCHC 29.8 L (31.0-37.0) g/dL RDW 19.6 H (11.5-15.5) % Sodium 133 L (137-145) mmol/L Glucose 103 H (74-99) mg/dL Calcium 8.0 L (8.4-10.2) mg/dL Microbiology - Last 24 Hours (Table) 04/21/22 06:15 Gram Stain - Preliminary Sputum Sputum Culture - Preliminary Assessment and Plan Assessment: 1. Postop day #3 for open bilateral femoral artery cut down, right iliac artery balloon angioplasty, left common iliac artery balloon angioplasty, endovascular aortic repair and bilateral external iliac, femoral and profundus endarterectomy with patch angioplasty 2. Infrarenal abdominal aortic aneurysm 3. Bilateral femoral artery occlusions 4. Bilateral iliac artery severe stenosis 5. Acute blood loss anemia Plan: 1. Continue symptomatic and supportive care 2. Continue with GEORGETTE hose and SCDs 3. Encourage ambulation 4. Replace potassium per protocol 5. Discussed discharge instructions with patient 6. Patient is cleared from vascular surgery for discharge once otherwise medically cleared The impression and plan of care has been dictated as directed. Dr. Wan I performed a history and examination of this patient, discussed the same with the dictator. I agree with the dictator's note ,documented as a scribe. Any additional findings or plans will be noted.
--- NOTE | 2022-04-23 10:20 | P.PN ---
Subjective Progress Note Date: 04/23/22 Principal diagnosis: med management Hospital Course: Patient is a 72-year-old male with history of AAA, peripheral arterial disease, coronary artery disease status post CABG, dyslipidemia, hypertension, aortic stenosis, chronic tobacco use, ischemic cardiomyopathy presented initially for an elective vascular surgery. Patient was found to have intermittent c laudication and aortogram showed infrarenal abdominal aortic aneurysm with critical bilateral iliac disease and critical bilateral femoral disease. He is now status post repair of abdominal aortic aneurysm and bilateral iliac and femoral endarterectomy. He has significant blood loss during the procedure, requiring 4 units of packed RBCs. He was admitted to the ICU intubated and sedated. He also was hypotensive requiring pressors. Patient is now successfully extubated on 04/21. No longer requiring pressors. [facility] has been consulted for medical management. No longer on supplemental oxygen. Subjective: Patient seen and examined at bedside. No acute events overnight. He denies any chest pain, shortness of breath, abdominal pain, bowel or bladder complaints. He still gets occasional right groin pain. He is able to ambulate with a walker. Pertinent positives and negatives as discussed above, a complete review of systems was performed and all other systems are negative. Vitals Signs Reviewed. General: nontoxic, no distress, appears at stated age, obese Derm: warm, dry Head: atraumatic, normocephalic, symmetric Eyes: EOMI, no lid lag, anicteric sclera, pupils equal round reactive to light ENT: Nose and ears atraumatic Neck: No thyromegaly, supple Mouth: no lip lesion, mucus membranes moist Cardiovascular: S1S2 reg, no murmur, no edema Lungs: clear to auscultation bilateral, no rhonchi, no rales, no wheeze, no accessory muscle use Abdominal: soft, distended, nontender to palpation, no guarding, no appreciable organomegaly Ext: no gross muscle atrophy, muscle strength muscle strength 5 out of 5 in all 4 extremities, no contractures, bilateral iliac incisions site appeared dry and intact Neuro: CN II-XII grossly intact Psych: Alert, oriented, appropriate affect Assessment and Plan: Abdominal aortic aneurysm, peripheral arterial disease Status post EVAR, bilateral iliac and femoral endarterectomy Postoperative blood loss anemia requiring 4 units of packed red blood cells History of coronary artery disease status post CABG History of ischemic cardiomyopathy with EF of 30-35% Moderate to severe aortic valve stenosis status post replacement Nicotine dependence COPD -Currently on room air -Patient remains on aspirin, Plavix and statin -Being followed by cardiology and pulmonology -On oral Lasix -Continue on amiodarone, metoprolol -on lisinopril Patient is medically optimized for discharge home. Pending final cardiology recommendations. Thank you for allowing us to participate in the care of this pleasant patient. Do not hesitate to contact us with questions. Someone can be reached from the [facility] hospitalist group all hours of the day at [phone] or via [employer]. Objective - Vital Signs Vital signs: Vital Signs Temp 98.6 F 04/23/22 08:23 Pulse 78 04/23/22 08:23 Resp 12 04/23/22 08:23 BP 138/77 04/23/22 08:23 Pulse Ox 92 L 04/23/22 08:23 FiO2 40 04/21/22 09:30 Intake & Output 04/22/22 04/23/22 04/23/22 18:59 06:59 18:59 Intake Total 100 200 Output Total 550 600 Balance -450 -400 Weight 123.9 kg Intake: IV 100 200 Sodium Chloride 0.9% 1, 100 200 000 ml @ 20 mls/hr IV . Q24H [facility] Rx#:[id number] Output: Urine 550 600 Other: Voiding Method Toilet Toilet Toilet Urinal Urinal Urinal # Voids 0 2 # Bowel Movements 1 ABP, PAP, CO, CI - Last Documented Arterial Blood Pressure 79/57 - Labs CBC & Chem 7: 04/23/22 06:34 04/23/22 06:34 Labs: Abnormal Lab Results - Last 24 Hours (Table) 04/23/22 04/23/22 Range/Units 06:34 06:34 RBC 3.32 L (4.30-5.90) m/uL Hgb 8.3 L (13.0-17.5) gm/dL Hct 28.0 L (39.0-53.0) % MCHC 29.8 L (31.0-37.0) g/dL RDW 19.6 H (11.5-15.5) % Sodium 133 L (137-145) mmol/L Glucose 103 H (74-99) mg/dL Calcium 8.0 L (8.4-10.2) mg/dL Microbiology - Last 24 Hours (Table) 04/21/22 06:15 Gram Stain - Preliminary Sputum Sputum Culture - Preliminary
--- NOTE | 2022-04-23 11:10 | P.PN ---
Subjective Progress Note Date: 04/23/22 This is a 72-year-old male patient who has a history of coronary artery disease with previous coronary artery bypass grafting 3, hyperlipidemia, hypertension, aortic stenosis, chronic tobacco dependence, ischemic cardiomyopathy. He was also found to have intermittent claudication and aortagram with runoff revealed infrarenal abdominal aortic aneurysmwith critical bilateral iliac disease and critical bilateral femoral disease. He was brought in to the hospital yesterday for an elective surgery. He had undergone open bilateral femoral artery cutdown, right iliac artery balloon angioplasty, left common iliac balloon angioplasty with shockwave [place], endovascular aortic repair within 26 mm graft, bilateral external iliac, femoral and profundus endarterectomy with patch angioplasty. Following the procedure he was kept intubated on the mechanical ventilator and transferred to the intensive care unit. He is seen today in consultation He remains intubated on mechanical ventilator and assist control mode at a rate of 14, tidal volume 600, FiO2 40% and a PEEP of 5. Morning blood gases revealed a pO2 of 120, pCO2 48 and a pH of 7.36. He has normal saline at 100 ML's per hour. Propofol 35 mcg/kg/m. Norepinephrine at 4 mcg/m. He does have bilateral Prevena incisional vacs placed. Peripheral pulses are intact. chest x-ray reveals evidence of cardiomegaly and mild pulmonary vascular byron estion. Endotracheal and gastric tubes are in place. he has received 4 units of packed red blood cells. Current hemoglobin 10.8. White count 11.7. Platelets 196. Sodium 137. Potassium 4.6. BUN 17. Creatinine 0.83. Glucose 117. He remains on DuoNeb inhalations. The patient is seen today 04/22/2022 in follow-up in the intensive care unit. He is currently sitting up. Awake and alert in no acute distress. Postoperative day #2. He was extubated yesterday. He is currently on 3 L nasal cannula. This x-ray reveals a left lower lobe infiltrate and small effusion. He is status post 4 units of red blood cells this admission. Current hemoglobin 9.5. White count 9.2. Platelets 149. Sodium 134. Potassium 4.5. Bicarb 20. BUN 10. Creatinine 0.68. If he continues to work with the incentive spirometer. He did receive Lasix 20 mg IVP 1. Normal saline IV decreased to KVO. The patient is seen today 04/23/2022 in follow-up in the intensive care unit. He is currently sitting up in a chair at the bedside. Awake and alert in no acute distress. Maintaining good O2 saturations in the 90s on room air. No IV fluids. He denies any shortness of breath, cough or congestion. No significant pain. Chest x-ray reveals postsurgical changes with cardiomegaly. Improved left basilar infiltrate. Right lung is clear. No failure. No pneumothorax. He is status post 4 units of packed red blood cells this admission. Sputum culture revealed no growth. White count 7.5. Hemoglobin 8.3. Platelets 156. Sodium 133. Potassium 3.7. BUN 11. Creatinine 0.69. Glucose 103. He is c ontinued on Plavix and aspirin. Objective - Vital Signs Vital signs: Vital Signs Temp 98.6 F 04/23/22 08:23 Pulse 78 04/23/22 08:23 Resp 12 04/23/22 08:23 BP 138/77 04/23/22 08:23 Pulse Ox 92 L 04/23/22 08:23 FiO2 40 04/21/22 09:30 Intake & Output 04/22/22 04/23/22 04/23/22 18:59 06:59 18:59 Intake Total 100 200 Output Total 550 600 Balance -450 -400 Weight 123.9 kg Intake: IV 100 200 Sodium Chloride 0.9% 1, 100 200 000 ml @ 20 mls/hr IV . Q24H [facility] Rx#:[id number] Output: Urine 550 600 Other: Voiding Method Toilet Toilet Toilet Urinal Urinal Urinal # Voids 0 2 # Bowel Movements 1 ABP, PAP, CO, CI - Last Documented Arterial Blood Pressure 79/57 - Exam GENERAL EXAM: Awake, alert 72-year-old male patient, on room air, up in a chair, comfortable in no apparent distress. HEAD: Normocephalic. EYES: Normal reaction of pupils, equal size. NOSE: Clear with pink turbinates. THROAT: Oral endotracheal and gastric tube secured in place.No erythema or exudates. NECK: No masses, no JVD. CHEST: No chest wall deformity. LUNGS: Equal air entry with crackles in the left lung base. CVS: S1 and S2 normal with no audible murmur, regular rhythm. ABDOMEN: No hepatosplenomegaly, normal bowel sounds, no guarding or rigidity. SPINE: No scoliosis or deformity SKIN: No rashes CENTRAL NERVOUS SYSTEM: No focal deficits, tone is normal in all 4 extremities. EXTREMITIES: There is no peripheral edema. No clubbing, no cyanosis. Peripheral pulses are intact. - Labs CBC & Chem 7: 04/23/22 06:34 04/23/22 06:34 Labs: Abnormal Lab Results - Last 24 Hours (Table) 04/23/22 04/23/22 Range/Units 06:34 06:34 RBC 3.32 L (4.30-5.90) m/uL Hgb 8.3 L (13.0-17.5) gm/dL Hct 28.0 L (39.0-53.0) % MCHC 29.8 L (31.0-37.0) g/dL RDW 19.6 H (11.5-15.5) % Sodium 133 L (137-145) mmol/L Glucose 103 H (74-99) mg/dL Calcium 8.0 L (8.4-10.2) mg/dL Microbiology - Last 24 Hours (Table) 04/21/22 06:15 Gram Stain - Preliminary Sputum Sputum Culture - Preliminary Assessment and Plan Assessment: Infrarenal abdominal aortic aneurysm, bilateral femoral artery occlusions, bilateral iliac artery severe stenosis. Status post open bilateral femoral artery cutdown, right iliac artery balloon angioplasty, left common iliac artery balloon angioplasty with shockwave balloon, endovascular aortic repair with 26 mm graft, bilateral external iliac, femoral, profundus endarterectomy with patch angioplasty. Postoperative day #3 Hypoxemic respiratory failure, expected outcome of surgery, remained intubated on mechanical ventilator. 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 Number of minutes spent on the visit: 10.
[2022-04-23 14:09] VITALS: BP 139/67; PULSE 68; RESP 23; TEMP 98.4
--- NOTE | 2022-04-26 13:26 | CDI ---
Documentation Clarification Form Date: 04/26/2022 01:10:30 PM From: Ernestina Alvarado Phone: Admit Date: 04/20/2022 08:34:00 AM Patient Name: Byron Jacobs Visit Number: [id number] Discharge Date: 04/23/2022 03:15:00 PM ATTENTION: The Clinical Documentation Specialists (CDI) and [facility] Coding Staff appreciate your assistance in clarifying documentation. Please respond to the clarification below the line at the bottom and electronically sign. The CDI & [facility] Coding staff will review the response and follow-up if needed. Please note: Queries are made part of the Legal Health Record. If you have any questions, please contact the author of this message via ITS. Dr. Piyush Mae Your patient is receiving the following: initiate potassium replacement protocol per Samira BOCANEGRA Progress Note 04/23. Please clarify what condition/diagnosis is being treated. History/Risk Factors: 72yo M, Infrarenal AAA, [place] leg atherosclerosis of [place] arteries, HLD, HTN, smoker, hx [place], CAD sp CABG, prediabetes, COPD, Post op hypoxic RF and ABLA. Clinical indicators: Patient has received Lasix yesterday and again today. Today's repeat hemoglobin 8.3, potassium is trending down. Treatment: initiate potassium replacement protocol What diagnosis are you treating with potassium replacement? [ x ] Hypokalemia [ ] No additional diagnosis [ ] Other, please specify [ ] Unable to determine (Template Last Reviewed: June 2020) MTDD
--- NOTE | 2022-04-26 13:38 | CDI ---
Documentation Clarification Form Date: 04/26/2022 01:27:44 PM From: Ernestina Alvarado Phone: Admit Date: 04/20/2022 08:34:00 AM Patient Name: Byron Jacobs Visit Number: [id number] Discharge Date: 04/23/2022 03:15:00 PM ATTENTION: The Clinical Documentation Specialists (CDI) and [facility] Coding Staff appreciate your assistance in clarifying documentation. Please respond to the clarification below the line at the bottom and electronically sign. The CDI & [facility] Coding staff will review the response and follow-up if needed. Please note: Queries are made part of the Legal Health Record. If you have any questions, please contact the author of this message via ITS. Dr. Piyush Mae Your patient has Hypoxemic respiratory failure, expected outcome of surgery. Based on this information and the findings below, is there an additional diagnosis that is clinically appropriate for this patient? History/Risk Factors: 72yo M, Infrarenal AAA, bilateral femoral artery occlusions, kris iliac artery severe stenosis, ABLA, HTN, HLD, smoker, COPD, ICM, CAD sp CABG Tobacco use: Current some day smoker Clinical Indicators: Vital signs: 04/21/22 08:00 97.9 F 67 14 126/49 99 40 04/21/22 ABG pCO2 48 ABG pO2 120 ABG HCO3 27 ABG Total CO2 29 ABG O2 Sat 99.1 Treatment: remained intubated on mechanical ventilator postoperatively Is there an additional diagnosis that is clinically appropriate for this patient? [ x ] Acute Hypoxic Respiratory Failure (pO2 <60 mm Hg or SpO2 <91% on room air) [ ] Unspecified Hypoxic Respiratory Failure, please specify [ ] Other Hypoxic Respiratory Failure, please specify [ ] Unable to determine (Template Last Revised: July 2020) MTDD
--- NOTE | 2022-04-26 13:48 | CDI ---
Documentation Clarification Form Date: 04/26/2022 01:39:01 PM From: Ernestina Alvarado Phone: Admit Date: 04/20/2022 08:34:00 AM Patient Name: Byron Jacobs Visit Number: [id number] Discharge Date: 04/23/2022 03:15:00 PM ATTENTION: The Clinical Documentation Specialists (CDI) and [facility] Coding Staff appreciate your assistance in clarifying documentation. Please respond to the clarification below the line at the bottom and electronically sign. The CDI & [facility] Coding staff will review the response and follow-up if needed. Please note: Queries are made part of the Legal Health Record. If you have any questions, please contact the author of this message via ITS. Dr. Piyush Mae Type II endoleak is documented Op Note 04/20/22. Additional clarification regarding clinical validity is requested. Patients Admitting Diagnosis: Infrarenal AAA, bilateral femoral artery occlusions, bilateral iliac artery severe stenosis Post-Operative Diagnosis: There appeared to have a quick type II endoleak which was verified with multiple angled angiograms. Procedure performed: Open bilateral femoral artery cutdown. 2. Right iliac artery balloon angioplasty. 3. Left common iliac artery balloon angioplasty with shockwave balloon. 4. Endovascular aortic repair with [place] 26mm graft. 5. Bilateral external iliac, femoral, and profundus endarterectomy with patch angioplasty History/Risk Factors: 72yo M, Infrarenal AAA, bilateral femoral artery occlusions, kris iliac artery severe stenosis, ABLA, HTN, HLD, smoker, COPD, ICM, CAD sp CABG Clinical Indicators: Balloons were removed and pigtail catheter was placed and final angiogram was obtained demonstrating exclusion of the aortic aneurysm without evidence of a type I endoleak. There appeared to have a quick type II endoleak Treatment: All guidewires, catheters and sheaths were removed from the left femoral and attention to femoral endarterectomy and patch was performed. Vascular clamps were placed both proximally and distally and an arteriotomy was extended from the access site. Please clarify if Type II endoleak is a complication of the surgical procedure? [x ] Yes, Other post procedural complications and disorders of the circulatory system, not elsewhere classified [ ] No, Other post procedural complications and disorders of the circulatory system, not elsewhere classified [ ] Clinical finding insignificant [ ] Other, please specify [ ] Unable to determine (Template Last Revised: July 2020) MTDD
== END 2022-04-23 15:15 | disposition home or self-care (01) | DRG 268 ==
LOC: 2ORMAIN 08:34 → 2SICU 16:48
PROVIDERS: ADMIT Internal Medicine Interventional Cardiology; ATTEND Internal Medicine Interventional Cardiology
PROC: 04CL0ZZ Extirpation of Matter from Left Femoral Artery, Open Approach (ICD-10-PCS; 2022-04-20)
PROC: 04CK0ZZ Extirpation of Matter from Right Femoral Artery, Open Approach (ICD-10-PCS; 2022-04-20)
PROC: 04CY0ZZ Extirpation of Matter from Lower Artery, Open Approach (ICD-10-PCS; 2022-04-20)
PROC: 04UJ3JZ Supplement Left External Iliac Artery with Synthetic Substitute, Percutaneous Approach (ICD-10-PCS; 2022-04-20)
PROC: 04U Lower Arteries, Supplement (ICD-10-PCS; 2022-04-20)
PROC: 30233N1 Transfusion of Nonautologous Red Blood Cells into Peripheral Vein, Percutaneous Approach (ICD-10-PCS; 2022-04-20)
PROC: 04V03DZ Restriction of Abdominal Aorta with Intraluminal Device, Percutaneous Approach (ICD-10-PCS; principal; 2022-04-20 11:30)
PROC: 047H0ZZ Dilation of Right External Iliac Artery, Open Approach (ICD-10-PCS; 2022-04-20 11:30)
PROC: 04FD3ZZ Fragmentation of Left Common Iliac Artery, Percutaneous Approach (ICD-10-PCS; 2022-04-20 11:30)
PROC: 04CJ0ZZ Extirpation of Matter from Left External Iliac Artery, Open Approach (ICD-10-PCS; 2022-04-20 11:30)
PROC: 04CH0ZZ Extirpation of Matter from Right External Iliac Artery, Open Approach (ICD-10-PCS; 2022-04-20 11:30)
PROC: 3E033XZ Introduction of Vasopressor into Peripheral Vein, Percutaneous Approach (ICD-10-PCS; 2022-04-21)
PROC: 6A551Z2 Pheresis of Platelets, Multiple (ICD-10-PCS; 2022-04-21)
DX: I71.43 Infrarenal abdominal aortic aneurysm, without rupture (principal); J96.01 Acute respiratory failure with hypoxia; D62 Acute posthemorrhagic anemia; I97.89 Other postprocedural complications and disorders of the circulatory system, not elsewhere classified; J44.9 Chronic obstructive pulmonary disease, unspecified; I11.9 Hypertensive heart disease without heart failure; I70.203 Unspecified atherosclerosis of native arteries of extremities, bilateral legs; I70.8 Atherosclerosis of other arteries; I35.0 Nonrheumatic aortic (valve) stenosis; I95.9 Hypotension, unspecified; E87.6 Hypokalemia; I25.10 Atherosclerotic heart disease of native coronary artery without angina pectoris; I25.5 Ischemic cardiomyopathy; F17.210 Nicotine dependence, cigarettes, uncomplicated; H35.30 Unspecified macular degeneration; R73.03 Prediabetes; E78.5 Hyperlipidemia, unspecified; Z95.1 Presence of aortocoronary bypass graft; I25.2 Old myocardial infarction; Z79.899 Other long term (current) drug therapy; Z79.82 Long term (current) use of aspirin; Z79.02 Long term (current) use of antithrombotics/antiplatelets; Z95.3 Presence of xenogenic heart valve
CPT/HCPCS: 34705; 34812; 36430; 36600; 37220; 71045; 80048; 80053; 82805; 83880; 84484; 85025; 85027; 86850; 86900; 86901; 86920; 87070; 87205; 88304; 88311; 94002; 94003; 94640; C9764